=== PATIENT | male | born 1935 | race Caucasian/White ===

== ENCOUNTER → 2017-07-01 11:22 | Outpatient (CLI) | payer MEDICARE, BC, SELFPAY ==
[2017-07-01 14:22] LABS: AST(SGOT) 19 U/L (15-37); Alanine Aminotransfer ALT/SGPT 29 U/L (16-61); Albumin, Serum 4.1 g/dL (3.2-5.0); Alkaline Phosphatase 59 U/L (45-117); Anion Gap 7 (5-15); BUN 20 mg/dL (7-18); Chloride 102 mmol/L (98-107); Cholesterol 152 mg/dL (200); Creatinine, Serum 0.91 mg/dL (0.70-1.30); EST Glomerular Filtration Rate 85 mL/min (>60); Est Glom Filt Rate - Afr Amer 103 mL/min (>60); Globulin 3.1 g/dL (2.2-4.2); Glucose 99 mg/dL (74-106); High Density Lipoprotein 72 mg/dL; Potassium 3.7 mmol/L (3.5-5.1); Protein, Total 7.2 g/dL (6.4-8.2); Sodium Level 139 mmol/L (136-145); Triglycerides 65 mg/dL; Very Low Density Lipoprotein 13 mg/dL (5-40)
== END ==
PROVIDERS: Internal Medicine Cardiovascular Disease; Family Provider Family Medicine; PCP Family Medicine; Visit Provider Family Medicine
DX: E78.5 Hyperlipidemia, unspecified (principal); I10 Essential (primary) hypertension; Z79.899 Other long term (current) drug therapy
CPT/HCPCS: 36415; 80048; 80061; 80076

== ENCOUNTER → 2017-07-10 10:35 | Outpatient (CLI) | payer MEDICARE, BC, SELFPAY ==
--- NOTE | 2017-07-10 10:37 | ECHOD_ITS ---
Reason For Study: VALVE REPLACEMENT-EVAL Procedure This was a 2D Doppler, Color Flow transthoracic echocardiogram. Exam performed in department. Left Ventricle Normal size and thickness. The estimated ejection fraction is 65 %. Stage 1 diastolic dysfunction. No regional wall motion abnormalities noted. Right Ventricle Normal size and thickness. Normal systolic function. Atria The left atrium is mildly enlarged. Normal right atrium. Normal atrial septum. Bubble contrast study negative for right to left interatrial shunt. Mitral Valve The mitral valve is structurally normal. No prolapse or stenosis seen. Trivial mitral valve insufficiency. Tricuspid Valve Normal tricuspid valve. Mild (1+) tricuspid valve insufficiency. Right ventricular systolic pressure estimated to be 29 mmHg. Aortic Valve Trisinus/trileaflet aortic valve. Moderate diffuse aortic valve thickening. Mild focal aortic valve calcification. Moderate restriction of the aortic valve. Mild aortic stenosis. Peak aortic valve gradient 30 mmHg. Mean aortic valve gradient 18 mmHg. Calculated aortic valve area (continuity equation) is 1.3 cm2. Mild (1+) aortic valve insufficiency. Pulmonic Valve Normal pulmonic valve. Great Vessels Normal aortic root. Normal arch. Normal inferior vena cava. Inferior vena cava collapse with sniff. Pericardium/Pleural No pericardial effusion. Medication 22 gauge I.V. with prn adaptor inserted into right arm. Performed a rapid injection of agitated mix of 9 cc saline and 1cc air to assess for atrial septal defect. MMode/2D Measurements & Calculations LVIDd: 4.9 cm IVSd: 1.3 cm LVOT diam: 2.3 cm LVIDs: 3.4 cm LVPWd: 1.0 cm LVOT area: 4.2 cm2 RVDd: 2.9 cm FS: 31.2 % Ao root diam: 3.0 cm LAV(MOD-bp): 74.7 ml EDV(MOD-sp4): 133.2 ml LAV(MOD-bp) Indexed: 37.4 ml/m2 ESV(MOD-sp4): 51.0 ml LAV(MOD-sp2): 75.8 ml EF(MOD-sp4): 61.7 % LAV(MOD-sp4): 66.9 ml SV(MOD-sp4): 82.2 ml LA A4 area: 21.8 cm2 RA A4 area: 20.4 cm2 Time Measurements MV dec time: 0.17 sec Doppler Measurements & Calculations MV E max bakari: 90.9 cm/sec Lat Peak E' Bakari: 9.1 cm/sec Med Peak E' Bakari: 6.3 cm/sec MV A max bakari: 95.7 cm/sec E/E' lat: 10.0 E/E' med: 14.3 MV E/A: 0.95 Ao V2 max: 272.0 cm/sec AI max bakari: 489.7 cm/sec LV V1 max: 84.8 cm/sec Ao max P.6 mmHg AI max P.9 mmHg LV V1 max P.9 mmHg Ao V2 mean: 203.9 cm/sec AI dec slope: 278.7 cm/sec2 LV V1 mean P.6 mmHg Ao mean P.2 mmHg AI P1/2t: 514.7 msec LV V1 mean: 60.0 cm/sec Ao V2 VTI: 69.5 cm LV V1 VTI: 21.6 cm KEATON(I,D): 1.3 cm2 KEATON(V,D): 1.3 cm2 SV(LVOT): 91.1 ml PA V2 max: 102.7 cm/sec TR max bakari: 246.3 cm/sec TR max P.3 mmHg Interpretation Summary The estimated ejection fraction is 65 %. Stage 1 diastolic dysfunction. The left atrium is mildly enlarged. Trivial mitral valve insufficiency. Mild (1+) tricuspid valve insufficiency. Right ventricular systolic pressure estimated to be 29 mmHg. Mild to moderate aortic stenosis. Peak aortic valve gradient 30 mmHg. Mean aortic valve gradient 18 mmHg. Calculated aortic valve area (continuity equation) is 1.3 cm2. Mild (1+) aortic valve insufficiency. Bubble contrast study negative for right to left interatrial shunt. Compared to echo report dated 08/22/2015, LV function has remained the same, but aortic valve area is slightly worse. Ordering Physician: Jose Francisco Patel Referring Physician: PAULA LAZARO Performed By: Joleen Toro RDCS
== END ==
PROVIDERS: Family Provider Family Medicine; PCP Family Medicine; Visit Provider Internal Medicine Cardiovascular Disease
DX: I35.0 Nonrheumatic aortic (valve) stenosis (principal)
CPT/HCPCS: 93306; A4216

== ENCOUNTER → 2017-07-13 18:08 | Outpatient (CLI) | payer MEDICARE, BC, SELFPAY | PROVIDERS: Family Provider Family Medicine; PCP Family Medicine; Visit Provider Family Medicine | DX: R30.0 Dysuria (principal) | CPT/HCPCS: 87086; 87088 ==

== ENCOUNTER → 2017-08-13 14:00 | Outpatient (CLI) | payer MEDICARE, BC, SELFPAY ==
--- NOTE | 2017-08-13 14:00 | DT_ITS ---
This patient was seen during an EMR downtime August 10, 2017 - August 17, 2017. This patient may have a combination of paper and electronic documentation or all paper documentation. All documentation is viewable within the e-chart portion of [facility] for each patient visit.
--- NOTE | 2017-08-22 09:40 | LEAS ---
Arterial Study - Arterial Study Arterial Study: This is an 82-year-old male with a history of hypertension and hyperlipidemia. The patient presents with lower extremity pain and symptoms suggestive of arterial insufficiency. Suspecting the presence of atherosclerotic peripheral arterial occlusive disease, the patient was brought to the noninvasive vascular laboratory at this time for the purpose of bilateral noninvasive lower extremity arterial assessment. Doppler signal assessment was used to evaluate the pulses at ankle level bilaterally. The posterior tibial and dorsalis pedis pulses were biphasic bilaterally. Segmental limb pressures were obtained bilaterally. Ankle pressures, as determined by posterior tibial pulse, could not be determined on either side due to the noncompressibility of the vasculature. The right ankle pressure, as determined by dorsalis pedis pulse, was measured at 211 mmHg. The right digital pressure was measured at 120 mmHg. The left ankle pressure, as determined by dorsalis pedis pulse, was measured at 215 mmHg. The left digital pressure was measured at 68 mmHg. Pulse-volume recordings were obtained at ankle and digital levels bilaterally. Waveform amplitudes appeared to be satisfactory bilaterally. Resting ankle-brachial indices were calculated bilaterally. The resting right ankle-brachial index was calculated to be 1.14. The resting left ankle-brachial index was calculated to be 1.16. Digital-brachial indices were calculated bilaterally. The right digital-brachial index was calculated to be 0.65. The left digital-brachial index was calculated to be 0.37. Impression: Based upon the findings of this resting noninvasive lower extremity arterial study, arterial perfusion appears to be relatively normal to ankle level bilaterally. Biphasic waveforms were noted at ankle level bilaterally. Resting ankle-brachial indices are bilaterally normal. However, there is evidence of arterial calcification, rendering the arterial tree noncompressible based upon posterior tibial pulses. The presence of arterial calcification can artifactually elevate ankle pressures, rendering ankle-brachial indices non-reliable in determining the presence of arterial occlusive disease. Therefore, clinical correlation is advised. The right digital-brachial index is mildly diminished, suggesting mild impairment of arterial flow at digital level on the right. The left digital-brachial index is moderately to severely diminished, suggesting moderate to severe impairment of arterial flow at digital level in the left lower extremity.
--- NOTE | 2017-08-22 09:48 | LEAS_ITS ---
Arterial Study - Arterial Study Arterial Study: This is an 82-year-old male with a history of hypertension and hyperlipidemia. The patient presents with lower extremity pain and symptoms suggestive of arterial insufficiency. Suspecting the presence of atherosclerotic peripheral arterial occlusive disease, the patient was brought to the noninvasive vascular laboratory at this time for the purpose of bilateral noninvasive lower extremity arterial assessment. Doppler signal assessment was used to evaluate the pulses at ankle level bilaterally. The posterior tibial and dorsalis pedis pulses were biphasic bilaterally. Segmental limb pressures were obtained bilaterally. Ankle pressures, as determined by posterior tibial pulse, could not be determined on either side due to the noncompressibility of the vasculature. The right ankle pressure, as determined by dorsalis pedis pulse, was measured at 211 mmHg. The right digital pressure was measured at 120 mmHg. The left ankle pressure, as determined by dorsalis pedis pulse, was measured at 215 mmHg. The left digital pressure was measured at 68 mmHg. Pulse-volume recordings were obtained at ankle and digital levels bilaterally. Waveform amplitudes appeared to be satisfactory bilaterally. Resting ankle-brachial indices were calculated bilaterally. The resting right ankle-brachial index was calculated to be 1.14. The resting left ankle- brachial index was calculated to be 1.16. Digital-brachial indices were calculated bilaterally. The right digital- brachial index was calculated to be 0.65. The left digital-brachial index was calculated to be 0.37. Impression: Based upon the findings of this resting noninvasive lower extremity arterial study, arterial perfusion appears to be relatively normal to ankle level bilaterally. Biphasic waveforms were noted at ankle level bilaterally. Resting ankle-brachial indices are bilaterally normal. However, there is evidence of arterial calcification, rendering the arterial tree noncompressible based upon posterior tibial pulses. The presence of arterial calcification can artifactually elevate ankle pressures, rendering ankle-brachial indices non- reliable in determining the presence of arterial occlusive disease. Therefore, clinical correlation is advised. The right digital-brachial index is mildly diminished, suggesting mild impairment of arterial flow at digital level on the right. The left digital-brachial index is moderately to severely diminished, suggesting moderate to severe impairment of arterial flow at digital level in the left lower extremity.
== END ==
PROVIDERS: Family Provider Family Medicine; PCP Family Medicine; Visit Provider Family Medicine
DX: R09.89 Other specified symptoms and signs involving the circulatory and respiratory systems (principal); M79.606 Pain in leg, unspecified
CPT/HCPCS: 93922

== ENCOUNTER → 2019-01-07 | Outpatient (CLI) | payer MEDICARE, BC, SELFPAY ==
[2018-12-20 14:10] VITALS: BMI 31.0
--- NOTE | 2019-01-07 14:53 | ECHOD_ITS ---
Reason For Study: Aortic Stenosis Procedure This was a 2D Doppler, Color Flow transthoracic echocardiogram. Exam performed in department. Left Ventricle Moderate concentric left ventricular hypertrophy. The estimated ejection fraction is 65 %. Stage 1 diastolic dysfunction. No regional wall motion abnormalities noted. Right Ventricle Normal size and thickness. Normal systolic function. Atria The left atrium is moderately enlarged. Normal right atrium. Normal atrial septum. Mitral Valve The mitral valve is structurally normal. No prolapse or stenosis seen. Tricuspid Valve Normal tricuspid valve. Trivial tricuspid valve insufficiency. Unable to estimate RV systolic pressure due to insufficient tricuspid regurgitant envelope. Aortic Valve Trisinus/trileaflet aortic valve. Moderate diffuse aortic valve thickening. Mild restriction of the aortic valve. Mild to moderate aortic stenosis. Peak aortic valve gradient 33 mmHg. Mean aortic valve gradient 15 mmHg. Calculated aortic valve area (continuity equation) is 1.1 cm2. Trivial aortic valve insufficiency. Pulmonic Valve Normal pulmonic valve. Trivial pulmonic valve insufficiency. Great Vessels Calcified aortic root. Normal arch. Normal inferior vena cava. Inferior vena cava collapse with sniff. Pericardium/Pleural No pericardial effusion. MMode/2D Measurements & Calculations LVIDd: 4.5 cm IVSd: 1.6 cm LVOT diam: 2.2 cm LVIDs: 2.5 cm LVPWd: 1.3 cm LVOT area: 3.7 cm2 FS: 43.2 % Ao root diam: 3.9 cm LAV(MOD-bp): 75.5 ml LA A4 area: 24.0 cm2 LA dimension: 4.3 cm LAV(MOD-bp) Indexed: 36.2 ml/m2 LAV(MOD-sp2): 74.0 ml LAV(MOD-sp4): 75.4 ml RA A4 area: 18.2 cm2 Time Measurements MV dec time: 0.39 sec Doppler Measurements & Calculations MV E max bakari: 57.3 cm/sec Lat Peak E' Bakari: 9.0 cm/sec Med Peak E' Bakari: 4.7 cm/sec MV A max bakari: 91.8 cm/sec E/E' lat: 6.4 E/E' med: 12.2 MV E/A: 0.62 Ao V2 max: 287.9 cm/sec AI max bakari: 463.3 cm/sec LV V1 max: 79.9 cm/sec Ao max P.2 mmHg AI max P.0 mmHg LV V1 max P.6 mmHg Ao V2 mean: 179.6 cm/sec AI dec slope: 209.0 cm/sec2 LV V1 mean P.2 mmHg Ao mean P.4 mmHg AI P1/2t: 649.4 msec LV V1 mean: 50.9 cm/sec Ao V2 VTI: 62.4 cm LV V1 VTI: 18.2 cm KEATON(I,D): 1.1 cm2 KEATON(V,D): 1.0 cm2 SV(LVOT): 67.2 ml PA V2 max: 85.7 cm/sec PI end-d bakari: 170.5 cm/sec Interpretation Summary Moderate concentric left ventricular hypertrophy. The estimated ejection fraction is 65 %. Stage 1 diastolic dysfunction. The left atrium is moderately enlarged. Trivial tricuspid valve insufficiency. Unable to estimate RV systolic pressure due to insufficient tricuspid regurgitant envelope. Mild to moderate aortic stenosis based on KEATON calculated to be 1.1, despite mild gradients. Peak aortic valve gradient 33 mmHg. Mean aortic valve gradient 15 mmHg. Trivial aortic valve insufficiency. Compared to echo report dated 07/10/2017, LV function has remained the same, but KEATON appears to be slightly worse. Ordering Physician: Jose Francisco Patel Referring Physician: Lico Mo Performed By: Naveen Marley RCS
== END | disposition home or self-care (01) ==
LOC: CVS 14:52
PROVIDERS: Family Provider Family Medicine; PCP Family Medicine; Referring Provider Internal Medicine Cardiovascular Disease; Visit Provider Internal Medicine Cardiovascular Disease
DX: I35.0 Nonrheumatic aortic (valve) stenosis (principal); I10 Essential (primary) hypertension; Z95.2 Presence of prosthetic heart valve
CPT/HCPCS: 93306

== ENCOUNTER → 2019-01-14 | Outpatient (CLI) | payer MEDICARE, BC, SELFPAY ==
[2018-12-20 14:10] VITALS: BMI 31.0
[2019-01-14 12:36] LABS: Anion Gap 8 (5-15); BUN 21 mg/dL (7-18); BUN/Creat Ratio 21.7 RATIO (10-20); Calcium,Total 9.1 mg/dL (8.5-10.1); Chloride 104 mmol/L (98-107); Cholesterol 160 mg/dL (200); Creatinine, Serum 0.97 mg/dL (0.70-1.30); EST Glomerular Filtration Rate 79 mL/min (>60); Est Glom Filt Rate - Afr Amer 96 mL/min (>60); Glucose 87 mg/dL (74-106); High Density Lipoprotein 65 mg/dL; PSA,Total - Annual Screen 1.06 ng/mL (0.00-4.00); Potassium 3.8 mmol/L (3.5-5.1); Sodium Level 142 mmol/L (136-145); Triglycerides 93 mg/dL; Very Low Density Lipoprotein 19 mg/dL (5-40)
== END | disposition home or self-care (01) ==
LOC: MTLAB 10:39
PROVIDERS: Family Provider Family Medicine; PCP Family Medicine; Referring Provider Family Medicine; Visit Provider Family Medicine
DX: N40.0 Benign prostatic hyperplasia without lower urinary tract symptoms (principal); I10 Essential (primary) hypertension; Z12.5 Encounter for screening for malignant neoplasm of prostate
CPT/HCPCS: 36415; 80048; 80061; 84153; G0103

== ENCOUNTER → 2019-07-14 | Outpatient (CLI) | payer MEDICARE, BC, SELFPAY ==
[2018-12-20 14:10] VITALS: BMI 31.0
[2019-07-14 15:44] LABS: Anion Gap 6 (5-15); BUN 20 mg/dL (7-18); BUN/Creat Ratio 19.4 RATIO (10-20); Chloride 102 mmol/L (98-107); Creatinine, Serum 1.03 mg/dL (0.70-1.30); EST Glomerular Filtration Rate 73 mL/min (>60); Est Glom Filt Rate - Afr Amer 89 mL/min (>60); Glucose 104 mg/dL (74-106); Potassium 3.7 mmol/L (3.5-5.1); Sodium Level 139 mmol/L (136-145)
== END | disposition home or self-care (01) ==
LOC: MTLAB 14:11
PROVIDERS: PCP Family Medicine; Referring Provider Family Medicine; Visit Provider Family Medicine
DX: I10 Essential (primary) hypertension (principal)
CPT/HCPCS: 36415; 80048

== ENCOUNTER 2020-01-21 10:05 | Observation (INO) | payer MEDICARE, BC, SELFPAY ==
[2019-12-07 13:35] VITALS: BMI 31.9
[2020-01-21] VITALS (9 sets, daily range): BP systolic 159–196; BP diastolic 63–107; PULSE 54–70; RESP 9–18; TEMP 36.2–36.7; O2SAT 93–95; BMI 31.1; BMI 30.5
--- NOTE | 2020-01-21 10:16 | CT_ITS ---
STUDY: CT BRAIN WITHOUT CONTRAST REASON FOR EXAM: Male, 84 years old. Gait imbalance, dizziness since last night, fell 4 days ago hitting right parietal area, right eye hematoma. Hx hypertension, colon cancer. RADIATION DOSAGE (If Supplied By Facility): CTDIvol = ( 44.99 ) mGy, DLP = ( 798.92 ) mGycm TECHNIQUE: Transaxial CT imaging of the brain was performed without administration of intravenous contrast material. Individualized dose optimization techniques were used for this CT. COMPARISON: None. FINDINGS: There is cerebral atrophy with widening of the extra-axial spaces and ventricular dilatation. There are areas of decreased attenuation within the white matter tracts of the supratentorial brain, consistent with microvascular disease changes. There is no intracranial hemorrhage. There are no findings of an acute ischemic infarction. There is a left frontal parietal scalp soft tissue swelling and hematoma. CT/Brain/Head without Contrast IMPRESSION: No intracranial hemorrhage. Left scalp hematoma. Electronically Signed: Lenora Avery MD at 11:06 EST Tel , Service support ,
--- NOTE | 2020-01-21 10:17 | EKG12_ITS ---
Test Reason : Blood Pressure : / mmHG Vent. Rate : 063 BPM Atrial Rate : 063 BPM P-R Int : 206 ms QRS Dur : 102 ms QT Int : 430 ms P-R-T Axes : 043 014 038 degrees QTc Int : 440 ms Normal sinus rhythm Normal ECG Confirmed by TONY VAZQUEZ, PAULA ([id number]), writer editor MAYA NUNO ([id number]) on 01/24/2020 12:49:47 PM Referred By: MIKE Confirmed By:PAULA JIMENEZ MD
--- NOTE | 2020-01-21 10:31 | ED.VIS.GEN ---
History of Present Illness Informant: Patient Onset: Today Narrative: 84-year-old male with past medical history of hypertension, hyperlipidemia, aortic stenosis presents with gait imbalance. He states he got up twice overnight to use the bathroom and felt off balance when he was walking. This has been persistent since he got up this morning. Denies vertigo. Denies vision changes, speech changes, weakness, numbness, or tingling. He does feel nauseous today and was unable to take his home BP meds. Denies chest pain, shortness of breath, cough, vomiting, abdominal pain, back pain, or bladder/bowel symptoms. He otherwise feels in good health. Nuys history of stroke/TIA. He does not take aspirin or blood thinner. He did have a mechanical fall several days ago and hit his head, but denies losing consciousness. He has bruising around the left eye from this fall. <Kelin Copeland - Last Filed: 01/21/20 11:46> <Lico Cuadra - Last Filed: 01/21/20 12:57> Chief Complaint: Dizziness Past Medical History Past Medical History: - - HTN, HLD, aortic stenosis Smoking Status: Former smoker <Kelin Copeland - Last Filed: 01/21/20 11:46> <Lico Cuadra - Last Filed: 01/21/20 12:57> - Allergies and Home Meds Allergies/Adverse Reactions: Allergies No Known Allergies Allergy (Verified 01/21/20 10:05) Review of Systems General: Denies: Chills, Fever, Sweats Eyes: Denies: Visual changes - bilaterally, Diplopia ENT: Denies: Rhinorrhea, Sore throat Cardiovascular: Denies: Chest pain, Palpitations Respiratory: Denies: Dyspnea, Cough, Dyspnea on exertion Gastrointestinal: Denies: Abdominal pain, Nausea, Vomiting, Diarrhea, Melena, Hematochezia Genitourinary: Denies: Dysuria, Hematuria, Frequency Musculoskeletal: Denies: Back pain, Extremity Pain Skin: Denies: Rash, Wounds Neurological: Denies: Headache, Weakness, Parasthesia, Numbness <Kelin Copeland - Last Filed: 01/21/20 11:46> Physical Exam Vital Signs/Narrative: Vital Signs Temp Pulse Resp BP Pulse Ox 01/21/20 10:06 98.0 F 70 18 196/107 H 94 Inital Vital Signs reviewed: Yes General: Well nourished, Well developed, No Acute Distress Head: Normocephalic, Atraumatic Eyes: Perrl, EOMI ENT: Moist mucous membranes, No rhinorrhea Neck: Supple, Nontender Cardiovascular: Regular rate, Regular rhythm, Murmur, - - aortic stenosis Respiratory: No distress, CTA bilaterally, Chest nontender Abdomen: Soft, Nontender, Nondistended, Normal bowel sounds Back: Nontender, Normal Inspection Extremities: Nontender, No edema Skin: Normal color, No rash Neurological: Alert, Oriented x3, Cranial nerves II-XII grossly intact, Normal Strength, Normal Sensation, - - Symmetric smile. No upper or lower extremity drift. Normal duqizl-or-adiy and chso-sl-wvmv. Normal strength and sensation. Positive Romberg.. Negative for: Parasthesia, Weakness Psychological: Normal affect, Normal Mood <Kelin Copeland - Last Filed: 01/21/20 11:46> Vital Signs/Narrative: Vital Signs Temp Pulse Resp BP Pulse Ox 01/21/20 10:06 98.0 F 70 18 196/107 H 94 <Lico Cuadra - Last Filed: 01/21/20 12:57> Diagnostic/Tx/Re-eval Clinical Impression(s) from Imaging Studies Brain CT 01/21/20 10:16 IMPRESSION: No intracranial hemorrhage. Left scalp hematoma. Electronically Signed: Lenora Avery MD at 11:06 EST Tel , Service support , Chest X-Ray 01/21/20 10:50 IMPRESSION: No active pulmonary disease. Electronically Signed: Hollis Crocker MD at 11:12 EST Tel , Service support , Laboratory Data 01/21/20 01/21/20 10:30 10:30 WBC 4.8 RBC 4.39 L Hgb 13.8 Hct 43.2 MCV 98.4 H MCH 31.4 MCHC 31.9 L RDW Std Deviation 45.7 H RDW Coeff of Katlin 12.6 Plt Count 181 MPV 11.0 Immature Gran % (Auto) 0.200 Neut % (Auto) 59.1 Lymph % (Auto) 30.6 [place] % (Auto) 9.3 Eos % (Auto) 0.8 Baso % (Auto) 0.0 Absolute Neuts (auto) 2.9 Absolute Lymphs (auto) 1.48 Nucleated RBC % 0 Sodium 140 Potassium 4.0 Chloride 103 Carbon Dioxide 30.0 Anion Gap 7 BUN 21 H Creatinine 0.84 Estim Creat Clear Calc 67.80 Est GFR (MDRD) Af Amer 112 Est GFR (MDRD) Non-Af 92 BUN/Creatinine Ratio 24.9 H Glucose 99 Calcium 8.7 - Rhythm Strip Rhythm Strip: Sinus Rhythm Rate: 63 - Medical Decision Making Patient presented with gait imbalance that started overnight. He appears well nontoxic. Vital signs show BP of 196/107, otherwise normal. He did not take his home BP meds and is on several different antihypertensives. He was given clonidine and hydralazine. He has a normal neurological exam with the exception of a positive Romberg. NIH is 0. Labs are unremarkable. EKG NSR with no ischemia. CXR negative. CT brain shows no acute hemorrhage or infarction. He was given aspirin 325 mg. Patient is very unsteady with ambulation. He will need admitted for stroke work up. Case discussed with hospitalist and he was agreeable and transferred to the floor in stable condition. Impression 1. Gait instability 2. CVA rule out <Kelin Copeland - Last Filed: 01/21/20 11:46> - Medical Decision Making Patient presents with disequilibrium. He has normal cerebellar function when he lays in bed but when I stand him up he has a positive Romberg and is quite unsteady. Because of this I am worried about posterior stroke. I will admit him for stroke work-up. <Lico Cuadra - Last Filed: 01/21/20 12:57> ED Disposition <Kelin Copeland - Last Filed: 01/21/20 11:46> <Lico Cuadra - Last Filed: 01/21/20 12:57> - Plan for ED Patient: Disposition: Acute Care Hospital [facility] Diagnosis: Gait instability
[2020-01-21] MEDS: cloNIDine HCl 0.1 MG Tablet PO (10:44)
[2020-01-21] MEDS: hydrALAZINE 20 MG/ML Vial 5 MG IV (10:45)
[2020-01-21 10:46] LABS: Absolute Lymphocyte Count 1.48 X10^3/uL (0.83-4.51); Absolute Neutrophil Count 2.9 X10^3/uL (2.0-7.7); Eosinophil# 0.04 X10^3/uL; Eosinophils% 0.8 % (0-5); Hematocrit 43.2 % (40-54); Hemoglobin 13.8 g/dL (13.0-16.5); Lymphocyte # 1.48 X10^3/ul (4.0); Lymphocyte % 30.6 % (19-41); Mean Corp Hgb Conc 31.9 g/dL (32-36); Mean Corpuscular Hgb 31.4 pg (27.0-32.0); Mean Corpuscular Volume 98.4 fL (80-94); Monocyte# 0.45 X10^3/uL; Monocyte% 9.3 % (0-10); NRBC Flagged by Analyzer 0 % (0-5); Neutrophil # 2.85 X10^3/uL (2.7-7.7); Neutrophil % 59.1 % (47-70); Platelet Count 181 K/mm3 (150-450); RBC Distribution Width CV 12.6 % (11.6-14.6); RBC Distribution Width SD 45.7 fl (35.1-43.9); Red Blood Count 4.39 M/mm3 (4.6-6.2); White Blood Count 4.8 K/mm3 (4.4-11.0)
--- NOTE | 2020-01-21 10:50 | RAD_ITS ---
STUDY: X-RAY CHEST REASON FOR EXAM: Male, 84 years old. Dizziness since last night TECHNIQUE: Single AP portable view of the chest. COMPARISON: 09/27/2012. FINDINGS: The lungs are clear and expanded. There is no demonstrated pleural abnormality. Normal size heart. Normal mediastinum and lindsay. Normal visualized pulmonary arteries. There is atherosclerotic calcification of the aortic arch. Normal visualized thoracic spine. Normal visualized ribs, clavicles, and shoulders. There is no demonstrated abnormality of the visualized soft tissue structures of the upper abdomen. RAD/Chest 1 View (Portable) IMPRESSION: No active pulmonary disease. Electronically Signed: Hollis Crocker MD at 11:12 EST Tel , Service support ,
[2020-01-21 11:01] LABS: Anion Gap 7 (5-15); BUN 21 mg/dL (7-18); BUN/Creat Ratio 24.9 RATIO (10-20); Calcium,Total 8.7 mg/dL (8.5-10.1); Chloride 103 mmol/L (98-107); Creatinine, Serum 0.84 mg/dL (0.70-1.30); EST Glomerular Filtration Rate 92 mL/min (>60); Est Glom Filt Rate - Afr Amer 112 mL/min (>60); Glucose 99 mg/dL (74-106); Sodium Level 140 mmol/L (136-145)
[2020-01-21 11:32] LABS: Color, Urine Straw (Yellow); Glucose, Dipstick Normal (Normal); Ketone-Dipstick 5 mg/dl (Negative); Leukocyte Esterase-Dipstick Negative /ul (Negative); Nitrite-Dipstick Negative (Negative); Occult Blood-Urine Negative /ul (Negative); Protein-Dipstick 15 mg/dl (Negative); Urine Bilirubin Dipstick Negative (Negative); Urine Clarity Clear (Clear); Urine Urobilinogen 4 mg/dl (Normal)
[2020-01-21 11:33] LABS: Mucous, Urine 0 SEEN /hpf (<or=2+); Red Blood Cells-Urine 0 SEEN /hpf (0-5); Squamous Epithelial Cells - UA 0 SEEN /hpf (0-5); White Blood Cells 0 SEEN /hpf (0-5)
[2020-01-21 11:48] LABS: Bacteria 1+ /hpf (None Seen)
[2020-01-21] MEDS: Aspirin 325 MG Tablet PO (11:49)
--- NOTE | 2020-01-21 13:51 | HP.PCM_ITS ---
<Trevor Webber - Last Filed: 01/21/20 13:51> Problem List (1) Dizziness Status: Acute (2) Essential hypertension Status: Chronic (3) Non-rheumatic aortic stenosis Status: Chronic (4) Hyperlipidemia Status: Chronic Qualifiers: Hyperlipidemia type: pure hypercholesterolemia Qualified Code(s): E78.00 - Pure hypercholesterolemia, unspecified History of Present Illness Date of Admission: 01/21/20 Chief Complaint: dizzziness The patient is a 84 year old M with past medical history of aortic stenosis, colorectal cancer in remission, hypertension, hyperlipidemia who presented to the emergency room with complaints of dizziness. The patient had a fall on Thursday. On Thursday he was walking up stairs at his home, his legs became weak and he collapsed falling down the stairs striking his head on the left side the frontotemporal area. Since then he has had a headache in the same area. He did not have dizziness until this morning though. Today he woke up at approximately 2 AM and was dizzy when he stood up. He laid back down and went to sleep, woke up at about 830 and had ongoing dizziness prompting him to present to the ER. He denies vision changes, double vision, blurry vision, focal weakness, difficulty swallowing, slurred speech, facial droop. 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 Osteoporosis M81.0 Allergies No Known Allergies Allergy (Verified 01/21/20 10:05) Home Medications: Ambulatory Orders Medication Instructions Recorded Calcium Mag Zinc 1,000 mg PO DAILY 06/26/16 Carvedilol [Coreg] 25 mg PO BID 06/26/16 Cholecalciferol (Vitamin D3) 1,000 unit PO DAILY 06/26/16 [Vitamin D3] Cyanocobalamin (Vitamin B-12) 1,000 mcg PO DAILY 06/26/16 [Vitamin B-12] Dextrin [Fiber] tablet PO DAILY 06/26/16 Guanfacine HCl [Tenex] 2 mg PO DAILY 06/26/16 Multivit-Min/FA/Lycopen/Lutein 1 ea PO DAILY 06/26/16 [Centrum Silver Men Tablet] [place]-3/Dha/Epa/Fish Oil [Fish Oil 1 ea PO DAILY 06/26/16 1,400 mg Softgel] Simvastatin [Zocor] 20 mg PO QHS 06/26/16 Tamsulosin HCl [Flomax] 0.4 mg PO DAILY 06/26/16 traMADol [Ultram (G)] 100 mg PO DAILY 06/26/16 biotin 300 mcg tablet 500 mcg PO QDAY tab 06/22/17 clonidine HCl 0.1 mg tablet 0.1 mg PO TID tab 06/22/17 hydralazine 25 mg tablet 25 mg PO 4X/DAY tab 06/22/17 potassium chloride 10 mEq 10 meq PO QDAY 06/22/17 capsule,extended release terazosin 1 mg capsule 1 mg PO QDAY 06/22/17 sertraline 100 mg tablet 100 mg PO QDAY 10/14/17 pyridoxine (vitamin B6) 100 mg 100 mg PO DAILY 06/04/18 tablet diphenhydramine HCl 25 mg capsule 50 mg PO QHS cap 12/20/18 losartan 50 mg tablet 50 mg PO BID 12/07/19 Furosemide [Lasix] 40 mg PO DAILY 01/21/20 Surgical History: Surgical History (Last Reviewed 12/20/18 @ 14:24 by Jany Petit) History of colectomy Z90.49 History of open reduction and internal fixation (ORIF) procedure Z98.890 left femur Surgical History: total hip arthroplasty, - - Colectomy Psychiatric History: No pertinent psych hx Lives: Spouse/ Significant Other Smoking Status: Former smoker Tobacco Use: Pipe Alcohol: Occasional - Patient drinks at least 2 drinks per day, one with dinner, and one right before going to bed. Drugs: None - *Family History Paternal Family History: Family History (Last Reviewed 12/20/18 @ 14:24 by Jany Petit) Father Cancer History Items: Cancer - Lung cancer Review of Systems Constitutional: Denies: Chills, Fever, Weight Change HEENT: Denies: Head Aches, Sinus Congestion, Sinus Drainage Cardiovascular: Denies: Chest Pain, Palpitations Respiratory: Denies: Cough, Shortness of breath at rest, Sputum production Gastrointestinal: Denies: Abdominal Pain, Nausea, Vomiting Genitourinary: Denies: Dysuria Musculoskeletal: Denies: Joint Pain, Joint Tenderness Skin: Denies: Rash, Wounds Neurological: Reports: Headaches, - - Dizziness. Denies: Blurred vision, Double vision, Slurred speech, Confusion, Focal weakness, Numbness, Tingling Psychiatric: Denies: Anxiety, Depression, Homicidal Ideations, Suicidal Ideations Hematologic/ Lymphatic: Denies: Easy Bruising, Easy Bleeding VTE Information - Inpt Only VTE Present on Admission: No VTE Mechan Device Prophylaxis: None VTE Pharm Prophylaxis ordered?: Yes Patient Problems: Active and Suspected Problems (Last Reviewed 12/20/18 @ 14:24 by Jany Petit) Gait instability (Acute) Dizziness (Acute) - Physical Exam Vitals/I&O's: Vital Signs Temp Pulse Resp BP Pulse Ox 98.0 F 61 18 166/80 H 94 01/21/20 12:38 01/21/20 12:38 01/21/20 12:38 01/21/20 12:38 01/21/20 12:38 Oxygen Delivery Method Room Air Weight: 206 lb 12.8 oz Body Mass Index (BMI) 30.5 General: Alert, Oriented x3, Cooperative HEENT: Atraumatic, PERRLA, EOMI, Normocephalic Neck: Supple, No JVD, Negative Carotid Bruits Lungs: Clear to auscultation, Normal air movement Cardiovascular: Regular rate, No murmurs Abdomen: Bowel Sounds Present, Soft, Non Tender Extremities: No edema, Capillary Refill Less than 3 Seconds Skin: No rashes, No breakdown Musculoskeletal: No Tenderness to Palpation of Joints or Extremities Neurological: Cranial nerves II-XII grossly intact Psych/Mental Status: Normal Affect, Appropriate Laboratory Results 01/21/20 10:30: WBC 4.8, RBC 4.39 L, Hgb 13.8, Hct 43.2, MCV 98.4 H, MCH 31.4, MCHC 31.9 L, RDW Std Deviation 45.7 H, RDW Coeff of [place] 12.6, Plt Count 181, MPV 11.0, Immature Gran % (Auto) 0.200, Neut % (Auto) 59.1, Lymph % (Auto) 30.6, [place] % (Auto) 9.3, Eos % (Auto) 0.8, Baso % (Auto) 0.0, Absolute Neuts (auto) 2.9, Absolute Lymphs (auto) 1.48, Nucleated RBC % 0 01/21/20 10:30: Sodium 140, Potassium 4.0, Chloride 103, Carbon Dioxide 30.0, Anion Gap 7, BUN 21 H, Creatinine 0.84, Estim Creat Clear Calc 67.80, Est GFR (MDRD) Af Amer 112, Est GFR (MDRD) Non-Af 92, BUN/Creatinine Ratio 24.9 H, Glucose 99, Calcium 8.7 01/21/20 11:20: Urine Color Straw, Urine Clarity Clear, Urine pH 7.0, Ur Specific [place] 1.010, Urine Protein 15 H, Urine Glucose (UA) Normal, Urine Ketones 5 H, Urine Occult Blood Negative, Urine Nitrite Negative, Urine Bilirubin Negative, Urine Urobilinogen 4 H, Ur Leukocyte Esterase Negative, Urine RBC 0 SEEN, Urine WBC 0 SEEN, Ur Squamous Epith Cells 0 SEEN, Urine Bacteria 1+, Urine Mucus 0 SEEN Current Medications Aspirin (Aspirin 81 Mg Tab.Chew) 81 mg PO DAILY@0800 [facility] Atorvastatin Calcium (Atorvastatin Calcium 80 Mg Tablet) 80 mg PO QHS [facility] Enoxaparin Sodium (Enoxaparin 40 Mg/0.4 Ml Syringe) 40 mg SC DAILY [facility] Hydralazine HCl (Hydralazine 20 Mg/Ml Vial) 5 mg IV Q30M PRN PRN Reason: to maintain BP goals Labetalol HCl (Labetalol (Prefilled) 20 Mg/4 Ml) 10 - 20 mg IV Q10M PRN PRN PRN Reason: to Maintain BP Goals Sodium Chloride (0.9% Saline Lock 10 Ml Syringe) 10 - 40 ml IV UD PRN PRN Reason: SALINE FLUSH Assessment/Plan All Active Problems (Last Reviewed 12/20/18 @ 14:24 by Jany Petit) Gait instability (Acute) Dizziness (Acute) 1. Dizziness. Started this morning approximately [address] of the brain is negative for acute bleed. Patient has had headache on the left side of his head since he fell down a flight of stairs on Thursday striking his head in the same area of his headache. He does have a left scalp hematoma present on CT of the brain. He may have a postconcussive syndrome. Will obtain MRI of the brain. P T OT eval's. Dizziness was also present on standing so we will check orthostatic and have PT see for vestibular therapy. Will provide meclizine as needed. Continue aspirin statin. Obtain PT OT ST eval's. Also the patient admits to drinking at least twice per day, once before dinner and wants prior to going to bed. This may be involved in him waking up dizziness, particularly if he is drinking more than he is admitting to. 2. Aortic stenosis-last echo 01/2019 with EF 65%, stage I diastolic dysfunction, normal atrial septum. 3. HTN - severely elevated initially in ER however improved at this time. WIll allow permissive htn until MRI done. 4. HLD -statin 5. Colorectal cancer in remission status post colectomy. DVT prophylaxis: Lovenox This patient was seen by Trevor Webber PA-C under the supervision of Doctor Amandeep. <Vince Bernstein - Last Filed: 01/21/20 18:01> History of Present Illness The patient is a 84 year old M [] Past Medical History Medical History: Medical History (Last Reviewed 12/20/18 @ 14:24 by Jany Petit) Essential hypertension (Chronic) I10 Non-rheumatic aortic stenosis (Chronic) I35.0 Hyperlipidemia (Chronic) E78.5 Colon cancer C18.9 Gout M10.9 Lumbar spondylosis with myelopathy M47.16 Osteoporosis M81.0 Allergies No Known Allergies Allergy (Verified 01/21/20 10:05) Surgical History: Surgical History (Last Reviewed 12/20/18 @ 14:24 by Jany Petit) History of colectomy Z90.49 History of open reduction and internal fixation (ORIF) procedure Z98.890 left femur - *Family History Paternal Family History: Family History (Last Reviewed 12/20/18 @ 14:24 by Jany Petit) Father Cancer - Physical Exam Vitals/I&O's: Vital Signs Temp Pulse Resp BP Pulse Ox 98.0 F 61 18 166/80 H 94 01/21/20 12:38 01/21/20 12:38 01/21/20 12:38 01/21/20 12:38 01/21/20 15:15 Oxygen Delivery Method Room Air Weight: 206 lb 12.8 oz Body Mass Index (BMI) 30.5 Laboratory Results 01/21/20 10:30: WBC 4.8, RBC 4.39 L, Hgb 13.8, Hct 43.2, MCV 98.4 H, MCH 31.4, MCHC 31.9 L, RDW Std Deviation 45.7 H, RDW Coeff of [place] 12.6, Plt Count 181, MPV 11.0, Immature Gran % (Auto) 0.200, Neut % (Auto) 59.1, Lymph % (Auto) 30.6, M shae % (Auto) 9.3, Eos % (Auto) 0.8, Baso % (Auto) 0.0, Absolute Neuts (auto) 2.9, Absolute Lymphs (auto) 1.48, Nucleated RBC % 0 01/21/20 10:30: Sodium 140, Potassium 4.0, Chloride 103, Carbon Dioxide 30.0, Anion Gap 7, BUN 21 H, Creatinine 0.84, Estim Creat Clear Calc 67.80, Est GFR (MDRD) Af Amer 112, Est GFR (MDRD) Non-Af 92, BUN/Creatinine Ratio 24.9 H, Glucose 99, Calcium 8.7 01/21/20 11:20: Urine Color Straw, Urine Clarity Clear, Urine pH 7.0, Ur Specific [place] 1.010, Urine Protein 15 H, Urine Glucose (UA) Normal, Urine Ketones 5 H, Urine Occult Blood Negative, Urine Nitrite Negative, Urine Bilirubin Negative, Urine Urobilinogen 4 H, Ur Leukocyte Esterase Negative, Urine RBC 0 SEEN, Urine WBC 0 SEEN, Ur Squamous Epith Cells 0 SEEN, Urine Bacteria 1+, Urine Mucus 0 SEEN Current Medications Aspirin (Aspirin 81 Mg Tab.Chew) 81 mg PO DAILY@0800 [facility] Atorvastatin Calcium (Atorvastatin Calcium 80 Mg Tablet) 80 mg PO QHS [facility] Enoxaparin Sodium (Enoxaparin 40 Mg/0.4 Ml Syringe) 40 mg SC DAILY [facility] Hydralazine HCl (Hydralazine 20 Mg/Ml Vial) 5 mg IV Q30M PRN PRN Reason: to maintain BP goals Labetalol HCl (Labetalol (Prefilled) 20 Mg/4 Ml) 10 - 20 mg IV Q10M PRN PRN PRN Reason: to Maintain BP Goals Meclizine HCl (Meclizine 12.5 Mg Tablet) 12.5 mg PO TID PRN PRN PRN Reason: DIZZINESS Sodium Chloride (0.9% Saline Lock 10 Ml Syringe) 10 - 40 ml IV UD PRN PRN Reason: SALINE FLUSH Addendum: Dr. Bernstein I personally examined the patient and reviewed the chart. I agree with the above. 84-year-old male who fell down the stairs on Thursday secondary to mechanical fall and hit the left side of his head presents to the hospital today because of dizziness that started early this morning. He said he got up and was going to go to the bathroom and fell he could barely walk. He does not have dizziness with point where he cannot walk and this afternoon when he was gotten up by the nurses he was able to walk to the door with minimal difficulty. He denies any weakness, blurry vision, slurred speech, facial droop, or decreased sensation. He says that his legs are weak and they have been weak for several years and his PCP is not sure why. It is likely that he has postconcussive syndrome however given the dizziness and the inability to ambulate, will proceed with a stroke work-up with an MRI and an MRA of his head and neck. We will proceed with aspirin and change his simvastatin to Lipitor. OBSV E&M: 70105 Initial observation care L3
[2020-01-21 22:59] LABS: Probe Check PASS; Specimen Processing Control PASS
[2020-01-21] MEDS: Atorvastatin Calcium 80 MG Tablet PO (23:05)
[2020-01-22] VITALS (13 sets, daily range): BP systolic 130–183; BP diastolic 63–80; PULSE 59–79; RESP 12–17; TEMP 36.4–36.8; O2SAT 93–98; BMI 30.5
[2020-01-22] MEDS: Acetaminophen 325 MG Tablet 650 MG PO (06:14)
[2020-01-22 07:24] LABS: Cholesterol 146 mg/dL (200); High Density Lipoprotein 63 mg/dL; Triglycerides 98 mg/dL; Very Low Density Lipoprotein 20 mg/dL (5-40)
[2020-01-22] MEDS: Enoxaparin 40 MG/0.4 ML Syringe SC (08:18)
[2020-01-22] MEDS: Aspirin 81 MG TAB.CHEW PO (08:18)
[2020-01-22] MEDS: LORazepam 2 MG/ML Syringe 1 MG IV (09:28)
[2020-01-22] MEDS: 0.9% Saline Lock 10 ML Syringe IV ×2 (09:28→12:36)
--- NOTE | 2020-01-22 09:29 | MRI_ITS ---
We are attempting to reach an attending provider to discuss findings. An addendum with communication details will be sent when the communication is complete. STUDY: MRI BRAIN WITHOUT CONTRAST REASON FOR EXAM: Male, 84 years old. DIZZINESS -- increasing dizziness, several falls, last fall 01/17/20,lump left side of head, left black eye TECHNIQUE: Standardized multiplanar fat and water weighted pulse sequences were obtained. COMPARISON: 01/21/2020 FINDINGS: Examination is degraded by motion artifact. There is a small left scalp hematoma. There is a right holohemispheric extra-axial fluid collection measuring up to 6 mm without demonstrated complexity, consistent with hygroma. Finding is stable in comparison with the prior CT performed the day before. There is approximately 6 mm area of hyperintensity involving the inferior right temporal lobe with minimal surrounding FLAIR hyperintensity (sagittal T1 image #3 series 3). There is mild cerebral atrophy with widening of the extra-axial spaces and ventricular dilatation. There are a limited number of small white matter hyperintensities, distributed throughout the deep white matter tracts of the cerebral hemispheres, consistent with mild chronic white matter ischemic changes. Normal bilateral basal ganglia. Normal thalami. Normal flow voids within the major intracranial circulation suggesting patency by spin echo criteria. Normal sella turcica, pituitary gland, infundibular stalk, optic chiasm and hypothalamus. Normal tectal plate and pineal gland. MRI/Brain without Contrast IMPRESSION: Minimal right temporal contusion. Small right subdural hygroma. Electronically Signed: Lenora Avery MD at 11:19 EST Tel , Service support ,
--- NOTE | 2020-01-22 11:44 | DCINST_ITS ---
- Discharge Diagnoses Current Active Problems: Current Active and Chronic Problems (Last Reviewed 12/20/18 @ 14:24 by Jany Petit) Gait instability (Acute) Dizziness (Acute) Essential hypertension (Chronic) Non-rheumatic aortic stenosis (Chronic) Hyperlipidemia (Chronic) You will use the following diet at home:: Cardiac Your food should be the consistency of: Regular Your liquids should be the consistency of: Regular/Thin Discharge Activity: Return to Normal Activity, - - no driving if you are experiencing any dizziness Additional Instructions: Continue daily PRITI hoses while awake. Allergies/Adverse Reactions: Allergies No Known Allergies Allergy (Verified 01/21/20 10:05) Medications to take at Discharge Calcium Mag Zinc 1,000 mg PO DAILY 06/26/16 Carvedilol [Coreg] 25 mg PO BID 06/26/16 Cholecalciferol (Vitamin D3) [Vitamin D3] 1,000 unit PO DAILY 06/26/16 Cyanocobalamin (Vitamin B-12) [Vitamin B-12] 1,000 mcg PO DAILY 06/26/16 Dextrin [Fiber] tablet PO DAILY 06/26/16 Guanfacine HCl [Tenex] 2 mg PO DAILY 06/26/16 Multivit-Min/FA/Lycopen/Lutein [Centrum Silver Men Tablet] 1 ea PO DAILY 06/26/16 [place]-3/Dha/Epa/Fish Oil [Fish Oil 1,400 mg Softgel] 1 ea PO DAILY 06/26/16 Simvastatin [Zocor] 20 mg PO QHS 06/26/16 Tamsulosin HCl [Flomax] 0.4 mg PO DAILY 06/26/16 biotin 300 mcg tablet 500 mcg PO QDAY tab 06/22/17 clonidine HCl 0.1 mg tablet 0.1 mg PO TID tab 06/22/17 hydralazine 25 mg tablet 25 mg PO 4X/DAY tab 06/22/17 potassium chloride 10 mEq capsule,extended release 10 meq PO QDAY 06/22/17 terazosin 1 mg capsule 1 mg PO QDAY 06/22/17 sertraline 100 mg tablet 100 mg PO QDAY 10/14/17 pyridoxine (vitamin B6) 100 mg tablet 100 mg PO DAILY 06/04/18 diphenhydramine HCl 25 mg capsule 50 mg PO QHS cap 12/20/18 losartan 50 mg tablet 50 mg PO BID 12/07/19 Acetaminophen [Tylenol Tablet] 650 mg PO Q6H PRN PRN tab 01/22/20 Furosemide [Lasix] 20 mg PO DAILY #0 01/22/20 Primary Care Physician: Lico Mo MD [Primary Care Provider] - Please follow up with your Primary Care Physician in: 1 week Test Results: Test results from this visit will be discussed in further detail at your follow- up appointment, if applicable. Proposed Discharge Date: 01/22/20
--- NOTE | 2020-01-22 12:26 | PCM.DC.SUM ---
<Trevor Webber - Last Filed: 01/22/20 12:26> Discharge Date and Diagnosis - Problem List Patient Problems: Active and Suspected Problems (Last Reviewed 12/20/18 @ 14:24 by Jany Petit) Gait instability (Acute) Dizziness (Acute) Date of Admission: 01/21/20 Date of Discharge: 01/22/20 - Primary Discharge Diagnosis Acute Problems: Active Problems (Last Reviewed 12/20/18 @ 14:24 by Jany Petit) Orthostatic hypotension 2/2 dehydration and polypharmacy - Secondary Discharge Diagnosis Chronic Problems: Chronic Problems (Last Reviewed 12/20/18 @ 14:24 by Jany Petit) Essential hypertension (Chronic) Non-rheumatic aortic stenosis (Chronic) Hyperlipidemia (Chronic) Hospital Course and Treatment Imaging Results: ADDENDUM by Dr. Lenora Avery MD on 01/22/20 at 1119 MRI/Brain without Contrast IMPRESSION: Minimal right temporal contusion. Small right subdural hygroma. CT/Brain/Head without Contrast IMPRESSION: No intracranial hemorrhage. Left scalp hematoma. RAD/Chest 1 View (Portable) IMPRESSION: No active pulmonary disease. Operations: None Procedures: None Summary of Care Provided: Hospital Course: The patient is a 84 year old M with pmhx as above who presented to the ER with c/o dizziness on standing. The patient was fine when he went to bed. He had a drink prior to bed but states he only drinks 2 drinks per day. He woke up at about 0400 and stood up to go to the bathroom - was dizzy on standing. When he woke up later in the morning he experienced the same and came to the ER. He had a negative CT brain. He did fall down the stairs earlier in the week striking his head. He has had a headache near the headstroke area since. He had a hematoma on imaging. No active bleeding. He was admitted with concern for stroke. He had a negative MRI the following day. He had elevated BUN and orthostatic hypotension. He was given IV fluids and PRITI hoses. His home lasix was decreased. He was taken off of terazosin and ultram. He is on multiple medications that may cause othostatic hypotension. He was discharged home in stable condition. He will need close follow up with his PCP in 1 week. This patient was seen by Trevor Webber PA-C under the supervision of Dr. Bernstein. [] Patient Problems: Active and Suspected Problems (Last Reviewed 12/20/18 @ 14:24 by Jany Petit) Gait instability (Acute) Dizziness (Acute) - Physical Exam Vitals/I&O's: Vital Signs Temp Pulse Resp BP Pulse Ox 97.7 F L 60 17 175/79 H 96 01/22/20 11:50 01/22/20 11:50 01/22/20 11:50 01/22/20 11:50 01/22/20 11:50 Oxygen Delivery Method Room Air Weight: 206 lb 12.8 oz Body Mass Index (BMI) 30.5 Orthostatic Vital Signs Start: 01/22/20 06:19 Freq: q24h Status: Active Protocol: Activity Type Activity Date Activity User E-Sign Co-Sign Detail Recorded Client Recorded Date Recorded By Document 01/22/20 06:19 [facility] [id number] 01/22/20 06:23 EEA 01/22/20 06:19 Orthostatic Vitals Standing -Blood Pressure (90/60-120/80) 153/73 H -Extremity Use Right Arm Sitting -Blood Pressure (90/60-120/80) 182/63 H -Extremity Use Right Arm Lying -Blood Pressure (90/60-120/80) 178/67 H -Extremity Use Right Arm Intake and Output for Last 24 Hours 01/20/20 01/21/20 01/22/20 23:59 23:59 23:59 Intake Total 510 / 510 300 / 300 Output Total 400 / 400 175 / 175 Balance 110 / 110 125 / 125 General: Alert, Oriented x3, Cooperative HEENT: Atraumatic, PERRLA, EOMI, Normocephalic Neck: Supple, No JVD, Negative Carotid Bruits Lungs: Clear to auscultation, Normal air movement Cardiovascular: Regular rate, No murmurs Abdomen: Bowel Sounds Present, Soft, Non Tender Extremities: No edema, Capillary Refill Less than 3 Seconds Skin: No rashes, No breakdown Musculoskeletal: No Tenderness to Palpation of Joints or Extremities Neurological: Cranial nerves II-XII grossly intact Psych/Mental Status: Normal Affect, Appropriate, Alert and oriented to time, place, person, mood and affect Laboratory Results 01/21/20 20:45: COVID-19 ([facility]) Negative 01/22/20 06:00: Triglycerides 98, Cholesterol 146, LDL Cholesterol 63, VLDL Cholesterol 20, HDL Cholesterol 63 Current Medications Acetaminophen (Acetaminophen 325 Mg Tablet) 650 mg PO Q6H PRN PRN PRN Reason: Pain 1-10/Fever >=100.7F Last Admin: 01/22/20 06:14 Dose: 650 mg Documented by: Aspirin (Aspirin 81 Mg Tab.Chew) 81 mg PO DAILY@0800 [facility] Last Admin: 01/22/20 08:18 Dose: 81 mg Documented by: Atorvastatin Calcium (Atorvastatin Calcium 80 Mg Tablet) 80 mg PO QHS [facility] Last Admin: 01/21/20 23:05 Dose: 80 mg Documented by: Carvedilol (Carvedilol 25 Mg Tablet) 25 mg PO BID [facility] Clonidine (Clonidine Hcl 0.1 Mg Tablet) 0.1 mg PO TID [facility] Enoxaparin Sodium (Enoxaparin 40 Mg/0.4 Ml Syringe) 40 mg SC DAILY [facility] Last Admin: 01/22/20 08:18 Dose: 40 mg Documented by: Hydralazine HCl (Hydralazine 20 Mg/Ml Vial) 5 mg IV Q30M PRN PRN Reason: to maintain BP goals Hydralazine HCl (Hydralazine 25 Mg Tablet) 25 mg PO 4X/DAY [facility] Labetalol HCl (Labetalol (Prefilled) 20 Mg/4 Ml) 10 - 20 mg IV Q10M PRN PRN PRN Reason: to Maintain BP Goals Losartan Potassium (Losartan Potassium 100 Mg Tablet) 100 mg PO DAILY [facility] Losartan Potassium (Losartan Potassium 50 Mg Tablet) 50 mg PO QHS [facility] Meclizine HCl (Meclizine 12.5 Mg Tablet) 12.5 mg PO TID PRN PRN PRN Reason: DIZZINESS Sodium Chloride (0.9% Saline Lock 10 Ml Syringe) 10 - 40 ml IV UD PRN PRN Reason: SALINE FLUSH Last Admin: 01/22/20 09:28 Dose: 10 ml Documented by: Discharge Diet: Low fat/ Low Cholesterol, 2000 mg Sodium Diet Discharge Activity: Return to Normal Activity, - - no driving if you are experiencing any dizziness Home Medications: Medications to take at Discharge Calcium Mag Zinc 1,000 mg PO DAILY 06/26/16 Carvedilol [Coreg] 25 mg PO BID 06/26/16 Cholecalciferol (Vitamin D3) [Vitamin D3] 1,000 unit PO DAILY 06/26/16 Cyanocobalamin (Vitamin B-12) [Vitamin B-12] 1,000 mcg PO DAILY 06/26/16 Dextrin [Fiber] tablet PO DAILY 06/26/16 Guanfacine HCl [Tenex] 2 mg PO DAILY 06/26/16 Multivit-Min/FA/Lycopen/Lutein [Centrum Silver Men Tablet] 1 ea PO DAILY 06/26/16 [place]-3/Dha/Epa/Fish Oil [Fish Oil 1,400 mg Softgel] 1 ea PO DAILY 06/26/16 Simvastatin [Zocor] 20 mg PO QHS 06/26/16 Tamsulosin HCl [Flomax] 0.4 mg PO DAILY 06/26/16 biotin 300 mcg tablet 500 mcg PO QDAY tab 06/22/17 clonidine HCl 0.1 mg tablet 0.1 mg PO TID tab 06/22/17 hydralazine 25 mg tablet 25 mg PO 4X/DAY tab 06/22/17 potassium chloride 10 mEq capsule,extended release 10 meq PO QDAY 06/22/17 sertraline 100 mg tablet 100 mg PO QDAY 10/14/17 pyridoxine (vitamin B6) 100 mg tablet 100 mg PO DAILY 06/04/18 diphenhydramine HCl 25 mg capsule 50 mg PO QHS cap 12/20/18 losartan 50 mg tablet 50 mg PO BID 12/07/19 Acetaminophen [Tylenol Tablet] 650 mg PO Q6H PRN PRN tab 01/22/20 Furosemide [Lasix] 20 mg PO DAILY #0 01/22/20 Primary Care Physician: Lico Mo MD [Primary Care Provider] - Please follow up with your Primary Care Physician in: 1 week Disposition: Home Minutes spent on discharge:: 35 Patient Condition:: Stable Medical Necessity - Tobacco Use Smoking Status: Former smoker Tobacco Use: Pipe Meaningful Use Info Meaningful Use Diagnoses (Choose all that apply): None applicable <Vince Bernstein - Last Filed: 01/22/20 15:03> Discharge Date and Diagnosis - Primary Discharge Diagnosis Acute Problems: Active Problems (Last Reviewed 12/20/18 @ 14:24 by Jany Petit) Gait instability (Acute) Dizziness (Acute) - Secondary Discharge Diagnosis Chronic Problems: Chronic Problems (Last Reviewed 12/20/18 @ 14:24 by Jany Petit) Essential hypertension (Chronic) Non-rheumatic aortic stenosis (Chronic) Hyperlipidemia (Chronic) Hospital Course and Treatment Imaging Results: 01/22/20 09:29 Brain without Contrast [MRI] Routine Summary of Care Provided: The patient is a 84 year old M [] - Physical Exam Vitals/I&O's: Vital Signs Temp Pulse Resp BP Pulse Ox 97.7 F L 72 17 154/80 H 96 01/22/20 11:50 01/22/20 14:27 01/22/20 11:50 01/22/20 14:27 01/22/20 11:50 Oxygen Delivery Method Room Air Weight: 206 lb 12.8 oz Body Mass Index (BMI) 30.5 Orthostatic Vital Signs Start: 01/22/20 06:19 Freq: q24h Status: Active Protocol: Activity Type Activity Date Activity User E-Sign Co-Sign Detail Recorded Client Recorded Date Recorded By Document 01/22/20 14:27 [facility] [place] [id number] 01/22/20 14:32 [facility] [place] 01/22/20 14:27 Orthostatic Vitals Standing -Blood Pressure (90/60-120/80) 130/72 H -Extremity Use Right Arm -Pulse Rate (60-100) 79 Sitting -Blood Pressure (90/60-120/80) 151/63 H -Extremity Use Right Arm -Pulse Rate (60-100) 77 Lying -Blood Pressure (90/60-120/80) 154/80 H -Extremity Use Right Arm -Pulse Rate (60-100) 72 Intake and Output for Last 24 Hours 01/20/20 01/21/20 01/22/20 23:59 23:59 23:59 Intake Total 510 / 510 300 / 300 Output Total 400 / 400 175 / 175 Balance 110 / 110 125 / 125 Laboratory Results 01/21/20 20:45: COVID-19 ([facility]) Negative 01/22/20 06:00: Triglycerides 98, Cholesterol 146, LDL Cholesterol 63, VLDL Cholesterol 20, HDL Cholesterol 63 Current Medications Acetaminophen (Acetaminophen 325 Mg Tablet) 650 mg PO Q6H PRN PRN PRN Reason: Pain 1-10/Fever >=100.7F Last Admin: 01/22/20 06:14 Dose: 650 mg Documented by: Aspirin (Aspirin 81 Mg Tab.Chew) 81 mg PO DAILY@0800 [facility] Last Admin: 01/22/20 08:18 Dose: 81 mg Documented by: Atorvastatin Calcium (Atorvastatin Calcium 80 Mg Tablet) 80 mg PO QHS [facility] Last Admin: 01/21/20 23:05 Dose: 80 mg Documented by: Carvedilol (Carvedilol 25 Mg Tablet) 25 mg PO BID [facility] Last Admin: 01/22/20 12:28 Dose: 25 mg Documented by: Clonidine (Clonidine Hcl 0.1 Mg Tablet) 0.1 mg PO TID [facility] Last Admin: 01/22/20 12:28 Dose: 0.1 mg Documented by: Enoxaparin Sodium (Enoxaparin 40 Mg/0.4 Ml Syringe) 40 mg SC DAILY [facility] Last Admin: 01/22/20 08:18 Dose: 40 mg Documented by: Hydralazine HCl (Hydralazine 20 Mg/Ml Vial) 5 mg IV Q30M PRN PRN Reason: to maintain BP goals Hydralazine HCl (Hydralazine 25 Mg Tablet) 25 mg PO 4X/DAY [facility] Last Admin: 01/22/20 12:28 Dose: 25 mg Documented by: Labetalol HCl (Labetalol (Prefilled) 20 Mg/4 Ml) 10 - 20 mg IV Q10M PRN PRN PRN Reason: to Maintain BP Goals Losartan Potassium (Losartan Potassium 100 Mg Tablet) 100 mg PO DAILY [facility] Last Admin: 01/22/20 12:28 Dose: 100 mg Documented by: Losartan Potassium (Losartan Potassium 50 Mg Tablet) 50 mg PO QHS [facility] Meclizine HCl (Meclizine 12.5 Mg Tablet) 12.5 mg PO TID PRN PRN PRN Reason: DIZZINESS Sodium Chloride (0.9% Saline Lock 10 Ml Syringe) 10 - 40 ml IV UD PRN PRN Reason: SALINE FLUSH Last Admin: 01/22/20 12:36 Dose: 10 ml Documented by: Addendum: Dr. Bernstein I personally examined the patient and reviewed the chart. I agree with the above. 84-year-old male who fell down the stairs on Thursday secondary to mechanical fall and hit the left side of his head presents to the hospital today because of dizziness that started early this morning. He said he got up and was going to go to the bathroom and fell he could barely walk. He does not have dizziness with point where he cannot walk and this afternoon when he was gotten up by the nurses he was able to walk to the door with minimal difficulty. He denies any weakness, blurry vision, slurred speech, facial droop, or decreased sensation. He says that his legs are weak and they have been weak for several years and his PCP is not sure why. It is likely that he has postconcussive syndrome however given the dizziness and the inability to ambulate, will proceed with a stroke work-up with an MRI and an MRA of his head and neck. We will proceed with aspirin and change his simvastatin to Lipitor. 01/22/2020: Doing much better today, his dizziness is minimal. He had his MRIs today which were unremarkable for stroke. Will give him some fluid and adjust his blood pressure medications, his Lasix will be cut in half and we will discontinue his Terazosin. I discussed with him that if he gets up and is dizzy he needs to hold onto the chair or the walker for a few seconds to wait for his dizziness to subside before he starts ambulating otherwise he is going to risk having a fall. I do believe that this is likely a postconcussive syndrome and he does need to follow-up with his PCP for further evaluation as an outpatient. Hopefully as his concussion improves his dizziness will resolve. I discussed with him the plan for discharge today and he expressed understanding of the risk benefits of going home and wants to go home. OBSV E&M: 11306 Observation care discharge
[2020-01-22] MEDS: hydrALAZINE 25 MG Tablet PO (12:28)
[2020-01-22] MEDS: cloNIDine HCl 0.1 MG Tablet PO (12:28)
[2020-01-22] MEDS: Losartan Potassium 100 MG Tablet PO (12:28)
[2020-01-22] MEDS: Carvedilol 25 MG Tablet PO (12:28)
== END 2020-01-22 11:44 | disposition home or self-care (01) ==
LOC: ED 11:47 → PCU 12:05
PROVIDERS: Hospitalist; Admitting Provider Family Medicine; Emergency Provider Physician Assistant; PCP Family Medicine; Visit Provider Family Medicine
DX: I95.1 Orthostatic hypotension (principal); E86.0 Dehydration; I10 Essential (primary) hypertension; E78.5 Hyperlipidemia, unspecified; Z79.899 Other long term (current) drug therapy; Z86.73 Personal history of transient ischemic attack (TIA), and cerebral infarction without residual deficits; M81.0 Age-related osteoporosis without current pathological fracture; Z85.038 Personal history of other malignant neoplasm of large intestine; M47.16 Other spondylosis with myelopathy, lumbar region; Z87.891 Personal history of nicotine dependence; Z90.49 Acquired absence of other specified parts of digestive tract; S00.03XA Contusion of scalp, initial encounter; W10.9XXA Fall (on) (from) unspecified stairs and steps, initial encounter; Y93.9 Activity, unspecified; Y92.9 Unspecified place or not applicable; Y99.9 Unspecified external cause status
CPT/HCPCS: 36415; 70450; 70551; 71045; 80048; 80061; 81001; 85025; 87635; 92610; 93005; 96361; 96372; 96374; 96375; 97110; 97116; 97162; 97166; 97530; 99218; 99285; J7040; A4216; G0378; U0002

== ENCOUNTER → 2020-05-04 13:47 | Outpatient (CLI) | payer MEDICARE, BC, SELFPAY ==
[2020-04-20 14:03] VITALS: BMI 32.4
--- NOTE | 2020-05-04 13:50 | ECHOCS_ITS ---
Reason For Study: Murmur Procedure This was a 2D Doppler, Color Flow transthoracic echocardiogram. The study was technically difficult. Contrast injection was performed. Exam performed in department. Left Ventricle Normal LV size. Mild concentric left ventricular hypertrophy. Left ventricular systolic function is normal. The estimated ejection fraction is 65 %. Diastolic function is indeterminate. No regional wall motion abnormalities noted. Right Ventricle Normal RV size. Normal systolic function. Atria The left atrium is mildly enlarged. Normal right atrium. No doppler evidence for ASD. Mitral Valve There is no mitral annular calcification. Normal mitral valve. Trivial mitral valve insufficiency. Tricuspid Valve Normal tricuspid valve. Trivial tricuspid valve insufficiency. Unable to estimate RV systolic pressure/pulmonary artery pressure due to technically difficult study. Aortic Valve Trisinus/trileaflet aortic valve. Moderate diffuse aortic valve thickening. Moderate diffuse aortic valve calcification. Moderate aortic stenosis. Trivial aortic valve insufficiency. Pulmonic Valve The pulmonic valve is not well visualized. Trivial pulmonic valve insufficiency. Great Vessels Mildly dilated aortic root. Pericardium/Pleural No pericardial effusion. Medication Diluted definity 4ml given slow IV push to enhance endocardial definition. MMode/2D Measurements & Calculations LVIDd: 5.2 cm IVSd: 1.3 cm LVOT diam: 2.0 cm LVIDs: 2.7 cm LVPWd: 1.3 cm RVDd: 3.7 cm FS: 49.1 % LVOT area: 3.2 cm2 Ao root diam: 4.0 cm LAV(MOD-bp): 62.6 ml LA A4 area: 19.5 cm2 LAV(MOD-bp) Indexed: 29.8 ml/m2 LAV(MOD-sp2): 75.4 ml LAV(MOD-sp4): 49.6 ml LA dimension(2D): 5.3 cm RA A4 area: 17.3 cm2 Time Measurements MV dec time: 0.21 sec Doppler Measurements & Calculations MV E max bakari: 61.4 cm/sec Lat Peak E' Bakari: 7.7 cm/sec Med Peak E' Bakari: 4.5 cm/sec MV A max bakari: 95.4 cm/sec E/E' lat: 7.9 E/E' med: 13.6 MV E/A: 0.64 Ao V2 max: 294.2 cm/sec LV V1 max: 103.4 cm/sec SV(LVOT): 71.6 ml Ao max P.6 mmHg LV V1 max P.3 mmHg Ao V2 mean: 209.3 cm/sec LV V1 mean P.3 mmHg Ao mean P.2 mmHg LV V1 mean: 72.6 cm/sec Ao V2 VTI: 61.0 cm LV V1 VTI: 22.4 cm KEATON(I,D): 1.2 cm2 KEATON(V,D): 1.1 cm2 PA V2 max: 104.8 cm/sec Interpretation Summary The study was technically difficult. Contrast injection was performed. Left ventricular systolic function is normal. The estimated ejection fraction is 65 %. Mild concentric left ventricular hypertrophy. The left atrium is mildly enlarged. Trivial mitral valve insufficiency. Trivial tricuspid valve insufficiency. Moderate aortic stenosis. Trivial aortic valve insufficiency. Trivial pulmonic valve insufficiency. Mildly dilated aortic root. Unable to estimate RV systolic pressure/pulmonary artery pressure due to technically difficult study. Diastolic function is indeterminate. Ordering Physician: Lico Emerson Referring Physician: Lico Mo Performed By: Deisy Osorio, RACHAEL, RVT
== END ==
PROVIDERS: PCP Family Medicine; Referring Provider Internal Medicine Cardiovascular Disease; Visit Provider Internal Medicine Cardiovascular Disease
DX: R01.1 Cardiac murmur, unspecified (principal)
CPT/HCPCS: 93306; Q9957; A4216; C8929

== ENCOUNTER → 2020-05-30 15:59 | Outpatient (CLI) | payer MEDICARE, BC, SELFPAY ==
[2020-04-20 14:03] VITALS: BMI 32.4
[2020-05-30 18:24] LABS: Anion Gap 6 (5-15); BUN 27 mg/dL (7-18); BUN/Creat Ratio 28.9 RATIO (10-20); Calcium,Total 8.8 mg/dL (8.5-10.1); Chloride 103 mmol/L (98-107); Cholesterol 161 mg/dL (200); Creatinine, Serum 0.93 mg/dL (0.70-1.30); EST Glomerular Filtration Rate 82 mL/min (>60); Est Glom Filt Rate - Afr Amer 99 mL/min (>60); Glucose 79 mg/dL (74-106); High Density Lipoprotein 63 mg/dL; Potassium 3.8 mmol/L (3.5-5.1); Sodium Level 140 mmol/L (136-145); Triglycerides 178 mg/dL; Very Low Density Lipoprotein 36 mg/dL (5-40)
== END ==
PROVIDERS: PCP Family Medicine; Referring Provider Family Medicine; Visit Provider Family Medicine
DX: I10 Essential (primary) hypertension (principal)
CPT/HCPCS: 36415; 80048; 80061

== ENCOUNTER → 2020-12-07 14:13 | Outpatient (CLI) | payer MEDICARE, BC, SELFPAY ==
[2020-12-07 18:22] LABS: Anion Gap 9 (5-15); BUN 23 mg/dL (7-18); BUN/Creat Ratio 22.5 RATIO (10-20); Calcium,Total 9.3 mg/dL (8.5-10.1); Chloride 102 mmol/L (98-107); Creatinine, Serum 1.02 mg/dL (0.70-1.30); EST Glomerular Filtration Rate 74 mL/min (>60); Est Glom Filt Rate - Afr Amer 90 mL/min (>60); Glucose 100 mg/dL (74-106); Potassium 3.7 mmol/L (3.5-5.1); Sodium Level 141 mmol/L (136-145)
== END ==
PROVIDERS: PCP Family Medicine; Referring Provider Family Medicine; Visit Provider Family Medicine
DX: I10 Essential (primary) hypertension (principal)
CPT/HCPCS: 36415; 80048

== ENCOUNTER → 2021-11-22 | Outpatient (CLI) | payer MEDICARE, SELFPAY ==
--- NOTE | 2021-11-22 12:41 | ECHOD_ITS ---
Reason For Study: Procedure This was a 2D Doppler, Color Flow transthoracic echocardiogram. The study was technically difficult. Exam performed in department. Left Ventricle Normal LV size. Left ventricular systolic function is normal. The estimated ejection fraction is 65 %. No evidence for diastolic dysfunction. No regional wall motion abnormalities noted. Right Ventricle Normal RV size. Normal systolic function. Atria Normal left atrium. Normal right atrium. No doppler evidence for ASD. Mitral Valve There is no mitral annular calcification. Normal mitral valve. Trivial mitral valve insufficiency. Tricuspid Valve Normal tricuspid valve. Trivial tricuspid valve insufficiency. Unable to estimate RV systolic pressure/pulmonary artery pressure due to technically difficult study. Aortic Valve Based upon the 2D echocardiographic images obtained the aortic valve leaflets are not well visualized, however, there does appear to be diffuse thickening, calcification, and partial restriction. Moderate aortic stenosis. Trivial aortic valve insufficiency. Pulmonic Valve The pulmonic valve is not well visualized. Trivial pulmonic valve insufficiency. Great Vessels Normal sized aortic root. Calcified aortic root. Pericardium/Pleural No pericardial effusion. MMode/2D Measurements & Calculations LVIDd: 5.1 cm IVSd: 1.2 cm LVOT diam: 2.3 cm LVIDs: 2.9 cm LVPWd: 1.1 cm LVOT area: 4.0 cm2 RVDd: 4.0 cm FS: 43.4 % Ao root diam: 3.6 cm LAV(MOD-bp): 65.7 ml LA A4 area: 23.8 cm2 LA dimension: 4.5 cm LAV(MOD-bp) Indexed: 31.2 ml/m2 LAV(MOD-sp2): 57.3 ml LAV(MOD-sp4): 72.0 ml RA A4 area: 22.1 cm2 Time Measurements MV dec time: 0.27 sec Doppler Measurements & Calculations MV E max bakari: 55.6 cm/sec Lat Peak E' Bakari: 8.2 cm/sec Med Peak E' Bakari: 5.7 cm/sec MV A max bakari: 82.6 cm/sec E/E' lat: 6.8 E/E' med: 9.7 MV E/A: 0.67 MV V2 max: 94.4 cm/sec MV P1/2t max bakari: 69.9 cm/sec Ao V2 max: 304.4 cm/sec MV max P.6 mmHg MV P1/2t: 89.6 msec Ao max P.1 mmHg MV V2 mean: 56.0 cm/sec MV dec slope: 228.5 cm/sec2 Ao V2 mean: 204.6 cm/sec MV mean P.4 mmHg Ao mean P.6 mmHg MV V2 VTI: 22.0 cm MVA(P1/2t): 2.5 cm2 Ao V2 VTI: 66.8 cm MVA(VTI): 3.7 cm2 KEATON(I,D): 1.2 cm2 KEATON(V,D): 1.1 cm2 LV V1 max: 86.0 cm/sec SV(LVOT): 82.3 ml PA V2 max: 108.6 cm/sec LV V1 max P.0 mmHg LV V1 mean P.3 mmHg LV V1 mean: 51.7 cm/sec LV V1 VTI: 20.6 cm ECHO/Echo Complete Interpretation Summary The study was technically difficult. Left ventricular systolic function is normal. The estimated ejection fraction is 65 %. Trivial mitral valve insufficiency. Trivial tricuspid valve insufficiency. Moderate aortic stenosis. Trivial aortic valve insufficiency. Trivial pulmonic valve insufficiency. Calcified aortic root. Unable to estimate RV systolic pressure/pulmonary artery pressure due to techni micheal difficult study. No evidence for diastolic dysfunction. Ordering Physician: Charley Pérez Referring Physician: Lico Mo Performed By: Naveen Marley RCS
== END | disposition home or self-care (01) ==
PROVIDERS: PCP Family Medicine; Referring Provider Nurse Practitioner Gerontology; Visit Provider Nurse Practitioner Gerontology
DX: I35.0 Nonrheumatic aortic (valve) stenosis (principal)
CPT/HCPCS: 93306

== ENCOUNTER → 2021-12-20 | Outpatient (CLI) | payer MEDICARE, SELFPAY ==
[2021-12-20 13:24] LABS: Anion Gap 7 (5-15); BUN 27 mg/dL (7-18); BUN/Creat Ratio 27.5 RATIO (10-20); Calcium,Total 8.9 mg/dL (8.5-10.1); Chloride 105 mmol/L (98-107); Cholesterol 132 mg/dL (200); Creatinine, Serum 0.98 mg/dL (0.70-1.30); EST Glomerular Filtration Rate 77 mL/min (>60); Est Glom Filt Rate - Afr Amer 93 mL/min (>60); Glucose 95 mg/dL (74-106); High Density Lipoprotein 63 mg/dL; Potassium 4.4 mmol/L (3.5-5.1); Sodium Level 140 mmol/L (136-145); Triglycerides 82 mg/dL; Very Low Density Lipoprotein 16 mg/dL (5-40)
== END | disposition home or self-care (01) ==
LOC: MFPLAB 10:42
PROVIDERS: PCP Family Medicine; Referring Provider Family Medicine; Visit Provider Family Medicine
DX: I10 Essential (primary) hypertension (principal)
CPT/HCPCS: 36415; 80048; 80061

== ENCOUNTER 2022-05-10 09:59 | Inpatient (IN) | payer MEDICARE, SELFPAY ==
[2022-05-10] VITALS (12 sets, daily range): BP systolic 138–175; BP diastolic 56–94; PULSE 40–61; RESP 15–22; TEMP 36.2–36.9; O2SAT 87–97; BMI 35.4; BMI 33.5
--- NOTE | 2022-05-10 10:18 | RAD_ITS ---
STUDY: X-RAY CHEST REASON FOR EXAM: Male, 87 years old. sob TECHNIQUE: Single AP portable view of the chest. COMPARISON: January 20, 2023 FINDINGS: There are interstitial fibrotic changes of the lungs. No visualized focal consolidation. There is no demonstrated pleural abnormality. Normal size heart. Normal mediastinum and lindsay. Normal visualized pulmonary arteries. There is atherosclerotic calcification of the aortic arch with tortuosity. There are diffuse degenerative changes of the visualized thoracic spine. Normal visualized ribs, clavicles, and shoulders. There is no demonstrated abnormality of the visualized soft tissue structures of the upper abdomen. RAD/Chest 1 View (Portable) IMPRESSION: Degenerative changes, as described above. No demonstrated acute cardiopulmonary process. Electronically Signed: Stevie Saucedo MD at 10:52 EST ,
--- NOTE | 2022-05-10 10:19 | EKG12_ITS ---
Test Reason : SOB Blood Pressure : / mmHG Vent. Rate : 058 BPM Atrial Rate : 058 BPM P-R Int : 212 ms QRS Dur : 092 ms QT Int : 452 ms P-R-T Axes : 057 018 036 degrees QTc Int : 443 ms Sinus bradycardia with 1st degree A-V block with occasional Premature ventricular complexes Otherwise normal ECG Confirmed by TONY VAZQUEZ, PAULA ([id number]), supervising editor news reel MAYA NUNO [id number]) on 05/12/2022 2:07:36 PM Referred By: ADRIANNE Confirmed By:PAULA JIMENEZ MD
--- NOTE | 2022-05-10 10:19 | ED.VIS.DYS ---
HPI History of Present Illness Chief Complaint: Shortness of Breath Informant: patient and family Onset/Context/Timing Onset: Days (3 to 4 days) Context: gradual Timing: Waxes and wanes Current Severity: Mild Maximum Severity: Moderate Narrative Narrative: Patient presents via EMS secondary to shortness of breath. He states he had shortness of breath over the past 3 to 4 days, worse overnight and this morning. He has not had significant chest pain. He states he has a chronic cough that is unchanged from baseline. No fever or chills. EMS documented O2 sat of 88% on room air. The time of my exam he is 95% on 2 L nasal cannula and states he feels improved. He does have a history of heart murmur but denies history of congestive heart failure, COPD, chronic bronchitis. He does not wear home oxygen. [facility] Medical History Colon cancer Essential hypertension Gout Heart murmur Lumbar spondylosis with myelopathy Non-rheumatic aortic stenosis Osteoporosis Pure hypercholesterolemia Home Medications carvedilol 25 mg tablet 25 mg PO BID Blood pressure 06/26/16 [History Last Taken 05/10/22] guanfacine 2 mg tablet 2 mg PO DAILY Blood pressure 06/26/16 [History Last Taken 05/10/22] qvqccfwc-noe-hprsd acid 300 mcg-lycopene 600 mcg-lutein 300 mcg tablet 1 ea PO DAILY Supplement 06/26/16 [History Last Taken 05/09/22] simvastatin 20 mg tablet 20 mg PO QHS Cholesterol 06/26/16 [History Last Taken 05/09/22] tamsulosin 0.4 mg capsule 0.4 mg PO DAILY Prostate 06/26/16 [History Last Taken 05/09/22] clonidine HCl 0.1 mg tablet 0.1 mg PO TID Blood pressure 06/22/17 [History Last Taken 05/10/22] hydralazine 25 mg tablet 25 mg PO 4X/DAY Blood pressure 06/22/17 [History Last Taken 05/10/22] potassium chloride 10 mEq capsule,extended release 10 meq PO QDAY Potassium supplement 06/22/17 [History Last Taken 05/09/22] sertraline 100 mg tablet (Zoloft) 100 mg PO QDAY Anxiety 10/14/17 [History Last Taken 05/09/22] acetaminophen 325 mg tablet 650 mg PO Q6H PRN PRN Pain 1-10/Fever >=100.7F 01/22/20 [Rx Last Taken 05/09/22] furosemide 40 mg tablet 40 mg PO DAILY Blood pressure 04/20/20 [History Last Taken 05/09/22] omega 2-ixk-uxk-fish oil 900 mg-1,400 mg capsule,delayed release 1 cap PO DAILY Supplement 04/20/20 [History Last Taken 05/09/22] losartan 50 mg tablet 50 mg PO .COMPLEX Blood pressure 10/18/20 [History Last Taken 05/10/22] diphenhydramine HCl 25 mg capsule 25 mg PO QHS Sleep aide 11/06/21 [History Last Taken 05/09/22] Allergy/AdvReac Type Severity Reaction Status Date / Time No Known Allergies Allergy Verified 11/06/21 13:49 Family History Father , Age 49 Cancer liver Surgical History History of colectomy History of open reduction and internal fixation (ORIF) procedure Social History Smoking Status: Former smoker how long ago did patient quit smoking: Quit smoking a pipe 21 years ago alcohol intake: current alcohol intake frequency: 0-2 drinks per day substance use type: does not use caffeine: Yes Type: coffee Number of servings: 2 ROS ROS ED Constitutional Constitutional ED: Denies chills or fever(s) Eyes Eyes: Denies change in vision or discharge from eye(s) ENT ENT ED: Denies discharge from eye(s), rhinorrhea or sore throat Cardiovascular Cardiovascular: Denies chest pain or palpitations Respiratory/Chest Respiratory/Chest: Reports cough and dyspnea Gastrointestinal Gastrointestinal: Denies abdominal pain, diarrhea, nausea or vomiting Genitourinary Genitourinary ED: Denies difficulty urinating or dysuria Musculoskeletal Musculoskeletal: Denies back pain or extremity pain Integumentary Denies Abrasions or rash Neurologic Neurologic: Denies headache(s) or weakness Psychiatric Psychiatric: Denies anxiety or depression Allergic/Immunologic Allergic/Immunologic ED: Denies lip swelling or urticaria EXAM Physical Exam Const Vital Signs: 05/10/22 10:07 05/10/22 10:18 05/10/22 10:33 Temperature 97.2 F L Temperature Source Oral Pulse Rate 61 Respiratory Rate 22 H Respiratory Effort Short of Breath Blood Pressure 156/94 H Blood Pressure Mean 114 Pulse Ox 95 93 Oxygen Delivery Method Nasal Cannula Room Air Oxygen Flow Rate (L/min) 2 05/10/22 10:51 05/10/22 10:53 Temperature Temperature Source Pulse Rate Respiratory Rate Respiratory Effort Blood Pressure Blood Pressure Mean Pulse Ox 88 94 Oxygen Delivery Method Room Air Nasal Cannula Oxygen Flow Rate (L/min) 2 Positive well nourished and well developed General Appearance ED: well developed HEENT Reports normocephalic and head/scalp atraumatic Eyes PERRL and EOMs intact bilaterally Neck supple Chest Wall inspection of chest normal and palpation of chest normal Resp Resp Narrative: Mild tachypnea. Decreased air movement at the bases with mild crackles. Cardio regular rhythm Rate: bradycardia GI normal to inspection, nondistended, normoactive bowel sounds Palpation: soft Extremity Extremity Narrative: 1+ bilateral lower extremity edema, symmetric. Neuro oriented x3 and no sensory deficits noted Sensorium / Orientation: alert Motor Exam: strength 5/5 throughout Psych mental status grossly normal Skin no rashes or lesions noted MDM MDM MDM Narrative Medical decision making narrative: Patient placed on school bus monitor to evaluate for arrhythmia. EKG obtained to evaluate for arrhythmia, ischemia. Portable chest x-ray to evaluate for cardiac silhouette, fluid overload, acute lung pathology. Lab work obtained to evaluate for leukocytosis and anemia along with electrolyte derangement. Troponin obtained to evaluate for cardiac ischemia. BNP obtained to evaluate for congestive heart failure. D-dimer obtained to evaluate for possible blood clot. History & Record Review Discussion w/independent historian: EMS personnel, Patient and Other (Daughter at bedside) Additional record(s) reviewed:: Prior outpatient record, Prior labs and Other (Cardiology notes and prior testing) Lab Data Attestation: I reviewed the patient's lab results. Labs: Laboratory Results - last 24 hr 05/10/22 05/10/22 05/10/22 10:17 10:17 10:17 WBC 5.4 RBC 4.14 L Hgb 12.9 L Hct 41.2 MCV 99.5 H MCH 31.2 MCHC 31.3 L RDW Std Deviation 49.0 H RDW Coeff of [place] 13.2 Plt Count 143 L MPV 11.1 Immature Gran % (Auto) 0.400 Neut % (Auto) 67.7 Lymph % (Auto) 21.4 [place] % (Auto) 9.6 Eos % (Auto) 0.7 Baso % (Auto) 0.2 Absolute Neuts (auto) 3.7 Absolute Lymphs (auto) 1.16 Nucleated RBC % 0 D-Dimer Quant (PE/DVT) 0.53 H* Sodium 141 Potassium 3.9 Chloride 102 Carbon Dioxide 33.0 H Anion Gap 6 BUN 24 H Creatinine 0.87 Estim Creat Clear Calc 60.06 Est GFR (MDRD) Af Amer 108 Est GFR (MDRD) Non-Af 89 BUN/Creatinine Ratio 27.7 H Glucose 111 H Calcium 8.9 Troponin I High Sens 16 B-Natriuretic Peptide 05/10/22 10:17 WBC RBC Hgb Hct MCV MCH MCHC RDW Std Deviation RDW Coeff of [place] Plt Count MPV Immature Gran % (Auto) Neut % (Auto) Lymph % (Auto) [place] % (Auto) Eos % (Auto) Baso % (Auto) Absolute Neuts (auto) Absolute Lymphs (auto) Nucleated RBC % D-Dimer Quant (PE/DVT) Sodium Potassium Chloride Carbon Dioxide Anion Gap BUN Creatinine Estim Creat Clear Calc Est GFR (MDRD) Af Amer Est GFR (MDRD) Non-Af BUN/Creatinine Ratio Glucose Calcium Troponin I High Sens B-Natriuretic Peptide 264.6 H Radiography Chest X-Ray - ED: 1 View, Read by ED Physician and Chronic Changes Diagnostic Testing: Clinical Impression(s) from Imaging Studies Chest X-Ray 05/10/22 10:18 IMPRESSION: Degenerative changes, as described above. No demonstrated acute cardiopulmonary process. Electronically Signed: Stevie Saucedo MD at 10:52 EST Reading Location ID and State: [facility] / [place] , Service support , EKG Initial EKG: Attestation: I personally reviewed and interpreted this EKG as follows: Interpretation: Sinus Bradycardia (Sinus bradycardia at 58 bpm with first-degree AV block. Occasional PVCs. No acute ischemia.) Differential Diagnosis Chest pain/SOB: pulmonary embolism Reason(s) PE less likely: Positive for D-Dimer negative and not tachycardic, ACS ACS: Positive for no evidence of ACS based on cardiac biomarkers, pneumothorax Reason(s) pneumothorax less likely: Positive for bilateral breath sounds and PHARMACY STUDENT withhout PTX, pneumonia Reason(s) pneumonia less likely: Positive for no infiltrate on CXR, no elevation in WBC count, no noted fever and symptoms not consistent with acute infection and CHF Management Discussion w/another healthcare provider: Hospitalist and Hotel Maintenance Technician (Dr. Emerson, cardiology) Additional Tests and Interventions Diagnositc testing considered but not performed: CTA of the chest considered, however not obtained due to D-dimer being normal when age-adjusted. Treatment and Re-Evaluation :: EKG reveals no acute ischemia. Portable chest x-ray per my interpretation reveals chronic changes with no obvious infiltrate. Radiology interpretation is reviewed. CBC reveals normal white count. Hemoglobin is slightly low at 12.9. Chemistry studies reveal normal renal function. Troponin is normal at 16. D-dimer is 0.53, normal when age-adjusted. BNP is 264. I do not have any prior values to compare to. I spoke to Dr. Emerson, on-call for cardiology. We reviewed his echocardiogram from November 2021. At that time he had moderate aortic stenosis with an EF of 65%. We will treat the patient with IV diuretics as patient has been hypoxic to 88% on room air both with EMS and here in the emergency room. Troponins will be cycled. I will speak with hospitalist regarding admission. Discharge Plan Triage Chief Complaint: Shortness of Breath ED Provider: Aylin Masters Dx/Rx/DC Orders Clinical Impression: Dyspnea, History of aortic stenosis, Hypoxia Prescriptions: No Action hydralazine 25 mg tablet 25 mg PO 4X/DAY potassium chloride 10 mEq capsule, extended release 10 meq PO QDAY sertraline [Zoloft] 100 mg tablet 100 mg PO QDAY diphenhydramine HCl 25 mg capsule 25 mg PO QHS losartan 50 mg tablet 50 mg PO .COMPLEX Rx Instructions: 50 mg PO 1 tabs in the am and 1.5 tab in the pm furosemide 40 mg tablet 40 mg PO DAILY carvedilol 25 MG tablet 25 mg PO BID tamsulosin 0.4 MG capsule 0.4 mg PO DAILY simvastatin 20 MG tablet 20 mg PO QHS guanfacine 2 MG tablet 2 mg PO DAILY fmvvqgue-cmj-JG-lycopen-lutein 1 EACH tablet 1 ea PO DAILY clonidine HCl 0.1 mg tablet 0.1 mg PO TID omega 3-yov-ahp-fish oil 900-1,400 mg capsule,delayed release(DR/EC) 1 cap PO DAILY acetaminophen 325 MG tablet 650 mg PO Q6H PRN PRN (Reason: Pain 1-10/Fever >=100.7F) 0RF Primary Care Provider: Lico Mo Referrals: Lico Mo MD [Primary Care Provider] - Disposition Disposition: Acute Care Hospital [facility]
[2022-05-10 10:33] LABS: Absolute Lymphocyte Count 1.16 X10^3/uL (0.83-4.51); Absolute Neutrophil Count 3.7 X10^3/uL (2.0-7.7); Basophil# 0.01 X10^3/uL; Basophil% 0.2 % (0-1); Eosinophil# 0.04 X10^3/uL; Eosinophils% 0.7 % (0-5); Hematocrit 41.2 % (40-54); Hemoglobin 12.9 g/dL (13.0-16.5); Lymphocyte # 1.16 X10^3/ul (0.83-4.51); Lymphocyte % 21.4 % (19-41); Mean Corp Hgb Conc 31.3 g/dL (32-36); Mean Corpuscular Hgb 31.2 pg (27.0-32.0); Mean Corpuscular Volume 99.5 fL (80-94); Mean Platelet Vol. 11.1 fl (6.2-12.0); Monocyte# 0.52 X10^3/uL; Monocyte% 9.6 % (0-10); NRBC Flagged by Analyzer 0 % (0-5); Neutrophil # 3.68 X10^3/uL (2.7-7.7); Neutrophil % 67.7 % (47-70); Platelet Count 143 K/mm3 (150-450); RBC Distribution Width CV 13.2 % (11.6-14.6); Red Blood Count 4.14 M/mm3 (4.6-6.2); White Blood Count 5.4 K/mm3 (4.4-11.0)
[2022-05-10 10:51] LABS: BNP,B-Type NATRIURETIC PEPTIDE 264.6 pg/mL (0-100)
[2022-05-10 10:53] LABS: Anion Gap 6 (5-15); BUN 24 mg/dL (7-18); BUN/Creat Ratio 27.7 RATIO (10-20); Calcium,Total 8.9 mg/dL (8.5-10.1); Chloride 102 mmol/L (98-107); Creatinine, Serum 0.87 mg/dL (0.70-1.30); D-Dimer Quantitative (DVT/PE) 0.53 FEU/ug/m (0.27-0.49); EST Glomerular Filtration Rate 89 mL/min (>60); Est Glom Filt Rate - Afr Amer 108 mL/min (>60); Estimated Creatinine Clearance 60.06 ml/min; Glucose 111 mg/dL (74-106); Potassium 3.9 mmol/L (3.5-5.1); Sodium Level 141 mmol/L (136-145); Troponin-I HS 16 pg/mL (3.0-78.0)
[2022-05-10] MEDS: Furosemide 40 MG/4 ML Vial IV (11:18)
--- NOTE | 2022-05-10 12:36 | ECHOD_ITS ---
Version 2 Reason For Study: CHF Procedure This was a 2D Doppler, Color Flow transthoracic echocardiogram. Technically difficult study. Patient scanned in semi sitting position due to breathing. Exam performed portable in patient room. Left Ventricle Normal LV size. Mild concentric left ventricular hypertrophy. Left ventricular systolic function is normal. Stage 1 diastolic dysfunction. No regional wall motion abnormalities noted. Right Ventricle Normal RV size. Normal systolic function. Atria Normal left atrium. Normal right atrium. Tricuspid Valve Normal tricuspid valve. Aortic Valve Trisinus/trileaflet aortic valve. Moderate focal aortic valve calcification. Peak aortic valve gradient 27 mmHg. Mean aortic valve gradient 13 mmHg. Mild aortic stenosis. Pulmonic Valve The pulmonic valve is not well visualized. Great Vessels Normal aortic root. The pulmonary artery is normal size. Normal inferior vena cava. Pericardium/Pleural No pericardial effusion. MMode/2D Measurements & Calculations LVIDd: 5.2 cm IVSd: 1.4 cm LVOT diam: 2.1 cm LVIDs: 4.2 cm LVPWd: 1.2 cm LVOT area: 3.3 cm2 FS: 19.0 % LA dimension(2D): 5.1 cm Time Measurements MV dec time: 0.34 sec Doppler Measurements & Calculations MV E max bakari: 48.0 cm/sec Lat Peak E' Bakari: 9.5 cm/sec Med Peak E' Bakari: 5.3 cm/sec MV A max bakari: 56.0 cm/sec E/E' lat: 5.0 E/E' med: 9.1 MV E/A: 0.86 MV V2 max: 56.0 cm/sec MV dec slope: 139.9 cm/sec2 Ao V2 max: 257.0 cm/sec MV max P.3 mmHg Ao max P.2 mmHg MV V2 mean: 39.0 cm/sec Ao V2 mean: 160.4 cm/sec MV mean P.64 mmHg Ao mean P.0 mmHg MV V2 VTI: 15.6 cm Ao V2 VTI: 57.4 cm MVA(VTI): 3.1 cm2 AV (velocity ratio): 0.25 KEATON(I,D): 0.83 cm2 KEATON(V,D): 0.84 cm2 LV V1 max: 65.6 cm/sec SV(LVOT): 47.5 ml PA V2 max: 94.3 cm/sec LV V1 max P.7 mmHg PA V2 mean: 65.1 cm/sec LV V1 mean P.95 mmHg LV V1 mean: 46.1 cm/sec LV V1 VTI: 14.4 cm ECHO/Echo Complete Interpretation Summary Normal LV size. Mild concentric left ventricular hypertrophy. Left ventricular systolic function is normal. Stage 1 diastolic dysfunction. Moderate focal aortic valve calcification. Mean aortic valve gradient 13 mmHg. Mild aortic stenosis... Essentially unchanged from prior. Compared to previous study, the left ventricular systolic function is the same. . Ordering Physician: Misbah Mesa Referring Physician: Lico Mo Performed By: Gilda Blackman RCS
[2022-05-10] MEDS: Furosemide 20 MG/2 ML VIAL IV ×2 (13:37→21:43)
[2022-05-10] MEDS: 0.9% Saline Lock 10 ML Syringe IV ×2 (13:37→21:44)
[2022-05-10] MEDS: cloNIDine HCl 0.1 MG Tablet PO ×2 (13:37→21:43)
[2022-05-10] MEDS: Sertraline 100 MG Tablet PO (13:37)
[2022-05-10] MEDS: Potassium Chloride Oral Tablet 20 MEQ PO (16:11)
[2022-05-10] MEDS: Tamsulosin HCl 0.4 MG Capsule PO (16:11)
--- NOTE | 2022-05-10 17:50 | PCM.HP.STD ---
HPI - General General Date of Admission: 05/10/22 Date of Service: 05/10/22 Chief Complaint: Shortness of breath HPI Narrative LETY MARTINEZ, is a 87 M who presents to the emergency room at [facility] with a chief complaint of shortness of breath. Patient states that he has been short of breath for the past few days, he felt that he would get over it patient follows with Dr. Emerson in the office, his last echocardiogram was last fall which showed a normal EF. He has a history of underlying moderate aortic valve stenosis, hyperlipidemia, and hypertension. EMS documented an O2 sat of 88% on room air, at the time he was evaluated in the emergency room, he is on 2 L via nasal cannula and is at a pulse ox of 95%. Patient does not wear home O2. Work-up in the emergency room included a chest x-ray which showed no demonstrated acute cardiopulmonary process, CBC showed a normal white blood cell count, hemoglobin was 12.9, beta natruretic peptide was 264, and D-dimer was slightly elevated at 0.53. Patient will be admitted to PCU for acute diastolic congestive heart failure with acute hypoxia, IV Lasix will be administered, pulse ox will be monitored. Patient will have a repeat echocardiogram performed on 05/12/2022. [facility] Medical History Colon cancer Essential hypertension Gout Heart murmur Lumbar spondylosis with myelopathy Non-rheumatic aortic stenosis Osteoporosis Pure hypercholesterolemia Home Medications carvedilol 25 mg tablet 25 mg PO BID Blood pressure 06/26/16 [History Last Taken 05/10/22] guanfacine 2 mg tablet 2 mg PO DAILY Blood pressure 06/26/16 [History Last Taken 05/10/22] thsqtert-tbt-qpkrp acid 300 mcg-lycopene 600 mcg-lutein 300 mcg tablet 1 ea PO DAILY Supplement 06/26/16 [History Last Taken 05/09/22] simvastatin 20 mg tablet 20 mg PO QHS Cholesterol 06/26/16 [History Last Taken 05/09/22] tamsulosin 0.4 mg capsule 0.4 mg PO DAILY Prostate 06/26/16 [History Last Taken 05/09/22] clonidine HCl 0.1 mg tablet 0.1 mg PO TID Blood pressure 06/22/17 [History Last Taken 05/10/22] hydralazine 25 mg tablet 25 mg PO 4X/DAY Blood pressure 06/22/17 [History Last Taken 05/10/22] potassium chloride 10 mEq capsule,extended release 10 meq PO QDAY Potassium supplement 06/22/17 [History Last Taken 05/09/22] sertraline 100 mg tablet (Zoloft) 100 mg PO QDAY Anxiety 10/14/17 [History Last Taken 05/09/22] acetaminophen 325 mg tablet 650 mg PO Q6H PRN PRN Pain 1-10/Fever >=100.7F 01/22/20 [Rx Last Taken 05/09/22] furosemide 40 mg tablet 40 mg PO DAILY Blood pressure 04/20/20 [History Last Taken 05/09/22] omega 9-xnd-byw-fish oil 900 mg-1,400 mg capsule,delayed release 1 cap PO DAILY Supplement 04/20/20 [History Last Taken 05/09/22] losartan 50 mg tablet 50 mg PO .COMPLEX Blood pressure 10/18/20 [History Last Taken 05/10/22] diphenhydramine HCl 25 mg capsule 25 mg PO QHS Sleep aide 11/06/21 [History Last Taken 05/09/22] Allergy/AdvReac Type Severity Reaction Status Date / Time No Known Allergies Allergy Verified 11/06/21 13:49 Family History Father , Age 49 Cancer liver Surgical History History of colectomy History of open reduction and internal fixation (ORIF) procedure Social History Smoking Status: Former smoker how long ago did patient quit smoking: Quit smoking a pipe 21 years ago alcohol intake: current alcohol intake frequency: 0-2 drinks per day substance use type: does not use caffeine: Yes Type: coffee Number of servings: 2 ROS Constitutional Constitutional: Denies anorexia, change in weight, chills, fatigue, fever(s), malaise, night sweats or weakness Eyes Eyes: Denies blurry vision, change in vision, discharge from eye(s) or eye pain Cardiovascular Cardiovascular: Denies chest pain, claudication, edema or palpitations Respiratory/Chest Respiratory/Chest: Reports dyspnea, shortness of breath at rest and shortness of breath with exertion; Denies cough, hemoptysis or productive cough Gastrointestinal Gastrointestinal: Denies abdominal pain, constipation, diarrhea, hematemesis, hematochezia, melena, nausea or vomiting Genitourinary Genitourinary: Denies difficulty urinating, dysuria, hematuria, urinary frequency, urinary hesitancy, urinary incontinence or urinary urgency Musculoskeletal Musculoskeletal: Denies back pain, joint pain, joint stiffness, joint swelling, myalgias or neck pain Neurologic Neurologic: Denies abnormal gait, abnormal speech, confusion, dizziness, focal weakness, headache(s), loss of vision, numbness, other visual disturbances, paresthesias, syncope or tingling Psychiatric Psychiatric: Denies anxiety, cognitive impairment, depression, irritability, mood swings or suicidal ideation Endocrine Endocrinology: Denies change in body appearance, cold intolerance, excessive sweating, heat intolerance, polydipsia or polyuria Hematologic/Lymphatic Hematologic/Lymphatic: Denies none, anemia, easy bleeding, easy bruising or lymphadenopathy Allergic/Immunologic Allergic/Immunologic: Denies rhinitis, urticaria, eczemia or asthma Vital Signs Vital Signs Vital Signs: 05/10/22 10:07 05/10/22 10:18 05/10/22 10:33 Temperature 97.2 F L Temperature Source Oral Pulse Rate 61 Respiratory Rate 22 H Respiratory Effort Short of Breath Respiratory Depth Respiratory Pattern Blood Pressure 156/94 H Blood Pressure Mean 114 Blood Pressure Source Blood Pressure Position Blood Pressure Location Pulse Ox 95 93 Oxygen Delivery Method Nasal Cannula Room Air Oxygen Flow Rate (L/min) 2 05/10/22 10:51 05/10/22 10:53 05/10/22 11:45 Temperature 97.2 F L Temperature Source Temporal Pulse Rate 59 L Respiratory Rate 18 Respiratory Effort Respiratory Depth Respiratory Pattern Blood Pressure 175/80 H Blood Pressure Mean 111 Blood Pressure Source Blood Pressure Position Blood Pressure Location Pulse Ox 88 94 95 Oxygen Delivery Method Room Air Nasal Cannula Nasal Cannula Oxygen Flow Rate (L/min) 2 2 05/10/22 12:05 05/10/22 13:09 05/10/22 13:12 Temperature Temperature Source Pulse Rate 57 L Respiratory Rate 15 Respiratory Effort Normal Non-Labored Respiratory Depth Normal Respiratory Pattern Normal Blood Pressure Blood Pressure Mean Blood Pressure Source Blood Pressure Position Blood Pressure Location Pulse Ox 87 Oxygen Delivery Method Nasal Cannula Room Air Oxygen Flow Rate (L/min) 2 05/10/22 13:12 05/10/22 13:07 05/10/22 13:37 Temperature 98.1 F Temperature Source Oral Pulse Rate 58 L 58 L Respiratory Rate 18 Respiratory Effort Respiratory Depth Respiratory Pattern Blood Pressure 156/84 H Blood Pressure Mean 108 Blood Pressure Source Monitor Blood Pressure Position Semi-Fowlers Blood Pressure Location Right Arm Pulse Ox 96 97 Oxygen Delivery Method Nasal Cannula Nasal Cannula Oxygen Flow Rate (L/min) 2 2 05/10/22 15:56 05/10/22 15:41 Temperature 98.1 F Temperature Source Oral Pulse Rate 54 L 40 L Respiratory Rate 18 Respiratory Effort Respiratory Depth Respiratory Pattern Blood Pressure 138/71 H Blood Pressure Mean 93 Blood Pressure Source Monitor Blood Pressure Position Semi-Fowlers Blood Pressure Location Right Arm Pulse Ox 95 Oxygen Delivery Method Nasal Cannula Oxygen Flow Rate (L/min) 2 Weight Weight: 102.965 kg Body Mass Index (BMI) 33.5 Physical Exam Const alert, oriented x3, no apparent distress and average body habitus General Appearance: cooperative, well kempt and well developed Orientation / Consciousness: awake, oriented to person, oriented to place and oriented to time HEENT normocephalic and moist oral mucous membranes Eyes PERRL, EOMs intact bilaterally and conjunctivae normal Neck supple, no JVD, thyroid normal and no carotid bruits General: trachea midline Resp normal respiratory effort, no retractions, no use of accessory muscles and clear to auscultation bilaterally Auscultation: Negative for rales, rhonchi or wheezes Cardio regular rate, regular rhythm, S1 normal heart sound, S2 normal heart sound, no rub and no gallops Cardio Narrative: 2/6 systolic murmur was noted at the apex and left sternal border GI normal to inspection, nondistended, normoactive bowel sounds, soft to palpation, non-tender and non-distended Extremity normal to inspection Skin no rashes or lesions noted General Skin Exam: no breakdown Neuro oriented x3, CN's II-XII intact bilaterally, moves all extremities, no focal motor deficits and no sensory deficits noted Sensorium / Orientation: awake, alert, oriented to person, oriented to place and oriented to time Speech: speech normal Psych affect normal Results Lab / Micro Data Result Diagrams: 05/10/22 10:17 05/10/22 10:17 Labs: Laboratory Results - last 24 hr 05/10/22 10:17: WBC 5.4, RBC 4.14 L, Hgb 12.9 L, Hct 41.2, MCV 99.5 H, MCH 31.2, MCHC 31.3 L, RDW Std Deviation 49.0 H, RDW Coeff of [place] 13.2, Plt Count 143 L, MPV 11.1, Immature Gran % (Auto) 0.400, Neut % (Auto) 67.7, Lymph % (Auto) 21.4, [place] % (Auto) 9.6, Eos % (Auto) 0.7, Baso % (Auto) 0.2, Absolute Neuts (auto) 3.7, Absolute Lymphs (auto) 1.16, Nucleated RBC % 0 05/10/22 10:17: D-Dimer Quant (PE/DVT) 0.53 H* 05/10/22 10:17: Sodium 141, Potassium 3.9, Chloride 102, Carbon Dioxide 33.0 H, Anion Gap 6, BUN 24 H, Creatinine 0.87, Estim Creat Clear Calc 60.06, Est GFR (MDRD) Af Amer 108, Est GFR (MDRD) Non-Af 89, BUN/Creatinine Ratio 27.7 H, Glucose 111 H, Calcium 8.9, Troponin I High Sens 16 05/10/22 10:17: B-Natriuretic Peptide 264.6 H Radiology Impression Chest X-Ray 05/10/22 10:18 IMPRESSION: Degenerative changes, as described above. No demonstrated acute cardiopulmonary process. Electronically Signed: Stevie Saucedo MD at 10:52 EST Reading Location ID and State: [facility] / [place] , Service support , Assessment & Plan Assessment/Plan (1) Essential hypertension: PLAN: Plan 1. Acute diastolic congestive heart failure-patient will be admitted to PCU, IV Lasix will be administered, labs will be monitored, patient will have an echocardiogram performed on 05/12/2022 #2 acute hypoxia secondary to #1-pulse ox will be monitored #3 essential hypertension-patient will remain on his present medications, patient is on peculiar doses of losartan and he is also on clonidine in addition to Tenex, for now I will continue this medication regimen and make any adjustments tomorrow #4 hyperlipidemia-patient will remain on his current medication #5 aortic valvular disease-not severe by last echocardiogram, echocardiogram will be repeated on 05/12/2022 Total clinical time spent by myself addressing the patient's medical issues, reviewing all of the data, and collaborating with patient's care team: 75-minutes Charges/Coding Visit Charges Inpatient E&M: 90533 Init Hosp L3
[2022-05-10] MEDS: Atorvastatin Calcium 10 MG Tablet PO (21:43)
[2022-05-10] MEDS: DiphenhydrAMINE 25 MG Capsule PO (21:43)
[2022-05-10] MEDS: Carvedilol 25 MG Tablet PO (21:43)
[2022-05-10] MEDS: Heparin Injection (Vial) 5,000 UNIT/ML VIAL 5000 UNIT SC (21:44)
[2022-05-10] MEDS: Losartan Potassium 50 MG Tablet 75 MG PO (21:44)
[2022-05-11 03:30] VITALS: BP 129/61; PULSE 60; RESP 18; TEMP 36.9; O2SAT 93
[2022-05-11 05:39] VITALS: BP 160/73; PULSE 70
[2022-05-11] MEDS: cloNIDine HCl 0.1 MG Tablet PO ×3 (05:40→22:08)
[2022-05-11] MEDS: 0.9% Saline Lock 10 ML Syringe IV ×3 (05:40→22:12)
[2022-05-11] MEDS: Furosemide 20 MG/2 ML VIAL IV ×3 (05:41→22:08)
[2022-05-11 05:52] VITALS: BMI 32.0
[2022-05-11 07:20] LABS: Anion Gap 4 (5-15); BUN 25 mg/dL (7-18); Calcium,Total 9.1 mg/dL (8.5-10.1); Chloride 99 mmol/L (98-107); Creatinine, Serum 0.89 mg/dL (0.70-1.30); EST Glomerular Filtration Rate 86 mL/min (>60); Est Glom Filt Rate - Afr Amer 104 mL/min (>60); Estimated Creatinine Clearance 60.68 ml/min; Glucose 107 mg/dL (74-106); Potassium 3.6 mmol/L (3.5-5.1); Sodium Level 140 mmol/L (136-145)
[2022-05-11 08:42] VITALS: O2SAT 95
[2022-05-11 08:45] VITALS: BP 162/89; PULSE 65; RESP 18; TEMP 36.6; O2SAT 95
[2022-05-11] MEDS: Carvedilol 25 MG Tablet PO ×2 (08:53→22:08)
[2022-05-11] MEDS: Heparin Injection (Vial) 5,000 UNIT/ML VIAL 5000 UNIT SC ×2 (08:53→22:08)
[2022-05-11] MEDS: Losartan Potassium 50 MG Tablet PO (08:53)
[2022-05-11] MEDS: Sertraline 100 MG Tablet PO (08:53)
[2022-05-11] MEDS: Potassium Chloride Oral Tablet 20 MEQ PO ×2 (08:53→16:31)
[2022-05-11 15:51] VITALS: BP 136/67; PULSE 58; RESP 18; TEMP 36.6; O2SAT 92
[2022-05-11] MEDS: GUANFACINE HCL 2 MG TABLET PO (16:31)
[2022-05-11] MEDS: Tamsulosin HCl 0.4 MG Capsule PO (16:32)
--- NOTE | 2022-05-11 17:16 | PN.HOSP_ITS ---
Reason for Visit Reason for Visit: Diagnoses Essential (primary) hypertension (05/10/22) Subjective Subjective Patient was seen and examined today, he does not appear short of breath, he is currently requiring 2 L of oxygen via nasal cannula. Patient an echocardiogram today which showed a normal ejection fraction with moderate aortic stenosis. Objective Data Objective Data Vital Signs: Vital Signs Temp Pulse Resp BP Pulse Ox O2 Del Method O2 Flow Rate 97.9 F 58 L 18 136/67 H 92 Nasal Cannula 2 05/11/22 15:51 05/11/22 15:51 05/11/22 15:51 05/11/22 15:51 05/11/22 15:51 05/11/22 15:51 05/11/22 15:51 Oxygen Flow Rate (L/min) 2 Oxygen Delivery Method Nasal Cannula Weight: 98.4 kg Body Mass Index (BMI) 32.0 Intake & Output: Intake and Output for Last 24 Hours 05/09/22 05/10/22 05/11/22 23:59 23:59 23:59 Intake Total 540 / 540 420 / 420 Output Total 2550 / 2550 1800 / 1800 Balance -2009 / -2010 -1380 / -1380 Lab / Micro Data Result Diagrams: 05/10/22 10:17 05/11/22 06:17 Labs: Laboratory Results - last 24 hr 05/11/22 06:17: Sodium 140, Potassium 3.6, Chloride 99, Carbon Dioxide 37.0 H, Anion Gap 4 L, BUN 25 H, Creatinine 0.89, Estim Creat Clear Calc 60.68, Est GFR (MDRD) Af Amer 104, Est GFR (MDRD) Non-Af 86, BUN/Creatinine Ratio 28.0 H, Glucose 107 H, Calcium 9.1 Physical Exam Narrative alert, oriented x3, no apparent distress and average body habitus General Appearance: cooperative, well kempt and well developed Orientation / Consciousness: awake, oriented to person, oriented to place and oriented to time HEENT normocephalic and moist oral mucous membranes Eyes PERRL, EOMs intact bilaterally and conjunctivae normal Neck supple, no JVD, thyroid normal and no carotid bruits General: trachea midline Resp normal respiratory effort, no retractions, no use of accessory muscles and clear to auscultation bilaterally Auscultation: Negative for rales, rhonchi or wheezes Cardio regular rate, regular rhythm, S1 normal heart sound, S2 normal heart sound, no rub and no gallops Cardio Narrative: 2/6 systolic murmur was noted at the apex and left sternal border GI normal to inspection, nondistended, normoactive bowel sounds, soft to palpation, non-tender and non-distended Extremity normal to inspection Skin no rashes or lesions noted General Skin Exam: no breakdown Neuro oriented x3, CN's II-XII intact bilaterally, moves all extremities, no focal motor deficits and no sensory deficits noted Sensorium / Orientation: awake, alert, oriented to person, oriented to place and oriented to time Speech: speech normal Psych affect normal Assessment & Plan Assessment/Plan (1) Essential hypertension: PLAN: Plan 1. Acute diastolic congestive heart failure-continue IV Lasix, monitor electrolytes #2 acute hypoxia secondary to #1-pulse ox will be monitored #3 essential hypertension-patient will remain on his present medications, patient is on peculiar doses of losartan and he is also on clonidine in addition to Tenex, for now I will continue this medication regimen #4 hyperlipidemia-patient will remain on his current medication #5 Moderate aortic valvular disease (stenosis)-complicates care, medical course, recovery, and prognosis Total clinical time spent by myself addressing the patient's medical issues, reviewing all of the data, and collaborating with patient's care team: 35- minutes Charges/Coding Visit Charges Inpatient E&M: 72937 Subs Hosp L2
[2022-05-11 22:03] VITALS: BP 147/84; PULSE 65; RESP 18; TEMP 36.6; O2SAT 94
[2022-05-11] MEDS: Losartan Potassium 50 MG Tablet 75 MG PO (22:07)
[2022-05-11] MEDS: Atorvastatin Calcium 10 MG Tablet PO (22:07)
[2022-05-11] MEDS: DiphenhydrAMINE 25 MG Capsule PO (22:08)
[2022-05-12] VITALS (9 sets, daily range): BP systolic 105–154; BP diastolic 57–73; PULSE 56–68; RESP 16–18; TEMP 36.5–37.2; O2SAT 88–97; BMI 31.8
[2022-05-12] MEDS: Furosemide 20 MG/2 ML VIAL IV (06:03)
[2022-05-12] MEDS: cloNIDine HCl 0.1 MG Tablet PO ×2 (06:03→22:18)
[2022-05-12] MEDS: 0.9% Saline Lock 10 ML Syringe IV ×3 (06:03→22:26)
[2022-05-12 06:49] LABS: Anion Gap 8 (5-15); BUN 27 mg/dL (7-18); BUN/Creat Ratio 31.4 RATIO (10-20); Calcium,Total 9.4 mg/dL (8.5-10.1); Chloride 99 mmol/L (98-107); Creatinine, Serum 0.86 mg/dL (0.70-1.30); EST Glomerular Filtration Rate 90 mL/min (>60); Est Glom Filt Rate - Afr Amer 109 mL/min (>60); Glucose 105 mg/dL (74-106); Potassium 3.5 mmol/L (3.5-5.1); Sodium Level 144 mmol/L (136-145)
[2022-05-12] MEDS: GUANFACINE HCL 2 MG TABLET PO (09:42)
[2022-05-12] MEDS: Losartan Potassium 50 MG Tablet PO (09:42)
[2022-05-12] MEDS: Carvedilol 25 MG Tablet PO ×2 (09:42→22:18)
[2022-05-12] MEDS: Heparin Injection (Vial) 5,000 UNIT/ML VIAL 5000 UNIT SC ×2 (09:42→22:19)
[2022-05-12] MEDS: Sertraline 100 MG Tablet PO (09:42)
[2022-05-12] MEDS: Potassium Chloride Oral Tablet 20 MEQ PO ×2 (09:42→17:20)
--- NOTE | 2022-05-12 10:27 | PCM.PN.HOSP ---
Reason for Visit Reason for Visit: Diagnoses Essential (primary) hypertension (05/10/22) Subjective Subjective Patient is an 87-year-old gentleman admitted with progressive shortness of breath and assessment of acute congestive heart failure made admitted to a monitored bed where patient is currently being managed Objective Data Objective Data Vital Signs: Vital Signs Temp Pulse Resp BP Pulse Ox O2 Del Method O2 Flow Rate 97.9 F 65 16 129/57 H 95 Nasal Cannula 2 05/12/22 09:40 05/12/22 09:40 05/12/22 09:40 05/12/22 09:40 05/12/22 09:40 05/12/22 09:40 05/12/22 09:40 Oxygen Flow Rate (L/min) 2 Oxygen Delivery Method Nasal Cannula Weight: 97.7 kg Body Mass Index (BMI) 31.8 Intake & Output: Intake and Output for Last 24 Hours 05/10/22 05/11/22 05/12/22 23:59 23:59 23:59 Intake Total 540 / 540 960 / 960 240 / 240 Output Total 2550 / 2550 2950 / 2950 400 / 400 Balance -2009 / -2009 -1989 / -1989 - / -160 Lab / Micro Data Result Diagrams: 05/10/22 10:17 05/12/22 04:42 Labs: Laboratory Results - last 24 hr 05/12/22 04:42: Sodium 144, Potassium 3.5, Chloride 99, Carbon Dioxide 37.0 H, Anion Gap 8, BUN 27 H, Creatinine 0.86, Estim Creat Clear Calc 62.80, Est GFR (MDRD) Af Amer 109, Est GFR (MDRD) Non-Af 90, BUN/Creatinine Ratio 31.4 H, Glucose 105, Calcium 9.4 Physical Exam Narrative GENERAL: cooperative remains dyspneic at rest HEENT: Atraumatic; normocephalic EYES; Anicteric, Normal Conjunctiva NECK; supple, normal thyroid, RESPIRATORY: Diminished to auscultation CARDIOVASCULAR: Regular S1 S2, GI: soft, normoactive bowel sounds, : No Renal angle tenderness; EXTREMITIES: No edema, no clubbing, MUSCULOSKELETAL: no muscle wasting NEURO: Awake; no lateralizing signs. SKIN: No Rash PSYCH; Flat affect Assessment & Plan Assessment/Plan (1) Essential hypertension: PLAN: Plan Patient is an 87-year-old gentleman admitted with progressive shortness of breath and assessment of acute congestive heart failure made admitted to a monitored bed where patient is currently being managed 1. Acute on chronic congestive heart failure with preserved ejection fraction ? Echo obtained on 11/22/2021 demonstrated EF of 65%. Admitted to a monitored bed where patient has been managed with strict input and output, daily weight, fluid restriction as well as IV furosemide 2. Acute hypoxia ? Secondary to #1 patient on supplemental oxygen titrated to keep oxygen sat greater than 90 3. Essential hypertension ? Patient blood pressure stable 4. Valvular heart disease ? Patient has known moderate aortic stenosis with an area site of 1.2 cm? 5. Dyslipidemia ? Patient is on statin therapy simvastatin at home switch to atorvastatin in the hospital 6. BPH ? Patient is on tamsulosin did continue 7. Depression ? Patient is on sertraline 100 mg daily continue 8. Class I obesity with BMI of 31.8 ? Weight loss advised 9. DVT prophylaxis ? On heparin SC every 12 Time spent in the patient's overall evaluation,decision-making process, review of diagnostic data, adjustment of management, discussion with other providers, nursing nursing and ancillary staff involved in patient's care documentation, 36 Minutes Charges/Coding Visit Charges Inpatient E&M: 45120 Subs Hosp L2
[2022-05-12] MEDS: Furosemide 20 MG/2 ML VIAL 40 MG IV ×2 (11:53→22:19)
--- NOTE | 2022-05-12 12:05 | CASEMGMT ---
RN CM Face to Face with patient for initial transition planning/care coordination assessment. RN CM introduced self and role at [facility]. Patient lying in bed, alert and oriented, daughter at bedside. Patient willing to participate in assessment and is able to answer all questions appropriately. Care providers, pharmacy, and demographics verified. Patient wishes to discharge home, will monitor progress with therapy for possible HHC vs outpatient therapy. Patient states he has no further needs or concerns at this time. CM to follow for discharge planning needs that may arise. PCP: Chely Specialists: Ki private duty aide [facility]erred [facility]acy: [facility] Insurance: [employer] Prescription Benefit: yes Living Will/HPOA: yes, daughter Kacey Heredia LNOK: daughters, Living Arrangements: Patient lives with that is disabled in a 2 story home with bed and bath on first floor. 2 steps and railing to enter the home. Patient states he is independent at home. Transportation: self, daughters DME/HHC: Patient has shower chair, raised toilet, cane, walker, grab bars at home. Patient has been to TCU in the past. Patient has had [facility] HHC in the past. Will monitor progress with therapy. Will monitor patient for home oxygen and prefers [employer]. Disposition Plan: Patient to discharge home with family support and follow-up plans in place. Will monitor for HHC vs outpatient therapy. Kate WEINER, RN, CM
[2022-05-12] MEDS: Tamsulosin HCl 0.4 MG Capsule PO (17:20)
[2022-05-12] MEDS: DiphenhydrAMINE 25 MG Capsule PO (22:18)
[2022-05-12] MEDS: Losartan Potassium 50 MG Tablet 75 MG PO (22:18)
[2022-05-12] MEDS: Atorvastatin Calcium 10 MG Tablet PO (22:20)
[2022-05-13] VITALS (7 sets, daily range): BP systolic 106–153; BP diastolic 54–92; PULSE 55–73; RESP 18; TEMP 36.7–36.9; O2SAT 86–94; BMI 31.2
[2022-05-13] MEDS: Furosemide 20 MG/2 ML VIAL 40 MG IV (05:52)
[2022-05-13] MEDS: 0.9% Saline Lock 10 ML Syringe IV (05:53)
[2022-05-13] MEDS: cloNIDine HCl 0.1 MG Tablet PO (05:53)
[2022-05-13 06:22] LABS: Absolute Lymphocyte Count 1.43 X10^3/uL (0.83-4.51); Absolute Neutrophil Count 3.7 X10^3/uL (2.0-7.7); Basophil# 0.01 X10^3/uL; Basophil% 0.2 % (0-1); Eosinophil# 0.03 X10^3/uL; Eosinophils% 0.5 % (0-5); Hematocrit 46.6 % (40-54); Hemoglobin 14.2 g/dL (13.0-16.5); Lymphocyte # 1.43 X10^3/ul (0.83-4.51); Lymphocyte % 23.8 % (19-41); Mean Corp Hgb Conc 30.5 g/dL (32-36); Mean Corpuscular Hgb 31.1 pg (27.0-32.0); Mean Platelet Vol. 11.5 fl (6.2-12.0); Monocyte# 0.81 X10^3/uL; Monocyte% 13.5 % (0-10); NRBC Flagged by Analyzer 0 % (0-5); Neutrophil % 61.7 % (47-70); Platelet Count 152 K/mm3 (150-450); Red Blood Count 4.57 M/mm3 (4.6-6.2)
[2022-05-13 07:02] LABS: Anion Gap 8 (5-15); BUN 30 mg/dL (7-18); BUN/Creat Ratio 35.3 RATIO (10-20); Calcium,Total 9.4 mg/dL (8.5-10.1); Chloride 98 mmol/L (98-107); Creatinine, Serum 0.85 mg/dL (0.70-1.30); EST Glomerular Filtration Rate 91 mL/min (>60); Est Glom Filt Rate - Afr Amer 110 mL/min (>60); Estimated Creatinine Clearance 63.54 ml/min; Glucose 105 mg/dL (74-106); Magnesium 2.5 mg/dL (1.6-2.6); Potassium 3.6 mmol/L (3.5-5.1); Sodium Level 143 mmol/L (136-145)
--- NOTE | 2022-05-13 09:51 | PN.HOSP_ITS ---
Reason for Visit Reason for Visit: Diagnoses Essential (primary) hypertension (05/10/22) Subjective Subjective Chest pain had apparently complained of foot pain the day prior which has since resolved. Objective Data Objective Data Vital Signs: Vital Signs Temp Pulse Resp BP Pulse Ox O2 Del Method O2 Flow Rate 98.1 F 55 L 18 153/92 H 92 Nasal Cannula 2 05/13/22 05:50 05/13/22 05:50 05/13/22 05:50 05/13/22 05:50 05/13/22 08:08 05/13/22 08:08 05/13/22 08:08 Oxygen Flow Rate (L/min) 2 Oxygen Delivery Method Nasal Cannula Weight: 96.1 kg Body Mass Index (BMI) 31.2 Intake & Output: Intake and Output for Last 24 Hours 05/11/22 05/12/22 05/13/22 23:59 23:59 23:59 Intake Total 960 / 960 1080 / 1080 240 / 240 Output Total 2950 / 2950 1700 / 1900 750 / 750 Balance -1989 / -1990 -620 / -820 -510 / -510 Lab / Micro Data Result Diagrams: 05/13/22 05:27 05/13/22 05:27 Labs: Laboratory Results - last 24 hr 05/13/22 05:27: WBC 6.0, RBC 4.57 L, Hgb 14.2, Hct 46.6, MCV 102.0 H, MCH 31.1, MCHC 30.5 L, RDW Std Deviation 49.0 H, RDW Coeff of [place] 13.0, Plt Count 152, MPV 11.5, Immature Gran % (Auto) 0.300, Neut % (Auto) 61.7, Lymph % (Auto) 23.8, [place] % (Auto) 13.5 H, Eos % (Auto) 0.5, Baso % (Auto) 0.2, Absolute Neuts (auto) 3.7, Absolute Lymphs (auto) 1.43, Nucleated RBC % 0 05/13/22 05:27: Sodium 143, Potassium 3.6, Chloride 98, Carbon Dioxide 37.0 H, Anion Gap 8, BUN 30 H, Creatinine 0.85, Estim Creat Clear Calc 63.54, Est GFR (MDRD) Af Amer 110, Est GFR (MDRD) Non-Af 91, BUN/Creatinine Ratio 35.3 H, Glucose 105, Calcium 9.4, Magnesium 2.5 Radiography Diagnostic Testing: Radiology Impression Echocardiogram 05/10/22 12:36 Interpretation Summary Normal LV size. Mild concentric left ventricular hypertrophy. Left ventricular systolic function is normal. Stage 1 diastolic dysfunction. Moderate focal aortic valve calcification. Mean aortic valve gradient 13 mmHg. Mild aortic stenosis... Essentially unchanged from prior. Compared to previous study, the left ventricular systolic function is the same.. Ordering Physician: Misbah Mesa Referring Physician: Lico Mo Performed By: Gilda Blackman RCS Physical Exam Narrative GENERAL: cooperative HEENT: Atraumatic; normocephalic EYES; Anicteric, Normal Conjunctiva NECK; supple, normal thyroid, RESPIRATORY: Diminished to auscultation CARDIOVASCULAR: Regular S1 S2, GI: soft, normoactive bowel sounds, : No Renal angle tenderness; EXTREMITIES: No edema, no clubbing, MUSCULOSKELETAL: no muscle wasting NEURO: Awake; no lateralizing signs. SKIN: No Rash PSYCH; Flat affect Assessment & Plan Assessment/Plan (1) Essential hypertension: PLAN: Plan Patient is an 87-year-old gentleman admitted with progressive shortness of breath and assessment of acute congestive heart failure made admitted to a monitored bed where patient is currently being managed 1. Acute on chronic congestive heart failure with preserved ejection fraction ? Echo obtained on 11/22/2021 demonstrated EF of 65%. Admitted to a monitored bed where patient has been managed with strict input and output, daily weight, fluid restriction as well as IV furosemide ? 05/13/2022 patient seen continues to improve clinically he will be assessed for possible discharge 2. Acute hypoxia ? Secondary to #1 patient on supplemental oxygen titrated to keep oxygen sat greater than 90 3. Essential hypertension ? Patient blood pressure stable 4. Valvular heart disease ? Patient has known moderate aortic stenosis with an area site of 1.2 cm? 5. Dyslipidemia ? Patient is on statin therapy simvastatin at home switch to atorvastatin in the hospital 6. BPH ? Patient is on tamsulosin did continue 7. Depression ? Patient is on sertraline 100 mg daily continue 8. Class I obesity with BMI of 31.8 ? Weight loss advised 9. DVT prophylaxis ? On heparin SC every 12 Time spent in the patient's overall evaluation,decision-making process, review of diagnostic data, adjustment of management, discussion with other providers, nursing nursing and ancillary staff involved in patient's care documentation, 36 Minutes Charges/Coding Visit Charges Inpatient E&M: 59692 Subs Hosp L2
--- NOTE | 2022-05-13 09:59 | PCM.DC.SUM ---
Providers Date of Admission: 05/10/22 Date of Discharge: 05/13/22 Primary Care Physician: Dr. Lico Mo MD Reason For Visit: CHF Diagnosis Discharge Diagnosis (1) Essential hypertension: Status: Chronic Code(s): I10 - Essential (primary) hypertension Plan Patient is an 87-year-old gentleman admitted with progressive shortness of breath and assessment of acute congestive heart failure made admitted to a monitored bed where patient is currently being managed 1. Acute on chronic congestive heart failure with preserved ejection fraction ? Echo obtained on 11/22/2021 demonstrated EF of 65%. Admitted to a monitored bed where patient has been managed with strict input and output, daily weight, fluid restriction as well as IV furosemide ? 05/13/2022 patient seen continues to improve clinically he will be assessed for possible discharge 2. Acute hypoxia ? Secondary to #1 patient on supplemental oxygen titrated to keep oxygen sat greater than 90 3. Essential hypertension ? Patient blood pressure stable 4. Valvular heart disease ? Patient has known moderate aortic stenosis with an area site of 1.2 cm? 5. Dyslipidemia ? Patient is on statin therapy simvastatin at home switch to atorvastatin in the hospital 6. BPH ? Patient is on tamsulosin did continue 7. Depression ? Patient is on sertraline 100 mg daily continue 8. Class I obesity with BMI of 31.8 ? Weight loss advised 9. DVT prophylaxis ? On heparin SC every 12 Time spent in the patient's overall evaluation,decision-making process, review of diagnostic data, adjustment of management, discussion with other providers, nursing nursing and ancillary staff involved in patient's care documentation, 36 Minutes Medications at Discharge Home Medications carvedilol 25 mg tablet 25 mg PO BID Blood pressure 06/26/16 guanfacine 2 mg tablet 2 mg PO DAILY Blood pressure 06/26/16 tnqbymlq-qzx-pvrug acid 300 mcg-lycopene 600 mcg-lutein 300 mcg tablet 1 ea PO DAILY Supplement 06/26/16 simvastatin 20 mg tablet 20 mg PO QHS Cholesterol 06/26/16 tamsulosin 0.4 mg capsule 0.4 mg PO DAILY Prostate 06/26/16 clonidine HCl 0.1 mg tablet 0.1 mg PO TID Blood pressure 06/22/17 hydralazine 25 mg tablet 25 mg PO 4X/DAY Blood pressure 06/22/17 sertraline 100 mg tablet (Zoloft) 100 mg PO QDAY Anxiety 10/14/17 acetaminophen 325 mg tablet 650 mg PO Q6H PRN PRN Pain 1-10/Fever >=100.7F 01/22/20 omega 8-hqc-jsh-fish oil 900 mg-1,400 mg capsule,delayed release 1 cap PO DAILY Supplement 04/20/20 losartan 50 mg tablet 50 mg PO .COMPLEX Blood pressure 10/18/20 diphenhydramine HCl 25 mg capsule 25 mg PO QHS Sleep aide 11/06/21 furosemide 40 mg tablet 40 mg PO BIDCM Blood pressure #120 tabs 05/13/22 potassium chloride 10 mEq capsule,extended release 20 meq PO 2XD Potassium supplement #60 caps 05/13/22 Hospital Course Summary of Care Provided Minutes Spent on Discharge: 36 Physical Exam Narrative GENERAL: cooperative HEENT: Atraumatic; normocephalic EYES; Anicteric, Normal Conjunctiva NECK; supple, normal thyroid, RESPIRATORY: Diminished to auscultation CARDIOVASCULAR: Regular S1 S2, GI: soft, normoactive bowel sounds, : No Renal angle tenderness; EXTREMITIES: No edema, no clubbing, MUSCULOSKELETAL: no muscle wasting NEURO: Awake; no lateralizing signs. SKIN: No Rash PSYCH; Flat affect Weight / BMI Weight Weight: 96.1 kg Body Mass Index (BMI) 31.2 ABG / Lab / Microbiology Data Result Diagrams: 05/13/22 05:27 05/13/22 05:27 Laboratory: Laboratory Results - last 24 hr 05/13/22 05:27: WBC 6.0, RBC 4.57 L, Hgb 14.2, Hct 46.6, MCV 102.0 H, MCH 31.1, MCHC 30.5 L, RDW Std Deviation 49.0 H, RDW Coeff of [place] 13.0, Plt Count 152, MPV 11.5, Immature Gran % (Auto) 0.300, Neut % (Auto) 61.7, Lymph % (Auto) 23.8, [place] % (Auto) 13.5 H, Eos % (Auto) 0.5, Baso % (Auto) 0.2, Absolute Neuts (auto) 3.7, Absolute Lymphs (auto) 1.43, Nucleated RBC % 0 05/13/22 05:27: Sodium 143, Potassium 3.6, Chloride 98, Carbon Dioxide 37.0 H, Anion Gap 8, BUN 30 H, Creatinine 0.85, Estim Creat Clear Calc 63.54, Est GFR (MDRD) Af Amer 110, Est GFR (MDRD) Non-Af 91, BUN/Creatinine Ratio 35.3 H, Glucose 105, Calcium 9.4, Magnesium 2.5 Radiography Diagnostic Testing: Radiology Impression Echocardiogram 05/10/22 12:36 Interpretation Summary Normal LV size. Mild concentric left ventricular hypertrophy. Left ventricular systolic function is normal. Stage 1 diastolic dysfunction. Moderate focal aortic valve calcification. Mean aortic valve gradient 13 mmHg. Mild aortic stenosis... Essentially unchanged from prior. Compared to previous study, the left ventricular systolic function is the same.. Ordering Physician: Misbah Mesa Referring Physician: Lico Mo Performed By: Gilda Blackman RCS D/C Instructions Discharge Diet: 8 Cup Fluid Restriction and 2000 mg Sodium Diet Discharge Activity: Return to Normal Activity Call your doctor if you observe: Fever of 101 or Higher, Shortness of breath, Fainting spells and Chest pain Meaningful Use Info Meaningful Use Diagnoses (Choose all that apply): CHF CHF TELLY/ARB ordered at discharge?: Yes Documented LVEF (%): 55 Discharge Plan Admission Admit Date/Time: 05/10/22 12:06 Attending Provider: Henry Squires Primary Care Provider: Lico Mo Consulting Providers: Mibsah Mesa Discharge Orders/Prescriptions Prescriptions: Continued hydralazine 25 mg tablet 25 mg PO 4X/DAY sertraline [Zoloft] 100 mg tablet 100 mg PO QDAY diphenhydramine HCl 25 mg capsule 25 mg PO QHS losartan 50 mg tablet 50 mg PO .COMPLEX Rx Instructions: 50 mg PO 1 tabs in the am and 1.5 tab in the pm carvedilol 25 MG tablet 25 mg PO BID tamsulosin 0.4 MG capsule 0.4 mg PO DAILY simvastatin 20 MG tablet 20 mg PO QHS guanfacine 2 MG tablet 2 mg PO DAILY ttgvruyg-cyd-HR-lycopen-lutein 1 EACH tablet 1 ea PO DAILY clonidine HCl 0.1 mg tablet 0.1 mg PO TID omega 4-zml-rlq-fish oil 900-1,400 mg capsule,delayed release(DR/EC) 1 cap PO DAILY acetaminophen 325 MG tablet 650 mg PO Q6H PRN PRN (Reason: Pain 1-10/Fever >=100.7F) 0RF Changed furosemide 40 mg tablet 40 mg PO BIDCM Qty: 120 0RF potassium chloride 10 mEq capsule, extended release 20 meq PO 2XD Qty: 60 0RF Referrals / Follow Up: Lico Mo MD [Primary Care Provider] - Within 2 Weeks Disposition Disposition (needs filled in before D/C Order can be placed): Home, Self Care Charges/Coding Visit Charges Inpatient E&M: 09130 Disch Hosp >30min
[2022-05-13] MEDS: GUANFACINE HCL 2 MG TABLET PO (10:03)
[2022-05-13] MEDS: Heparin Injection (Vial) 5,000 UNIT/ML VIAL 5000 UNIT SC (10:03)
[2022-05-13] MEDS: Sertraline 100 MG Tablet PO (10:03)
[2022-05-13] MEDS: Potassium Chloride Oral Tablet 20 MEQ PO (10:03)
[2022-05-13] MEDS: Carvedilol 25 MG Tablet PO (10:03)
--- NOTE | 2022-05-13 10:40 | PHA.DC.MR ---
Pharmacy Service has performed discharge medication reconciliation for this patient. The patient's discharge medication list was reviewed for discrepancies and discrepancies were resolved. Home Medications carvedilol 25 mg tablet 25 mg PO BID Blood pressure 06/26/16 guanfacine 2 mg tablet 2 mg PO DAILY Blood pressure 06/26/16 vhwhvffv-hxc-bazvv acid 300 mcg-lycopene 600 mcg-lutein 300 mcg tablet 1 ea PO DAILY Supplement 06/26/16 simvastatin 20 mg tablet 20 mg PO QHS Cholesterol 06/26/16 tamsulosin 0.4 mg capsule 0.4 mg PO DAILY Prostate 06/26/16 clonidine HCl 0.1 mg tablet 0.1 mg PO TID Blood pressure 06/22/17 hydralazine 25 mg tablet 25 mg PO 4X/DAY Blood pressure 06/22/17 sertraline 100 mg tablet (Zoloft) 100 mg PO QDAY Anxiety 10/14/17 acetaminophen 325 mg tablet 650 mg PO Q6H PRN PRN Pain 1-10/Fever >=100.7F 01/22/20 omega 1-fyk-onj-fish oil 900 mg-1,400 mg capsule,delayed release 1 cap PO DAILY Supplement 04/20/20 losartan 50 mg tablet 50 mg PO .COMPLEX Blood pressure 10/18/20 diphenhydramine HCl 25 mg capsule 25 mg PO QHS Sleep aide 11/06/21 furosemide 40 mg tablet 40 mg PO BIDCM Blood pressure #120 tabs 05/13/22 potassium chloride 10 mEq capsule,extended release 20 meq PO 2XD Potassium supplement #60 caps 05/13/22
--- NOTE | 2022-05-13 11:39 | CASEMGMT ---
SIOMARA GRACIA in to discuss discharge planning with patient as patient has order for discharge today. Patient qualifies for home oxygen. Patient prefers [facility] for home oxygen. Script received and referral sent to [facility] via [facility]. Patient is also interested in HHC. A list of HHC providers including quality and resource use data and consistent with the patient?s preferred geographical region, medical needs, and insurance network were provided from the [employer] Guide. [facility] Referral sent to [facility] and they are able to accept the patient with planned start of care for . SIOMARA GRACIA updated patient, patient had no further questions or concerns at this time.
== END 2022-05-13 12:27 | disposition home health service (06) | DRG 291 ==
LOC: ED 11:22 → PCU 11:47
PROVIDERS: Admitting Provider Internal Medicine; Emergency Provider Emergency Medicine; PCP Family Medicine; Visit Provider Internal Medicine
DX: I11.0 Hypertensive heart disease with heart failure (principal); I50.33 Acute on chronic diastolic (congestive) heart failure; E66.9 Obesity, unspecified; E78.00 Pure hypercholesterolemia, unspecified; I35.0 Nonrheumatic aortic (valve) stenosis; R09.02 Hypoxemia; N40.0 Benign prostatic hyperplasia without lower urinary tract symptoms; F32.A Depression, unspecified; Z68.31 Body mass index [BMI] 31.0-31.9, adult; Z79.899 Other long term (current) drug therapy; Z87.891 Personal history of nicotine dependence
CPT/HCPCS: 36415; 71045; 80048; 83735; 83880; 84484; 85025; 85379; 93005; 93306; 97110; 97162; 97165; 97530; 97535; 97802; 99252; 99285; A4216; G0463; J1940

== ENCOUNTER → 2022-06-02 | Outpatient (CLI) | payer MEDICARE, SELFPAY ==
[2022-06-02 13:50] LABS: Absolute Lymphocyte Count 1.44 X10^3/uL (0.83-4.51); Absolute Neutrophil Count 3.9 X10^3/uL (2.0-7.7); Basophil# 0.01 X10^3/uL; Basophil% 0.2 % (0-1); Eosinophil# 0.03 X10^3/uL; Eosinophils% 0.5 % (0-5); Hematocrit 42.8 % (40-54); Hemoglobin 13.4 g/dL (13.0-16.5); Lymphocyte # 1.44 X10^3/ul (0.83-4.51); Lymphocyte % 24.1 % (19-41); Mean Corp Hgb Conc 31.3 g/dL (32-36); Mean Corpuscular Hgb 30.9 pg (27.0-32.0); Mean Corpuscular Volume 98.8 fL (80-94); Mean Platelet Vol. 12.2 fl (6.2-12.0); Monocyte# 0.54 X10^3/uL; NRBC Flagged by Analyzer 0 % (0-5); Neutrophil # 3.94 X10^3/uL (2.7-7.7); Neutrophil % 65.9 % (47-70); Platelet Count 184 K/mm3 (150-450); RBC Distribution Width CV 13.2 % (11.6-14.6); RBC Distribution Width SD 47.9 fl (35.1-43.9); Red Blood Count 4.33 M/mm3 (4.6-6.2)
[2022-06-02 14:03] LABS: ALB/GLOB Ratio 0.9 RATIO (0.9-2.4); AST(SGOT) 17 U/L (15-37); Alanine Aminotransfer ALT/SGPT 25 U/L (16-61); Albumin, Serum 3.6 g/dL (3.2-5.0); Alkaline Phosphatase 83 U/L (45-117); Anion Gap 6 (5-15); BUN 28 mg/dL (7-18); BUN/Creat Ratio 28.7 RATIO (10-20); Chloride 104 mmol/L (98-107); Creatinine, Serum 0.98 mg/dL (0.70-1.30); EST Glomerular Filtration Rate 78 mL/min (>60); Est Glom Filt Rate - Afr Amer 94 mL/min (>60); Globulin 3.8 g/dL (2.2-4.2); Glucose 94 mg/dL (74-106); Potassium 4.1 mmol/L (3.5-5.1); Protein, Total 7.4 g/dL (6.4-8.2); Sodium Level 141 mmol/L (136-145)
[2022-06-02 14:13] LABS: Hemoglobin A1c 5.6 % (3.8-5.6)
== END | disposition home or self-care (01) ==
LOC: LABSPEC 13:10
PROVIDERS: PCP Family Medicine; Referring Provider Nurse Practitioner Family; Visit Provider Nurse Practitioner Family
DX: I10 Essential (primary) hypertension (principal); R63.1 Polydipsia
CPT/HCPCS: 80053; 83036; 85025

== ENCOUNTER → 2022-06-26 | Outpatient (CLI) | payer MEDICARE, SELFPAY ==
--- NOTE | 2022-06-26 10:41 | RAD_ITS ---
INDICATION: Shortness of breath EXAMINATION/TECHNIQUE: X-RAY - XR Chest 2 Views COMPARISON: May 10, 2022 FINDINGS: LINES/DEVICES: None. LUNGS: There are bibasilar streaky opacities. MEDIASTINUM AND CARDIOVASCULAR STRUCTURES: Cardiac silhouette not enlarged. Central airways and mediastinal contour are unremarkable. BONES AND SOFT TISSUES: Unremarkable. RAD/Chest PA and Lateral IMPRESSION: Minimal bibasilar atelectasis and/or scarring. Electronically Signed: Dary Bennett MD at 14:48 EDT ,
[2022-06-26 12:17] LABS: Absolute Lymphocyte Count 1.33 X10^3/uL (0.83-4.51); Absolute Neutrophil Count 4.2 X10^3/uL (2.0-7.7); Eosinophil# 0.02 X10^3/uL; Eosinophils% 0.3 % (0-5); Hematocrit 43.1 % (40-54); Hemoglobin 13.2 g/dL (13.0-16.5); Lymphocyte # 1.33 X10^3/ul (0.83-4.51); Lymphocyte % 21.7 % (19-41); Mean Corp Hgb Conc 30.6 g/dL (32-36); Mean Corpuscular Hgb 30.7 pg (27.0-32.0); Mean Corpuscular Volume 100.2 fL (80-94); Monocyte# 0.58 X10^3/uL; Monocyte% 9.4 % (0-10); NRBC Flagged by Analyzer 0 % (0-5); Neutrophil # 4.17 X10^3/uL (2.7-7.7); Neutrophil % 67.9 % (47-70); Platelet Count 189 K/mm3 (150-450); RBC Distribution Width CV 13.9 % (11.6-14.6); RBC Distribution Width SD 50.8 fl (35.1-43.9); White Blood Count 6.1 K/mm3 (4.4-11.0)
[2022-06-26 12:46] LABS: BNP,B-Type NATRIURETIC PEPTIDE 268.9 pg/mL (0-100)
[2022-06-26 12:47] LABS: AST(SGOT) 18 U/L (15-37); Alanine Aminotransfer ALT/SGPT 28 U/L (16-61); Albumin, Serum 3.5 g/dL (3.2-5.0); Alkaline Phosphatase 112 U/L (45-117); Anion Gap 4 (5-15); BUN 37 mg/dL (7-18); Calcium,Total 9.8 mg/dL (8.5-10.1); Chloride 100 mmol/L (98-107); Creatinine, Serum 1.54 mg/dL (0.70-1.30); EST Glomerular Filtration Rate 46 mL/min (>60); Est Glom Filt Rate - Afr Amer 56 mL/min (>60); Globulin 3.6 g/dL (2.2-4.2); Glucose 115 mg/dL (74-106); Potassium 3.7 mmol/L (3.5-5.1); Protein, Total 7.1 g/dL (6.4-8.2); Sodium Level 140 mmol/L (136-145)
== END | disposition home or self-care (01) ==
LOC: MTLAB 10:39
PROVIDERS: PCP Family Medicine; Referring Provider Family Medicine; Visit Provider Family Medicine
DX: R06.02 Shortness of breath (principal)
CPT/HCPCS: 36415; 71046; 80053; 83880; 85025

== ENCOUNTER 2022-08-02 15:25 | Inpatient (IN) | payer MEDICARE, SELFPAY ==
[2022-08-02] VITALS (10 sets, daily range): BP systolic 107–121; BP diastolic 63–92; PULSE 64–86; RESP 14–20; TEMP 36.4–36.6; O2SAT 93–98; BMI 33.5; BMI 31.6
--- NOTE | 2022-08-02 15:39 | ED.VIS.DYS ---
HPI History of Present Illness Chief Complaint: Shortness of Breath Informant: patient Onset/Context/Timing Onset: Weeks Context: gradual Timing: Intermittent Quality: Positive for Dyspnea on exertion Worsened by: Exertion Relieved by: Oxygen Associated Symptoms Negative for cough, rhinorrhea, ear pain, fever, sore throat, chills or sweats Chest Pain: Positive for None Narrative Narrative: Patient presents with shortness of breath that has been getting progressively worse over the past few weeks. Patient admitted to the hospital recently for this. Patient states he felt better when he was discharged. Patient states his breathing is gradually getting worse since he was discharged. Patient states his breathing is worse with exertion. Patient states it is better with oxygen. Patient denies any cough. Patient denies any sore throat. Patient denies any fevers or chills. Patient denies any chest pain. PE Risk Factors: Positive for Cancer; Negative for Prior DVT or PE, Recent immobilization, Recent surgery or Recent travel [facility] Medical History Colon cancer Essential hypertension Gout Heart murmur Lumbar spondylosis with myelopathy Non-rheumatic aortic stenosis Osteoporosis Pure hypercholesterolemia Home Medications carvedilol 25 mg tablet 25 mg PO BID Blood pressure 06/26/16 [History Last Taken 05/10/22] guanfacine 2 mg tablet 2 mg PO DAILY Blood pressure 06/26/16 [History Last Taken 05/10/22] exeoydfj-qrl-qgldp acid 300 mcg-lycopene 600 mcg-lutein 300 mcg tablet 1 ea PO DAILY Supplement 06/26/16 [History Last Taken 05/09/22] simvastatin 20 mg tablet 20 mg PO QHS Cholesterol 06/26/16 [History Last Taken 05/09/22] tamsulosin 0.4 mg capsule 0.4 mg PO DAILY Prostate 06/26/16 [History Last Taken 05/09/22] clonidine HCl 0.1 mg tablet 0.1 mg PO TID Blood pressure 06/22/17 [History Last Taken 05/10/22] hydralazine 25 mg tablet 25 mg PO 4X/DAY Blood pressure 06/22/17 [History Last Taken 05/10/22] sertraline 100 mg tablet (Zoloft) 100 mg PO QDAY Anxiety 10/14/17 [History Last Taken 05/09/22] acetaminophen 325 mg tablet 650 mg PO Q6H PRN PRN Pain 1-10/Fever >=100.7F 01/22/20 [Rx Last Taken 05/09/22] omega 6-qgh-mgy-fish oil 900 mg-1,400 mg capsule,delayed release 1 cap PO DAILY Supplement 04/20/20 [History Last Taken 05/09/22] diphenhydramine HCl 25 mg capsule 25 mg PO QHS Sleep aide 11/06/21 [History Last Taken 05/09/22] furosemide 40 mg tablet 40 mg PO BIDCM Blood pressure #120 tabs 05/13/22 [Rx Last Taken Unknown] potassium chloride 10 mEq capsule,extended release 20 meq PO 2XD Potassium supplement #60 caps 05/13/22 [Rx Last Taken Unknown] losartan 50 mg tablet 50 mg PO DAILY Blood pressure 05/15/22 [History Last Taken Unknown] Allergy/AdvReac Type Severity Reaction Status Date / Time No Known Allergies Allergy Verified 08/02/22 15:26 Family History Father , Age 49 Cancer liver Surgical History History of colectomy History of open reduction and internal fixation (ORIF) procedure Social History Smoking Status: Former smoker how long ago did patient quit smoking: Quit smoking a pipe 21 years ago alcohol intake: current alcohol intake frequency: 0-2 drinks per day substance use type: does not use caffeine: Yes Type: coffee Number of servings: 2 ROS ROS ED Constitutional Constitutional ED: Denies chills or fever(s) Eyes Eyes: Denies blurry vision or change in vision ENT ENT ED: Denies rhinorrhea or sore throat Cardiovascular Cardiovascular: Denies chest pain or palpitations Respiratory/Chest Respiratory/Chest: Reports dyspnea; Denies cough Gastrointestinal Gastrointestinal: Denies nausea or vomiting Genitourinary Genitourinary ED: Denies dysuria or hematuria Musculoskeletal Musculoskeletal: Denies back pain or neck pain Integumentary Denies abscess or rash Neurologic Neurologic: Denies headache(s) or weakness Allergic/Immunologic Allergic/Immunologic ED: Denies mouth swelling or urticaria EXAM Physical Exam Const Vital Signs: 08/02/22 15:27 08/02/22 15:57 08/02/22 16:12 Temperature 97.6 F L Temperature Source Temporal Pulse Rate 64 68 Respiratory Rate 18 Blood Pressure 114/92 H 116/63 Blood Pressure Mean 99 Pulse Ox 98 Oxygen Delivery Method Nasal Cannula Non-Rebreather @ 15L/min Oxygen Flow Rate (L/min) 4 08/02/22 16:26 08/02/22 17:00 08/02/22 18:00 Temperature Temperature Source Pulse Rate 70 77 76 Respiratory Rate 14 16 16 Blood Pressure 121/76 H 107/75 118/79 Blood Pressure Mean 91 85 92 Pulse Ox 96 98 97 Oxygen Delivery Method Nasal Cannula Nasal Cannula Nasal Cannula Oxygen Flow Rate (L/min) 2 2 2 Positive well nourished, well developed and obese General Appearance ED: well developed and NAD Nutritional Appearance: obese HEENT normocephalic and atraumatic Eyes PERRL and EOMs intact bilaterally Neck supple and no JVD Chest Wall palpation of chest normal Resp normal respiratory effort Effort and Inspection: Negative for respiratory distress Auscultation: rales bilateral base and diminished lung sounds Cardio regular rate Rhythm: abnormal rhythm irregularly irregular GI normal to inspection, nondistended, normoactive bowel sounds, soft to palpation, non-tender and non-distended Extremity normal to inspection Extremity Narrative: There is mild edema and tenderness over the medial aspect of the right great toe along the nail margin. There is some serous drainage from the nail margin. There is no bony crepitance or step-off noted. General Extremety ED: Yes edema; Negative for tenderness General Extremity: edema bilateral lower extremity Details: moderate Neuro oriented x3, CN's II-XII intact bilaterally and no sensory deficits noted Sensorium / Orientation: awake and alert Motor Exam: strength 5/5 throughout Psych mental status grossly normal MDM MDM MDM Narrative Medical decision making narrative: Differential diagnosis includes congestive heart failure, pneumonia, pneumothorax, pulmonary embolism, cardiac dysrhythmia, cardiac ischemia, and pleural effusion. EKG will be obtained to assess for cardiac dysrhythmia and cardiac ischemia. Chest x-ray will be obtained to assess for congestive heart failure and pneumonia. CBC will be obtained to assess for leukocytosis and anemia. Basic metabolic profile will be obtained to assess for electrolyte abnormality and renal function. BNP will be obtained to assess for congestive heart failure. D-dimer will be obtained to assess for pulmonary embolism. High-sensitivity troponin will be obtained to assess for cardiac ischemia. Lab Data Attestation: I reviewed the patient's lab results. Lab results narrative: CBC was reviewed and showed a mild anemia with a hemoglobin of 11.3 and hematocrit 37.8. PT with INR and PTT were reviewed and were essentially within normal limits. D-dimer was reviewed and was 0.66 which is normal for his age. Basic metabolic profile was reviewed. BUN was elevated at 74 and creatinine was elevated at 1.89. High-sensitivity troponin was reviewed and was normal at 9. BNP was reviewed and was elevated at 382.3. This was increased from previous result. Magnesium was reviewed and was mildly elevated at 2.9. Labs: Laboratory Results - last 24 hr 08/02/22 08/02/22 08/02/22 16:00 16:00 16:00 WBC 4.6 RBC 3.69 L Hgb 11.3 L Hct 37.8 L MCV 102.4 H MCH 30.6 MCHC 29.9 L RDW Std Deviation 53.1 H RDW Coeff of [place] 14.1 Plt Count 154 MPV 11.7 Immature Gran % (Auto) 0.400 Neut % (Auto) 64.7 Lymph % (Auto) 21.6 [place] % (Auto) 12.5 H Eos % (Auto) 0.6 Baso % (Auto) 0.2 Absolute Neuts (auto) 3.0 Absolute Lymphs (auto) 1.00 Nucleated RBC % 0 PT 14.7 INR 1.1 APTT 33.6 D-Dimer Quant (PE/DVT) 0.66 H* Sodium 140 Potassium 4.9 Chloride 98 Carbon Dioxide 36.0 H Anion Gap 6 BUN 74 H Creatinine 1.89 H Estim Creat Clear Calc 28.58 Est GFR (MDRD) Af Amer 44 L Est GFR (MDRD) Non-Af 36 L BUN/Creatinine Ratio 39.2 H Glucose 101 Calcium 9.0 Magnesium 2.9 H Troponin I High Sens 9 B-Natriuretic Peptide 08/02/22 16:00 WBC RBC Hgb Hct MCV MCH MCHC RDW Std Deviation RDW Coeff of [place] Plt Count MPV Immature Gran % (Auto) Neut % (Auto) Lymph % (Auto) [place] % (Auto) Eos % (Auto) Baso % (Auto) Absolute Neuts (auto) Absolute Lymphs (auto) Nucleated RBC % PT INR APTT D-Dimer Quant (PE/DVT) Sodium Potassium Chloride Carbon Dioxide Anion Gap BUN Creatinine Estim Creat Clear Calc Est GFR (MDRD) Af Amer Est GFR (MDRD) Non-Af BUN/Creatinine Ratio Glucose Calcium Magnesium Troponin I High Sens B-Natriuretic Peptide 382.3 H Radiography Chest X-Ray - ED: 1 View, Read by ED Physician, Read by Radiologist and No Acute Disease Diagnostic Testing: Clinical Impression(s) from Imaging Studies Chest X-Ray 08/02/22 16:00 IMPRESSION: No radiographic evidence of acute cardiopulmonary disease. Electronically Signed: Lico Izaguirre MD at 16:45 EDT , Portable 1 view chest x-ray was obtained. On my independent interpretation, lung driscoll show bibasilar atelectasis. There is questionable fluid in the minor fissure. There is normal cardiac silhouette. Bony thorax is normal. There is no acute process noted. Radiologist also interpreted the x-ray and agrees. EKG Initial EKG: Attestation: I personally reviewed and interpreted this EKG as follows: Interpretation: Atrial Fibrillation (66) and Non-Specific ST Changes Comments: EKG was obtained. On my independent interpretation, it shows atrial fibrillation with a rate of 66. QRS interval was normal at 88 ms. QTc interval was normal at 463 ms. [place] was normal at 58. There are nonspecific ST-T wave changes. Prior EKG tracings: available for review Prior: Changed (Compared to EKG dated 05/10/2022, the atrial fibrillation is new) Treatment and Re-Evaluation :: Patient was given aspirin, Lasix, and nitroglycerin ointment. Patient feels better on reevaluation. Clinically, the patient has some evidence of congestive heart failure. Because of this, I recommended admission to the hospital. Patient seems to be more concerned about his left great toe. This appears to be a paronychia. Patient was given a dose of Keflex for this. Case was discussed with the hospitalist. She will admit the patient to her service. Patient understood and was agreeable with the plan. All questions were answered. Discharge Plan Triage Chief Complaint: Shortness of Breath ED Provider: Evert Ramos Dx/Rx/DC Orders Clinical Impression: Congestive heart failure, Atrial fibrillation, new onset, Paronychia of great toe of left foot Prescriptions: No Action hydralazine 25 mg tablet 25 mg PO 4X/DAY sertraline [Zoloft] 100 mg tablet 100 mg PO QDAY diphenhydramine HCl 25 mg capsule 25 mg PO QHS carvedilol 25 MG tablet 25 mg PO BID tamsulosin 0.4 MG capsule 0.4 mg PO DAILY simvastatin 20 MG tablet 20 mg PO QHS guanfacine 2 MG tablet 2 mg PO DAILY yftfscgr-mod-TX-lycopen-lutein 1 EACH tablet 1 ea PO DAILY clonidine HCl 0.1 mg tablet 0.1 mg PO TID Hold Instructions: Hypotension omega 1-sxz-cjv-fish oil 900-1,400 mg capsule,delayed release(DR/EC) 1 cap PO DAILY acetaminophen 325 MG tablet 650 mg PO Q6H PRN PRN (Reason: Pain 1-10/Fever >=100.7F) 0RF furosemide 40 mg tablet 40 mg PO BIDCM Qty: 120 0RF potassium chloride 10 mEq capsule, extended release 20 meq PO 2XD Qty: 60 0RF losartan 50 mg tablet 50 mg PO DAILY Primary Care Provider: Lico Mo Referrals: Re Concepcion DO [Med Staff - Fire Equipment Repairer Inspector] - Disposition Disposition: Acute Care Hospital [facility]
--- NOTE | 2022-08-02 16:00 | RAD_ITS ---
INDICATION: Chest pain EXAMINATION/TECHNIQUE: X-RAY - XR Chest 1 View COMPARISON: 09/27/2012, 06/26/2022 FINDINGS: LUNGS: Left more than right lung base scarring redemonstrated. No consolidation, edema or effusion. No pneumothorax. MEDIASTINUM AND CARDIOVASCULAR STRUCTURES: Cardiac silhouette not enlarged. Central airways and mediastinal contour are unremarkable. RAD/Chest 1 View (Portable) IMPRESSION: No radiographic evidence of acute cardiopulmonary disease. Electronically Signed: Lico Izaguirre MD at 16:45 EDT ,
[2022-08-02 16:08] LABS: Basophil# 0.01 X10^3/uL; Basophil% 0.2 % (0-1); Eosinophil# 0.03 X10^3/uL; Eosinophils% 0.6 % (0-5); Hematocrit 37.8 % (40-54); Hemoglobin 11.3 g/dL (13.0-16.5); Lymphocyte % 21.6 % (19-41); Mean Corp Hgb Conc 29.9 g/dL (32-36); Mean Corpuscular Hgb 30.6 pg (27.0-32.0); Mean Corpuscular Volume 102.4 fL (80-94); Mean Platelet Vol. 11.7 fl (6.2-12.0); Monocyte# 0.58 X10^3/uL; Monocyte% 12.5 % (0-10); NRBC Flagged by Analyzer 0 % (0-5); Neutrophil % 64.7 % (47-70); Platelet Count 154 K/mm3 (150-450); RBC Distribution Width CV 14.1 % (11.6-14.6); RBC Distribution Width SD 53.1 fl (35.1-43.9); Red Blood Count 3.69 M/mm3 (4.6-6.2); White Blood Count 4.6 K/mm3 (4.4-11.0)
[2022-08-02] MEDS: Nitroglycerin Oint 1 INCH PACKET TRANSDERM. (16:12)
[2022-08-02] MEDS: Furosemide 40 MG/4 ML Vial IV ×2 (16:12→21:58)
[2022-08-02] MEDS: Aspirin 81 MG TAB.CHEW 324 MG PO (16:13)
[2022-08-02 16:22] LABS: International Normalized Ratio 1.1; Prothrombin Time (Protime)PT. 14.7 SECONDS (11.7-14.9)
[2022-08-02 16:23] LABS: Partial Thromboplast Time 33.6 Seconds (24.1-36.2)
[2022-08-02 16:42] LABS: Anion Gap 6 (5-15); BUN 74 mg/dL (7-18); BUN/Creat Ratio 39.2 RATIO (10-20); Chloride 98 mmol/L (98-107); Creatinine, Serum 1.89 mg/dL (0.70-1.30); EST Glomerular Filtration Rate 36 mL/min (>60); Est Glom Filt Rate - Afr Amer 44 mL/min (>60); Estimated Creatinine Clearance 28.58 ml/min; Glucose 101 mg/dL (74-106); Magnesium 2.9 mg/dL (1.6-2.6); Potassium 4.9 mmol/L (3.5-5.1); Sodium Level 140 mmol/L (136-145); Troponin-I HS (w/2H Reflex) 9 pg/mL (3.0-78.0)
[2022-08-02 17:05] LABS: D-Dimer Quantitative (DVT/PE) 0.66 FEU/ug/m (0.27-0.49)
[2022-08-02 17:53] LABS: BNP,B-Type NATRIURETIC PEPTIDE 382.3 pg/mL (0-100)
[2022-08-02 18:03] LABS: Reflex Troponin-HS? (from REC) Y
[2022-08-02] MEDS: Cephalexin 500 MG Capsule PO (18:29)
--- NOTE | 2022-08-02 18:43 | PCM.HP.STD ---
HPI - General General Date of Admission: 08/02/22 Date of Service: 08/02/22 Chief Complaint: Shortness of breath, swelling HPI Narrative LETY MARTINEZ, is a 87 M who presented to the emergency department at [facility] on 08/02/2022 with worsening shortness of breath. Patient was hospitalized in early May for similar symptoms and was discharged and felt like he was better. He was discharged on oxygen as needed but was wearing it fairly continuously. He states that over the last several days he has had worsening swelling and more shortness of breath. He denies any fever or chills. He does state that his breathing is worse with exertion. He is also complaining that his legs are weaker than typical and that he is having trouble getting around at home. His is debilitated and needs somewhat with her 29/09. He was able to get somebody with her for this evening. He has had no fever or chills and denies any chest pain. Vital signs on presentation showed a temperature of 97.6, heart rate 64, blood pressure 114/92, respiratory to 18 and oxygen saturations are 96% on 2 L nasal cannula. CBC shows a mild new microcytic anemia but was otherwise unremarkable. Coags were unremarkable. D-dimer when corrected for age was normal. Chemistry panel showed normal electrolytes with an elevated serum bicarb at 36. BUN and serum creatinine were markedly elevated at 74 and 1.89 respectively. His troponin was normal being measured twice at 9 and repeat was 10. BNP was markedly elevated at 382.3 which is the highest he has had since he had any admissions here. Chest x-ray was overall unimpressive. EKG shows new atrial fibrillation that is rate controlled with normal intervals and no ST-T wave changes concerning for acute ischemia. Clinical exam he looks volume overloaded with swelling. ER report he had crackles on arrival which have improved with diuresis. He will be admitted to the telemetry floor for ongoing care for heart failure. [facility] Medical History Colon cancer Essential hypertension Gout Heart murmur Lumbar spondylosis with myelopathy Non-rheumatic aortic stenosis Osteoporosis Pure hypercholesterolemia Home Medications carvedilol 25 mg tablet 25 mg PO BID Blood pressure 06/26/16 [History Last Taken 05/10/22] guanfacine 2 mg tablet 2 mg PO DAILY Blood pressure 06/26/16 [History Last Taken 05/10/22] eopcujts-pqe-czmzs acid 300 mcg-lycopene 600 mcg-lutein 300 mcg tablet 1 ea PO DAILY Supplement 06/26/16 [History Last Taken 05/09/22] simvastatin 20 mg tablet 20 mg PO QHS Cholesterol 06/26/16 [History Last Taken 05/09/22] tamsulosin 0.4 mg capsule 0.4 mg PO DAILY Prostate 06/26/16 [History Last Taken 05/09/22] clonidine HCl 0.1 mg tablet 0.1 mg PO TID Blood pressure 06/22/17 [History Last Taken 05/10/22] hydralazine 25 mg tablet 25 mg PO 4X/DAY Blood pressure 06/22/17 [History Last Taken 05/10/22] sertraline 100 mg tablet (Zoloft) 100 mg PO QDAY Anxiety 10/14/17 [History Last Taken 05/09/22] acetaminophen 325 mg tablet 650 mg PO Q6H PRN PRN Pain 1-10/Fever >=100.7F 01/22/20 [Rx Last Taken 05/09/22] omega 1-pnt-fuj-fish oil 900 mg-1,400 mg capsule,delayed release 1 cap PO DAILY Supplement 04/20/20 [History Last Taken 05/09/22] diphenhydramine HCl 25 mg capsule 25 mg PO QHS Sleep aide 11/06/21 [History Last Taken 05/09/22] furosemide 40 mg tablet 40 mg PO BIDCM Blood pressure #120 tabs 05/13/22 [Rx Last Taken Unknown] potassium chloride 10 mEq capsule,extended release 20 meq PO 2XD Potassium supplement #60 caps 05/13/22 [Rx Last Taken Unknown] Allergy/AdvReac Type Severity Reaction Status Date / Time No Known Allergies Allergy Verified 08/02/22 15:26 Family History Father , Age 49 Cancer liver Surgical History History of colectomy History of open reduction and internal fixation (ORIF) procedure Social History Smoking Status: Former smoker how long ago did patient quit smoking: Quit smoking a pipe 21 years ago alcohol intake: current alcohol intake frequency: 0-2 drinks per day substance use type: does not use caffeine: Yes Type: coffee Number of servings: 2 ROS Constitutional Constitutional: Reports weakness; Denies anorexia, change in weight, chills, fatigue, fever(s), malaise, night sweats or other Eyes Eyes: Denies blurry vision, change in eye color, change in vision, discharge from eye(s), double vision, erythema, eye pain, loss of vision or other ENT HEENT: Reports abnormal hearing and hearing loss; Denies dysphagia, ear pain, epistaxis, headache(s), nasal congestion, nasal discharge, post nasal drip, sinus pressure, sore throat or other Cardiovascular Cardiovascular: Reports dyspnea on exertion and edema; Denies chest pain, claudication, lightheadedness, orthopnea, palpitations, paroxysmal nocturnal dyspnea, rapid heart rate, syncope or other Respiratory/Chest Respiratory/Chest: Reports dyspnea, shortness of breath at rest and shortness of breath with exertion; Denies cough, excessive phlegm production, hemoptysis, productive cough, wheezing or other Gastrointestinal Gastrointestinal: Denies abdominal pain, coffee ground emesis, constipation, diarrhea, dyspepsia, hematemesis, hematochezia, loose stools, melena, nausea, vomiting or other Genitourinary Genitourinary: Denies burning urination, difficulty urinating, dysuria, hematuria, nocturia, urinary frequency, urinary hesitancy, urinary incontinence, urinary urgency or other Musculoskeletal Musculoskeletal: Reports back pain, joint pain and joint stiffness; Denies arthralgias, joint swelling, myalgias, neck pain or other Neurologic Neurologic: Reports abnormal gait; Denies abnormal speech, confusion, disequilibrium, dizziness, focal weakness, headache(s), numbness, paresthesias, seizure-like activity, seizures, syncope, tingling, tremor(s) or other Psychiatric Psychiatric: Denies anxiety, depression, homicidal ideation, suicidal ideation or other Endocrine Endocrinology: Denies change in body appearance, cold intolerance, excessive sweating, heat intolerance, polydipsia, polyuria or other Hematologic/Lymphatic Hematologic/Lymphatic: Denies anemia, easy bleeding, easy bruising, lymphadenopathy or other Allergic/Immunologic Allergic/Immunologic: Denies rhinitis, hives, eczemia, asthma or other Vital Signs Vital Signs Vital Signs: 08/02/22 15:27 08/02/22 15:57 08/02/22 16:12 Temperature 97.6 F L Temperature Source Temporal Pulse Rate 64 68 Respiratory Rate 18 Blood Pressure 114/92 H 116/63 Blood Pressure Mean 99 Pulse Ox 98 Oxygen Delivery Method Nasal Cannula Non-Rebreather @ 15L/min Oxygen Flow Rate (L/min) 4 08/02/22 16:26 08/02/22 17:00 08/02/22 18:00 Temperature Temperature Source Pulse Rate 70 77 76 Respiratory Rate 14 16 16 Blood Pressure 121/76 H 107/75 118/79 Blood Pressure Mean 91 85 92 Pulse Ox 96 98 97 Oxygen Delivery Method Nasal Cannula Nasal Cannula Nasal Cannula Oxygen Flow Rate (L/min) 2 2 2 Weight Weight: 102.9 kg Body Mass Index (BMI) 33.5 Physical Exam Const alert, oriented x3, no apparent distress and well nourished Constitutional Narrative: Elderly white male, sitting up in bed, appears comfortable, nontoxic, nursing at bedside General Appearance: cooperative HEENT normocephalic and head/scalp atraumatic Eyes PERRL, EOMs intact bilaterally and conjunctivae normal Eyes Narrative: No scleral icterus Neck no lymphadenopathy, supple and no carotid bruits Neck Narrative: JVD, trachea midline, no thyroid enlargement Resp normal respiratory effort, no retractions, no use of accessory muscles and clear to auscultation bilaterally Resp Narrative: Clear at this time however crackles were ordered previously by ER physician Auscultation: Negative for rales, rhonchi or wheezes Cardio regular rate, S1 normal heart sound, S2 normal heart sound, no murmurs, no rub, no gallops and no clicks Cardio Narrative: Irregularly irregular rhythm GI normal to inspection, nondistended, normoactive bowel sounds, soft to palpation and non-tender Extremity Extremity Narrative: 2+ bilateral lower extremity pitting edema Skin Skin Narrative: Scattered abrasion ends in very stages of healing, scattered ecchymosis in various stages of healing on his back and right buttock Neuro oriented x3, CN's II-XII intact bilaterally, moves all extremities and no focal motor deficits Neuro Narrative: Significant generalized weakness noted but no focal deficits-proximal greater than distal Sensorium / Orientation: awake, alert, oriented to person, oriented to place and oriented to time Speech: speech normal Psych affect normal Psych Narrative: Very pleasant, appropriately interactive Results Lab / Micro Data Result Diagrams: 08/02/22 16:00 08/02/22 16:00 Labs: Laboratory Results - last 24 hr 08/02/22 16:00: WBC 4.6, RBC 3.69 L, Hgb 11.3 L, Hct 37.8 L, MCV 102.4 H, MCH 30.6, MCHC 29.9 L, RDW Std Deviation 53.1 H, RDW Coeff of [place]lin 14.1, Plt Count 154, MPV 11.7, Immature Gran % (Auto) 0.400, Neut % (Auto) 64.7, Lymph % (Auto) 21.6, [place] % (Auto) 12.5 H, Eos % (Auto) 0.6, Baso % (Auto) 0.2, Absolute Neuts (auto) 3.0, Absolute Lymphs (auto) 1.00, Nucleated RBC % 0 08/02/22 16:00: PT 14.7, INR 1.1, APTT 33.6, D-Dimer Quant (PE/DVT) 0.66 H* 08/02/22 16:00: Sodium 140, Potassium 4.9, Chloride 98, Carbon Dioxide 36.0 H, Anion Gap 6, BUN 74 H, Creatinine 1.89 H, Estim Creat Clear Calc 28.58, Est GFR (MDRD) Af Amer 44 L, Est GFR (MDRD) Non-Af 36 L, BUN/Creatinine Ratio 39.2 H, Glucose 101, Calcium 9.0, Magnesium 2.9 H, Troponin I High Sens 9 08/02/22 16:00: B-Natriuretic Peptide 382.3 H Radiology Impression Chest X-Ray 08/02/22 16:00 IMPRESSION: No radiographic evidence of acute cardiopulmonary disease. Electronically Signed: Lico Izaguirre MD at 16:45 EDT , Assessment & Plan Assessment/Plan (1) Acute on chronic diastolic heart failure: (2) Atrial fibrillation, new onset: (3) Paronychia of great toe of left foot: (4) Wound of foot: (5) LUCIEN (acute kidney injury): (6) History of aortic stenosis: (7) Macrocytic anemia: (8) Gait instability: (9) Debility: PLAN: Plan Acute on chronic diastolic heart failure -BNP elevated -Patient is currently on oxygen and stated he was discharged home with oxygen 2 L as needed from his last hospitalization but he has been wearing it [id number] -Monitor needs and wean if able -Clinically appears volume overloaded -Chest x-ray with no significant abnormality -Strict I's and O's -Daily weights -IV Lasix -Start Jardiance 10 mg daily -Check TSH -No reason to repeat echo as patient just had one done on 05/10/2022 at which time he had a normal EF, stage I diastolic dysfunction and mild aortic valve stenosis which was stable compared to previous as well as mild concentric LVH -Cardiac diet with 1500 cc fluid restriction and low-sodium New onset A-fib -Patient is currently rate controlled -With age and elevated creatinine we will start Eliquis 2.5 mg daily -Continue home Coreg and monitor on telemetry -May have precipitated his current decompensated diastolic heart failure with loss of atrial kick -Check TSH Left foot wounds/paronychia -Consult podiatry per patient request -Wound care to evaluate Macrocytic anemia -Mild but new -Check B12 and folate LUCIEN -Hold ARB -Diuresis as a suspect he may be off the Starling curve -Repeat a.m. serum creatinine -If still present tomorrow will need further work-up and Wilhelm placement -Baseline serum creatinine looks to be between 0.8 and 1.1 but has been elevated recently at 1.45 on 06/26/2022 Generalized weakness/debility -PT/OT consultation -Patient may need placement at discharge and this was discussed on admission -Social work and case management consultation to facilitate discharge Hypertension/hyperlipidemia -continue carvedilol 25 mg p.o. twice daily -Continue clonidine -Continue hydralazine -Continue guanfacine -Hold losartan -Continue simvastatin History of aortic stenosis -This has been mild and stable on his last imaging Urinary retention -Continue Flomax History of gout -Patient is not on any current chronic therapy -We will monitor with diuresis History of lumbar spondylosis with myelopathy -May be contributing to his weakness -PT/OT History of colon cancer -No current issue Obesity -BMI 33.5 -Recommend weight loss -Complicates treatment, prognosis, outcomes DVT prophylaxis -Patient is on Eliquis 2.5 mg p.o. twice daily CODE STATUS Full code Charges/Coding Visit Charges Inpatient E&M: 15127 Init Hosp L3
[2022-08-02 18:51] LABS: Troponin-I HS 10 pg/mL (3.0-78.0)
[2022-08-02] MEDS: 0.9% Saline Lock 10 ML Syringe IV (21:58)
[2022-08-02] MEDS: hydrALAZINE 25 MG Tablet PO (21:58)
[2022-08-02] MEDS: Carvedilol 25 MG Tablet PO (21:58)
[2022-08-02] MEDS: APIXABAN 2.5 MG TABLET (WCH) PO (21:58)
[2022-08-02] MEDS: Atorvastatin Calcium 10 MG Tablet PO (21:58)
[2022-08-02] MEDS: MELATONIN 3 MG TABLET PO (22:06)
[2022-08-02 23:21] LABS: Troponin-I HS 9 pg/mL (3.0-78.0)
[2022-08-03] MEDS: Acetaminophen 325 MG Tablet 650 MG PO (02:07)
[2022-08-03 03:35] VITALS: BMI 31.6
[2022-08-03 04:00] VITALS: BP 88/72; PULSE 72; RESP 18; TEMP 36.9; O2SAT 97
[2022-08-03 05:31] LABS: Absolute Lymphocyte Count 0.95 X10^3/uL (0.83-4.51); Eosinophil# 0.03 X10^3/uL; Eosinophils% 0.7 % (0-5); Hematocrit 34.9 % (40-54); Hemoglobin 10.8 g/dL (13.0-16.5); Lymphocyte # 0.95 X10^3/ul (0.83-4.51); Lymphocyte % 21.2 % (19-41); Mean Corp Hgb Conc 30.9 g/dL (32-36); Mean Corpuscular Hgb 31.5 pg (27.0-32.0); Mean Corpuscular Volume 101.7 fL (80-94); Mean Platelet Vol. 11.2 fl (6.2-12.0); Monocyte# 0.54 X10^3/uL; Monocyte% 12.1 % (0-10); NRBC Flagged by Analyzer 0 % (0-5); Neutrophil # 2.95 X10^3/uL (2.7-7.7); Neutrophil % 65.8 % (47-70); Platelet Count 149 K/mm3 (150-450); RBC Distribution Width CV 14.1 % (11.6-14.6); RBC Distribution Width SD 52.7 fl (35.1-43.9); Red Blood Count 3.43 M/mm3 (4.6-6.2); White Blood Count 4.5 K/mm3 (4.4-11.0)
[2022-08-03 05:52] VITALS: BP 94/62; PULSE 69; RESP 18; TEMP 36.6; O2SAT 95
[2022-08-03 05:58] LABS: ALB/GLOB Ratio 0.9 RATIO (0.9-2.4); AST(SGOT) 19 U/L (15-37); Alanine Aminotransfer ALT/SGPT 23 U/L (16-61); Albumin, Serum 2.9 g/dL (3.2-5.0); Alkaline Phosphatase 103 U/L (45-117); Anion Gap 7 (5-15); BUN 65 mg/dL (7-18); BUN/Creat Ratio 36.5 RATIO (10-20); Calcium,Total 8.3 mg/dL (8.5-10.1); Chloride 101 mmol/L (98-107); Creatinine, Serum 1.78 mg/dL (0.70-1.30); EST Glomerular Filtration Rate 39 mL/min (>60); Est Glom Filt Rate - Afr Amer 47 mL/min (>60); Estimated Creatinine Clearance 31.33 ml/min; Globulin 3.2 g/dL (2.2-4.2); Glucose 100 mg/dL (74-106); Magnesium 2.3 mg/dL (1.6-2.6); Phosphorus 5.4 mg/dL (2.5-4.9); Protein, Total 6.1 g/dL (6.4-8.2); Sodium Level 144 mmol/L (136-145); Thyroid Stim Hormone (TSH) 2.12 uIU/mL (0.358-3.74)
[2022-08-03] MEDS: oxyCODONE 5 MG Tablet 2.5 MG PO (07:04)
[2022-08-03 08:00] VITALS: BP 99/66; PULSE 77; RESP 16; TEMP 36.6; O2SAT 98
[2022-08-03] MEDS: APIXABAN 2.5 MG TABLET (WCH) PO ×2 (09:16→21:49)
[2022-08-03] MEDS: Sertraline 100 MG Tablet PO (09:16)
[2022-08-03] MEDS: Gabapentin 100 MG Capsule PO ×3 (09:16→16:14)
[2022-08-03] MEDS: Tamsulosin HCl 0.4 MG Capsule PO (09:17)
[2022-08-03] MEDS: Multivitamins,Ther W-Minerals Tablet 1 TABLET PO (09:17)
[2022-08-03] MEDS: Empagliflozin 10 MG Tablet PO (09:17)
[2022-08-03] MEDS: Carvedilol 25 MG Tablet PO (10:06)
--- NOTE | 2022-08-03 14:03 | PN.HOSP_ITS ---
Reason for Visit Reason for Visit: Shortness of breath/swelling Subjective Subjective Patient does state he is feeling a little bit better today. Complains of some mild lightheadedness. Is up to a chair and eating breakfast, watching television. No other issues at this time. States he slept well last night. Objective Data Objective Data Vital Signs: Vital Signs Temp Pulse Resp BP Pulse Ox O2 Del Method O2 Flow Rate 98 F 77 16 99/66 98 Nasal Cannula 2.5 08/03/22 08:00 08/03/22 08:00 08/03/22 08:00 08/03/22 08:00 08/03/22 08:00 08/03/22 09:08 08/03/22 09:17 Oxygen Flow Rate (L/min) 2.5 Oxygen Delivery Method Nasal Cannula Weight: 99.8 kg Body Mass Index (BMI) 31.6 Intake & Output: Intake and Output for Last 24 Hours 08/01/22 08/02/22 08/03/22 23:59 23:59 23:59 Intake Total 240 / 240 790 / 790 Output Total 800 / 800 700 / 700 Balance -560 / -560 90 / 90 Lab / Micro Data Result Diagrams: 08/03/22 05:03 08/03/22 05:03 Labs: Laboratory Results - last 24 hr 08/02/22 16:00: WBC 4.6, RBC 3.69 L, Hgb 11.3 L, Hct 37.8 L, MCV 102.4 H, MCH 30.6, MCHC 29.9 L, RDW Std Deviation 53.1 H, RDW Coeff of Katlin 14.1, Plt Count 154, MPV 11.7, Immature Gran % (Auto) 0.400, Neut % (Auto) 64.7, Lymph % (Auto) 21.6, [place] % (Auto) 12.5 H, Eos % (Auto) 0.6, Baso % (Auto) 0.2, Absolute Neuts (auto) 3.0, Absolute Lymphs (auto) 1.00, Nucleated RBC % 0 08/02/22 16:00: PT 14.7, INR 1.1, APTT 33.6, D-Dimer Quant (PE/DVT) 0.66 H* 08/02/22 16:00: Sodium 140, Potassium 4.9, Chloride 98, Carbon Dioxide 36.0 H, Anion Gap 6, BUN 74 H, Creatinine 1.89 H, Estim Creat Clear Calc 28.58, Est GFR (MDRD) Af Amer 44 L, Est GFR (MDRD) Non-Af 36 L, BUN/Creatinine Ratio 39.2 H, Glucose 101, Calcium 9.0, Magnesium 2.9 H, Troponin I High Sens 9 08/02/22 16:00: B-Natriuretic Peptide 382.3 H 08/02/22 18:15: Troponin I High Sens 10 08/02/22 18:15: Folate 15.50 08/02/22 22:41: Troponin I High Sens 9 08/03/22 05:03: WBC 4.5, RBC 3.43 L, Hgb 10.8 L, Hct 34.9 L, MCV 101.7 H, MCH 31.5, MCHC 30.9 L, RDW Std Deviation 52.7 H, RDW Coeff of [place]lin 14.1, Plt Count 149 L, MPV 11.2, Immature Gran % (Auto) 0.200, Neut % (Auto) 65.8, Lymph % (Auto) 21.2, [place] % (Auto) 12.1 H, Eos % (Auto) 0.7, Baso % (Auto) 0.0, Absolute Neuts (auto) 3.0, Absolute Lymphs (auto) 0.95, Nucleated RBC % 0 08/03/22 05:03: Sodium 144, Potassium 4.0, Chloride 101, Carbon Dioxide 36.0 H, Anion Gap 7, BUN 65 H, Creatinine 1.78 H, Estim Creat Clear Calc 31.33, Est GFR (MDRD) Af Amer 47 L, Est GFR (MDRD) Non-Af 39 L, BUN/Creatinine Ratio 36.5 H, Glucose 100, Calcium 8.3 L, Phosphorus 5.4 H, Magnesium 2.3, Total Bilirubin 0.70, AST 19, ALT 23, Alkaline Phosphatase 103, Total Protein 6.1 L, Albumin 2.9 L, Globulin 3.2, Albumin/Globulin Ratio 0.9, TSH 2.12 Micro: Microbiology 08/02/22 18:27 Nasal Secretion SARS-CoV-2 Antigen (Rapid) - Final Radiography Diagnostic Testing: Radiology Impression Chest X-Ray 08/02/22 16:00 IMPRESSION: No radiographic evidence of acute cardiopulmonary disease. Electronically Signed: Lico Izaguirre MD at 16:45 EDT , Physical Exam Const alert, oriented x3, no apparent distress and well nourished Constitutional Narrative: Elderly white male, sitting up in chair at the bedside, has just finished breakfast, appears comfortable, nontoxic, watching television General Appearance: cooperative HEENT normocephalic, head/scalp atraumatic and moist oral mucous membranes HEENT Narrative: Dentition is poor, Mallampati is 3, no thrush Resp normal respiratory effort, no retractions, no use of accessory muscles and clear to auscultation bilaterally Auscultation: Negative for rales, rhonchi or wheezes Cardio regular rate, S1 normal heart sound, S2 normal heart sound, no murmurs, no rub, no gallops and no clicks Cardio Narrative: Irregularly irregular rhythm GI normal to inspection, nondistended, normoactive bowel sounds, soft to palpation and non-tender Extremity Extremity Narrative: 2+ bilateral lower extremity pitting edema, no cyanosis or clubbing Skin Skin Narrative: Several small wounds on the tip of his left distal toe that appear to be very superficial small ulcerations and paronychia noted with no significant signs of inflammation or infection at this time Neuro oriented x3, moves all extremities and no focal motor deficits Neuro Narrative: Significant generalized weakness noted but no focal deficits-proximal greater than distal Sensorium / Orientation: awake, alert, oriented to person, oriented to place and oriented to time Speech: speech normal Psych affect normal Psych Narrative: Very pleasant, appropriately interactive Assessment & Plan Assessment/Plan (1) Acute on chronic diastolic heart failure: (2) Atrial fibrillation, new onset: (3) Paronychia of great toe of left foot: (4) Wound of foot: (5) LUCIEN (acute kidney injury): (6) History of aortic stenosis: (7) Macrocytic anemia: (8) Gait instability: (9) Debility: PLAN: Plan Acute on chronic diastolic heart failure -BNP elevated -Patient is currently on oxygen and stated he was discharged home with oxygen 2 L as needed from his last hospitalization but he has been wearing it [id number] -Monitor needs and wean if able -Clinically appears volume overloaded -Chest x-ray with no significant abnormality -Strict I's and O's -Daily weights -Continue IV Lasix -Continue Jardiance 10 mg daily -TSH was 2.12 -No reason to repeat echo as patient just had one done on 05/10/2022 at which time he had a normal EF, stage I diastolic dysfunction and mild aortic valve stenosis which was stable compared to previous as well as mild concentric LVH -Cardiac diet with 1500 cc fluid restriction and low-sodium New onset A-fib -Patient is currently rate controlled -With age and elevated creatinine we will start Eliquis 2.5 mg daily -Hold blood pressure medication including Coreg as blood pressures are somewhat soft -May have precipitated his current decompensated diastolic heart failure with loss of atrial kick -TSH within normal limits Left foot wounds/paronychia -We will have patient follow-up with podiatry after discharge -Wound care to evaluate Macrocytic anemia -Mild but new -Folate normal/B12 is pending -Hemoglobin has dropped when he was here in June- hemoglobin is 13.2--> on adm ission 11.3--> 10.8 today -Check iron studies/reticulocyte count/ferritin level/Hemoccult stool -Continue Eliquis for now however if any of the above studies are suggestive of iron deficiency or Hemoccult is positive we will discontinue and hold for now LUCIEN -Hold ARB -Diuresis as a suspect he may be off the Starling curve -Serum creatinine is improved with Lasix given yesterday -Baseline serum creatinine looks to be between 0.8 and 1.1 but has been elevated recently at 1.45 on 06/26/2022 Generalized weakness/debility -PT/OT following and currently recommending skilled facility at discharge -Patient may need placement at discharge and this was discussed on admission -Social work and case management consultation to facilitate discharge Hypertension/hyperlipidemia -Hold carvedilol 25 mg p.o. twice daily -Hold hydralazine -Hold losartan -Continue simvastatin History of aortic stenosis -This has been mild and stable on his last imaging Urinary retention -Continue Flomax History of gout -Patient is not on any current chronic therapy -We will monitor with diuresis History of lumbar spondylosis with myelopathy -May be contributing to his weakness -PT/OT following and currently remembering skilled facility at discharge History of colon cancer -No current issue Obesity -BMI 33.5 -Recommend weight loss -Complicates treatment, prognosis, outcomes DVT prophylaxis -Patient is on Eliquis 2.5 mg p.o. twice daily -If need to stop because of anemia will order SCDs CODE STATUS Full code Charges/Coding Visit Charges Inpatient E&M: 09027 Subs Hosp L2
[2022-08-03 14:26] LABS: Platelet Count 147 K/mm3 (150-450); RET-HE 33.4 pg (30-35); Reticulocyte Count 1.47 % (0.5-1.5)
[2022-08-03 14:39] LABS: Ferritin 134 ng/mL (26-388); Iron 43 ug/dL (65-175); Iron Binding Capacity,Total 258 ug/dL (250-450); PERCENT IRON SATURATION 16.7 % (15.0-55.0)
[2022-08-03 15:22] VITALS: BP 93/57; PULSE 67; RESP 18; TEMP 36.4; O2SAT 97
[2022-08-03] MEDS: Furosemide 40 MG/4 ML Vial IV ×2 (16:10→21:48)
[2022-08-03 21:22] VITALS: BP 120/72; PULSE 72; RESP 20; TEMP 36.6; O2SAT 95
[2022-08-03] MEDS: Atorvastatin Calcium 10 MG Tablet PO (21:49)
[2022-08-03] MEDS: MELATONIN 3 MG TABLET PO (22:18)
[2022-08-04 02:20] VITALS: BP 112/68; PULSE 84; RESP 18; TEMP 36.7; O2SAT 93
[2022-08-04 04:36] VITALS: BMI 31.3
[2022-08-04 05:16] LABS: Absolute Lymphocyte Count 1.15 X10^3/uL (0.83-4.51); Absolute Neutrophil Count 4.1 X10^3/uL (2.0-7.7); Basophil# 0.01 X10^3/uL; Basophil% 0.2 % (0-1); Eosinophil# 0.05 X10^3/uL; Eosinophils% 0.8 % (0-5); Hematocrit 36.5 % (40-54); Hemoglobin 10.9 g/dL (13.0-16.5); Lymphocyte # 1.15 X10^3/ul (0.83-4.51); Mean Corp Hgb Conc 29.9 g/dL (32-36); Mean Corpuscular Hgb 30.9 pg (27.0-32.0); Mean Corpuscular Volume 103.4 fL (80-94); Mean Platelet Vol. 11.9 fl (6.2-12.0); Monocyte# 0.72 X10^3/uL; Monocyte% 11.9 % (0-10); NRBC Flagged by Analyzer 0 % (0-5); Neutrophil # 4.08 X10^3/uL (2.7-7.7); Neutrophil % 67.6 % (47-70); Platelet Count 193 K/mm3 (150-450); RBC Distribution Width CV 14.2 % (11.6-14.6); RBC Distribution Width SD 53.9 fl (35.1-43.9); Red Blood Count 3.53 M/mm3 (4.6-6.2)
[2022-08-04 05:34] LABS: Anion Gap 6 (5-15); BUN 65 mg/dL (7-18); BUN/Creat Ratio 42.8 RATIO (10-20); Calcium,Total 8.7 mg/dL (8.5-10.1); Chloride 99 mmol/L (98-107); Creatinine, Serum 1.52 mg/dL (0.70-1.30); EST Glomerular Filtration Rate 47 mL/min (>60); Est Glom Filt Rate - Afr Amer 56 mL/min (>60); Estimated Creatinine Clearance 36.69 ml/min; Glucose 121 mg/dL (74-106); Sodium Level 143 mmol/L (136-145)
[2022-08-04 08:20] VITALS: O2SAT 90
[2022-08-04 09:09] VITALS: BP 114/75; PULSE 82; RESP 20; TEMP 36.6; O2SAT 93; O2SAT 95; O2SAT 97
[2022-08-04] MEDS: Furosemide 40 MG/4 ML Vial IV ×2 (09:18→17:48)
[2022-08-04] MEDS: APIXABAN 2.5 MG TABLET (WCH) PO ×2 (09:18→23:10)
[2022-08-04] MEDS: Multivitamins,Ther W-Minerals Tablet 1 TABLET PO (09:18)
[2022-08-04] MEDS: Empagliflozin 10 MG Tablet PO (09:18)
[2022-08-04] MEDS: Tamsulosin HCl 0.4 MG Capsule PO (09:18)
[2022-08-04] MEDS: Sertraline 100 MG Tablet PO (09:18)
[2022-08-04] MEDS: Acetaminophen 325 MG Tablet 650 MG PO (09:21)
[2022-08-04] MEDS: Gabapentin 100 MG Capsule PO ×3 (09:21→17:48)
--- NOTE | 2022-08-04 09:54 | PN.HOSP_ITS ---
Reason for Visit Reason for Visit: Shortness of breath/swelling Subjective Subjective Patient states he slept well overnight. Is feeling better today. Heart rates remain controlled. Is negative a little over 1 L and weight is trending down. His weight at his last discharge was 96.1 kg and he is currently 99.1 kg. Physical therapy is recommending placement at discharge. I discussed this briefly with the patient this morning and he felt that he would need to go home but after further discussion he understands that it may not be safe for him to go home and help take care of his and other arrangements may need to be made for his safety. We will continue to monitor with therapy services and discuss further with case management/social work tomorrow. Objective Data Objective Data Vital Signs: Vital Signs Temp Pulse Resp BP Pulse Ox O2 Del Method O2 Flow Rate 97.9 F 82 20 H 114/75 93 Nasal Cannula 2 08/04/22 09:09 08/04/22 09:09 08/04/22 09:09 08/04/22 09:09 08/04/22 09:09 08/04/22 09:09 08/04/22 09:09 Oxygen Flow Rate (L/min) 2 Oxygen Delivery Method Nasal Cannula Weight: 99.1 kg Body Mass Index (BMI) 31.3 Intake & Output: Intake and Output for Last 24 Hours 08/02/22 08/03/22 08/04/22 23:59 23:59 23:59 Intake Total 240 / 240 1210 / 1590 580 / 580 Output Total 800 / 800 1100 / 1700 1200 / 1200 Balance -560 / -560 110 / -110 -620 / -620 Lab / Micro Data Result Diagrams: 08/04/22 05:09 08/04/22 05:09 Labs: Laboratory Results - last 24 hr 08/03/22 05:03: Retic Count 1.47, Immature Retic Fraction 8.30, Retic Hgb Equivalent 33.4 08/03/22 05:03: Iron 43 L, TIBC 258, Iron Saturation 16.7, Ferritin 134 08/04/22 05:09: WBC 6.0, RBC 3.53 L, Hgb 10.9 L, Hct 36.5 L, MCV 103.4 H, MCH 30.9, MCHC 29.9 L, RDW Std Deviation 53.9 H, RDW Coeff of Katlin 14.2, Plt Count 193, MPV 11.9, Immature Gran % (Auto) 0.500, Neut % (Auto) 67.6, Lymph % (Auto) 19.0, [place] % (Auto) 11.9 H, Eos % (Auto) 0.8, Baso % (Auto) 0.2, Absolute Neuts (auto) 4.1, Absolute Lymphs (auto) 1.15, Nucleated RBC % 0 08/04/22 05:09: Sodium 143, Potassium 5.0, Chloride 99, Carbon Dioxide 38.0 H, Anion Gap 6, BUN 65 H, Creatinine 1.52 H, Estim Creat Clear Calc 36.69, Est GFR (MDRD) Af Amer 56 L, Est GFR (MDRD) Non-Af 47 L, BUN/Creatinine Ratio 42.8 H, Glucose 121 H, Calcium 8.7 Micro: Microbiology 08/02/22 18:27 Nasal Secretion SARS-CoV-2 Antigen (Rapid) - Final Physical Exam Const alert, oriented x3, no apparent distress and well nourished Constitutional Narrative: Elderly white male, getting up to the edge of the bed with plans to transition to the chair, nursing staff development coordinator at bedside helping,appears comfortable, nontoxic, is struggling to perform bed mobility independently General Appearance: cooperative HEENT normocephalic, head/scalp atraumatic and moist oral mucous membranes HEENT Narrative: Dentition is poor, Mallampati is 3, no thrush Resp normal respiratory effort, no retractions, no use of accessory muscles and clear to auscultation bilaterally Resp Narrative: Diffusely diminished but clear Auscultation: Negative for rales, rhonchi or wheezes Cardio regular rate, S1 normal heart sound, S2 normal heart sound, no murmurs, no rub, no gallops and no clicks Cardio Narrative: Irregularly irregular rhythm GI normal to inspection, nondistended, normoactive bowel sounds, soft to palpation and non-tender Extremity Extremity Narrative: 1+ bilateral lower extremity pitting edema, no cyanosis or clubbing, Geoff bandages in place Neuro oriented x3, moves all extremities and no focal motor deficits Neuro Narrative: Significant generalized weakness noted but no focal deficits-proximal greater t bowling distal Sensorium / Orientation: awake, alert, oriented to person, oriented to place and oriented to time Speech: speech normal Psych affect normal Psych Narrative: Very pleasant, appropriately interactive, did not seem frustrated with need for placement Assessment & Plan Assessment/Plan (1) Acute on chronic diastolic heart failure: (2) Atrial fibrillation, new onset: (3) Paronychia of great toe of left foot: (4) Wound of foot: (5) LUCIEN (acute kidney injury): (6) History of aortic stenosis: (7) Macrocytic anemia: (8) Gait instability: (9) Debility: PLAN: Plan Acute on chronic diastolic heart failure -BNP elevated -Patient is currently on oxygen and stated he was discharged home with oxygen 2 L as needed from his last hospitalization but he has been wearing it [id number] -Monitor needs and wean if able -Clinically appears volume overloaded -Down over a liter for his hospital stay and weight is down to 99.1 kg--> at his last discharge he was 96.1 kg(05/13/2022) -Chest x-ray with no significant abnormality -Strict I's and O's -Daily weights -Continue IV Lasix -Continue Jardiance 10 mg daily -TSH was 2.12 -No reason to repeat echo as patient just had one done on 05/10/2022 at which time he had a normal EF, stage I diastolic dysfunction and mild aortic valve stenosis which was stable compared to previous as well as mild concentric LVH -Cardiac diet with 1500 cc fluid restriction and low-sodium New onset A-fib -Remains rate controlled without any medication currently rate controlled -Continue Eliquis 2.5 mg daily -Hold blood pressure medication including Coreg as blood pressures -Blood pressure is trending up now that we have held his medications and he is getting back on the Starling curve -I do anticipate that I will be able to restart his Coreg however will likely be a much lower dose -May have precipitated his current decompensated diastolic heart failure with loss of atrial kick -TSH within normal limits Left foot wounds/paronychia -We will have patient follow-up with podiatry after discharge -Wound care to evaluate Macrocytic anemia -Mild but new -Folate normal/B12 remains pending -Hemoglobin has dropped when he was here in June- hemoglobin is 13.2--> on admission 11.3--> 10.8 -->10.9 -Iron studies are unremarkable for iron deficiency -Given this finding and stabilized hemoglobin will discontinue Hemoccult LUCIEN -Hold ARB -Diuresis as a suspect he may be off the Starling curve -Serum creatinine continues to improve with diuresis -Repeat BMP in a.m. -Baseline serum creatinine looks to be between 0.8 and 1.1 but has been elevated recently at 1.45 on 06/26/2022 Generalized weakness/debility -PT/OT following and currently recommending skilled facility at discharge -Discussed with patient and he is initially reluctant however seems to be more amenable at the end of our conversation -Will discuss further with case management/social work tomorrow as he will need pre-CERT Hypertension/hyperlipidemia -Hold carvedilol 25 mg p.o. twice daily -Hold hydralazine -Hold losartan -We will need to continue monitoring his blood pressure and restart what we can accordingly if does not trend up we may need to check another echocardiogram -Continue simvastatin History of aortic stenosis -This has been mild and stable on his last imaging Urinary retention -Continue Flomax History of gout -Patient is not on any current chronic therapy -We will monitor with diuresis History of lumbar spondylosis with myelopathy -May be contributing to his weakness -PT/OT following and currently remembering skilled facility at discharge History of colon cancer -No current issue Obesity -BMI 33.5 -Recommend weight loss -Complicates treatment, prognosis, outcomes DVT prophylaxis -Patient is on Eliquis 2.5 mg p.o. twice daily -If need to stop because of anemia will order SCDs CODE STATUS Full code Charges/Coding Visit Charges Inpatient E&M: 55967 Subs Hosp L2
[2022-08-04 15:08] VITALS: BP 106/62; PULSE 72; RESP 16; TEMP 37; O2SAT 94
[2022-08-04 17:47] VITALS: BP 114/67; PULSE 85; RESP 16; TEMP 36.9; O2SAT 94
[2022-08-04] MEDS: Atorvastatin Calcium 10 MG Tablet PO (23:11)
[2022-08-04 23:20] VITALS: BP 140/82; PULSE 85; RESP 16; TEMP 36.4; O2SAT 94
[2022-08-04] MEDS: MELATONIN 3 MG TABLET PO (23:26)
[2022-08-05] VITALS (14 sets, daily range): BP systolic 103–132; BP diastolic 56–68; PULSE 71–106; RESP 15–30; TEMP 36.4–37.1; O2SAT 81–96; BMI 31.1
[2022-08-05] MEDS: Acetaminophen 325 MG Tablet 650 MG PO (03:41)
[2022-08-05] MEDS: Albuterol 2.5 MG/3 ML VIAL.NEB. INHALATION (04:22)
[2022-08-05 04:49] LABS: Absolute Neutrophil Count 4.7 X10^3/uL (2.0-7.7); Basophil# 0.01 X10^3/uL; Basophil% 0.1 % (0-1); Eosinophil# 0.03 X10^3/uL; Eosinophils% 0.4 % (0-5); Hematocrit 39.8 % (40-54); Hemoglobin 11.5 g/dL (13.0-16.5); Lymphocyte % 18.4 % (19-41); Mean Corp Hgb Conc 28.9 g/dL (32-36); Mean Corpuscular Hgb 30.5 pg (27.0-32.0); Mean Corpuscular Volume 105.6 fL (80-94); Mean Platelet Vol. 11.6 fl (6.2-12.0); Monocyte# 0.92 X10^3/uL; NRBC Flagged by Analyzer 0 % (0-5); Neutrophil # 4.74 X10^3/uL (2.7-7.7); Neutrophil % 67.4 % (47-70); Platelet Count 160 K/mm3 (150-450); RBC Distribution Width CV 14.4 % (11.6-14.6); RBC Distribution Width SD 56.2 fl (35.1-43.9); Red Blood Count 3.77 M/mm3 (4.6-6.2); White Blood Count 7.1 K/mm3 (4.4-11.0)
[2022-08-05 05:38] LABS: Anion Gap 5 (5-15); BUN 54 mg/dL (7-18); BUN/Creat Ratio 40.9 RATIO (10-20); Calcium,Total 8.9 mg/dL (8.5-10.1); Chloride 100 mmol/L (98-107); Creatinine, Serum 1.32 mg/dL (0.70-1.30); EST Glomerular Filtration Rate 55 mL/min (>60); Est Glom Filt Rate - Afr Amer 66 mL/min (>60); Estimated Creatinine Clearance 42.25 ml/min; Glucose 137 mg/dL (74-106); Magnesium 2.5 mg/dL (1.6-2.6); Potassium 3.7 mmol/L (3.5-5.1); Sodium Level 145 mmol/L (136-145)
[2022-08-05] MEDS: Gabapentin 100 MG Capsule PO ×2 (07:39→13:17)
[2022-08-05] MEDS: APIXABAN 2.5 MG TABLET (WCH) PO ×2 (07:40→21:06)
[2022-08-05] MEDS: Multivitamins,Ther W-Minerals Tablet 1 TABLET PO (07:40)
[2022-08-05] MEDS: Sertraline 100 MG Tablet PO (07:40)
[2022-08-05] MEDS: Furosemide 40 MG/4 ML Vial IV ×2 (07:41→16:57)
[2022-08-05] MEDS: Empagliflozin 10 MG Tablet PO (07:41)
[2022-08-05] MEDS: Tamsulosin HCl 0.4 MG Capsule PO (07:41)
[2022-08-05 09:01] LABS: Vitamin B12 366 pg/mL (211-911)
[2022-08-05] MEDS: 0.9% Saline Lock 10 ML Syringe IV (09:17)
[2022-08-05] MEDS: AcetaZOLAMIDE 500 MG/10 ML Vial IV (09:17)
--- NOTE | 2022-08-05 09:46 | CASEMGMT ---
Discharge Planning SNF list created and given to SW. Shannan Amador
--- NOTE | 2022-08-05 10:35 | CASEMGMT ---
SIOMARA GRACIA Face to Face with patient for initial transition planning/care coordination assessment. RN CM introduced self and role at [facility]. Patient lying in bed, alert and oriented. Patient willing to participate in assessment and is able to answer all questions appropriately. Care providers, pharmacy, and demographics verified. Patient wishes to discharge home but is willing to go to SNF. A list of SNF providers including quality and resource use data and consistent with the patient?s preferred geographical region, medical needs, and insurance network were provided from the [employer] Guide. Patient states he would prefer TCU at discharge and agreeable to have referral sent. Patient states he has no further needs or concerns at this time. RN CM updated SW regarding TCU request. CM to follow for discharge planning needs that may arise. PCP: Chely Specialists: Brenna reverberatory skimmer Preferred Pharmacy: [facility] Insurance: [employer] [facility] Prescription Benefit: yes Living Will/HPOA: yes, states his is POA but she in incapacitated, SW notified. LNOK: , daughter Living Arrangements: Patient lives with in a 2 story home with bed and bath on first floor. Patient states he was independent at home. Transportation: self, daughter DME/HHC: Patient has shower chair, raised toilet, walker, grab bars, pulse ox, and home oxygen from [employer] at 2 lpm with portability. Patient states his has HHC. Patient has never been to SNF. Disposition Plan: TBD, anticipate SNF at discharge. SW notified. Kate WEINER, RN, CM
--- NOTE | 2022-08-05 10:45 | CASEMGMT ---
Per RN CM patient is interested in going to [facility] TCU. SW made a referral to TCU. Cara PAGAN
[2022-08-05 11:32] LABS: Allen Test Positive; Base Excess 20 mmol/L (-2 to +2); Bicarbonate 46.3 mmol/L (22-26); Blood Gas Specimen Type ART; O2 Delivery Device Cannula; PO2 49 mmHG (75-100); SITE L Radial; SO2 78 % (95-99); Total Carbon Dioxide 49 mmol/L; pCO2 86.9 mmHg (35-45); pH 7.33 (7.35-7.45)
[2022-08-05 13:42] LABS: Allen Test Positive; Base Excess 18 mmol/L (-2 to +2); Bicarbonate 43.1 mmol/L (22-26); Blood Gas Specimen Type ART; FI02 30; O2 Delivery Device BiPAP; PEEP 10; PO2 70 mmHG (75-100); RR 10; SITE R Radial; SO2 92 % (95-99); Total Carbon Dioxide 45 mmol/L; Vt 450; pCO2 77.2 mmHg (35-45); pH 7.36 (7.35-7.45)
--- NOTE | 2022-08-05 15:09 | PN.HOSP_ITS ---
Reason for Visit Reason for Visit: Swelling/shortness of breath Subjective Subjective Patient sleepy this morning. Did not sleep well last night. More somnolent so we did obtain an ABG and he was found to be more hypercapnic with a pH of 7.33. Placed on BiPAP. I suspect patient probably needs BiPAP at night and with sleep at baseline however has never had a polysomnography. We will continue BiPAP at this time till he is more awake with follow-up ABG to follow Objective Data Objective Data Vital Signs: Vital Signs Temp Pulse Resp BP Pulse Ox O2 Del Method O2 Flow Rate 97.5 F L 78 15 132/68 H 94 Bi-pap 30 08/05/22 12:00 08/05/22 13:45 08/05/22 13:45 08/05/22 12:00 08/05/22 13:45 08/05/22 14:00 08/05/22 12:00 FiO2 30 08/05/22 14:00 Oxygen Flow Rate (L/min) 30 Oxygen Delivery Method Bi-pap Weight: 98.6 kg Body Mass Index (BMI) 31.1 Intake & Output: Intake and Output for Last 24 Hours 08/03/22 08/04/22 08/05/22 23:59 23:59 23:59 Intake Total 1210 / 1590 1440 / 1440 100 / 100 Output Total 1100 / 1700 2600 / 2600 2200 / 2200 Balance 110 / -110 -1160 / -1160 -2100 / -2100 Lab / Micro Data Result Diagrams: 08/05/22 04:05 08/05/22 04:05 Labs: Laboratory Results - last 24 hr 08/02/22 22:41: Vitamin B12 366 08/05/22 04:05: WBC 7.1, RBC 3.77 L, Hgb 11.5 L, Hct 39.8 L, MCV 105.6 H, MCH 30.5, MCHC 28.9 L, RDW Std Deviation 56.2 H, RDW Coeff of [place] 14.4, Plt Count 160, MPV 11.6, Immature Gran % (Auto) 0.700, Neut % (Auto) 67.4, Lymph % (Auto) 18.4 L, [place] % (Auto) 13.0 H, Eos % (Auto) 0.4, Baso % (Auto) 0.1, Absolute Neuts (auto) 4.7, Absolute Lymphs (auto) 1.30, Nucleated RBC % 0 08/05/22 04:05: Sodium 145, Potassium 3.7, Chloride 100, Carbon Dioxide 40.0 H, Anion Gap 5, BUN 54 H, Creatinine 1.32 H, Estim Creat Clear Calc 42.25, Est GFR (MDRD) Af Amer 66, Est GFR (MDRD) Non-Af 55 L, BUN/Creatinine Ratio 40.9 H, Glucose 137 H, Calcium 8.9, Magnesium 2.5 Micro: Microbiology 08/02/22 18:27 Nasal Secretion SARS-CoV-2 Antigen (Rapid) - Final ABG Data ABG results: ABG 08/05/22 08/05/22 11:27 13:38 Specimen Type ART ART Sample Site L Radial R Radial pH 7.33 L 7.36 Bicarbonate Actual 46.3 H 43.1 H Total CO2 49 45 Base Excess 20 H 18 H O2 Saturation 78 L 92 L O2 % 30 ABG pCO2 86.9 H* 77.2 H* ABG pO2 49 L 70 L Heraclio Test Positive Positive Respiration Rate 10 O2 Delivery Device Cannula BiPAP Liter Flow 4.0 Tidal Volume 450 POC PEEP 10 Crit Call To/Read Back Yes Yes Blood Gas Notified Whom JAKE JOSEPH Physical Exam Const alert, no apparent distress and well nourished Constitutional Narrative: Elderly white male, lying in bed sleepy this morning, nursing at bedside, awak ens and interacts briefly but drifts back to sleep. General Appearance: cooperative HEENT normocephalic, head/scalp atraumatic and moist oral mucous membranes HEENT Narrative: Mallampati 3, dentition is poor, no thrush Eyes PERRL, EOMs intact bilaterally and conjunctivae normal Eyes Narrative: No scleral icterus Neck no lymphadenopathy, supple, no JVD and no carotid bruits Neck Narrative: trachea midline, no thyroid enlargement Resp normal respiratory effort, no retractions, no use of accessory muscles and clear to auscultation bilaterally Resp Narrative: Diffusely diminished but clear Auscultation: Negative for rales, rhonchi or wheezes Cardio regular rate, S1 normal heart sound, S2 normal heart sound, no murmurs, no rub, no gallops and no clicks Cardio Narrative: Irregularly irregular rhythm GI normal to inspection, nondistended, normoactive bowel sounds, soft to palpation and non-tender Extremity Extremity Narrative: Trace to 1+ bilateral lower extremity pitting edema, no cyanosis or clubbing, Geoff bandages in place Skin Skin Narrative: Several small wounds on the tip of his left distal toe that appear to be very superficial small ulcerations and paronychia noted with no significant signs of inflammation or infection at this time Neuro oriented x3, CN's II-XII intact bilaterally, moves all extremities and no focal motor deficits Neuro Narrative: Significant generalized weakness noted but no focal deficits-proximal greater than distal, right upper extremity weaker than left due to chronic shoulder issues Sensorium / Orientation: awake, alert, oriented to person, oriented to place and oriented to time Speech: speech normal Psych Psych Narrative: Sleepy today and respect asleep easily Assessment & Plan Assessment/Plan (1) Acute on chronic diastolic heart failure: (2) Atrial fibrillation, new onset: (3) Paronychia of great toe of left foot: (4) Wound of foot: (5) LUCIEN (acute kidney injury): (6) History of aortic stenosis: (7) Macrocytic anemia: (8) Gait instability: (9) Debility: (10) Acute on chronic respiratory failure with hypercapnia: PLAN: Plan Acute on chronic hypercapnic respiratory failure -Based on ABG and pH I suspect this is chronic hypercapnia. -Patient also does have a chronically elevated serum bicarb at baseline -Start BiPAP -Repeat ABG in an hour to reassess response -Patient should have probably sonography as an outpatient but may qualify for trilogy at discharge based on ABG -Would reassess with an acute component is resolved -Discontinue oxycodone -We will check ammonia level to see if this influences hypersomnia as well -Consult pulmonary medicine--> Dr. Nazario notified via text Acute on chronic diastolic heart failure -BNP elevated on admission -Patient on 2 L chronically -Had been on 2 L here but oxygen was added overnight -Clinically appears volume overloaded -Patient negative now over 3 L and weight is down to 98.6 kg -Previous weight on discharge in May was 96.1 kg -Chest x-ray with no significant abnormality on admission we will repeat with increased oxygen demand -Strict I's and O's -Daily weights -Continue IV Lasix -We will give 1 dose of Diamox today as serum bicarb is trending up as overall he needs continued diuresis -Baseline serum bicarb appears to be between 35 and 37 -Continue Jardiance 10 mg daily -TSH was 2.12 -No reason to repeat echo as patient just had one done on 05/10/2022 at which time he had a normal EF, stage I diastolic dysfunction and mild aortic valve stenosis which was stable compared to previous as well as mild concentric LVH--> also had one in April which was stable as compared to the previous -Cardiac diet with 1500 cc fluid restriction and low-sodium New onset A-fib -Remains rate controlled without any medication currently rate controlled -Continue Eliquis 2.5 mg daily -Hold blood pressure medication including Coreg as blood pressures -Blood pressure is trending up now that we have held his medications and he is getting back on the Starling curve -May be able to reinitiate Coreg at a lower dose tomorrow -May have precipitated his current decompensated diastolic heart failure with loss of atrial kick -TSH within normal limits Left foot wounds/paronychia -We will have patient follow-up with podiatry after discharge -Wound care to evaluate Macrocytic anemia -Mild but new -Folate normal/B12 within normal limits at 366 -Hemoglobin has dropped when he was here in June- hemoglobin is 13.2--> on admission 11.3--> 10.8 -->10.9 -Iron studies are unremarkable for iron deficiency -Given this finding and stabilized hemoglobin will discontinue Hemoccult LUCIEN likely secondary to cardiorenal syndrome -Hold ARB -Serum creatinine continues to improve with diuresis verifying that he is off of the Starling curve in that this is the reason for his renal issues -Repeat BMP in a.m. -Baseline serum creatinine looks to be between 0.8 and 1.1 but has been elevated recently at 1.45 on 06/26/2022 Generalized weakness/debility -PT/OT following and currently recommending skilled facility at discharge -Discussed with patient and he is initially reluctant however seems to be more amenable at the end of our conversation -Will discuss further with case management/social work tomorrow as he will need pre-CERT Hypertension/hyperlipidemia -Hold carvedilol 25 mg p.o. twice daily--> may be able to restart a lower dose tomorrow -Hold hydralazine -Hold losartan -We will need to continue monitoring his blood pressure and restart what we can accordingly if does not trend up we may need to check another echocardiogram -Continue simvastatin History of aortic stenosis -This has been mild and stable on his last imaging via echocardiogram Urinary retention -Continue Flomax History of gout -Patient is not on any current chronic therapy -We will monitor with diuresis History of lumbar spondylosis with myelopathy -May be contributing to his weakness -PT/OT following and currently remembering skilled facility at discharge History of colon cancer -No current issue Obesity -BMI 33.5 -Recommend weight loss -Complicates treatment, prognosis, outcomes DVT prophylaxis -Patient is on Eliquis 2.5 mg p.o. twice daily -If need to stop because of anemia will order SCDs CODE STATUS Full code Disposition: -Once medically optimized patient will need skilled facility at baseline. A referral has been made to the TCU. Patient does have a Medicare advantage plan and will need pre-CERT prior to discharge Charges/Coding Visit Charges Inpatient E&M: 05641 Subs Hosp L3
--- NOTE | 2022-08-05 15:45 | RAD_ITS ---
STUDY: X-RAY CHEST REASON FOR EXAM: Male, 87 years old. Shortness of breath. TECHNIQUE: Single AP portable view of the chest. COMPARISON: August 02, 2022. FINDINGS: Lung are hypoexpanded. There is linear atelectasis versus scarring at both lung bases. This is mildly more prominent no new mass or infiltrate.. There is no demonstrated pleural abnormality. Normal size heart. Normal mediastinum and lindsay. Normal visualized pulmonary arteries. There is atherosclerotic calcification of the aortic arch with tortuosity. No osseous changes. There is no demonstrated abnormality of the visualized soft tissue structures of the upper abdomen. RAD/Chest 1 View (Portable) IMPRESSION: Worsening bibasilar atelectasis. Electronically Signed: Mina Gray DO at 16:54 EDT ,
[2022-08-05] MEDS: Atorvastatin Calcium 10 MG Tablet PO (21:05)
[2022-08-06] MEDS: Acetaminophen 325 MG Tablet 650 MG PO (00:52)
[2022-08-06 04:19] VITALS: BP 111/64; PULSE 94; RESP 18; TEMP 36.4; O2SAT 94
[2022-08-06 05:45] VITALS: BMI 30.5
[2022-08-06 05:46] LABS: Absolute Lymphocyte Count 1.16 X10^3/uL (0.83-4.51); Absolute Neutrophil Count 3.6 X10^3/uL (2.0-7.7); Basophil# 0.01 X10^3/uL; Basophil% 0.2 % (0-1); Eosinophil# 0.03 X10^3/uL; Eosinophils% 0.5 % (0-5); Hematocrit 38.8 % (40-54); Hemoglobin 11.2 g/dL (13.0-16.5); Lymphocyte # 1.16 X10^3/ul (0.83-4.51); Lymphocyte % 20.8 % (19-41); Mean Corp Hgb Conc 28.9 g/dL (32-36); Mean Corpuscular Hgb 30.7 pg (27.0-32.0); Mean Corpuscular Volume 106.3 fL (80-94); Mean Platelet Vol. 11.5 fl (6.2-12.0); Monocyte# 0.77 X10^3/uL; Monocyte% 13.8 % (0-10); NRBC Flagged by Analyzer 0 % (0-5); Neutrophil # 3.57 X10^3/uL (2.7-7.7); Neutrophil % 64.2 % (47-70); Platelet Count 155 K/mm3 (150-450); RBC Distribution Width CV 14.2 % (11.6-14.6); RBC Distribution Width SD 55.7 fl (35.1-43.9); Red Blood Count 3.65 M/mm3 (4.6-6.2); White Blood Count 5.6 K/mm3 (4.4-11.0)
[2022-08-06 06:35] LABS: Anion Gap 5 (5-15); BUN 42 mg/dL (7-18); BUN/Creat Ratio 36.8 RATIO (10-20); Calcium,Total 8.9 mg/dL (8.5-10.1); Chloride 101 mmol/L (98-107); Creatinine, Serum 1.14 mg/dL (0.70-1.30); EST Glomerular Filtration Rate 65 mL/min (>60); Est Glom Filt Rate - Afr Amer 79 mL/min (>60); Estimated Creatinine Clearance 48.92 ml/min; Glucose 96 mg/dL (74-106); Potassium 3.2 mmol/L (3.5-5.1); Sodium Level 146 mmol/L (136-145)
--- NOTE | 2022-08-06 07:33 | EX.PCM.CONCC ---
Assessment & Plan Assessment/Plan (1) Acute on chronic respiratory failure with hypercapnia: PLAN: Plan RECOMMENDATIONS: 1. Continue to wean supplemental oxygen as tolerated to maintain saturations at or above 90%. 2. Continue gentle diuresis as tolerated by hemodynamics and renal function. 3. Depending on bicarbonate level, the patient may require acetazolamide. 4. Encourage BiPAP therapy with naps and nightly. 5. Outpatient pulmonary follow-up so that baseline PFTs and PSG can be completed. IMPRESSIONS: 1. Acute on chronic respiratory failure with hypercapnia Recent ABG demonstrated evidence of chronic CO2 retention. It is unknown as to whether the patient has underlying chronic lung disease. He does have a prior tobacco use history but has been abstinent for the last 16 years. The patient's bicarbonate has risen slightly over his hospitalization which may have impacted his CO2 as a compensatory mechanism. In addition, the patient was also receiving opiate pain medications, which may have impaired his respiratory drive. I agree with holding sedating medications. I would recommend that the patient have follow-up in the pulmonary medicine clinic after discharge so that baseline PFTs and a sleep study can be completed. In the interim, it is reasonable to continue attempts at diuresis as tolerated by hemodynamics and renal function. Depending on his bicarbonate level, the patient may need intermittent dosing of acetazolamide. Wean supplemental oxygen to maintain saturations at or above 90%. 2. Acute on chronic heart failure with preserved ejection fraction Management per hospitalist with gentle diuresis as tolerated by hemodynamics and renal function. 3. New onset atrial fibrillation/anemia/generalized weakness/aortic stenosis/obesity Complicates care, management, recovery and prognosis. Continue home medications as indicated. This note was generated with [employer] software. It may contain incorrect words, spelling, and punctuation that were not noted in checking the note before signing. HPI Consult Data Date of Consult: 08/07/22 HPI Narrative Reason for Consultation: Hypercapnia HPI Narrative: The patient is an 87-year-old male, with a history as outlined below, who presented initially to the emergency department on August 02 with progressive shortness of breath. The patient had just been admitted to the hospital in early May under similar circumstances. The patient was medically managed for acute on chronic heart failure with preserved ejection fraction. The patient was also noted to have moderate aortic stenosis. The patient does report a prior pipe smoking history, having quit completely 16 years ago. He has never seen a permastone applicator or completed PFTs. He does report that he has access to supplemental oxygen at home which he utilizes periodically at 2 L/min. He has never completed a sleep study work-up. On presentation to the emergency department, the patient was noted to be afebrile and was maintaining appropriate oxygen saturations on 4 L/min via nasal cannula. Initial laboratory evaluation revealed no evidence of a leukocytosis. Chemistry profile was notable for a bicarbonate of 36 and creatinine of 1.89. Chest x-ray demonstrated no acute cardiopulmonary process. Surface echocardiogram from May 2022 demonstrated stage I diastolic dysfunction. The patient was subsequently admitted to the hospital. His medical management has included diuresis. The patient also developed new onset atrial fibrillation, which has been medically managed with Coreg. Yesterday, the patient was noted to be more lethargic. Therefore an arterial blood gas was obtained, which demonstrated CO2 retention. He was subsequently placed on BiPAP with improvement in his acid-base status. This morning, the patient is alert and oriented. He denies any resting shortness of breath. The patient remains on scheduled diuretics. [facility] Medical History Colon cancer Essential hypertension Gout Heart murmur Lumbar spondylosis with myelopathy Non-rheumatic aortic stenosis Osteoporosis Pure hypercholesterolemia Home Medications carvedilol 25 mg tablet 25 mg PO BID Blood pressure 06/26/16 [History Last Taken 05/10/22] guanfacine 2 mg tablet 2 mg PO DAILY Blood pressure 06/26/16 [History Last Taken 05/10/22] hnmetaom-vbo-upfzo acid 300 mcg-lycopene 600 mcg-lutein 300 mcg tablet 1 ea PO DAILY Supplement 06/26/16 [History Last Taken 05/09/22] simvastatin 20 mg tablet 20 mg PO QHS Cholesterol 06/26/16 [History Last Taken 05/09/22] tamsulosin 0.4 mg capsule 0.4 mg PO DAILY Prostate 06/26/16 [History Last Taken 05/09/22] hydralazine 25 mg tablet 25 mg PO 4X/DAY Blood pressure 06/22/17 [History Last Taken 05/10/22] sertraline 100 mg tablet (Zoloft) 100 mg PO QDAY Anxiety 10/14/17 [History Last Taken 05/09/22] acetaminophen 325 mg tablet 650 mg PO Q6H PRN PRN Pain 1-10/Fever >=100.7F 01/22/20 [Rx Last Taken 05/09/22] omega 8-fww-roo-fish oil 900 mg-1,400 mg capsule,delayed release 1 cap PO DAILY Supplement 04/20/20 [History Last Taken 05/09/22] diphenhydramine HCl 25 mg capsule 25 mg PO QHS Sleep aide 11/06/21 [History Last Taken 05/09/22] furosemide 40 mg tablet 40 mg PO BIDCM Blood pressure #120 tabs 05/13/22 [Rx Last Taken Unknown] potassium chloride 10 mEq capsule,extended release 10 meq PO DAILY Check with primary doctor 08/02/22 [History Last Taken Unknown] Allergy/AdvReac Type Severity Reaction Status Date / Time No Known Allergies Allergy Verified 08/02/22 15:26 Family History Father , Age 49 Cancer liver Surgical History History of colectomy History of open reduction and internal fixation (ORIF) procedure Social History Smoking Status: Former smoker how long ago did patient quit smoking: Quit smoking a pipe 21 years ago alcohol intake: current alcohol intake frequency: 0-2 drinks per day substance use type: does not use caffeine: Yes Type: coffee Number of servings: 2 ROS ROS Narrative 10 systems were reviewed with pertinent positives as noted in the HPI above. Physical Exam Const alert and no apparent distress General Appearance: cooperative HEENT normocephalic, head/scalp atraumatic and moist oral mucous membranes Eyes PERRL, EOMs intact bilaterally and conjunctivae normal Neck supple General: trachea midline Chest inspection of chest normal Resp Auscultation: diminished lung sounds; Negative for rales, rhonchi or wheezes Cardio S1 normal heart sound and S2 normal heart sound Rhythm: abnormal rhythm Heart Sounds: murmur GI normal to inspection, nondistended, normoactive bowel sounds Extremity Extremity Narrative: Trace lower extremity edema General Extremity: Negative for clubbing Skin no rashes or lesions noted Neuro CN's II-XII intact bilaterally, moves all extremities and no focal motor deficits Psych cooperative and affect normal Lab / Micro Data Result Diagrams: 08/06/22 04:51 08/06/22 04:51 Labs: Laboratory Results - last 24 hr 08/02/22 22:41: Vitamin B12 366 08/05/22 15:40: Ammonia 22.0 08/06/22 04:51: WBC 5.6, RBC 3.65 L, Hgb 11.2 L, Hct 38.8 L, MCV 106.3 H, MCH 30.7, MCHC 28.9 L, RDW Std Deviation 55.7 H, RDW Coeff of [place] 14.2, Plt Count 155, MPV 11.5, Immature Gran % (Auto) 0.500, Neut % (Auto) 64.2, Lymph % (Auto) 20.8, [place] % (Auto) 13.8 H, Eos % (Auto) 0.5, Baso % (Auto) 0.2, Absolute Neuts (auto) 3.6, Absolute Lymphs (auto) 1.16, Nucleated RBC % 0 08/06/22 04:51: Sodium 146 H, Potassium 3.2 L, Chloride 101, Carbon Dioxide 40.0 H, Anion Gap 5, BUN 42 H, Creatinine 1.14, Estim Creat Clear Calc 48.92, Est GFR (MDRD) Af Amer 79, Est GFR (MDRD) Non-Af 65, BUN/Creatinine Ratio 36.8 H, Glucose 96, Calcium 8.9 ABG Data ABG results: ABG 08/05/22 08/05/22 11:27 13:38 Specimen Type ART ART Sample Site L Radial R Radial pH 7.33 L 7.36 Bicarbonate Actual 46.3 H 43.1 H Total CO2 49 45 Base Excess 20 H 18 H O2 Saturation 78 L 92 L O2 % 30 ABG pCO2 86.9 H* 77.2 H* ABG pO2 49 L 70 L Heraclio Test Positive Positive Respiration Rate 10 O2 Delivery Device Cannula BiPAP Liter Flow 4.0 Tidal Volume 450 POC PEEP 10 Crit Call To/Read Back Yes Yes Blood Gas Notified Whom JAKE JOSEPH Radiology Impression Chest X-Ray 08/05/22 15:45 IMPRESSION: Worsening bibasilar atelectasis. Electronically Signed: Mina Gray DO at 16:54 EDT , Charges/Coding Visit Charges Inpatient E&M: 62978 Init Hosp L3
--- NOTE | 2022-08-06 07:55 | PCM.PN.HOSP ---
Reason for Visit Reason for Visit: Diagnoses Nutritional anemia, unspecified (08/02/22) Unspecified atrial fibrillation (08/02/22) Acute on chronic diastolic (congestive) heart failure (08/02/22) Acute and chronic respiratory failure with hypercapnia (08/02/22) Cellulitis of left toe (08/02/22) Acute kidney failure, unspecified (08/02/22) Unsteadiness on feet (08/02/22) Other malaise (08/02/22) Unspecified open wound, unspecified foot, initial encounter (08/02/22) Personal history of other diseases of the circulatory system (08/02/22) Subjective Subjective Follow-up for acute on chronic hypercapnic respiratory failure due to CHF exacerbation Objective Data Objective Data Vital Signs: Vital Signs Temp Pulse Resp BP Pulse Ox O2 Del Method O2 Flow Rate 97.5 F L 94 18 111/64 94 Nasal Cannula 4 08/06/22 04:19 08/06/22 04:19 08/06/22 04:19 08/06/22 04:19 08/06/22 04:19 08/06/22 04:22 08/06/22 04:22 FiO2 30 08/05/22 23:01 Oxygen Flow Rate (L/min) 4 Oxygen Delivery Method Nasal Cannula Weight: 212 lb 15.465 oz Body Mass Index (BMI) 30.5 Intake & Output: Intake and Output for Last 24 Hours 08/04/22 08/05/22 08/06/22 23:59 23:59 23:59 Intake Total 1440 / 1440 100 / 220 150 / 150 Output Total 2600 / 2600 2900 / 3350 1050 / 1050 Balance -1160 / -1160 -2800 / -3130 -900 / -900 Lab / Micro Data Result Diagrams: 08/06/22 04:51 08/06/22 04:51 Labs: Laboratory Results - last 24 hr 08/02/22 22:41: Vitamin B12 366 08/05/22 15:40: Ammonia 22.0 08/06/22 04:51: WBC 5.6, RBC 3.65 L, Hgb 11.2 L, Hct 38.8 L, MCV 106.3 H, MCH 30.7, MCHC 28.9 L, RDW Std Deviation 55.7 H, RDW Coeff of [place] 14.2, Plt Count 155, MPV 11.5, Immature Gran % (Auto) 0.500, Neut % (Auto) 64.2, Lymph % (Auto) 20.8, [place] % (Auto) 13.8 H, Eos % (Auto) 0.5, Baso % (Auto) 0.2, Absolute Neuts (auto) 3.6, Absolute Lymphs (auto) 1.16, Nucleated RBC % 0 08/06/22 04:51: Sodium 146 H, Potassium 3.2 L, Chloride 101, Carbon Dioxide 40.0 H, Anion Gap 5, BUN 42 H, Creatinine 1.14, Estim Creat Clear Calc 48.92, Est GFR (MDRD) Af Amer 79, Est GFR (MDRD) Non-Af 65, BUN/Creatinine Ratio 36.8 H, Glucose 96, Calcium 8.9 Micro: Microbiology 08/02/22 18:27 Nasal Secretion SARS-CoV-2 Antigen (Rapid) - Final ABG Data ABG results: ABG 08/05/22 08/05/22 11:27 13:38 Specimen Type ART ART Sample Site L Radial R Radial pH 7.33 L 7.36 Bicarbonate Actual 46.3 H 43.1 H Total CO2 49 45 Base Excess 20 H 18 H O2 Saturation 78 L 92 L O2 % 30 ABG pCO2 86.9 H* 77.2 H* ABG pO2 49 L 70 L Heraclio Test Positive Positive Respiration Rate 10 O2 Delivery Device Cannula BiPAP Liter Flow 4.0 Tidal Volume 450 POC PEEP 10 Crit Call To/Read Back Yes Yes Blood Gas Notified Whom KATI Radiography Diagnostic Testing: Radiology Impression Chest X-Ray 08/05/22 15:45 IMPRESSION: Worsening bibasilar atelectasis. Electronically Signed: Mina rGay DO at 16:54 EDT Reading Location ID and State: [address] [place] [address] Tel [phone], Service support , Physical Exam Narrative Physical exam General: Alert, Oriented x3, Cooperative, obesity grade 1 BMI 30.6 kg/m? HEENT: Atraumatic, PERRLA, EOMI, Normocephalic Oral: No Gingival or Mucosal Lesions/ Ulcerations Neck: Supple, No JVD, Negative Carotid Bruits Lungs: Air entry diminished in bilateral lung bases. No crepitation/rhonchi Cardiovascular: Regular rate, Regular Rhythm, Normal S1, Normal S2, No murmurs Abdomen: Bowel Sounds Present, Soft, Non Tender, Non-Distended : No renal angle tenderness. No suprapubic tenderness. Extremities: Bilateral leg edema pitting, Capillary Refill Less than 3 Seconds Skin:Several superficial dry, skin deep ulcers the tip of his left distal toe and paronychia with no significant signs of inflammation or infection at this time Musculoskeletal: No Tenderness to Palpation of Joints or Extremities Neurological: Cranial nerves II-XII grossly intact, DTR 2+/4 and Symmetrical, Neuro grossly intact Psych/Mental Status: Flat affect. Assessment & Plan Assessment/Plan (1) Acute on chronic diastolic heart failure: (2) Atrial fibrillation, new onset: (3) Paronychia of great toe of left foot: (4) Wound of foot: (5) LUCIEN (acute kidney injury): (6) History of aortic stenosis: (7) Macrocytic anemia: (8) Gait instability: (9) Debility: (10) Acute on chronic respiratory failure with hypercapnia: PLAN: Plan 1. Acute on chronic hypercapnic respiratory failure: Patient admitted in PCU. ABG was done and the patient has chronic CO2 retention therefore acute on chronic hypercapnic respiratory failure. [employer] Representative [employer] consulted. Acetazolamide depending upon bicarbonate level. BiPAP during naps and night. It is unclear whether patient has chronic lung disease. Hold sedating medications. -Discontinue oxycodone 2. Acute on chronic diastolic heart failure: Clinically patient looks fluid overloaded and BNP elevated. Chest x-ray did not show significant abnormality on admission. Heart failure core measures including intake and output, fluid restriction less than 1500 mL, daily weight monitoring, kidney and electrolytes monitoring. On IV diuretic. Continue Jardiance. -Last echo May 10, 2022 reported normal EF, stage I diastolic dysfunction and mild aortic valve stenosis which was stable compared to previous as well as mild concentric LVH. New onset A-fib -Remains rate controlled without any medication currently rate controlled-TSH was 2.12 -Continue Eliquis 2.5 mg daily Low-dose metoprolol started. Left foot wounds/paronychia: Superficial dry ulcer. - follow-up with podiatry after discharge -Wound care to evaluate Macrocytic anemia -Mild but new -Folate normal/B12 within normal limits at 366 -Hemoglobin has dropped when he was here in June- hemoglobin is 13.2--> on admission 11.3--> 10.8 -->10.9 -Iron studies are unremarkable for iron deficiency -Given this finding and stabilized hemoglobin will discontinue Hemoccult LUCIEN likely secondary to cardiorenal syndrome -Hold ARB -Serum creatinine continues to improve with diuresis verifying that he is off of the Starling curve in that this is the reason for his renal issues -Repeat BMP in a.m. -Baseline serum creatinine looks to be between 0.8 and 1.1 but has been elevated recently at 1.45 on 06/26/2022 Generalized weakness/debility -PT/OT following and currently recommending skilled facility at discharge -Discussed with patient and he is initially reluctant however seems to be more amenable at the end of our conversation -Will discuss further with case management/social work tomorrow as he will need pre-CERT Hypertension/hyperlipidemia: Initially carvedilol was held and then resumed at lower dose 12.5 twice daily: -Hold hydralazine -Hold losartan -Continue simvastatin History of aortic stenosis -This has been mild and stable on his last imaging via echocardiogram Urinary retention -Continue Flomax History of gout -Patient is not on any current chronic therapy -We will monitor with diuresis History of lumbar spondylosis with myelopathy -May be contributing to his weakness -PT/OT following and currently remembering skilled facility at discharge History of colon cancer -No current issue Obesity -BMI 33.5 -Recommend weight loss -Complicates treatment, prognosis, outcomes DVT prophylaxis -Patient is on Eliquis 2.5 mg p.o. twice daily -If need to stop because of anemia will order SCDs CODE STATUS Full code Disposition possibility Charges/Coding Visit Charges Inpatient E&M: 22668 Subs Hosp L2
[2022-08-06] MEDS: Multivitamins,Ther W-Minerals Tablet 1 TABLET PO (08:28)
[2022-08-06] MEDS: APIXABAN 2.5 MG TABLET (WCH) PO ×2 (08:28→20:30)
[2022-08-06] MEDS: Empagliflozin 10 MG Tablet PO (08:29)
[2022-08-06] MEDS: Sertraline 100 MG Tablet PO (08:29)
[2022-08-06] MEDS: Tamsulosin HCl 0.4 MG Capsule PO (08:29)
[2022-08-06] MEDS: Furosemide 40 MG/4 ML Vial IV ×2 (08:29→16:26)
[2022-08-06 08:30] VITALS: BP 117/68; PULSE 88; RESP 18; TEMP 36.7; O2SAT 96
[2022-08-06] MEDS: 0.9% Saline Lock 10 ML Syringe IV ×2 (08:32→16:26)
[2022-08-06] MEDS: Gabapentin 100 MG Capsule PO ×3 (08:32→16:26)
[2022-08-06 11:28] VITALS: O2SAT 96
--- NOTE | 2022-08-06 11:40 | CASEMGMT ---
Per RN CM patient's has cognitive issues and patient has to take care of her. Patient's Healthcare Power of Old Testament Professor (HCPOA) on file lists patient's as his HCPOA. SW spoke with patient and he would like to re-do the document. SW assisted patient in completing a new HCPOA. Copies were made and given to patient along with original. SW also placed a copy in patient's chart. SW also let patient know that [facility] can accept patient when he is ready. Plan: d/c to [facility] when medically ready and pending pre-cert. Cara Craven [employer] LATASHA
[2022-08-06 15:00] VITALS: BP 113/70; PULSE 106; RESP 16; TEMP 36.6; O2SAT 98
[2022-08-06 15:15] VITALS: O2SAT 95
[2022-08-06] MEDS: busPIRone 5 MG Tablet PO ×2 (16:26→20:30)
[2022-08-06 20:30] VITALS: BP 134/77; PULSE 98; RESP 18; TEMP 36.6; O2SAT 98
[2022-08-06] MEDS: Atorvastatin Calcium 10 MG Tablet PO (20:30)
[2022-08-07] VITALS (7 sets, daily range): BP systolic 118–134; BP diastolic 73–85; PULSE 79–98; RESP 16–18; TEMP 36.4–36.7; O2SAT 93–99; BMI 29.7
[2022-08-07] MEDS: Empagliflozin 10 MG Tablet PO (08:46)
[2022-08-07] MEDS: Multivitamins,Ther W-Minerals Tablet 1 TABLET PO (08:47)
[2022-08-07] MEDS: Sertraline 100 MG Tablet PO (08:47)
[2022-08-07] MEDS: APIXABAN 2.5 MG TABLET (WCH) PO ×2 (08:47→20:52)
[2022-08-07] MEDS: Tamsulosin HCl 0.4 MG Capsule PO (08:47)
[2022-08-07] MEDS: busPIRone 5 MG Tablet PO ×2 (08:47→20:53)
[2022-08-07] MEDS: Senna/Docusate Sodium 1 Tablet 2 TABLET PO (08:54)
[2022-08-07] MEDS: Gabapentin 100 MG Capsule PO ×3 (08:54→17:27)
[2022-08-07] MEDS: Acetaminophen 325 MG Tablet 650 MG PO ×2 (08:54→20:55)
[2022-08-07] MEDS: 0.9% Saline Lock 10 ML Syringe IV (08:55)
[2022-08-07] MEDS: Furosemide 40 MG/4 ML Vial IV (08:55)
--- NOTE | 2022-08-07 09:23 | PN.HOSP_ITS ---
Reason for Visit Reason for Visit: Diagnoses Nutritional anemia, unspecified (08/02/22) Unspecified atrial fibrillation (08/02/22) Acute on chronic diastolic (congestive) heart failure (08/02/22) Acute and chronic respiratory failure with hypercapnia (08/02/22) Cellulitis of left toe (08/02/22) Acute kidney failure, unspecified (08/02/22) Unsteadiness on feet (08/02/22) Other malaise (08/02/22) Unspecified open wound, unspecified foot, initial encounter (08/02/22) Personal history of other diseases of the circulatory system (08/02/22) Subjective Subjective Follow-up for acute on chronic hypercapnic respiratory failure, heart failure exacerbation. Objective Data Objective Data Vital Signs: Vital Signs Temp Pulse Resp BP Pulse Ox O2 Del Method O2 Flow Rate 97.7 F L 79 18 134/85 H 96 Nasal Cannula 2 08/07/22 08:45 08/07/22 08:45 08/07/22 08:45 08/07/22 08:45 08/07/22 08:45 08/07/22 08:45 08/07/22 08:45 FiO2 30 08/05/22 23:01 Oxygen Flow Rate (L/min) 2 Oxygen Delivery Method Nasal Cannula Weight: 207 lb 7.28 oz Body Mass Index (BMI) 29.7 Intake & Output: Intake and Output for Last 24 Hours 08/05/22 08/06/22 08/07/22 23:59 23:59 23:59 Intake Total 100 / 220 150 / 150 150 / 150 Output Total 2900 / 3350 3850 / 3850 400 / 400 Balance -2800 / -3130 -3700 / -3700 -250 / -250 Lab / Micro Data Result Diagrams: 08/06/22 04:51 08/06/22 04:51 Micro: Microbiology 08/02/22 18:27 Nasal Secretion SARS-CoV-2 Antigen (Rapid) - Final Physical Exam Narrative Patient was able to keep BiPAP for some time last night. Feels claustrophobic. No chest pain or shortness of breath. Physical exam General: Alert, Oriented x3, Cooperative, obesity grade 1 BMI 30.6 kg/m? HEENT: Atraumatic, PERRLA, EOMI, Normocephalic Oral: No Gingival or Mucosal Lesions/ Ulcerations Neck: Supple, No JVD, Negative Carotid Bruits Lungs: Air entry diminished in bilateral lung bases. No crepitation/rhonchi Cardiovascular: Regular rate, Regular Rhythm, Normal S1, Normal S2, No murmurs Abdomen: Bowel Sounds Present, Soft, Non Tender, Non-Distended : No renal angle tenderness. No suprapubic tenderness. Extremities: Bilateral leg edema pitting 2+, Capillary Refill Less than 3 Seconds Skin:Several superficial dry, skin deep ulcers the tip of his left distal toe and paronychia with no significant signs of inflammation or infection at this time Musculoskeletal: No Tenderness to Palpation of Joints or Extremities Neurological: Cranial nerves II-XII grossly intact, DTR 2+/4 and Symmetrical, Neuro grossly intact Psych/Mental Status: Flat affect. Assessment & Plan Assessment/Plan (1) Acute on chronic respiratory failure with hypercapnia: (2) Gait instability: (3) History of aortic stenosis: (4) Atrial fibrillation, new onset: (5) Paronychia of great toe of left foot: (6) Acute on chronic diastolic heart failure: (7) Wound of foot: (8) LUCIEN (acute kidney injury): (9) Macrocytic anemia: (10) Debility: PLAN: Plan 1. Acute on chronic hypercapnic respiratory failure: Patient admitted in PCU. ABG was done and the patient has chronic CO2 retention therefore acute on chronic hypercapnic respiratory failure. Cutting And Splicing Supervisor consulted. Acetazolamide depending upon bicarbonate level. BiPAP during naps and night. It is unclear whether patient has chronic lung disease. Hold sedating medications. -Discontinue oxycodone 08/07: Continue BiPAP. Outpatient PFT and sleep study. 2. Acute on chronic diastolic heart failure: Clinically patient looks fluid overloaded and BNP elevated. Chest x-ray did not show significant abnormality on admission. Heart failure core measures including intake and output, fluid restriction less than 1500 mL, daily weight monitoring, kidney and electrolytes monitoring. On IV diuretic. Continue Jardiance. -Last echo May 10, 2022 reported normal EF, stage I diastolic dysfunction and mild aortic valve stenosis which was stable compared to previous as well as mild concentric LVH. 08/07: Bicarb 40. Monitor BMP. IV diuretic changed to oral Lasix. Low-dose spironolactone from tomorrow AM. Discontinue potassium supplement. New onset A-fib -Remains rate controlled without any medication currently rate controlled-TSH was 2.12 -Continue Eliquis 2.5 mg daily Left foot wounds/paronychia: Superficial dry ulcer. - follow-up with podiatry after discharge -Wound care to evaluate Macrocytic anemia -Mild but new -Folate normal/B12 within normal limits at 366 -Hemoglobin has dropped when he was here in June- hemoglobin is 13.2--> on admission 11.3--> 10.8 -->10.9 -Iron studies are unremarkable for iron deficiency -Given this finding and stabilized hemoglobin will discontinue Hemoccult LUCIEN likely secondary to cardiorenal syndrome -Hold ARB -Serum creatinine continues to improve with diuresis verifying that he is off of the Starling curve in that this is the reason for his renal issues -Repeat BMP in a.m. -Baseline serum creatinine looks to be between 0.8 and 1.1 but has been elevated recently at 1.45 on 06/26/2022 Generalized weakness/debility -PT/OT following and currently recommending skilled facility at discharge -Discussed with patient and he is initially reluctant however seems to be more amenable at the end of our conversation -Will discuss further with case management/social work tomorrow as he will need pre-CERT Hypertension/hyperlipidemia: Initially carvedilol was held and then resumed at lower dose 12.5 twice daily: -Hold hydralazine -Hold losartan -On atorvastatin increased to 20 mg daily History of aortic stenosis -This has been mild and stable on his last imaging via echocardiogram Urinary retention -Continue Flomax History of gout -Patient is not on any current chronic therapy -We will monitor with diuresis History of lumbar spondylosis with myelopathy -May be contributing to his weakness -PT/OT following and currently remembering skilled facility at discharge History of colon cancer -No current issue Obesity -BMI 33.5 -Recommend weight loss -Complicates treatment, prognosis, outcomes DVT prophylaxis -Patient is on Eliquis 2.5 mg p.o. twice daily -If need to stop because of anemia will order SCDs CODE STATUS Full code Disposition possibility SNF pre-CERT pending. Charges/Coding Visit Charges Inpatient E&M: 73169 Subs Hosp L2
--- NOTE | 2022-08-07 10:13 | TREXTCAR_ITS ---
Diet Diet Order/Speech Therapy: 08/02/22 19:25 Diet: Cardiac - Heart Healthy Food consistency:: Regular Liquid Consistency:: Regular/Thin Dietary Modifications:: Sodium Restricted Is pt able to select menu?: No Fluid restriction:: 1500 mL Wound(s) L big toe: Wound Type: ingrown BLE: Wound Type: Abrasion rt quintanilla: Wound Type: Abrasion Problem/Diagnosis (1) Acute on chronic respiratory failure with hypercapnia: Status: Chronic Code(s): J96.22 - Acute and chronic respiratory failure with hypercapnia (2) Gait instability: Status: Acute Code(s): R26.81 - Unsteadiness on feet (3) History of aortic stenosis: Status: Acute Code(s): Z86.79 - Personal history of other diseases of the circulatory system (4) Atrial fibrillation, new onset: Status: Acute Code(s): I48.91 - Unspecified atrial fibrillation (5) Paronychia of great toe of left foot: Status: Acute Code(s): L03.032 - Cellulitis of left toe (6) Acute on chronic diastolic heart failure: Status: Chronic Code(s): I50.33 - Acute on chronic diastolic (congestive) heart failure (7) Wound of foot: Status: Acute Code(s): S91.309A - Unspecified open wound, unspecified foot, initial encounter (8) LUCIEN (acute kidney injury): Status: Acute Code(s): N17.9 - Acute kidney failure, unspecified (9) Macrocytic anemia: Status: Acute Code(s): D53.9 - Nutritional anemia, unspecified (10) Debility: Status: Acute Code(s): R53.81 - Other malaise Plan 1. Acute on chronic hypercapnic respiratory failure: Patient admitted in PCU. ABG was done and the patient has chronic CO2 retention therefore acute on chronic hypercapnic respiratory failure. [employer] consulted. Acetazolamide depending upon bicarbonate level. BiPAP during naps and night. It is unclear whether patient has chronic lung disease. Hold sedating medications. -Discontinue oxycodone 2. Acute on chronic diastolic heart failure: Clinically patient looks fluid overloaded and BNP elevated. Chest x-ray did not show significant abnormality on admission. Heart failure core measures including intake and output, fluid restriction less than 1500 mL, daily weight monitoring, kidney and electrolytes monitoring. On IV diuretic. Continue Jardiance. -Last echo May 10, 2022 reported normal EF, stage I diastolic dysfunction and mild aortic valve stenosis which was stable compared to previous as well as mild concentric LVH. New onset A-fib -Remains rate controlled without any medication currently rate controlled-TSH was 2.12 -Continue Eliquis 2.5 mg daily Low-dose metoprolol started. Left foot wounds/paronychia: Superficial dry ulcer. - follow-up with podiatry after discharge -Wound care to evaluate Macrocytic anemia -Mild but new -Folate normal/B12 within normal limits at 366 -Hemoglobin has dropped when he was here in June- hemoglobin is 13.2--> on admission 11.3--> 10.8 -->10.9 -Iron studies are unremarkable for iron deficiency -Given this finding and stabilized hemoglobin will discontinue Hemoccult LUCIEN likely secondary to cardiorenal syndrome -Hold ARB -Serum creatinine continues to improve with diuresis verifying that he is off of the Starling curve in that this is the reason for his renal issues -Repeat BMP in a.m. -Baseline serum creatinine looks to be between 0.8 and 1.1 but has been elevated recently at 1.45 on 06/26/2022 Generalized weakness/debility -PT/OT following and currently recommending skilled facility at discharge -Discussed with patient and he is initially reluctant however seems to be more amenable at the end of our conversation -Will discuss further with case management/social work tomorrow as he will need pre-CERT Hypertension/hyperlipidemia: Initially carvedilol was held and then resumed at lower dose 12.5 twice daily: -Hold hydralazine -Hold losartan -Continue simvastatin History of aortic stenosis -This has been mild and stable on his last imaging via echocardiogram Urinary retention -Continue Flomax History of gout -Patient is not on any current chronic therapy -We will monitor with diuresis History of lumbar spondylosis with myelopathy -May be contributing to his weakness -PT/OT following and currently remembering skilled facility at discharge History of colon cancer -No current issue Obesity -BMI 33.5 -Recommend weight loss -Complicates treatment, prognosis, outcomes DVT prophylaxis -Patient is on Eliquis 2.5 mg p.o. twice daily -If need to stop because of anemia will order SCDs CODE STATUS Full code Disposition possibility Allergies/Procedures Done in Hospital Allergies No Known Allergies Allergy (Verified 08/02/22 15:26) Dietary and Speech Recommendations Dietitian Recommendations/Changes: Continue Cardiac/ Sodium restricted diet w/ fluid restriction as ordered Available if changes in pt nutritional status and/or desire for diet education Discharge Plan Admission Admit Date/Time: 08/02/22 18:33 Attending Provider: Raj Caban Primary Care Provider: Lico [employer] Providers: Feliz Mancuso ; Kp Nazario ; Sunil Lomas ; Domo Mclaughlin ; Soheila Larsen NP ; Anni Barber Discharge Orders/Prescriptions Prescriptions: No Action hydralazine 25 mg tablet 25 mg PO 4X/DAY sertraline [Zoloft] 100 mg tablet 100 mg PO QDAY diphenhydramine HCl 25 mg capsule 25 mg PO QHS carvedilol 25 MG tablet 25 mg PO BID tamsulosin 0.4 MG capsule 0.4 mg PO DAILY simvastatin 20 MG tablet 20 mg PO QHS guanfacine 2 MG tablet 2 mg PO DAILY lpciuteu-uno-SP-lycopen-lutein 1 EACH tablet 1 ea PO DAILY omega 8-qor-mcr-fish oil 900-1,400 mg capsule,delayed release(DR/EC) 1 cap PO DAILY acetaminophen 325 MG tablet 650 mg PO Q6H PRN PRN (Reason: Pain 1-10/Fever >=100.7F) 0RF furosemide 40 mg tablet 40 mg PO BIDCM Qty: 120 0RF potassium chloride 10 mEq capsule, extended release 10 meq PO DAILY Referrals / Follow Up: Re Concepcion DO [Med Staff - Harvest Contractor] - Lico Mo MD [Primary Care Provider] -
--- NOTE | 2022-08-07 10:24 | PN.CC_ITS ---
Assessment & Plan Assessment/Plan (1) Acute on chronic respiratory failure with hypercapnia: PLAN: Plan RECOMMENDATIONS: 1. Continue to wean supplemental oxygen as tolerated to maintain saturations at or above 90%. 2. Continue gentle diuresis as tolerated by hemodynamics and renal function. 3. Depending on bicarbonate level, the patient may require acetazolamide. 4. Encourage BiPAP therapy with naps and nightly. 5. Outpatient pulmonary follow-up so that baseline PFTs and PSG can be completed. 6. We will sign off. Please call with any additional questions. IMPRESSIONS: 1. Acute on chronic respiratory failure with hypercapnia Recent ABG demonstrated evidence of chronic CO2 retention. It is unknown as to whether the patient has underlying chronic lung disease. He does have a prior tobacco use history but has been abstinent for the last 16 years. The patient's bicarbonate has risen slightly over his hospitalization which may have impacted his CO2 as a compensatory mechanism. In addition, the patient was also receiving opiate pain medications, which may have impaired his respiratory drive. I agree with holding sedating medications. I would recommend that the patient have follow-up in the pulmonary medicine clinic after discharge so that baseline PFTs and a sleep study can be completed. In the interim, it is reasonable to continue attempts at diuresis as tolerated by hemodynamics and renal function. Depending on his bicarbonate level, the patient may need intermittent dosing of acetazolamide. Wean supplemental oxygen to maintain saturations at or above 90%. 2. Acute on chronic heart failure with preserved ejection fraction Management per hospitalist with gentle diuresis as tolerated by hemodynamics and renal function. 3. New onset atrial fibrillation/anemia/generalized weakness/aortic stenosis/obesity Complicates care, management, recovery and prognosis. Continue home medications as indicated. This note was generated with [employer] dictation software. It may contain incorrect words, spelling, and punctuation that were not noted in checking the note before signing. Subjective Subjective The patient was seen and examined at the bedside this morning. Events from the last 24 hours have been reviewed. The patient is currently afebrile, hemodynamically stable and maintaining appropriate oxygen saturations on 2 L/min via nasal cannula. The patient is currently documented to be overall net -8.3 L for the hospitalization. Objective Data Objective Data The patient's most recent lab work, culture data and imaging studies have all been personally reviewed. Vital Signs: Vital Signs Temp Pulse Resp BP Pulse Ox O2 Del Method O2 Flow Rate 97.7 F L 79 18 134/85 H 96 Nasal Cannula 2 08/07/22 08:45 08/07/22 08:45 08/07/22 08:45 08/07/22 08:45 08/07/22 08:45 08/07/22 08:45 08/07/22 08:45 FiO2 30 08/05/22 23:01 Oxygen Flow Rate (L/min) 2 Oxygen Delivery Method Nasal Cannula Weight: 207 lb 7.28 oz Body Mass Index (BMI) 29.7 Intake & Output: Intake and Output for Last 24 Hours 08/05/22 08/06/22 08/07/22 23:59 23:59 23:59 Intake Total 100 / 220 150 / 150 150 / 150 Output Total 2900 / 3350 3850 / 3850 400 / 400 Balance -2800 / -3130 -3700 / -3700 -250 / -250 Lab / Micro Data Attestation: I reviewed the patient's lab results. Result Diagrams: 08/08/22 04:35 08/08/22 04:35 Micro: Microbiology 08/02/22 18:27 Nasal Secretion SARS-CoV-2 Antigen (Rapid) - Final Physical Exam Const alert and no apparent distress Constitutional Narrative: Sitting in bedside recliner. General Appearance: cooperative HEENT normocephalic, head/scalp atraumatic and moist oral mucous membranes Eyes PERRL, EOMs intact bilaterally and conjunctivae normal Neck supple General: trachea midline Chest inspection of chest normal Resp Auscultation: diminished lung sounds; Negative for rales, rhonchi or wheezes Cardio S1 normal heart sound and S2 normal heart sound Rhythm: abnormal rhythm Heart Sounds: murmur GI normal to inspection, nondistended, normoactive bowel sounds Extremity Extremity Narrative: Trace lower extremity edema General Extremity: Negative for clubbing Skin no rashes or lesions noted Neuro CN's II-XII intact bilaterally, moves all extremities and no focal motor deficits Psych cooperative and affect normal Charges/Coding Visit Charges Inpatient E&M: 05613 Subs Hosp L2
[2022-08-07] MEDS: Potassium Chloride Oral Tablet 20 MEQ 40 MEQ PO ×2 (10:55→13:04)
[2022-08-07] MEDS: Furosemide 40 MG Tablet PO (17:25)
[2022-08-07] MEDS: Atorvastatin Calcium 10 MG Tablet 20 MG PO (20:52)
[2022-08-07] MEDS: MELATONIN 3 MG TABLET PO (20:55)
[2022-08-08 03:00] VITALS: BP 128/80; PULSE 97; RESP 17; TEMP 36.4; O2SAT 94
[2022-08-08 05:25] LABS: Absolute Lymphocyte Count 1.38 X10^3/uL (0.83-4.51); Absolute Neutrophil Count 2.7 X10^3/uL (2.0-7.7); Eosinophil# 0.06 X10^3/uL; Eosinophils% 1.3 % (0-5); Hematocrit 40.3 % (40-54); Hemoglobin 11.9 g/dL (13.0-16.5); Lymphocyte # 1.38 X10^3/ul (0.83-4.51); Lymphocyte % 29.2 % (19-41); Mean Corp Hgb Conc 29.5 g/dL (32-36); Mean Corpuscular Hgb 30.4 pg (27.0-32.0); Mean Corpuscular Volume 103.1 fL (80-94); Mean Platelet Vol. 11.1 fl (6.2-12.0); Monocyte# 0.59 X10^3/uL; Monocyte% 12.5 % (0-10); NRBC Flagged by Analyzer 0 % (0-5); Neutrophil # 2.69 X10^3/uL (2.7-7.7); Neutrophil % 56.8 % (47-70); Platelet Count 164 K/mm3 (150-450); RBC Distribution Width CV 13.6 % (11.6-14.6); RBC Distribution Width SD 52.2 fl (35.1-43.9); Red Blood Count 3.91 M/mm3 (4.6-6.2); White Blood Count 4.7 K/mm3 (4.4-11.0)
[2022-08-08 05:58] LABS: Anion Gap 5 (5-15); BUN 38 mg/dL (7-18); BUN/Creat Ratio 37.6 RATIO (10-20); Calcium,Total 9.4 mg/dL (8.5-10.1); Chloride 99 mmol/L (98-107); Cholesterol 114 mg/dL (200); Creatinine, Serum 1.01 mg/dL (0.70-1.30); EST Glomerular Filtration Rate 75 mL/min (>60); Est Glom Filt Rate - Afr Amer 90 mL/min (>60); Estimated Creatinine Clearance 55.21 ml/min; Glucose 100 mg/dL (74-106); High Density Lipoprotein 54 mg/dL; Magnesium 2.3 mg/dL (1.6-2.6); Sodium Level 142 mmol/L (136-145); Triglycerides 94 mg/dL; Very Low Density Lipoprotein 19 mg/dL (5-40)
[2022-08-08 06:00] VITALS: BMI 30.3
[2022-08-08 07:22] VITALS: O2SAT 96
--- NOTE | 2022-08-08 07:38 | NURSING ---
Pt retaining >600ml of urine, this Rn was given order to straight cath, pt tolerated straight cath. Pt is on flomax
[2022-08-08 08:48] VITALS: BP 129/81; PULSE 84; RESP 16; TEMP 36.6; O2SAT 97
--- NOTE | 2022-08-08 09:02 | NURSING ---
Geoff wrap to RLE removed per patient's request.
[2022-08-08] MEDS: Multivitamins,Ther W-Minerals Tablet 1 TABLET PO (09:08)
[2022-08-08] MEDS: Spironolactone 25 MG Tablet 12.5 MG PO (09:08)
[2022-08-08] MEDS: Gabapentin 100 MG Capsule PO ×3 (09:08→17:01)
[2022-08-08] MEDS: APIXABAN 2.5 MG TABLET (WCH) PO (09:09)
[2022-08-08] MEDS: Tamsulosin HCl 0.4 MG Capsule PO (09:09)
[2022-08-08] MEDS: busPIRone 5 MG Tablet PO (09:09)
[2022-08-08] MEDS: Empagliflozin 10 MG Tablet PO (09:09)
[2022-08-08] MEDS: Furosemide 40 MG Tablet PO ×2 (09:10→17:03)
[2022-08-08] MEDS: Sertraline 100 MG Tablet PO (09:10)
[2022-08-08] MEDS: Polyethylene Glycol 3350 17 GM PACKET PO (10:53)
[2022-08-08] MEDS: Senna/Docusate Sodium 1 Tablet 2 TABLET PO (10:53)
--- NOTE | 2022-08-08 14:43 | PCM.TXEXTCAR ---
Diet Diet Order/Speech Therapy: 08/02/22 19:25 Diet: Cardiac - Heart Healthy Food consistency:: Regular Liquid Consistency:: Regular/Thin Dietary Modifications:: Sodium Restricted Is pt able to select menu?: No Fluid restriction:: 1500 mL Routine Orders/Code Status Routine Lab Work: CBC and BMP Code Status: Full Code Wound(s) L big toe: Wound Type: ingrown BLE: Wound Type: Abrasion rt [place]an[place]: Wound Type: Abrasion Therapies Physical Therapy: Eval and Treat Occupational Therapy: Eval and Treat Problem/Diagnosis (1) Acute on chronic respiratory failure with hypercapnia: Status: Chronic Code(s): J96.22 - Acute and chronic respiratory failure with hypercapnia Allergies/Procedures Done in Hospital Allergies No Known Allergies Allergy (Verified 08/02/22 15:26) Procedures: None Type of Care/Length of Stay Estimated LOS: Convalescent Care Less Than 30 days Type of Care Needed: Skilled Rehab Potential: Good Prognosis: Good Additional Orders/Day of Discharge Day of Discharge: 08/08/22 Dietary and Speech Recommendations Dietitian Recommendations/Changes: Continue Cardiac/ Sodium restricted diet w/ fluid restriction as ordered Available if changes in pt nutritional status and/or desire for diet education Discharge Plan Admission Admit Date/Time: 08/02/22 18:33 Attending Provider: Vince Bernstein Primary Care Provider: Lico [employer] Providers: Feliz Mancuso ; Kp Nazario ; Sunil Lomas ; Domo Mclaughlin ; Soheila Larsen NP ; Anni Barber ; Raj Caban Instructions Additional Instructions / Restrictions: Hold spironolactone if serum potassium more than 5.0. Hold carvedilol if heart less than 60 or systolic blood pressure less than 110 mmHg. Hold Lasix if SBP less than 100 mmHg. Discharge Orders/Prescriptions Prescriptions: New sennosides-docusate sodium [Stool Softener-Stimulant Laxat] 8.6-50 mg Tablet 2 tab PO BID PRN PRN (Reason: Constipation) Qty: 0 0RF gabapentin 100 mg Capsule 100 mg PO TIDCM Qty: 0 0RF apixaban 5 mg Tablet 2.5 mg PO BID 30 Days Qty: 60 2RF Jardiance 10 mg Tablet 10 mg PO DAILY Qty: 0 0RF spironolactone 25 mg tablet 12.5 mg PO DAILY Qty: 30 2RF polyethylene glycol 3350 [Miralax] 17 gram powder in packet 17 g PO DAILY Qty: 1 0RF Continued sertraline [Zoloft] 100 mg tablet 100 mg PO QDAY carvedilol 25 MG tablet 25 mg PO BID tamsulosin 0.4 MG capsule 0.4 mg PO DAILY simvastatin 20 MG tablet 20 mg PO QHS guanfacine 2 MG tablet 2 mg PO DAILY vuhgmurx-vwg-MF-lycopen-lutein 1 EACH tablet 1 ea PO DAILY omega 3-kmi-exs-fish oil 900-1,400 mg capsule,delayed release(DR/EC) 1 cap PO DAILY acetaminophen 325 MG tablet 650 mg PO Q6H PRN PRN (Reason: Pain 1-10/Fever >=100.7F) 0RF furosemide 40 mg tablet 40 mg PO BIDCM Qty: 120 0RF Changed diphenhydramine HCl 25 mg capsule 25 mg PO QHS PRN (Reason: INSOMNIA) 30 Days Qty: 0 0RF Discontinued hydralazine 25 mg tablet 25 mg PO 4X/DAY potassium chloride 10 mEq capsule, extended release 10 meq PO DAILY Referrals / Follow Up: Re Concepcion DO [Med Staff - Glassware Defect Repairer] - Lico Mo MD [Primary Care Provider] - Disposition Disposition (needs filled in before D/C Order can be placed): [facility]
--- NOTE | 2022-08-08 14:47 | PCM.DC.SUM ---
Providers Date of Admission: 08/02/22 Primary Care Physician: Dr. Lico Mo MD Consultations 08/05/22 15:14 Consult: Sausage Maker / Pulmonary Medicine Routine Consulting Provider: Pulmonary Medicine donte [place] Reason for Consult: HYPERCAPNIA EMERGENT Consult: No MD Notified: Yes Date Notified: 08/05/22 Time Notified: 15:14 Method of Notification: Text Reason For Visit: ACUTE ON CHRONIC DIASTOLIC HEART FAILURE Diagnosis Discharge Diagnosis (1) Acute on chronic respiratory failure with hypercapnia: Status: Chronic Code(s): J96.22 - Acute and chronic respiratory failure with hypercapnia Medications at Discharge Home Medications carvedilol 25 mg tablet 25 mg PO BID Blood pressure 06/26/16 guanfacine 2 mg tablet 2 mg PO DAILY Blood pressure 06/26/16 afawjjkb-yag-jovtj acid 300 mcg-lycopene 600 mcg-lutein 300 mcg tablet 1 ea PO DAILY Supplement 06/26/16 simvastatin 20 mg tablet 20 mg PO QHS Cholesterol 06/26/16 tamsulosin 0.4 mg capsule 0.4 mg PO DAILY Prostate 06/26/16 sertraline 100 mg tablet (Zoloft) 100 mg PO QDAY Anxiety 10/14/17 acetaminophen 325 mg tablet 650 mg PO Q6H PRN PRN Pain 1-10/Fever >=100.7F 01/22/20 omega 9-dpg-eeq-fish oil 900 mg-1,400 mg capsule,delayed release 1 cap PO DAILY Supplement 04/20/20 furosemide 40 mg tablet 40 mg PO BIDCM Blood pressure #120 tabs 05/13/22 apixaban 5 mg tablet 2.5 mg PO BID 30 days #60 tabs 08/07/22 diphenhydramine HCl 25 mg capsule 25 mg PO QHS PRN INSOMNIA 30 days #0 caps 08/07/22 empagliflozin 10 mg tablet (Jardiance) 10 mg PO DAILY #0 tabs 08/07/22 gabapentin 100 mg capsule 100 mg PO TIDCM #0 caps 08/07/22 sennosides 8.6 mg-docusate sodium 50 mg tablet (Stool Softener-Stimulant Laxative) 2 tab PO BID PRN PRN Constipation #0 tabs 08/07/22 spironolactone 25 mg tablet 12.5 mg PO DAILY #30 tabs 08/07/22 polyethylene glycol 3350 17 gram oral powder packet (Miralax) 17 g PO DAILY #1 ea 08/08/22 Hospital Course Operations None Procedures None Summary of Care Provided Minutes Spent on Discharge: 38 Hospital Course: Per HPI: LETY MARTINEZ, is a 87 M who presented to the emergency department at [facility] on 08/02/2022 with worsening shortness of breath.? Patient was hospitalized in early May for similar symptoms and was discharged and felt like he was better.? He was discharged on oxygen as needed but was wearing it fairly continuously.? He states that over the last several days he has had worsening swelling and more shortness of breath.? He denies any fever or chills.? He does state that his breathing is worse with exertion.? He is also complaining that his legs are weaker than typical and that he is having trouble getting around at home.? His is debilitated and needs somewhat with her 29/09.? He was able to get somebody with her for this evening.? He has had no fever or chills and denies any chest pain. Vital signs on presentation showed a temperature of 97.6, heart rate 64, blood pressure 114/92, respiratory to 18 and oxygen saturations are 96% on 2 L nasal cannula.? CBC shows a mild new microcytic anemia but was otherwise unremarkable.? Coags were unremarkable.? D-dimer when corrected for age was normal.? Chemistry panel showed normal electrolytes with an elevated serum bicarb at 36.? BUN and serum creatinine were markedly elevated at 74 and 1.89 respectively.? His troponin was normal being measured twice at 9 and repeat was 10.? BNP was markedly elevated at 382.3 which is the highest he has had since he had any admissions here.? Chest x-ray was overall unimpressive.? EKG shows new atrial fibrillation that is rate controlled with normal intervals and no ST-T wave changes concerning for acute ischemia. Clinical exam he looks volume overloaded with swelling.? ER report he had crackles on arriv Hospital Course: 1.? Acute on chronic hypercapnic respiratory failure: Patient admitted in PCU.? ABG was done and the patient has chronic CO2 retention therefore acute on chronic hypercapnic respiratory failure.? Sausage Maker consulted.? Acetazolamide depending upon bicarbonate level.? BiPAP during naps and night.? It is unclear whether patient has chronic lung disease.? Hold sedating medications. -Discontinue oxycodone 08/07: Continue BiPAP.? Outpatient PFT and sleep study. 2.? Acute on chronic diastolic heart failure: Clinically patient looks fluid overloaded and BNP elevated.? Chest x-ray did not show significant abnormality on admission.? Heart failure core measures including intake and output, fluid restriction less than 1500 mL, daily weight monitoring, kidney and electrolytes monitoring.? On IV diuretic.? Continue Jardiance. -Last echo May 10, 2022 reported normal EF, stage I diastolic dysfunction and mild aortic valve stenosis which was stable compared to previous as well as mild concentric LVH. 08/07: Bicarb 40.? Monitor BMP.? IV diuretic changed to oral Lasix.? Low-dose spironolactone from tomorrow AM.? Discontinue potassium supplement. 08/08: Blood pressure is controlled with the Aldactone electrolytes are stable do recommend outpatient monitoring while at SNF 3. New onset A-fib -Remains rate controlled without any medication currently rate controlled-TSH was 2.12 -Continue Eliquis 2.5 mg daily 08/08: Continue with Coreg at 25 mg p.o. twice daily 4. Left foot wounds/paronychia: Superficial dry ulcer. - follow-up with podiatry after discharge -Wound care to evaluate 5. Macrocytic anemia -Mild but new -Folate normal/B12 within normal limits at 366 -Hemoglobin has dropped when he was here in June- hemoglobin is 13.2--> on admission 11.3--> 10.8 -->10.9 -Iron studies are unremarkable for iron deficiency -Given this finding and stabilized hemoglobin will discontinue Hemoccult 6. LUCIEN likely secondary to cardiorenal syndrome -Hold ARB -Serum creatinine continues to improve with diuresis verifying that he is off of the Starling curve in that this is the reason for his renal issues -Repeat BMP in a.m. -Baseline serum creatinine looks to be between 0.8 and 1.1 but has been elevated recently at 1.45 on 06/26/2022 08/08/2022: Renal function is back to baseline 7. Generalized weakness/debility -PT/OT following and currently recommending skilled facility at discharge -Discussed with patient and he is initially reluctant however seems to be more amenable at the end of our conversation -Will discuss further with case management/social work tomorrow as he will need pre-CERT 8. Hypertension/hyperlipidemia: Initially carvedilol was held and then resumed at lower dose 12.5 twice daily, will transition back to his full dose on discharge: ?Hydralazine and losartan are discontinued we will continue with Aldactone and Lasix -On atorvastatin increased to 20 mg daily 9. History of aortic stenosis -This has been mild and stable on his last imaging via echocardiogram 10. Urinary retention/constipation -Continue Flomax ? Part of his retention could be his constipation we will also place him on MiraLAX daily 11. History of gout -Patient is not on any current chronic therapy -We will monitor with diuresis 12. History of lumbar spondylosis with myelopathy -May be contributing to his weakness -PT/OT following and currently remembering skilled facility at discharge 13. History of colon cancer -No current issue 14. Obesity -BMI 33.5 -Recommend weight loss -Complicates treatment, prognosis, outcomes Physical Exam Narrative General: Alert, Oriented x3, Cooperative, No apparent distress HEENT: Atraumatic, PERRLA, EOMI, Normocephalic Oral: Moist Mucosa Neck: Supple, No JVD Lungs: Diminished, Normal air movement, No rhonchi, No wheeze, No rales Cardiovascular: Regular rate, Regular Rhythm, Normal S1, Normal S2, No murmurs Abdomen: Soft, Non Tender, Non-Distended, No Hepato-splenomegaly Extremities: Edema, Capillary Refill Less than 3 Seconds Skin: Skin ulcers on his left toe, no signs of infection Musculoskeletal: No Tenderness to Palpation of Joints or Extremities Neurological: Motor Exam 5/5 strength throughout, Sensory exam intact to light touch and pain Psych/Mental Status: Normal Affect, Appropriate Weight / BMI Weight Weight: 211 lb 10.3 oz Body Mass Index (BMI) 30.3 ABG / Lab / Microbiology Data Result Diagrams: 08/08/22 04:35 08/08/22 04:35 Laboratory: Laboratory Results - last 24 hr 08/08/22 04:35: WBC 4.7, RBC 3.91 L, Hgb 11.9 L, Hct 40.3, MCV 103.1 H, MCH 30.4, MCHC 29.5 L, RDW Std Deviation 52.2 H, RDW Coeff of [place] 13.6, Plt Count 164, MPV 11.1, Immature Gran % (Auto) 0.200, Neut % (Auto) 56.8, Lymph % (Auto) 29.2, [place] % (Auto) 12.5 H, Eos % (Auto) 1.3, Baso % (Auto) 0.0, Absolute Neuts (auto) 2.7, Absolute Lymphs (auto) 1.38, Nucleated RBC % 0 08/08/22 04:35: Sodium 142, Potassium 4.0, Chloride 99, Carbon Dioxide 38.0 H, Anion Gap 5, BUN 38 H, Creatinine 1.01, Estim Creat Clear Calc 55.21, Est GFR (MDRD) Af Amer 90, Est GFR (MDRD) Non-Af 75, BUN/Creatinine Ratio 37.6 H, Glucose 100, Calcium 9.4, Magnesium 2.3, Triglycerides 94, Cholesterol 114, LDL Cholesterol 41, VLDL Cholesterol 19, HDL Cholesterol 54 Microbiology: Microbiology 08/02/22 18:27 Nasal Secretion SARS-CoV-2 Antigen (Rapid) - Final Meaningful Use Info Meaningful Use Diagnoses (Choose all that apply): None applicable Discharge Plan Admission Admit Date/Time: 08/02/22 18:33 Attending Provider: Vince Bernstein Primary Care Provider: Lico Mo Consulting Providers: Feliz Mancuso ; Kp Nazario ; Sunil Lomas ; Domo Mclaughlin ; Soheila Larsen NP ; Anni Barber ; Raj Caban Instructions Additional Instructions / Restrictions: Hold spironolactone if serum potassium more than 5.0. Hold carvedilol if heart less than 60 or systolic blood pressure less than 110 mmHg. Hold Lasix if SBP less than 100 mmHg. Discharge Orders/Prescriptions Prescriptions: New sennosides-docusate sodium [Stool Softener-Stimulant Laxat] 8.6-50 mg Tablet 2 tab PO BID PRN PRN (Reason: Constipation) Qty: 0 0RF gabapentin 100 mg Capsule 100 mg PO TIDCM Qty: 0 0RF apixaban 5 mg Tablet 2.5 mg PO BID 30 Days Qty: 60 2RF Jardiance 10 mg Tablet 10 mg PO DAILY Qty: 0 0RF spironolactone 25 mg tablet 12.5 mg PO DAILY Qty: 30 2RF polyethylene glycol 3350 [Miralax] 17 gram powder in packet 17 g PO DAILY Qty: 1 0RF Continued sertraline [Zoloft] 100 mg tablet 100 mg PO QDAY carvedilol 25 MG tablet 25 mg PO BID tamsulosin 0.4 MG capsule 0.4 mg PO DAILY simvastatin 20 MG tablet 20 mg PO QHS guanfacine 2 MG tablet 2 mg PO DAILY zzsrsgja-erd-ZX-lycopen-lutein 1 EACH tablet 1 ea PO DAILY omega 0-tfp-cqu-fish oil 900-1,400 mg capsule,delayed release(DR/EC) 1 cap PO DAILY acetaminophen 325 MG tablet 650 mg PO Q6H PRN PRN (Reason: Pain 1-10/Fever >=100.7F) 0RF furosemide 40 mg tablet 40 mg PO BIDCM Qty: 120 0RF Changed diphenhydramine HCl 25 mg capsule 25 mg PO QHS PRN (Reason: INSOMNIA) 30 Days Qty: 0 0RF Discontinued hydralazine 25 mg tablet 25 mg PO 4X/DAY potassium chloride 10 mEq capsule, extended release 10 meq PO DAILY Referrals / Follow Up: Re Concepcion DO [Med Staff - Medicare Sales Representative] - Lico Mo MD [Primary Care Provider] - Disposition Disposition (needs filled in before D/C Order can be placed): [facility] Facility Charges/Coding Visit Charges Inpatient E&M: 46863 Disch Hosp >30min
--- NOTE | 2022-08-08 15:04 | CASEMGMT ---
Patient was approved to go to [facility]. SW notified physician and RN. Plan: d/c to [facility] under skilled level of care. Cara PAGAN
--- NOTE | 2022-08-08 15:28 | PHA.DC.MR ---
Pharmacy Service has performed discharge medication reconciliation for this patient upon transfer to [facility]. Home Medications carvedilol 25 mg tablet 25 mg PO BID Blood pressure 06/26/16 guanfacine 2 mg tablet 2 mg PO DAILY Blood pressure 06/26/16 dhglivod-sti-sihrp acid 300 mcg-lycopene 600 mcg-lutein 300 mcg tablet 1 ea PO DAILY Supplement 06/26/16 simvastatin 20 mg tablet 20 mg PO QHS Cholesterol 06/26/16 tamsulosin 0.4 mg capsule 0.4 mg PO DAILY Prostate 06/26/16 sertraline 100 mg tablet (Zoloft) 100 mg PO QDAY Anxiety 10/14/17 acetaminophen 325 mg tablet 650 mg PO Q6H PRN PRN Pain 1-10/Fever >=100.7F 01/22/20 omega 5-qyv-ymw-fish oil 900 mg-1,400 mg capsule,delayed release 1 cap PO DAILY Supplement 04/20/20 furosemide 40 mg tablet 40 mg PO BIDCM Blood pressure #120 tabs 05/13/22 apixaban 5 mg tablet 2.5 mg PO BID 30 days #60 tabs 08/07/22 diphenhydramine HCl 25 mg capsule 25 mg PO QHS PRN INSOMNIA 30 days #0 caps 08/07/22 empagliflozin 10 mg tablet (Jardiance) 10 mg PO DAILY #0 tabs 08/07/22 gabapentin 100 mg capsule 100 mg PO TIDCM #0 caps 08/07/22 sennosides 8.6 mg-docusate sodium 50 mg tablet (Stool Softener-Stimulant Laxative) 2 tab PO BID PRN PRN Constipation #0 tabs 08/07/22 spironolactone 25 mg tablet 12.5 mg PO DAILY #30 tabs 08/07/22 polyethylene glycol 3350 17 gram oral powder packet (Miralax) 17 g PO DAILY #1 ea 08/08/22 The patient's discharge medication list was reviewed for discrepancies and discrepancies were resolved.
[2022-08-08 15:33] VITALS: BP 149/84; PULSE 78; RESP 16; TEMP 36.6; O2SAT 99
--- NOTE | 2022-08-08 15:53 | CASEMGMT ---
SW spoke with patient and let him know he will be going to TCU today. Patient would like SW to call his daughters and let them know. REGGIE called patient's daughter Kacey and left her a voice mail. REGGIE called patient's other daughter Disha and let her know. Plan: d/c to [facility] under skilled level of care. Cara PAGAN
== END 2022-08-08 19:16 | DRG 291 ==
LOC: ED 18:39 → PCU 18:53
PROVIDERS: Internal Medicine; Admitting Provider Internal Medicine; Emergency Provider Emergency Medicine; PCP Family Medicine; Visit Provider Family Medicine
DX: I13.0 Hypertensive heart and chronic kidney disease with heart failure and stage 1 through stage 4 chronic kidney disease, or unspecified chronic kidney disease (principal); I50.33 Acute on chronic diastolic (congestive) heart failure; J96.22 Acute and chronic respiratory failure with hypercapnia; N17.9 Acute kidney failure, unspecified; M47.16 Other spondylosis with myelopathy, lumbar region; L97.521 Non-pressure chronic ulcer of other part of left foot limited to breakdown of skin; I48.91 Unspecified atrial fibrillation; D50.9 Iron deficiency anemia, unspecified; E78.00 Pure hypercholesterolemia, unspecified; I35.0 Nonrheumatic aortic (valve) stenosis; N18.9 Chronic kidney disease, unspecified; R33.9 Retention of urine, unspecified; L03.032 Cellulitis of left toe; E66.9 Obesity, unspecified; Z68.33 Body mass index [BMI] 33.0-33.9, adult; Z20.822 Contact with and (suspected) exposure to COVID-19; Z79.01 Long term (current) use of anticoagulants; Z79.84 Long term (current) use of oral hypoglycemic drugs; Z87.891 Personal history of nicotine dependence
CPT/HCPCS: 36415; 36600; 71045; 80048; 80053; 80061; 82140; 82607; 82728; 82746; 82803; 83540; 83550; 83735; 83880; 84100; 84443; 84484; 85025; 85045; 85379; 85610; 85730; 87811; 93005; 94002; 94640; 94668; 94762; 97110; 97116; 97162; 97166; 97530; 97535; 99252; 99285; A4216; G0463; J1940

== ENCOUNTER 2022-08-08 19:05 | Inpatient (IN) | payer MEDICARE, SELFPAY ==
[2022-08-08 19:28] VITALS: BP 137/77; PULSE 93; RESP 18; TEMP 37.7; O2SAT 92; BMI 29.7
--- NOTE | 2022-08-08 20:08 | HP.PCM_ITS ---
HPI - General General Date of Admission: 08/08/22 Date of Service: 08/08/22 Chief Complaint: Here for rehabilitation. HPI Narrative 08/02/2022 LETY MARTINEZ, is a 87 Male who presents to [facility] Emergency Department with shortness of breath. 08/02/2022 EKG showed atrial fibrillation. Progressive shortness of breath worse over several weeks. Recent hospital admission for shortness of breath, worse with exertion. Improves with oxygen. Hemoglobin 11.3, D-dimer okay. BUN 74, Creatinine 1.89, Troponin 9, BNP 382.3. Lasix, Aspirin, Nitroglycerin ointment given for congestive heart failure. Keflex given for cellulitis left great toe. 08/02/2022 Admit to Hospital. Strict I's + O's, Daily weights, Lasix IV, Jardiance 10mg for acute diastolic congestive heart failure. Eliquis 2.5mg twice daily for new onset atrial fibrillation. Consult Podiatry left great toe paronychia. PT/OT for debility. Little better, mild lightheadedness. Hemoglobin dropping, check iron, check stool guaiac, consider stopping Eliquis. Hold Losartan for acute kidney injury, improved. PT/OT for debility. 08/04/2022 Feeling better, negative 1 liter, dry weight 96.1KG. Hold Coreg, Hydralazine, Losartan for hypotension. 08/05/2022 BiPAP for somnolence, pH 7.33. Needs sleep study. Hemoglobin stable at 10.9. 08/06/2022 BiPAP for naps, sleep. PTOT for SNF. 08/07/2022 Continue BiPAP, outpatient PFT, sleep study. IV Lasix to PO Lasix, low dose Aldactone, stop potassium fro acute diastolic congestive heart failure. Eliquis 2.5mg twice daily for atrial fibrillation. Consider acetazolamide for elevated bicarb. 08/08/2022 Admit to TCU with debility, here for rehabilitation, strengthening, prior to discharge home with . [facility] Medical History Colon cancer Essential hypertension Gout Heart murmur Lumbar spondylosis with myelopathy Non-rheumatic aortic stenosis Osteoporosis Pure hypercholesterolemia Home Medications carvedilol 25 mg tablet 25 mg PO BID Blood pressure 06/26/16 [History Last Taken 05/10/22] guanfacine 2 mg tablet 2 mg PO DAILY Blood pressure 06/26/16 [History Last Taken 05/10/22] mhdunmef-cfj-hiamy acid 300 mcg-lycopene 600 mcg-lutein 300 mcg tablet 1 ea PO DAILY Supplement 06/26/16 [History Last Taken 05/09/22] simvastatin 20 mg tablet 20 mg PO QHS Cholesterol 06/26/16 [History Last Taken 05/09/22] tamsulosin 0.4 mg capsule 0.4 mg PO DAILY Prostate 06/26/16 [History Last Taken 05/09/22] sertraline 100 mg tablet (Zoloft) 100 mg PO QDAY Anxiety 10/14/17 [History Last Taken 05/09/22] acetaminophen 325 mg tablet 650 mg PO Q6H PRN PRN Pain 1-10/Fever >=100.7F 01/22/20 [Rx Last Taken 05/09/22] omega 7-cql-vyn-fish oil 900 mg-1,400 mg capsule,delayed release 1 cap PO DAILY Supplement 04/20/20 [History Last Taken 05/09/22] furosemide 40 mg tablet 40 mg PO BIDCM Blood pressure #120 tabs 05/13/22 [Rx Last Taken Unknown] diphenhydramine HCl 25 mg capsule 25 mg PO QHS PRN INSOMNIA 30 days #0 caps 08/07/22 [Rx Last Taken 05/09/22] sennosides 8.6 mg-docusate sodium 50 mg tablet (Stool Softener-Stimulant Laxative) 2 tab PO BID PRN PRN Constipation #0 tabs 08/07/22 [Rx Last Taken Unknown] apixaban 5 mg tablet 2.5 mg PO BID blood thinner 08/08/22 [History Last Taken Unknown] empagliflozin 10 mg tablet (Jardiance) 10 mg PO DAILY diabetes 08/08/22 [History Last Taken Unknown] gabapentin 100 mg capsule 100 mg PO TIDCM nerve pain 08/08/22 [History Last Taken Unknown] polyethylene glycol 3350 17 gram oral powder packet (Miralax) 17 g PO DAILY constipation 08/08/22 [History Last Taken Unknown] spironolactone 25 mg tablet 12.5 mg PO DAILY water pill 08/08/22 [History Last Taken Unknown] Allergy/AdvReac Type Severity Reaction Status Date / Time No Known Allergies Allergy Verified 08/02/22 15:26 Family History Father , Age 49 Cancer liver Surgical History History of colectomy History of open reduction and internal fixation (ORIF) procedure Social History (Updated 08/08/22 @ 20:[address] Efren Antony MD) household members: spouse and other details: Primary caregiver for with moderate Alzheimer Disease. Smoking Status: Former smoker how long ago did patient quit smoking: Quit smoking a pipe 21 years ago alcohol intake: current alcohol intake frequency: 0-2 drinks per day substance use type: does not use caffeine: Yes Type: coffee Number of servings: 2 ROS Constitutional Constitutional: Denies chills, fever(s) or weight gain ENT HEENT: Denies headache(s), nasal congestion or nasal discharge Cardiovascular Cardiovascular: Denies chest pain or palpitations Respiratory/Chest Respiratory/Chest: Denies cough, excessive phlegm production or shortness of breath with exertion Gastrointestinal Gastrointestinal: Denies abdominal pain, nausea or vomiting Genitourinary Genitourinary: Denies dysuria Musculoskeletal Musculoskeletal: Denies joint pain or joint swelling Integumentary Integumentary: Denies rash or wounds Neurologic Neurologic: Denies focal weakness, numbness or tingling Psychiatric Psychiatric: Denies anxiety, auditory hallucinations, depression, homicidal ideation or suicidal ideation Physical Exam Const alert General Appearance: cooperative HEENT normocephalic Eyes PERRL and EOMs intact bilaterally Neck supple, no JVD and no carotid bruits Resp normal respiratory effort, normal air movement and clear to auscultation bilaterally Cardio regular rate and regular rhythm GI normal to inspection, nondistended, normoactive bowel sounds, non-tender and non-distended Extremity normal capillary refill General Extremity: Negative for edema Skin no rashes or lesions noted General Skin Exam: no breakdown Psych affect normal Appearance: appropriate Assessment & Plan Assessment/Plan (1) Debility: (2) Acute on chronic respiratory failure with hypercapnia: (3) LUCIEN (acute kidney injury): (4) Acute on chronic diastolic heart failure: (5) Atrial fibrillation, new onset: (6) Hypertension: (7) Hyperlipidemia: (8) BPH (benign prostatic hyperplasia): (9) Gout: (10) Depression: (11) Hypokalemia: PLAN: Plan 87 year old male with below past medical history hospitalized for acute on chronic diastolic congestive heart failure secondary to new onset atrial fibrillation, complicated by acute kidney injury, acute respiratory failure with hypercapnia, hypotension, anemia, admitted to TCU with debility, here for rehabilitation, strengthening, prior to discharge home with . * Debility - PT/OT. * Dysphagia - ST. * Pain - Tylenol 1000mg q6h prn pain (1-10). * Bowel - Miralax 17gm daily, senna/colace 2 tablets bid prn. * Adult immunization - Administer pneumonia vaccine, covid19 vaccine, flu vaccine as appropriate. * DVT prophylaxis - on Eliquis. * Atrial fibrillation - Coreg 25mg bid, Eliquis 2.5mg bid. * Hyperlipidemia - Atorvastatin 10mg qhs. * Acute on chronic diastolic congestive heart failure - Coreg 25mg bid, Furosemide 40mg bidlx, Jardiance 10mg daily, Aldactone 12.5mg daily. Target weight 96.1KG. * Neuropathic pain - Gabapentin 100mg tidcm. * Nutrition - MVI 1 tablet daily. * Depression - Sertraline 100mg daily, stable chronic nurse technician use, GDR not recommended. * BPH - Tamsulosin 0.4mg daily. * Fever 99.1 - order CXR.
--- NOTE | 2022-08-08 20:50 | RAD_ITS ---
STUDY: X-RAY CHEST REASON FOR EXAM: Male, 87 years old. Temperature TECHNIQUE: PA and lateral COMPARISON: 2022 FINDINGS: There is mild atelectasis or infiltrate in the right lower lobe and to a lesser extent the left base.. There is no demonstrated pleural abnormality. Normal size heart. Normal mediastinum and lindsay. Normal visualized pulmonary arteries. Normal visualized aortic arch and descending thoracic aorta. Dorsal spine demonstrates scoliosis and degenerative change. Normal visualized ribs, clavicles, and shoulders. There is no demonstrated abnormality of the visualized soft tissue structures of the upper abdomen There is improved aeration of both lung bases since previous study. RAD/Chest PA and Lateral IMPRESSION: Persistent mild bibasilar atelectasis or infiltrates with improved aeration since previous study. No new infiltrate or other significant abnormality. Electronically Signed: Jamie Atkins MD at 21:41 EDT ,
[2022-08-08 22:00] VITALS: PULSE 93; RESP 20; O2SAT 92
[2022-08-08] MEDS: Atorvastatin Calcium 10 MG Tablet PO (22:42)
[2022-08-09] MEDS: Polyethylene Glycol 3350 17 GM PACKET PO (05:56)
[2022-08-09] MEDS: Spironolactone 25 MG Tablet 12.5 MG PO (05:56)
[2022-08-09] MEDS: Carvedilol 25 MG Tablet PO ×2 (05:57→17:07)
[2022-08-09] MEDS: Sertraline 100 MG Tablet PO (05:57)
[2022-08-09] MEDS: Empagliflozin 10 MG Tablet PO (05:58)
[2022-08-09] MEDS: APIXABAN 2.5 MG TABLET (WCH) PO ×2 (05:58→17:07)
[2022-08-09] MEDS: Furosemide 40 MG Tablet PO ×2 (05:58→14:05)
--- NOTE | 2022-08-09 06:05 | NURSING ---
Patient stating he is unable to urinate, very painful. Attempted to get bladder scan, but unable to due to pain when pressing in area of bladder. Was able to get a reading of >175. Straight catheterization done to try to alleviate pain and pressure. 400mL of clear, vielka urine drained. Will continue to monitor.
[2022-08-09] MEDS: Gabapentin 100 MG Capsule PO (08:26)
[2022-08-09] MEDS: Multivitamins,Ther W-Minerals Tablet 1 TABLET PO (08:26)
[2022-08-09 08:55] LABS: Absolute Lymphocyte Count 0.98 X10^3/uL (0.83-4.51); Absolute Neutrophil Count 5.3 X10^3/uL (2.0-7.7); Basophil# 0.01 X10^3/uL; Basophil% 0.1 % (0-1); Eosinophil# 0.04 X10^3/uL; Eosinophils% 0.6 % (0-5); Hematocrit 40.6 % (40-54); Hemoglobin 12.4 g/dL (13.0-16.5); Lymphocyte # 0.98 X10^3/ul (0.83-4.51); Lymphocyte % 13.8 % (19-41); Mean Corp Hgb Conc 30.5 g/dL (32-36); Mean Corpuscular Hgb 30.7 pg (27.0-32.0); Mean Corpuscular Volume 100.5 fL (80-94); Mean Platelet Vol. 10.7 fl (6.2-12.0); Monocyte# 0.73 X10^3/uL; Monocyte% 10.3 % (0-10); NRBC Flagged by Analyzer 0 % (0-5); Neutrophil # 5.29 X10^3/uL (2.7-7.7); Neutrophil % 74.5 % (47-70); Platelet Count 181 K/mm3 (150-450); RBC Distribution Width CV 13.6 % (11.6-14.6); RBC Distribution Width SD 50.6 fl (35.1-43.9); Red Blood Count 4.04 M/mm3 (4.6-6.2); White Blood Count 7.1 K/mm3 (4.4-11.0)
[2022-08-09 09:15] LABS: Anion Gap 4 (5-15); BUN 33 mg/dL (7-18); BUN/Creat Ratio 36.7 RATIO (10-20); Chloride 98 mmol/L (98-107); EST Glomerular Filtration Rate 85 mL/min (>60); Est Glom Filt Rate - Afr Amer 103 mL/min (>60); Estimated Creatinine Clearance 61.96 ml/min; Glucose 124 mg/dL (74-106); Potassium 4.4 mmol/L (3.5-5.1); Sodium Level 139 mmol/L (136-145)
[2022-08-09] MEDS: Tuberculin,Purif.prot.deriv. 50 TU/ML Vial 0.1 ML ID (10:51)
[2022-08-09 16:00] VITALS: BP 129/69; PULSE 77; RESP 18; TEMP 36.4
[2022-08-09] MEDS: Tamsulosin HCl 0.4 MG Capsule PO (17:07)
[2022-08-09 17:17] LABS: Mucous, Urine 0 SEEN /hpf (<or=2+); Squamous Epithelial Cells - UA 0 SEEN /hpf (0-5)
[2022-08-09 17:22] LABS: Color, Urine Red (Yellow); Glucose, Dipstick 250 mg/dl (Normal); Ketone-Dipstick Negative (Negative); Leukocyte Esterase-Dipstick 500 /ul (Negative); Nitrite-Dipstick Negative (Negative); Occult Blood-Urine 250 /ul (Negative); Protein-Dipstick 100 mg/dl (Negative); Urine Bilirubin Dipstick Negative (Negative); Urine Clarity Cloudy (Clear); Urine Urobilinogen 1 mg/dl (Normal)
[2022-08-09 17:41] LABS: Bacteria 1+ /hpf (None Seen); Red Blood Cells-Urine > 100 SEEN /hpf (0-5); White Blood Cells 10-25 SEEN /hpf (0-5)
--- NOTE | 2022-08-09 18:03 | NURSING ---
UA and culture sent d/t incontinence, strong odorous urine and hematuria. new order for cipro d/t UA results.
[2022-08-09] MEDS: Ciprofloxacin 250 MG Tablet PO (18:48)
[2022-08-09 19:51] VITALS: PULSE 95; RESP 18; O2SAT 95
[2022-08-09] MEDS: Acetaminophen 500 MG Tablet 1000 MG PO (20:03)
[2022-08-09] MEDS: Atorvastatin Calcium 10 MG Tablet PO (20:05)
[2022-08-09] MEDS: Nystatin Powder 15gm Bottle 1 APPLIC TOPICAL (20:13)
--- NOTE | 2022-08-10 03:35 | NURSING ---
Incontinent large bowel movement and bladder, max assist x2 with t&r and bed mobility, incontinence care provided. No adverse effects observed related to oral ATB for UTI, no rash, no GI distress. Hematuria continues, small amount observed in depend with urine incontinence. bladder scan result 148cc. Repositioned for comfort. fluid restriction maintained per order. O2 @2L via NC. Resps even and unlabored. No distress observed or reported. Patient forgetful, pleasant. A&Ox2 person/place. Denies requests. Call light in reach.
[2022-08-10 04:55] VITALS: BP 120/69; PULSE 90; RESP 18
[2022-08-10] MEDS: Acetaminophen 500 MG Tablet 1000 MG PO ×2 (04:58→18:23)
[2022-08-10] MEDS: Ciprofloxacin 250 MG Tablet PO ×2 (04:59→18:23)
[2022-08-10] MEDS: Nystatin Powder 15gm Bottle 1 APPLIC TOPICAL ×2 (04:59→20:00)
[2022-08-10] MEDS: Furosemide 40 MG Tablet PO ×2 (05:00→14:01)
[2022-08-10] MEDS: Sertraline 100 MG Tablet PO (05:00)
[2022-08-10] MEDS: APIXABAN 2.5 MG TABLET (WCH) PO ×2 (05:00→18:24)
[2022-08-10 06:43] LABS: Bedside Glucose 122 mg/dL (74-106)
[2022-08-10 07:26] VITALS: O2SAT 95
[2022-08-10] MEDS: Empagliflozin 10 MG Tablet PO (09:28)
[2022-08-10] MEDS: Spironolactone 25 MG Tablet 12.5 MG PO (09:29)
[2022-08-10] MEDS: Carvedilol 25 MG Tablet PO ×2 (09:29→18:24)
[2022-08-10] MEDS: Multivitamins,Ther W-Minerals Tablet 1 TABLET PO (09:29)
[2022-08-10] MEDS: Menthol/Lanolin/Calamine/Znox 113 GM Tube 1 APPLIC TOPICAL ×2 (14:01→20:00)
[2022-08-10 16:00] VITALS: BP 120/72; PULSE 69; RESP 14; TEMP 36.4; O2SAT 95
[2022-08-10] MEDS: Tamsulosin HCl 0.4 MG Capsule PO (18:24)
[2022-08-10] MEDS: Atorvastatin Calcium 10 MG Tablet PO (20:00)
[2022-08-10] MEDS: Doxepin Hcl 25 MG Capsule PO (20:00)
[2022-08-11 06:05] VITALS: BP 114/62; PULSE 86
[2022-08-11] MEDS: Nystatin Powder 15gm Bottle 1 APPLIC TOPICAL ×2 (06:08→21:42)
[2022-08-11] MEDS: Sertraline 100 MG Tablet PO (06:08)
[2022-08-11] MEDS: APIXABAN 2.5 MG TABLET (WCH) PO ×2 (06:08→17:14)
[2022-08-11] MEDS: Ciprofloxacin 250 MG Tablet PO ×2 (06:08→17:14)
[2022-08-11] MEDS: Furosemide 40 MG Tablet PO ×2 (06:09→14:13)
[2022-08-11 06:49] LABS: Bedside Glucose 105 mg/dL (74-106)
[2022-08-11 07:39] VITALS: O2SAT 96
[2022-08-11 08:25] VITALS: BP 102/65; PULSE 76; O2SAT 96
[2022-08-11] MEDS: Empagliflozin 10 MG Tablet PO (08:29)
[2022-08-11] MEDS: Multivitamins,Ther W-Minerals Tablet 1 TABLET PO (08:29)
[2022-08-11] MEDS: Spironolactone 25 MG Tablet 12.5 MG PO (08:30)
[2022-08-11] MEDS: Menthol/Lanolin/Calamine/Znox 113 GM Tube 1 APPLIC TOPICAL ×2 (08:31→21:42)
[2022-08-11 09:09] VITALS: PULSE 73; O2SAT 96
--- NOTE | 2022-08-11 10:03 | PHA.CONS_ITS ---
TCU RX Drug Regimen Review Subjective: TCU Admission. 87 YOM presented to the ER with shortness of breath. Hospitalized for acute on chronic diastolic congestive heart failure secondary to new onset atrial fibrillation, complicated by acute kidney injury, acute respiratory failure with hypercapnia, hypotension, anemia. Admitted to TCU with debility for strengthening and rehabilitation. Objective: Allergies No Known Allergies Allergy (Verified 08/02/22 15:26) Current Medications Generic Name Dose Route Start Last Admin Trade Name Freq PRN Reason Stop Dose Admin Acetaminophen 1,000 mg 08/11/22 14:00 Acetaminophen 500 Mg Tablet PO Q8 MARY Apixaban 2.5 mg 08/09/22 06:00 08/11/22 06:08 Apixaban 2.5 Mg Tablet ([facility]) PO 2.5 mg BID MARY Administration Atorvastatin Calcium 10 mg 08/08/22 22:00 08/10/22 20:00 Atorvastatin Calcium 10 Mg Tablet PO 10 mg QHS MARY Administration Calamine/Phenol 1 applic 08/10/22 10:00 08/11/22 08:31 Menthol/Lanolin/Calamine/Znox 113 Gm Tube TOPICAL 1 applic BID@1000,2200 [facility] Administration Protocol Carvedilol 25 mg 08/09/22 17:30 08/11/22 08:28 Carvedilol 25 Mg Tablet PO Not Given 0730,1730 [facility] Ciprofloxacin HCl 250 mg 08/09/22 18:00 08/11/22 06:08 Ciprofloxacin 250 Mg Tablet PO 08/16/22 18:01 250 mg BID MARY Administration Doxepin HCl 25 mg 08/09/22 14:56 08/10/22 20:00 Doxepin Hcl 25 Mg Capsule PO 25 mg QHS PRN Administration SLEEP Empagliflozin 10 mg 08/10/22 08:00 08/11/22 08:29 Empagliflozin 10 Mg Tablet PO 10 mg DAILY@0800 MARY Administration Furosemide 40 mg 08/09/22 06:00 08/11/22 06:09 Furosemide 40 Mg Tablet PO 40 mg BIDLX MARY Administration Multivitamins/Minerals 1 tablet 08/09/22 08:00 08/11/22 08:29 Multivitamins,Ther W-Minerals Tablet PO 1 tablet DAILYCM MARY Administration Nystatin 1 applic 08/09/22 22:00 08/11/22 06:08 Nystatin Powder 15gm Bottle TOPICAL 1 applic 0600,2200 [facility] Administration Protocol Oxycodone HCl 2.5 mg 08/11/22 07:54 Oxycodone 5 Mg Tablet PO Q4H PRN PRN Pain Score 6-10 Polyethylene Glycol 17 gm 08/09/22 06:00 08/11/22 06:09 Polyethylene Glycol 3350 17 Gm Packet PO Not Given DAILY MARY Senna/Docusate Sodium 2 tablet 08/08/22 19:27 Senna/Docusate Sodium 1 Tablet PO BID PRN PRN Constipation Sertraline HCl 100 mg 08/09/22 06:00 08/11/22 06:08 Sertraline 100 Mg Tablet PO 100 mg DAILY MARY Administration Spironolactone 12.5 mg 08/10/22 08:00 08/11/22 08:30 Spironolactone 25 Mg Tablet PO 12.5 mg DAILY@0800 [facility] Administration Tamsulosin HCl 0.4 mg 08/09/22 17:30 08/10/22 18:24 Tamsulosin Hcl 0.4 Mg Capsule PO 0.4 mg DAILY@1730 [facility] Administration Tramadol HCl 50 mg 08/11/22 07:54 Tramadol 50 Mg Tablet PO Q6H PRN PRN Pain Score 1-5 Tuberculin PPD 0.1 ml 08/16/22 10:00 Tuberculin,Purif.Prot.Deriv. 50 Tu/Ml Vial ID 08/16/22 10:01 X1 ONE Problem List (Last Reviewed 08/08/22 @ 20:[address] Efren Antony MD) Hypokalemia (Acute) Depression (Acute) Gout (Acute) BPH (benign prostatic hyperplasia) (Acute) Hyperlipidemia (Acute) Hypertension (Chronic) Debility (Acute) Acute on chronic respiratory failure with hypercapnia (Chronic) LUCIEN (acute kidney injury) (Acute) Acute on chronic diastolic heart failure (Chronic) Atrial fibrillation, new onset (Acute) Vital Signs Temp Pulse Resp BP Pulse Ox O2 Del Method O2 Flow Rate 97.6 F L 73 14 102/65 96 Nasal Cannula 2 08/10/22 16:00 08/11/22 09:09 08/10/22 16:00 08/11/22 08:25 08/11/22 09:09 08/11/22 09:09 08/11/22 09:09 Oxygen Flow Rate (L/min) 2 Oxygen Delivery Method Nasal Cannula Weight: 94.302 kg Body Mass Index (BMI) 29.7 Sodium 139 mmol/L (136-145) 08/09/22 08:13 Potassium 4.4 mmol/L (3.5-5.1) 08/09/22 08:13 Chloride 98 mmol/L (98-107) 08/09/22 08:13 Carbon Dioxide 37.0 mmol/L (21.0-32.0) H 08/09/22 08:13 Anion Gap 4 (5-15) L 08/09/22 08:13 BUN 33 mg/dL (7-18) H 08/09/22 08:13 Creatinine 0.90 mg/dL (0.70-1.30) 08/09/22 08:13 Est GFR (MDRD) Af Amer 103 mL/min (>60) 08/09/22 08:13 Est GFR (MDRD) Non-Af 85 mL/min (>60) 08/09/22 08:13 BUN/Creatinine Ratio 36.7 RATIO (10-20) H 08/09/22 08:13 Glucose 124 mg/dL (74-106) H 08/09/22 08:13 Assessment/Plan: 1. Pain: acetaminophen 1000mg PO Q8, tramadol 50mg PO Q6H PRN pain 1-5 and oxycodone 2.5mg PO Q4H PRN pain 6-10. Resident has not used any PRN doses. Please continue to monitor for increased pain and PRN usage. 2. Bowel: Miralax 17gm PO daily and senna/docusate 2T PO BID PRN constipation. Per nursing note on 08/10, resident had a bowel movement. Please consider changing Miralax to PRN constipation instead of scheduled as resident has refused 2/3 doses. Thanks. No PRN doses given. Please continue to monitor for PRN usage and constipation.. 3. Atrial fibrillation/CHF: carvedilol 25mg PO BID, apixaban 2.5mg PO BID, furosemide 40mg PO BIDLX, empagliflozin 10mg PO daily, spironolactone 12.5mg PO daily. Please consider increasing the dose of apixaban from 2.5mg to 5mg. Resident only meets 1/3 criteria (age >80) for decreased dose as his SCr is <1.5mg/dL and weight is >60kg. Thanks. Please continue to monitor BP (102/65), HR (last 73), hemoglobin (last 12.4g/dL), S/S of bleeding, renal function, potassium (last 4.4mmol/L) and hemoglobin A1c (last 5.6% 06/02/22). 4. UTI: ciprofloxacin 250mg PO BID thru 08/16/22. Urine culture growing E. coli which is sensitive to ciprofloxacin. Urine culture is also growing a preliminary GPC possible enterococcus sp. Please continue to monitor cultures as ciprofloxacin will not cover enterococcus. Will likely need amoxicillin for enterococcus coverage but it will also cover the pansensitive E coli as well. Please continue to monitor urine culture, renal function (BEERs medication), diarrhea and joint pain (tendonitis/tendon rupture are black box warning). 5. Hyperlipidemia: atorvastatin 10mg PO QHS. Please continue to monitor lipid panel (last 08/08/22), LFTs (last 08/03/22) and muscle pain. 6. BPH: tamsulosin 0.4mg PO daily. Please continue to monitor BP and for urinary flow. 7. Nutrition: multivitamin with minerals 1T PO daily. Please continue to monitor. Assessment/Plan for indications treated with psychotropic medications: 1. Depression: sertraline 100mg PO daily. Please see physician note regarding GDR. Please continue to monitor for suicidal ideation (black box warning), falls/fractures (BEERs medication) and sodium (last 139mmol/L). 2. Sleep: doxepin 25mg PO QHS PRN sleep. Resident just started medication, GDR not appropriate. Please continue to monitor for insomnia, excessive drowsiness, suicidal ideation (black box warning), dementia/delirium (BEERs medication), anticholinergic side effects (BEERs medication), BP (BEERs criteria for ortho static hypotension), falls/fractures (BEERs medication), and sodium. Resident also has BPH, per the BEERs criteria, doxepin should be avoided in men with BPH as it can further decrease urinary flow and cause urinary retention. Please consider melatonin for another agent for sleep. Thanks. 3. Neuropathic pain: gabapentin 100mg PO TIDCM. GDR not appropriate as this medication is being used for neuropathic pain. Please continue to monitor for S/S of pain, renal function (BEERs medication, dose appropriate for current CrCl of 61 ml/min) and falls/fractures (BEERs medication). Medical chart and medication regimen reviewed. The following medication irregularities or issues were identified: *1. Miralax 17gm PO daily. No documented bowel movements (but nursing had a ref usal reason as diarrhea for Miralax). Please consider changing Miralax to PRN constipation instead of scheduled as resident has refused 2/3 doses. Thanks. *2. Apixaban 2.5mg PO BID. Please consider increasing the dose of apixaban from 2.5mg to 5mg. Resident only meets 1/3 criteria (age >80) for decreased dose as his SCr is <1.5mg/dL and weight is >60kg. Thanks. *3. Ciprofloxacin 250mg PO BID thru 08/16/22. Urine culture growing E. coli which is sensitive to ciprofloxacin. Urine culture is also growing a preliminary GPC possible enterococcus sp. Please continue to monitor cultures as ciprofloxacin will not cover enterococcus. Will likely need amoxicillin for enterococcus coverage but it will also cover the pansensitive E coli as well. *4. Doxepin 25mg PO QHS PRN sleep. Resident also has BPH, per the BEERs criteria, doxepin should be avoided in men with BPH as it can further decrease urinary flow and cause urinary retention. Please consider melatonin for another agent for sleep. Thanks. Date of Note:: 08/11/22
[2022-08-11] MEDS: oxyCODONE 5 MG Tablet 2.5 MG PO (12:36)
[2022-08-11] MEDS: Acetaminophen 500 MG Tablet 1000 MG PO ×2 (12:36→21:42)
[2022-08-11 13:54] VITALS: BP 118/65; PULSE 78; RESP 16; TEMP 36.4; O2SAT 92
--- NOTE | 2022-08-11 16:58 | CASEMGMT ---
Social Work Met with patient to complete initial assessment. Introduced self and role. Verified contacts. Discussed code status and MOLST form. Pt initially replied to the wishes for code status at the middle one. SW educated to all options in detail. Pt wishes to be DNR-CCA, WITH intubation. Nursing notified. MOLST placed in Dr folder. Educated to [facility] insurance with NRD 08/12 and continued stay is not guaranteed. Pt's goal is to return home at [facility] with . Pt is primary caregiver to . While pt is admitted, has hired caregivers to assist. SW to continue to follow for DC planning. Grazyna Torres, RELIEF SALESPERSON DEFENSE TRAVEL ADMINISTRATOR
[2022-08-11 17:11] VITALS: BP 126/86; PULSE 89
[2022-08-11] MEDS: Tamsulosin HCl 0.4 MG Capsule PO (17:14)
[2022-08-11] MEDS: Carvedilol 25 MG Tablet PO (17:14)
--- NOTE | 2022-08-11 18:48 | NURSING ---
Dr. Antony updated on Pharmacology Consultation report/recommendations. New ordered entered by Dr. Antony.
[2022-08-11] MEDS: Atorvastatin Calcium 10 MG Tablet PO (21:42)
[2022-08-12] MEDS: Furosemide 40 MG Tablet PO ×2 (05:56→13:47)
[2022-08-12] MEDS: Sertraline 100 MG Tablet PO (05:56)
[2022-08-12] MEDS: Nystatin Powder 15gm Bottle 1 APPLIC TOPICAL ×2 (05:57→22:24)
[2022-08-12] MEDS: APIXABAN 5 MG TABLET PO ×2 (05:57→17:08)
[2022-08-12] MEDS: Ciprofloxacin 250 MG Tablet PO (05:57)
[2022-08-12 05:58] VITALS: BP 138/80; PULSE 60
[2022-08-12 06:00] VITALS: BMI 29.0
[2022-08-12] MEDS: Acetaminophen 500 MG Tablet 1000 MG PO ×3 (06:00→21:53)
[2022-08-12 06:39] LABS: Bedside Glucose 103 mg/dL (74-106)
[2022-08-12] MEDS: Multivitamins,Ther W-Minerals Tablet 1 TABLET PO (07:46)
[2022-08-12] MEDS: Spironolactone 25 MG Tablet 12.5 MG PO (07:46)
[2022-08-12] MEDS: Carvedilol 25 MG Tablet PO ×2 (07:46→17:06)
[2022-08-12] MEDS: Empagliflozin 10 MG Tablet PO (07:46)
[2022-08-12] MEDS: AMOXICILLIN 500 MG CAPSULE PO ×3 (09:13→21:53)
[2022-08-12] MEDS: Menthol/Lanolin/Calamine/Znox 113 GM Tube 1 APPLIC TOPICAL ×2 (09:14→22:24)
--- NOTE | 2022-08-12 13:01 | NURSING ---
Discussed with patient regarding code status. Patient confirms he would like to be a DNR-CCA. Order changed.
[2022-08-12] MEDS: oxyCODONE 5 MG Tablet 2.5 MG PO (13:51)
[2022-08-12 15:39] VITALS: BP 121/67; PULSE 67; RESP 16; TEMP 36.9; O2SAT 94
[2022-08-12] MEDS: Tamsulosin HCl 0.4 MG Capsule PO (17:06)
[2022-08-12] MEDS: Atorvastatin Calcium 10 MG Tablet PO (21:53)
[2022-08-12] MEDS: Doxepin Hcl 25 MG Capsule PO (21:55)
[2022-08-13] MEDS: Furosemide 40 MG Tablet PO ×2 (05:43→13:26)
[2022-08-13] MEDS: AMOXICILLIN 500 MG CAPSULE PO ×3 (05:43→22:21)
[2022-08-13] MEDS: APIXABAN 5 MG TABLET PO ×2 (05:43→17:07)
[2022-08-13] MEDS: Sertraline 100 MG Tablet PO (05:43)
[2022-08-13] MEDS: Acetaminophen 500 MG Tablet 1000 MG PO ×3 (05:46→22:47)
[2022-08-13] MEDS: Nystatin Powder 15gm Bottle 1 APPLIC TOPICAL ×2 (05:48→22:23)
[2022-08-13 06:39] LABS: Bedside Glucose 124 mg/dL (74-106)
[2022-08-13] MEDS: Carvedilol 25 MG Tablet PO ×2 (08:07→17:06)
[2022-08-13] MEDS: Spironolactone 25 MG Tablet 12.5 MG PO (08:07)
[2022-08-13] MEDS: Multivitamins,Ther W-Minerals Tablet 1 TABLET PO (08:08)
[2022-08-13] MEDS: Empagliflozin 10 MG Tablet PO (08:08)
[2022-08-13] MEDS: oxyCODONE 5 MG Tablet 2.5 MG PO ×2 (08:20→22:21)
[2022-08-13] MEDS: Menthol/Lanolin/Calamine/Znox 113 GM Tube 1 APPLIC TOPICAL ×2 (09:11→22:23)
[2022-08-13 10:00] VITALS: PULSE 86; RESP 16; O2SAT 96
--- NOTE | 2022-08-13 13:53 | CASEMGMT ---
Social Work IDT met with patient, dtr and SOPHIA then other dtr via conference call for care plan meeting. Discussed patient's progress in PT/OT/SN. Educated to [facility] insurance with NRD 08/20, with [facility] 08/23. Broached topic that pt may not return to PLOF at home. Inquired if caregiver currently caring for pt's can continue assisting and care for pt. Family states they do not have the funds to sustain that nor can the two dtrs continue staying overnight. Dtrs are wanting to pursue [facility] LTP for , and would like pt to transfer as well. SW offered to assist with Medicaid process. Both are agreeable. Educated to referral to [facility] for assistance, as well as referral to [facility]. Family very appreciative. Secure email sent to [facility]. Referral sent to [facility] via [employer]. SW to continue to follow. Grazyna Torres, COSMETOLOGY TEACHER PRINT SHOP ASSISTANT
[2022-08-13 16:00] VITALS: BP 119/66; PULSE 63; RESP 18; TEMP 36.3; O2SAT 99
--- NOTE | 2022-08-13 16:12 | CHAPLAIN ---
Type of Pastoral Visit _x__ Initial Visit ___ Follow-up Visit ___ On-call Visit ___ General Patient Visit ___ Spiritual Assessment ___ Family Conference ___ Bereavement ___ Rapid Response ___ Code Blue ___ Other (describe below) Pastoral Care Referral From _x__ Patient ___ Family ___ Nurse ___ Physician ___ [place] ___ Senior Sharepoint Architect ___ Other (describe below) Sacrament/Intervention _x__ Active listening ___ Anointing ___ Catholic ___ Bereavement ___ Communion _x__ Marie exploration ___ _x__ Life review _x__ Prayer ___ Reconciliation ___ Sacrament of Sick _x__ Supportive presence ___ Wedding ___ Other (describe below) Pastoral Comments patient is welcoming of spiritual care and acknowledges concerns about his future and more importantly about his wifes care with dementia; pt and are facing major change with a move; pt states that prayer is main source of comfort and hope for future; pt has family to assist as well; talked about his concerns and attitude about them; pt states that attitude will be very important; pt talks about his druze and current lack of pastoral care; future visits will be desireable
--- NOTE | 2022-08-13 16:50 | NURSING ---
Gerentological Physiotherapist Note; activity Asset: Liz Ortiz is independent in his choice of daily activities. His family and friends call him Bill. He prefers to stay in his room at this time. He watches tv, uses his smartphone to talk and text family. He will work on word puzzles and rest when not in therapy. Staff will continue to offer group and out of room activities and respect his right to say No
[2022-08-13] MEDS: Tamsulosin HCl 0.4 MG Capsule PO (17:07)
[2022-08-13] MEDS: Atorvastatin Calcium 10 MG Tablet PO (22:21)
[2022-08-13] MEDS: Doxepin Hcl 25 MG Capsule PO (22:48)
[2022-08-14] MEDS: AMOXICILLIN 500 MG CAPSULE PO ×3 (05:28→22:48)
[2022-08-14] MEDS: Acetaminophen 500 MG Tablet 1000 MG PO ×3 (05:28→22:52)
[2022-08-14] MEDS: Furosemide 40 MG Tablet PO ×2 (05:29→13:29)
[2022-08-14] MEDS: Sertraline 100 MG Tablet PO (05:29)
[2022-08-14] MEDS: APIXABAN 5 MG TABLET PO ×2 (05:29→16:52)
[2022-08-14] MEDS: Nystatin Powder 15gm Bottle 1 APPLIC TOPICAL ×2 (05:31→22:53)
[2022-08-14 06:22] VITALS: O2SAT 96
[2022-08-14 06:49] LABS: Bedside Glucose 109 mg/dL (74-106)
[2022-08-14] MEDS: Spironolactone 25 MG Tablet 12.5 MG PO (08:38)
[2022-08-14] MEDS: Empagliflozin 10 MG Tablet PO (08:39)
[2022-08-14] MEDS: Multivitamins,Ther W-Minerals Tablet 1 TABLET PO (08:39)
[2022-08-14] MEDS: Carvedilol 25 MG Tablet PO ×2 (08:39→16:52)
[2022-08-14] MEDS: Phenazopyridine 95 MG Tablet 190 MG PO ×3 (10:01→22:49)
[2022-08-14] MEDS: Menthol/Lanolin/Calamine/Znox 113 GM Tube 1 APPLIC TOPICAL ×2 (10:03→22:53)
--- NOTE | 2022-08-14 12:37 | MDS.RN ---
MDS pain interview for kel 08/15/22 completedl
[2022-08-14 14:42] VITALS: BP 101/63; PULSE 74; RESP 14; TEMP 36.4; O2SAT 95
[2022-08-14 16:49] VITALS: BP 111/73; PULSE 72
[2022-08-14] MEDS: Tamsulosin HCl 0.4 MG Capsule PO (16:52)
[2022-08-14 18:28] LABS: Bacteria 0 SEEN /hpf (None Seen); Mucous, Urine 0 SEEN /hpf (<or=2+); Red Blood Cells-Urine 0 SEEN /hpf (0-5); Squamous Epithelial Cells - UA 0 SEEN /hpf (0-5)
[2022-08-14 18:37] LABS: Color, Urine Yellow (Yellow); Glucose, Dipstick 250 mg/dl (Normal); Ketone-Dipstick Negative (Negative); Leukocyte Esterase-Dipstick 100 /ul (Negative); Nitrite-Dipstick Negative (Negative); Occult Blood-Urine 10 /ul (Negative); Protein-Dipstick 15 mg/dl (Negative); Urine Bilirubin Dipstick Negative (Negative); Urine Clarity Clear (Clear); Urine Urobilinogen 8 mg/dl (Normal)
[2022-08-14 18:51] LABS: White Blood Cells 0-5 SEEN /hpf (0-5)
[2022-08-14] MEDS: Atorvastatin Calcium 10 MG Tablet PO (22:49)
[2022-08-14] MEDS: traMADol 50 MG Tablet PO (22:52)
[2022-08-14 23:00] VITALS: PULSE 84; RESP 17
[2022-08-15] MEDS: APIXABAN 5 MG TABLET PO ×2 (05:39→18:39)
[2022-08-15] MEDS: Phenazopyridine 95 MG Tablet 190 MG PO ×3 (05:39→22:40)
[2022-08-15] MEDS: AMOXICILLIN 500 MG CAPSULE PO ×3 (05:39→22:39)
[2022-08-15 05:40] VITALS: BP 116/69; PULSE 81
[2022-08-15] MEDS: Sertraline 100 MG Tablet PO (05:40)
[2022-08-15] MEDS: Furosemide 40 MG Tablet PO ×2 (05:40→14:35)
[2022-08-15] MEDS: Acetaminophen 500 MG Tablet 1000 MG PO ×3 (05:44→22:45)
[2022-08-15] MEDS: Nystatin Powder 15gm Bottle 1 APPLIC TOPICAL ×2 (05:45→22:41)
[2022-08-15 06:49] LABS: Bedside Glucose 95 mg/dL (74-106)
[2022-08-15 07:30] VITALS: O2SAT 95
[2022-08-15] MEDS: Spironolactone 25 MG Tablet 12.5 MG PO (11:55)
[2022-08-15] MEDS: Multivitamins,Ther W-Minerals Tablet 1 TABLET PO (11:55)
[2022-08-15] MEDS: Empagliflozin 10 MG Tablet PO (11:55)
[2022-08-15] MEDS: Carvedilol 25 MG Tablet PO ×2 (11:56→18:39)
[2022-08-15] MEDS: Menthol/Lanolin/Calamine/Znox 113 GM Tube 1 APPLIC TOPICAL ×2 (11:56→22:42)
--- NOTE | 2022-08-15 13:12 | CASEMGMT ---
Social Work BIMS (01/21) and PHQ-9 (02/02) completed for MDS assessment. SW explored positive responses. Pt explains his is in poor health and in the process of moving to a LTC facility. Pt expresses his guilt not being able to be there for her d/t his own health issues. With that, he is feeling down, and not having interest in doing things. Pt reports trouble sleeping as well. SW provided supportive listening and empathized with pt's feelings. SW offered interventions such a counseling and medication adjustment. Pt stated when increased current medication, he began having visual hallucinations, but is agreeable to another medication to help with mood and sleep. SW offered ongoing supportive visits and to collaborate with . Pt appreciative. SW left written communication for Dr. REGGIE provided written communication to ST as cognition had not been addressed yet. KENNA HunterW
[2022-08-15] MEDS: proMETHazine 25 MG Tablet PO ×2 (15:19→23:29)
--- NOTE | 2022-08-15 15:35 | NURSING ---
pt reported emesis to trash can this afternoon with nausea. po phenergan ordered and pt to have abd xray per new orders from dr. hudson
[2022-08-15 15:50] VITALS: BMI 28.6
[2022-08-15 16:00] VITALS: BP 95/66; PULSE 82; RESP 16; TEMP 36.3; O2SAT 95
--- NOTE | 2022-08-15 16:00 | RAD_ITS ---
STUDY: X-RAY - ABDOMEN/PELVIS REASON FOR EXAM: Male, 87 years old. Nausea/vomiting. TECHNIQUE: Single AP view of the abdomen / pelvis. COMPARISON: None. FINDINGS: Normal visualized lung bases. There is an unremarkable bowel gas pattern. The visualized liver, spleen and kidneys are grossly normal in size and morphology. Normal soft tissue structures. Mild levoscoliosis of the lumbar spine with degenerative disc disease. RAD/Abdomen Single View IMPRESSION: No bowel obstruction. Electronically Signed: Angel Munguia MD at 19:11 EDT ,
[2022-08-15 16:22] VITALS: O2SAT 96
[2022-08-15] MEDS: Tamsulosin HCl 0.4 MG Capsule PO (18:39)
[2022-08-15] MEDS: Atorvastatin Calcium 10 MG Tablet PO (22:39)
[2022-08-15] MEDS: Mirtazapine 15 MG Tablet 7.5 MG PO (22:40)
[2022-08-16 06:00] VITALS: BMI 28.8
[2022-08-16] MEDS: APIXABAN 5 MG TABLET PO ×2 (06:20→17:41)
[2022-08-16] MEDS: proMETHazine 25 MG Tablet PO (06:20)
[2022-08-16] MEDS: Furosemide 40 MG Tablet PO ×2 (06:20→14:41)
[2022-08-16] MEDS: Sertraline 100 MG Tablet PO (06:20)
[2022-08-16] MEDS: Acetaminophen 500 MG Tablet 1000 MG PO ×3 (06:20→20:50)
[2022-08-16] MEDS: AMOXICILLIN 500 MG CAPSULE PO (06:20)
[2022-08-16 06:23] VITALS: BP 125/72; PULSE 75
[2022-08-16 06:39] LABS: Bedside Glucose 108 mg/dL (74-106)
[2022-08-16 06:58] LABS: Absolute Lymphocyte Count 1.89 X10^3/uL (0.83-4.51); Absolute Neutrophil Count 2.9 X10^3/uL (2.0-7.7); Basophil# 0.01 X10^3/uL; Basophil% 0.2 % (0-1); Eosinophil# 0.08 X10^3/uL; Eosinophils% 1.4 % (0-5); Hematocrit 40.3 % (40-54); Hemoglobin 12.1 g/dL (13.0-16.5); Lymphocyte # 1.89 X10^3/ul (0.83-4.51); Lymphocyte % 34.2 % (19-41); Mean Corpuscular Hgb 30.1 pg (27.0-32.0); Mean Corpuscular Volume 100.2 fL (80-94); Mean Platelet Vol. 10.1 fl (6.2-12.0); Monocyte# 0.58 X10^3/uL; Monocyte% 10.5 % (0-10); NRBC Flagged by Analyzer 0 % (0-5); Neutrophil # 2.94 X10^3/uL (2.7-7.7); Neutrophil % 53.2 % (47-70); Platelet Count 200 K/mm3 (150-450); RBC Distribution Width CV 13.5 % (11.6-14.6); RBC Distribution Width SD 50.4 fl (35.1-43.9); Red Blood Count 4.02 M/mm3 (4.6-6.2); White Blood Count 5.5 K/mm3 (4.4-11.0)
[2022-08-16 07:24] LABS: Anion Gap 5 (5-15); BUN 30 mg/dL (7-18); BUN/Creat Ratio 30.6 RATIO (10-20); Calcium,Total 8.8 mg/dL (8.5-10.1); Chloride 105 mmol/L (98-107); Creatinine, Serum 0.98 mg/dL (0.70-1.30); EST Glomerular Filtration Rate 77 mL/min (>60); Est Glom Filt Rate - Afr Amer 94 mL/min (>60); Glucose 103 mg/dL (74-106); Potassium 3.5 mmol/L (3.5-5.1); Sodium Level 144 mmol/L (136-145)
[2022-08-16] MEDS: Spironolactone 25 MG Tablet 12.5 MG PO (08:24)
[2022-08-16] MEDS: Multivitamins,Ther W-Minerals Tablet 1 TABLET PO (08:24)
[2022-08-16] MEDS: Empagliflozin 10 MG Tablet PO (08:24)
[2022-08-16] MEDS: Carvedilol 25 MG Tablet PO ×2 (08:24→17:41)
[2022-08-16] MEDS: Nystatin Powder 15gm Bottle 1 APPLIC TOPICAL ×2 (08:25→20:54)
[2022-08-16 08:28] VITALS: BP 126/64; PULSE 73
[2022-08-16 13:10] VITALS: BP 116/65; PULSE 71; RESP 18; TEMP 36.3; O2SAT 94
[2022-08-16 13:30] VITALS: O2SAT 97
[2022-08-16] MEDS: Tuberculin,Purif.prot.deriv. 50 TU/ML Vial 0.1 ML ID (14:46)
[2022-08-16] MEDS: Menthol/Lanolin/Calamine/Znox 113 GM Tube 1 APPLIC TOPICAL ×2 (14:47→20:54)
[2022-08-16] MEDS: Tamsulosin HCl 0.4 MG Capsule PO (17:41)
[2022-08-16] MEDS: Mirtazapine 15 MG Tablet 7.5 MG PO (20:46)
[2022-08-16] MEDS: Atorvastatin Calcium 10 MG Tablet PO (20:48)
[2022-08-16] MEDS: traMADol 50 MG Tablet PO (23:15)
[2022-08-17] MEDS: oxyCODONE 5 MG Tablet 2.5 MG PO (01:07)
[2022-08-17 06:00] VITALS: BMI 28.8
[2022-08-17] MEDS: Sertraline 100 MG Tablet PO (06:19)
[2022-08-17] MEDS: Acetaminophen 500 MG Tablet 1000 MG PO ×3 (06:19→21:53)
[2022-08-17] MEDS: Furosemide 40 MG Tablet PO ×2 (06:19→13:06)
[2022-08-17] MEDS: APIXABAN 5 MG TABLET PO ×2 (06:19→16:36)
[2022-08-17] MEDS: Nystatin Powder 15gm Bottle 1 APPLIC TOPICAL ×2 (06:22→22:03)
[2022-08-17 06:42] LABS: Bedside Glucose 102 mg/dL (74-106)
[2022-08-17 07:17] VITALS: O2SAT 90
[2022-08-17] MEDS: Multivitamins,Ther W-Minerals Tablet 1 TABLET PO (08:36)
[2022-08-17] MEDS: Empagliflozin 10 MG Tablet PO (08:37)
[2022-08-17] MEDS: Carvedilol 25 MG Tablet PO (08:37)
[2022-08-17] MEDS: Spironolactone 25 MG Tablet 12.5 MG PO (08:37)
[2022-08-17 13:05] VITALS: BP 112/66; PULSE 70
[2022-08-17] MEDS: Menthol/Lanolin/Calamine/Znox 113 GM Tube 1 APPLIC TOPICAL ×2 (13:07→22:01)
[2022-08-17 14:20] VITALS: BP 107/63; PULSE 65; RESP 16; TEMP 36.4; O2SAT 95
[2022-08-17] MEDS: Tamsulosin HCl 0.4 MG Capsule PO (16:36)
[2022-08-17 21:00] VITALS: PULSE 56; RESP 18; O2SAT 93
[2022-08-17] MEDS: Atorvastatin Calcium 10 MG Tablet PO (21:53)
[2022-08-17] MEDS: Mirtazapine 15 MG Tablet 7.5 MG PO (21:53)
[2022-08-17] MEDS: traMADol 50 MG Tablet PO (21:54)
[2022-08-18 07:37] VITALS: BP 142/77; PULSE 74
[2022-08-18] MEDS: Furosemide 40 MG Tablet PO (07:41)
[2022-08-18] MEDS: Nystatin Powder 15gm Bottle 1 APPLIC TOPICAL ×2 (07:41→22:16)
[2022-08-18] MEDS: APIXABAN 5 MG TABLET PO ×2 (07:41→17:13)
[2022-08-18] MEDS: Sertraline 100 MG Tablet PO (07:41)
[2022-08-18] MEDS: Carvedilol 25 MG Tablet PO ×2 (07:41→17:13)
[2022-08-18] MEDS: Empagliflozin 10 MG Tablet PO (07:42)
[2022-08-18] MEDS: Multivitamins,Ther W-Minerals Tablet 1 TABLET PO (07:42)
[2022-08-18] MEDS: Spironolactone 25 MG Tablet 12.5 MG PO (07:42)
[2022-08-18] MEDS: Menthol/Lanolin/Calamine/Znox 113 GM Tube 1 APPLIC TOPICAL ×2 (07:43→22:16)
[2022-08-18] MEDS: Acetaminophen 500 MG Tablet 1000 MG PO ×2 (07:45→22:08)
[2022-08-18 09:05] VITALS: PULSE 87; O2SAT 94
[2022-08-18 09:07] VITALS: O2SAT 93
--- NOTE | 2022-08-18 13:14 | MDS.RN ---
Information for the mds was obtained from review of the clinical record, interview of resident, staff, and direct observation of resident's care.
[2022-08-18 14:26] VITALS: BP 96/60; PULSE 73; RESP 16; TEMP 36.8; O2SAT 90
[2022-08-18 16:07] VITALS: BMI 28.9
[2022-08-18 17:10] VITALS: BP 122/75; PULSE 73
[2022-08-18] MEDS: Tamsulosin HCl 0.4 MG Capsule PO (17:13)
[2022-08-18] MEDS: traMADol 50 MG Tablet PO (22:07)
[2022-08-18] MEDS: Atorvastatin Calcium 10 MG Tablet PO (22:08)
[2022-08-18] MEDS: Mirtazapine 15 MG Tablet 7.5 MG PO (22:09)
--- NOTE | 2022-08-19 00:53 | NURSING ---
Pt requesting a sleeping pill. Remeron given w/ hs meds. No PRN medications ordered for sleep. Reports he has difficulty sleeping at hs at home and has taken an OTC sleep aid from [employer]. SpO2 87-90% on room air. O2 applied at 2 lpm via nc. SpO2 rebounded to 93% within minutes. Will continue to monitor.
[2022-08-19 06:00] VITALS: BMI 28.5
[2022-08-19] MEDS: APIXABAN 5 MG TABLET PO ×2 (06:58→17:28)
[2022-08-19] MEDS: Furosemide 40 MG Tablet PO ×2 (06:58→13:16)
[2022-08-19] MEDS: Acetaminophen 500 MG Tablet 1000 MG PO ×3 (06:58→22:08)
[2022-08-19] MEDS: Sertraline 100 MG Tablet PO (06:58)
[2022-08-19] MEDS: Nystatin Powder 15gm Bottle 1 APPLIC TOPICAL ×2 (07:00→22:11)
[2022-08-19] MEDS: Empagliflozin 10 MG Tablet PO (08:08)
[2022-08-19] MEDS: Menthol/Lanolin/Calamine/Znox 113 GM Tube 1 APPLIC TOPICAL ×2 (08:08→22:13)
[2022-08-19] MEDS: Multivitamins,Ther W-Minerals Tablet 1 TABLET PO (08:08)
[2022-08-19] MEDS: Spironolactone 25 MG Tablet 12.5 MG PO (08:08)
[2022-08-19] MEDS: Carvedilol 25 MG Tablet PO ×2 (08:08→17:28)
--- NOTE | 2022-08-19 09:04 | CASEMGMT ---
Addendum entered by Grazyna Torres 08/19/22 11:17: Received return call from dtr. SW answered questions and provided [facility] phone number to contact. Dtr agreeable pt cannot return home and appreciative of [facility] referral. Dtr stated pt's is going to PCP visit today to have referral made to [facility] as well. Dtr appreciative of assistance. [facility] accepted pt. SW to continue to follow. Addendum entered by Grazyna Torres 08/19/22 10:24: [facility] has left two messages with the dtr and have not received return call. SW left voicemail with dtr as well. Addendum entered by Grazyna Torres 08/19/22 09:31: SW sent secure email to follow up on [facility] referral. Will await outcome Original Note: Social Work In preparation for insurance update tomorrow, referral placed to [facility] via [employer]. SW to await outcome and then update family. KENNA HunterW
[2022-08-19 14:48] VITALS: BP 103/59; PULSE 72; RESP 16; TEMP 36.2; O2SAT 91
[2022-08-19] MEDS: Tamsulosin HCl 0.4 MG Capsule PO (17:28)
[2022-08-19] MEDS: traMADol 50 MG Tablet PO (22:08)
[2022-08-19] MEDS: MELATONIN 10 MG TABLET PO (22:08)
[2022-08-19] MEDS: Mirtazapine 15 MG Tablet 7.5 MG PO (22:09)
[2022-08-19] MEDS: Atorvastatin Calcium 10 MG Tablet PO (22:09)
--- NOTE | 2022-08-19 22:20 | NURSING ---
Pt reports seeing his flexible shaft winder in [place] the day before he was admitted to [facility]. Had toenail care completed at that time. Podiatry consult can be canceled. Will report to oncoming nurse.
[2022-08-20 06:00] VITALS: BMI 28.5
--- NOTE | 2022-08-20 07:53 | NURSING ---
Art Gallery Director consult cancelled d/t pt seen adjuster piano action before admission.
[2022-08-20] MEDS: Acetaminophen 500 MG Tablet 1000 MG PO ×3 (07:55→20:27)
[2022-08-20] MEDS: Sertraline 100 MG Tablet PO (07:56)
[2022-08-20] MEDS: Furosemide 40 MG Tablet PO ×2 (07:56→14:25)
[2022-08-20] MEDS: APIXABAN 5 MG TABLET PO ×2 (07:57→17:39)
[2022-08-20] MEDS: Spironolactone 25 MG Tablet 12.5 MG PO (07:57)
[2022-08-20] MEDS: Empagliflozin 10 MG Tablet PO (07:58)
[2022-08-20] MEDS: Multivitamins,Ther W-Minerals Tablet 1 TABLET PO (07:58)
[2022-08-20] MEDS: Menthol/Lanolin/Calamine/Znox 113 GM Tube 1 APPLIC TOPICAL ×2 (08:00→20:34)
[2022-08-20] MEDS: Nystatin Powder 15gm Bottle 1 APPLIC TOPICAL ×2 (08:00→20:29)
[2022-08-20 08:09] VITALS: BP 100/67; PULSE 74
--- NOTE | 2022-08-20 08:48 | NURSING ---
Offered pnuemovax and pt is agreeable to vaccine. SIOMARA Callahan, updated.
[2022-08-20 12:44] VITALS: PULSE 56; O2SAT 97
[2022-08-20] MEDS: Ammonium Lactate 225 gm Bottle 1 APPLIC TOPICAL ×2 (14:25→20:29)
[2022-08-20 14:29] VITALS: BP 106/54; PULSE 70; RESP 16; TEMP 36.3; O2SAT 92
[2022-08-20 14:38] VITALS: BP 114/70; PULSE 65
--- NOTE | 2022-08-20 16:13 | CASEMGMT ---
Social Work Insurance issued LCD 08/22, DC 08/23. REGGIE spoke with pt to update and inquire about DC plans. SW educated to LOC pt needs - CGA 24/7 care with high fall risk. SW showed him the difference between mod I, SBA and CGA, for pt understanding. Pt expressed understanding and stated he will have caregivers 24/7 that assists with and can care for him, including at night. Pt states he uses the bathroom about twice at night and walks to the bathroom. SW educated to having the caregiver CGA during the nights, and if pt and caregiver agree after about a week, pt no longer needs the caregiver, he can terminate them. Pt agreed. Pt stated that if he is not successful at home, he will [facility]. SW acknowledged insight and the goal is DC home is successful. SW offered skilled HHC and DME. Pt denied DME needs, but requesting [facility], whom he used prior. Pt stated he would contact his dtrs to notify of DC, but SW can contact as well. SW phoned referral to [facility] PT/OT/SN/REGGIE. SW phoned dtr, Disha, about DC plans and above information. Dtr agreeable to plan and appreciative. Plan: DC home 08/23 with and 24/7 care, [facility] PT/OT/SN/KENNA RichW
[2022-08-20] MEDS: Carvedilol 25 MG Tablet PO (17:39)
[2022-08-20] MEDS: Tamsulosin HCl 0.4 MG Capsule PO (17:39)
[2022-08-20 17:41] VITALS: BP 118/72; PULSE 71
[2022-08-20] MEDS: Atorvastatin Calcium 10 MG Tablet PO (20:26)
[2022-08-20] MEDS: Mirtazapine 15 MG Tablet 7.5 MG PO (20:27)
--- NOTE | 2022-08-20 20:54 | DS.PCM_ITS ---
Providers Date of Admission: 08/08/22 Primary Care Physician: Dr. Lico Mo MD Reason For Visit: CHF Diagnosis Discharge Diagnosis (1) Debility: Status: Acute Code(s): R53.81 - Other malaise (2) Acute on chronic respiratory failure with hypercapnia: Status: Resolved Code(s): J96.22 - Acute and chronic respiratory failure with hypercapnia (3) LUCIEN (acute kidney injury): Status: Acute Code(s): N17.9 - Acute kidney failure, unspecified (4) Acute on chronic diastolic heart failure: Status: Chronic Code(s): I50.33 - Acute on chronic diastolic (congestive) heart failure (5) Atrial fibrillation, new onset: Status: Acute Code(s): I48.91 - Unspecified atrial fibrillation (6) Hypertension: Status: Chronic Code(s): I10 - Essential (primary) hypertension (7) Hyperlipidemia: Status: Acute Code(s): E78.5 - Hyperlipidemia, unspecified (8) BPH (benign prostatic hyperplasia): Status: Acute Code(s): N40.0 - Benign prostatic hyperplasia without lower urinary tract symptoms (9) Gout: Status: Acute Code(s): M10.9 - Gout, unspecified (10) Depression: Status: Acute Code(s): F32.A - Depression, unspecified (11) Hypokalemia: Status: Acute Code(s): E87.6 - Hypokalemia Plan 87 year old male with below past medical history hospitalized for acute on chronic diastolic congestive heart failure secondary to new onset atrial fibrillation, complicated by acute kidney injury, acute respiratory failure with hypercapnia, hypotension, anemia, admitted to TCU with debility, here for rehab ilitation, strengthening, prior to discharge home with . * Debility - PT/OT. * Dysphagia - ST. * Pain - Tylenol 1000mg q6h prn pain (1-10). * Bowel - Miralax 17gm daily, senna/colace 2 tablets bid prn. * Adult immunization - Administer pneumonia vaccine, covid19 vaccine, flu vaccine as appropriate. * DVT prophylaxis - on Eliquis. * Atrial fibrillation - Coreg 25mg bid, Eliquis 2.5mg bid. * Hyperlipidemia - Atorvastatin 10mg qhs. * Acute on chronic diastolic congestive heart failure - Coreg 25mg bid, Furosemide 40mg bidlx, Jardiance 10mg daily, Aldactone 12.5mg daily. Target weight 96.1KG. * Neuropathic pain - Gabapentin 100mg tidcm. * Nutrition - MVI 1 tablet daily. * Depression - Sertraline 100mg daily, stable chronic termite helper use, GDR not recommended. * BPH - Tamsulosin 0.4mg daily. * Fever 99.1 - order CXR. Medications at Discharge Home Medications carvedilol 25 mg tablet 25 mg PO BID Blood pressure 06/26/16 guanfacine 2 mg tablet 2 mg PO DAILY Blood pressure 06/26/16 mbcerumk-tko-pivoq acid 300 mcg-lycopene 600 mcg-lutein 300 mcg tablet 1 ea PO DAILY Supplement 06/26/16 simvastatin 20 mg tablet 20 mg PO QHS Cholesterol 06/26/16 tamsulosin 0.4 mg capsule 0.4 mg PO DAILY Prostate 06/26/16 sertraline 100 mg tablet (Zoloft) 100 mg PO QDAY Anxiety 10/14/17 omega 8-ckm-mxk-fish oil 900 mg-1,400 mg capsule,delayed release 1 cap PO DAILY Supplement 04/20/20 furosemide 40 mg tablet 40 mg PO BIDCM Blood pressure #120 tabs 05/13/22 acetaminophen 500 mg tablet 1,000 mg PO Q8 #0 tabs 08/20/22 apixaban 5 mg tablet (Eliquis) 5 mg PO BID 30 days #60 tabs 08/20/22 empagliflozin 10 mg tablet (Jardiance) 10 mg PO DAILY@0800 30 days #30 tabs 08/20/22 mirtazapine 15 mg tablet 7.5 mg PO QHS 30 days #15 tabs 08/20/22 spironolactone 25 mg tablet 12.5 mg PO DAILY@0800 30 days #15 tabs 08/20/22 Hospital Course Operations None Procedures None Summary of Care Provided Minutes Spent on Discharge: 35 Hospital Course: 87 year old male with below past medical history hospitalized for acute on chronic diastolic congestive heart failure secondary to new onset atrial fibrillation, complicated by acute kidney injury, acute respiratory failure with hypercapnia, hypotension, anemia, admitted to TCU with debility, here for rehabilitation, strengthening, prior to discharge home with . Discharge home with 08/23/2022 and 29/09 care, [facility] PT/OT/SN/SW. Physical Exam Const alert General Appearance: cooperative HEENT normocephalic Eyes PERRL and EOMs intact bilaterally Neck supple, no JVD and no carotid bruits Resp normal respiratory effort, normal air movement and clear to auscultation bilaterally Cardio regular rate and regular rhythm GI normal to inspection, nondistended, normoactive bowel sounds, non-tender and non-distended Extremity normal capillary refill General Extremity: Negative for edema Skin no rashes or lesions noted General Skin Exam: no breakdown Psych affect normal Appearance: appropriate Weight / BMI Weight Weight: 90.31 kg Body Mass Index (BMI) 28.5 ABG / Lab / Microbiology Data Result Diagrams: 08/16/22 06:51 08/16/22 06:51 Microbiology: Microbiology 08/14/22 13:15 Urine, Clean Catch Urine Culture - Final Culture exhibits no growth. 08/13/22 09:13 Nasal Secretion SARS-CoV-2 Antigen (Rapid) - Final 08/09/22 14:50 Urine, Catheterized Urine Culture - Final Escherichia coli Enterococcus faecalis 08/10/22 04:55 Nasal Secretion SARS-CoV-2 Antigen (Rapid) - Final D/C Instructions Discharge Diet: No restrictions Discharge Activity: Return to Normal Activity, May Shower and Use Walker Weight Bearing Status: Weight bearing as tolerated Call your doctor if you observe: Fever of 101 or Higher, Inability to urinate, Inability to have a bowel movement, Shortness of breath, Dizziness, Fainting spells, Swelling in the ankles, Chest pain and Uncontrolled pain Additional Instructions: Discharge home with 08/23/2022 and 29/09 [facility] PT/OT/SN/SW. Meaningful Use Info Meaningful Use Diagnoses (Choose all that apply): None applicable Discharge Plan Admission Admit Date/Time: 08/08/22 19:05 Primary Reason for Your Visit: Debility. Attending Provider: Efren Antony Chi Primary Care Provider: Lico Mo Instructions Additional Instructions / Restrictions: Discharge home with 08/23/2022 and 29/09 [facility] PT/OT/SN/SW. Discharge Orders/Prescriptions Prescriptions: New acetaminophen 500 mg Tablet 1,000 mg PO Q8 Qty: 0 0RF spironolactone 25 mg Tablet 12.5 mg PO DAILY@0800 30 Days Qty: 15 0RF mirtazapine 15 mg Tablet 7.5 mg PO QHS 30 Days Qty: 15 0RF Eliquis 5 mg Tablet 5 mg PO BID 30 Days Qty: 60 0RF Jardiance 10 mg Tablet 10 mg PO DAILY@0800 30 Days Qty: 30 0RF Continued sertraline [Zoloft] 100 mg tablet 100 mg PO QDAY carvedilol 25 MG tablet 25 mg PO BID tamsulosin 0.4 MG capsule 0.4 mg PO DAILY simvastatin 20 MG tablet 20 mg PO QHS guanfacine 2 MG tablet 2 mg PO DAILY ctmxasrk-wfv-BW-lycopen-lutein 1 EACH tablet 1 ea PO DAILY omega 5-rnb-xfm-fish oil 900-1,400 mg capsule,delayed release(DR/EC) 1 cap PO DAILY furosemide 40 mg tablet 40 mg PO BIDCM Qty: 120 0RF Discontinued acetaminophen 325 MG tablet 650 mg PO Q6H PRN PRN (Reason: Pain 1-10/Fever >=100.7F) 0RF sennosides-docusate sodium [Stool Softener-Stimulant Laxat] 8.6-50 mg Tablet 2 tab PO BID PRN PRN (Reason: Constipation) Qty: 0 0RF diphenhydramine HCl 25 mg capsule 25 mg PO QHS PRN (Reason: INSOMNIA) 30 Days Qty: 0 0RF polyethylene glycol 3350 [Miralax] 17 gram powder in packet 17 g PO DAILY spironolactone 25 mg tablet 12.5 mg PO DAILY gabapentin 100 mg capsule 100 mg PO TIDCM apixaban 5 mg tablet 2.5 mg PO BID Jardiance 10 mg tablet 10 mg PO DAILY Referrals / Follow Up: Efren Antony Chi, MD [Med Staff - Active Staff] - 08/25/22 2:20 pm (please bring photo ID, insurance card & current medications) Disposition Disposition (needs filled in before D/C Order can be placed): Home Health Service
[2022-08-20] MEDS: traMADol 50 MG Tablet PO (23:06)
[2022-08-20] MEDS: MELATONIN 10 MG TABLET PO (23:07)
[2022-08-21] MEDS: Acetaminophen 500 MG Tablet 1000 MG PO ×3 (05:17→21:40)
[2022-08-21] MEDS: Furosemide 40 MG Tablet PO ×2 (05:17→13:50)
[2022-08-21] MEDS: APIXABAN 5 MG TABLET PO ×2 (05:18→17:53)
[2022-08-21] MEDS: Sertraline 100 MG Tablet PO (05:18)
[2022-08-21] MEDS: Nystatin Powder 15gm Bottle 1 APPLIC TOPICAL ×2 (05:20→21:40)
[2022-08-21] MEDS: Senna/Docusate Sodium 1 Tablet 2 TABLET PO (05:23)
[2022-08-21 06:00] VITALS: BMI 28.9
[2022-08-21] MEDS: Spironolactone 25 MG Tablet 12.5 MG PO (07:57)
[2022-08-21] MEDS: Carvedilol 25 MG Tablet PO ×2 (07:57→17:53)
[2022-08-21] MEDS: Multivitamins,Ther W-Minerals Tablet 1 TABLET PO (07:58)
[2022-08-21] MEDS: Empagliflozin 10 MG Tablet PO (07:58)
[2022-08-21 08:00] VITALS: O2SAT 92
[2022-08-21 08:01] VITALS: BP 118/79; PULSE 95
[2022-08-21 10:00] VITALS: PULSE 85; RESP 16; O2SAT 92
[2022-08-21] MEDS: Menthol/Lanolin/Calamine/Znox 113 GM Tube 1 APPLIC TOPICAL ×2 (10:05→21:40)
[2022-08-21] MEDS: Pneumococcal Vaccine 20 Valent 0.5 ML Syringe IM (10:06)
[2022-08-21] MEDS: Ammonium Lactate 225 gm Bottle 1 APPLIC TOPICAL ×2 (10:06→21:42)
--- NOTE | 2022-08-21 13:20 | MDS.RN ---
MDS pain interview for kel 08/23/22 completed.
[2022-08-21 13:38] VITALS: BP 112/63; PULSE 63; RESP 16; TEMP 36.3; O2SAT 95
[2022-08-21] MEDS: Tamsulosin HCl 0.4 MG Capsule PO (17:53)
[2022-08-21] MEDS: Mirtazapine 15 MG Tablet 7.5 MG PO (21:39)
[2022-08-21] MEDS: Atorvastatin Calcium 10 MG Tablet PO (21:40)
[2022-08-21] MEDS: MELATONIN 10 MG TABLET PO (23:16)
[2022-08-22] MEDS: APIXABAN 5 MG TABLET PO ×2 (05:03→17:09)
[2022-08-22] MEDS: Furosemide 40 MG Tablet PO ×2 (05:04→14:06)
[2022-08-22] MEDS: Acetaminophen 500 MG Tablet 1000 MG PO ×3 (05:04→20:53)
[2022-08-22] MEDS: Sertraline 100 MG Tablet PO (05:04)
[2022-08-22] MEDS: Nystatin Powder 15gm Bottle 1 APPLIC TOPICAL ×2 (05:04→20:54)
[2022-08-22 05:07] VITALS: BP 114/67; PULSE 65
[2022-08-22 06:00] VITALS: BMI 28.8
[2022-08-22] MEDS: Empagliflozin 10 MG Tablet PO (07:55)
[2022-08-22] MEDS: Multivitamins,Ther W-Minerals Tablet 1 TABLET PO (07:55)
[2022-08-22] MEDS: Spironolactone 25 MG Tablet 12.5 MG PO (07:55)
[2022-08-22] MEDS: Carvedilol 25 MG Tablet PO ×2 (07:55→17:08)
[2022-08-22 09:00] VITALS: O2SAT 93
--- NOTE | 2022-08-22 09:12 | NURSING ---
Reported from previous shift that patient had received call that [facility] that they didn't have all the meds that were called in. This RN spoke with [facility] pharmacy this morning and they report they were able to fill everything that had been sent to fill.
[2022-08-22] MEDS: Menthol/Lanolin/Calamine/Znox 113 GM Tube 1 APPLIC TOPICAL ×2 (10:05→20:55)
[2022-08-22] MEDS: Ammonium Lactate 225 gm Bottle 1 APPLIC TOPICAL ×2 (10:06→20:55)
[2022-08-22 16:00] VITALS: BP 105/56; PULSE 67; RESP 18; TEMP 36.1; O2SAT 94
--- NOTE | 2022-08-22 16:04 | CASEMGMT ---
Social Work BIMS () and PHQ-9 (08/02) completed for MDS assessment. Grazyna Torres MSW CORRECTIONS IDENTIFICATION TECHNICIAN
[2022-08-22] MEDS: Tamsulosin HCl 0.4 MG Capsule PO (17:08)
[2022-08-22] MEDS: Atorvastatin Calcium 10 MG Tablet PO (20:53)
[2022-08-22] MEDS: Mirtazapine 15 MG Tablet 7.5 MG PO (22:35)
--- NOTE | 2022-08-23 05:47 | NURSING ---
pt c/o buring and pain w/urination in addityion to frequency. upon assessment pt's urine is deep red which is a change from earlier in the shift. notified. UA ordered
[2022-08-23] MEDS: Carvedilol 25 MG Tablet PO (05:53)
[2022-08-23] MEDS: Furosemide 40 MG Tablet PO (05:53)
[2022-08-23] MEDS: Sertraline 100 MG Tablet PO (05:54)
[2022-08-23] MEDS: Acetaminophen 500 MG Tablet 1000 MG PO (05:54)
[2022-08-23] MEDS: Nystatin Powder 15gm Bottle 1 APPLIC TOPICAL (05:55)
[2022-08-23 06:20] LABS: Mucous, Urine 0 SEEN /hpf (<or=2+); Squamous Epithelial Cells - UA 0 SEEN /hpf (0-5); White Blood Cells 0 SEEN /hpf (0-5)
[2022-08-23 06:22] LABS: Color, Urine Red (Yellow); Glucose, Dipstick 250 mg/dl (Normal); Ketone-Dipstick 5 mg/dl (Negative); Leukocyte Esterase-Dipstick 500 /ul (Negative); Nitrite-Dipstick Negative (Negative); Occult Blood-Urine 250 /ul (Negative); Protein-Dipstick 500 mg/dl (Negative); Specific Gravity, Urine 1.015 (1.002-1.030); Urine Bilirubin Dipstick Negative (Negative); Urine Clarity Turbid (Clear); Urine Urobilinogen Normal (Normal)
[2022-08-23 06:29] LABS: Bacteria 2+ /hpf (None Seen); Red Blood Cells-Urine > 100 SEEN /hpf (0-5)
[2022-08-23 08:09] LABS: Absolute Lymphocyte Count 1.69 X10^3/uL (0.83-4.51); Absolute Neutrophil Count 5.5 X10^3/uL (2.0-7.7); Basophil# 0.01 X10^3/uL; Basophil% 0.1 % (0-1); Eosinophil# 0.07 X10^3/uL; Eosinophils% 0.9 % (0-5); Hematocrit 41.6 % (40-54); Hemoglobin 12.7 g/dL (13.0-16.5); Lymphocyte # 1.69 X10^3/ul (0.83-4.51); Lymphocyte % 20.9 % (19-41); Mean Corp Hgb Conc 30.5 g/dL (32-36); Mean Corpuscular Volume 98.1 fL (80-94); Mean Platelet Vol. 11.1 fl (6.2-12.0); Monocyte# 0.73 X10^3/uL; NRBC Flagged by Analyzer 0 % (0-5); Neutrophil # 5.54 X10^3/uL (2.7-7.7); Neutrophil % 68.6 % (47-70); Platelet Count 234 K/mm3 (150-450); RBC Distribution Width CV 13.7 % (11.6-14.6); RBC Distribution Width SD 49.7 fl (35.1-43.9); Red Blood Count 4.24 M/mm3 (4.6-6.2); White Blood Count 8.1 K/mm3 (4.4-11.0)
[2022-08-23 08:24] LABS: Anion Gap 4 (5-15); BUN 22 mg/dL (7-18); BUN/Creat Ratio 22.6 RATIO (10-20); Calcium,Total 9.2 mg/dL (8.5-10.1); Chloride 100 mmol/L (98-107); Creatinine, Serum 0.97 mg/dL (0.70-1.30); EST Glomerular Filtration Rate 78 mL/min (>60); Est Glom Filt Rate - Afr Amer 94 mL/min (>60); Estimated Creatinine Clearance 57.49 ml/min; Glucose 108 mg/dL (74-106); Sodium Level 138 mmol/L (136-145)
[2022-08-23] MEDS: Spironolactone 25 MG Tablet 12.5 MG PO (09:06)
[2022-08-23] MEDS: Menthol/Lanolin/Calamine/Znox 113 GM Tube 1 APPLIC TOPICAL (09:07)
[2022-08-23] MEDS: Multivitamins,Ther W-Minerals Tablet 1 TABLET PO (09:07)
[2022-08-23] MEDS: Empagliflozin 10 MG Tablet PO (09:07)
[2022-08-23] MEDS: Ammonium Lactate 225 gm Bottle 1 APPLIC TOPICAL (09:08)
[2022-08-23 10:00] VITALS: O2SAT 93
[2022-08-23] MEDS: Nitrofurantoin Macrocrystals 100 MG Capsule PO (10:30)
[2022-08-23 10:48] VITALS: BP 96/60; PULSE 73; RESP 18; TEMP 36.6; O2SAT 93
== END 2022-08-23 10:50 | disposition home health service (06) | DRG 308 ==
PROVIDERS: Admitting Provider Family Medicine Geriatric Medicine; PCP Family Medicine; Visit Provider Family Medicine Geriatric Medicine
DX: I48.91 Unspecified atrial fibrillation (principal); I50.33 Acute on chronic diastolic (congestive) heart failure; J96.22 Acute and chronic respiratory failure with hypercapnia; J96.12 Chronic respiratory failure with hypercapnia; N39.0 Urinary tract infection, site not specified; I11.0 Hypertensive heart disease with heart failure; E78.00 Pure hypercholesterolemia, unspecified; G62.9 Polyneuropathy, unspecified; F32.A Depression, unspecified; Z87.891 Personal history of nicotine dependence; N40.0 Benign prostatic hyperplasia without lower urinary tract symptoms; Z79.899 Other long term (current) drug therapy; Z79.01 Long term (current) use of anticoagulants; Z23 Encounter for immunization
CPT/HCPCS: 36415; 71046; 74018; 80048; 81001; 82962; 85025; 87077; 87086; 87088; 87186; 87811; 90677; 92507; 92523; 92526; 92610; 96125; 97110; 97116; 97163; 97165; 97530; 97535; G0009

== ENCOUNTER → 2022-10-01 | Outpatient (CLI) | payer MEDICARE, SELFPAY ==
[2022-10-01 16:14] LABS: Anion Gap 5 (5-15); BUN 36 mg/dL (7-18); Calcium,Total 9.4 mg/dL (8.5-10.1); Chloride 97 mmol/L (98-107); Creatinine, Serum 1.64 mg/dL (0.70-1.30); EST Glomerular Filtration Rate 43 mL/min (>60); Est Glom Filt Rate - Afr Amer 52 mL/min (>60); Glucose 86 mg/dL (74-106); Potassium 3.9 mmol/L (3.5-5.1); Sodium Level 138 mmol/L (136-145)
== END | disposition home or self-care (01) ==
LOC: MFPLAB 14:15
PROVIDERS: PCP Family Medicine; Visit Provider Family Medicine
DX: I50.9 Heart failure, unspecified (principal)
CPT/HCPCS: 36415; 80048

== ENCOUNTER 2022-10-28 04:11 | Emergency (ER) | payer MEDICARE, SELFPAY ==
[2022-10-28 04:12] VITALS: BP 126/81; PULSE 83; RESP 18; TEMP 36.5; O2SAT 92; BMI 30.4
--- NOTE | 2022-10-28 04:27 | CT_ITS ---
STUDY: CT BRAIN WITHOUT CONTRAST REASON FOR EXAM: Male, 87 years old patient with closed head injury after unspecified trauma. RADIATION DOSAGE (If Supplied By Facility): CTDIvol = ( 44.99 ) mGy, DLP = ( 829.85 ) mGycm TECHNIQUE: Transaxial CT imaging of the brain was performed without administration of intravenous contrast material. Multiplanar reformations are submitted for interpretation. Individualized dose optimization techniques were used for this CT. COMPARISON: CT of the head dated January 21, 2020. FINDINGS: Normal soft tissue structures. Normal calvarium. There is moderate cerebral atrophy with widening of the extra-axial spaces and ventricular dilatation. Normal white matter tracts of the cerebral hemispheres. Normal basal ganglia and thalami. Normal brainstem. There is mild cerebellar atrophy. There is no intracranial hemorrhage. There is atherosclerotic calcification of the intracranial arteries. Normal visualized paranasal sinuses. CT/Brain/Head without Contrast IMPRESSION: 1. Chronic involutional changes of the brain. 2. No CT evidence for acute intracranial hemorrhage. Electronically Signed: Alley Mayfield MD at 5:37 EDT ,
--- NOTE | 2022-10-28 04:28 | EDS_ITS ---
HPI HPI - Fall History of Present Illness Chief Complaint: Fall Informant: patient and EMS Narrative Narrative: Patient presents for a.m. for 2 falls in the past 24 hours, hit his head on both of them. The last fall occurred while he was up in the middle of the night going to the bathroom, afterwards he went to the kitchen to get something to drink and lost his footing falling backwards, he was using his walker at the time. Hit his head on the nearby coffee table. No loss of consciousness either time. Denies headache, vision change, nausea, vomiting, focal neurologic symptoms. He states he falls frequently and it is usually because he has chronic weakness in his legs and he feels like they give out on him. He denies feeling worse than usual. He is anticoagulated on Eliquis and was concerned about hitting his head. Other than a minor skin tear on his left forearm, he denies any other injury. [facility] Medical History Colon cancer Essential hypertension Gout Heart murmur Lumbar spondylosis with myelopathy Non-rheumatic aortic stenosis Osteoporosis Pure hypercholesterolemia Home Medications carvedilol 25 mg tablet 25 mg PO BID Blood pressure 06/26/16 [History Last Taken 05/10/22] guanfacine 2 mg tablet 2 mg PO DAILY Blood pressure 06/26/16 [History Last Taken 05/10/22] qybsbihd-fl-kdjfl 300 mcg-K 60 mcg-lycop 600 mcg-lutein 300 mcg tablet 1 ea PO DAILY Supplement 06/26/16 [History Last Taken 05/09/22] simvastatin 20 mg tablet 20 mg PO QHS Cholesterol 06/26/16 [History Last Taken 05/09/22] tamsulosin 0.4 mg capsule 0.4 mg PO DAILY Prostate 06/26/16 [History Last Taken 05/09/22] sertraline 100 mg tablet (Zoloft) 100 mg PO QDAY Anxiety 10/14/17 [History Last Taken 05/09/22] omega 7-yad-xnh-fish oil 900 mg-1,400 mg capsule,delayed release 1 cap PO DAILY Supplement 04/20/20 [History Last Taken 05/09/22] furosemide 40 mg tablet 40 mg PO BIDCM Blood pressure #120 tabs 05/13/22 [Rx Last Taken Unknown] acetaminophen 500 mg tablet 1,000 mg (2 x 500 mg) PO Q8 #0 tabs 08/20/22 [Rx Last Taken Unknown] apixaban 5 mg tablet (Eliquis) 5 mg PO BID 30 days #60 tabs 08/20/22 [Rx Last Taken Unknown] empagliflozin 10 mg tablet (Jardiance) 10 mg PO DAILY@0800 30 days #30 tabs 08/20/22 [Rx Last Taken Unknown] mirtazapine 15 mg tablet 7.5 mg (1/2 x 15 mg) PO QHS 30 days #15 tabs 08/20/22 [Rx Last Taken Unknown] spironolactone 25 mg tablet 12.5 mg (1/2 x 25 mg) PO DAILY@0800 30 days #15 tabs 08/20/22 [Rx Last Taken Unknown] nitrofurantoin macrocrystal 100 mg capsule 100 mg PO Q12H #14 caps 08/23/22 [Rx Last Taken Unknown] Allergy/AdvReac Type Severity Reaction Status Date / Time No Known Allergies Allergy Verified 10/28/22 04:18 Family History Father , Age 49 Cancer liver Surgical History History of colectomy History of open reduction and internal fixation (ORIF) procedure Social History household members: spouse and other details: Primary caregiver for with moderate Alzheimer Disease. Smoking Status: Former smoker how long ago did patient quit smoking: Quit smoking a pipe 21 years ago alcohol intake: current alcohol intake frequency: 0-2 drinks per day substance use type: does not use caffeine: Yes Type: coffee Number of servings: 2 ROS ROS ED Constitutional Constitutional ED: Denies chills or fever(s) Eyes Eyes: Denies change in vision or diplopia ENT ENT ED: Denies ear pain, epistaxis, facial pain or rhinorrhea Cardiovascular Cardiovascular: Reports leg edema; Denies chest pain or palpitations Respiratory/Chest Respiratory/Chest: Denies cough or dyspnea Gastrointestinal Gastrointestinal: Denies abdominal pain, diarrhea, melena, nausea or vomiting Genitourinary Genitourinary ED: Denies dysuria or hematuria Musculoskeletal Musculoskeletal: Denies back pain, extremity pain or neck pain Integumentary Reports Abrasions; Denies abscess, laceration or rash Neurologic Neurologic: Reports as per HPI and weakness; Denies confusion, headache(s) or paresthesias EXAM Physical Exam Const Vital Signs: 10/28/22 04:12 10/28/22 04:17 Temperature 97.7 F L Temperature Source Oral Pulse Rate 83 Respiratory Rate 18 Respiratory Effort Normal Non-Labored Respiratory Pattern Normal Blood Pressure 126/81 H Blood Pressure Mean 96 Pulse Ox 92 Oxygen Delivery Method Nasal Cannula Oxygen Flow Rate (L/min) 2 Positive well nourished and well developed General Appearance ED: well developed and NAD HEENT Reports TM's clear and nasal mucous membranes and turbinates normal HEENT Narrative: Occipital scalp abrasion, mild tenderness no hematoma, crepitance, depression. No other signs of HEENT trauma. Face and Sinus: Negative for facial tenderness Tympanic Membrane ED: Yes TM's clear Eyes PERRL and EOMs intact bilaterally Visual Acuity: other Other Details: no entrapment or pain with extraocular movements Neck full ROM and supple General: Negative for tenderness Chest Wall inspection of chest normal and palpation of chest normal Chest: symmetrical chest wall rise; Negative for crepitus or tenderness Resp normal respiratory effort and clear to auscultation bilaterally Percussion: other equal BS bilat Cardio peripheral pulses 2+ throughout Rate: regular rate Rhythm: regular rhythm Heart Sounds: murmur systolic II/ crescendo GI normal to inspection, nondistended, normoactive bowel sounds, soft to palpation and non-tender Back/Spine normal ROM Cervical Spine: Negative for cervical spine tenderness Thoracic Spine / Upper Back: Negative for thoracic spinal tenderness Lumbar Spine / Lower Back: Negative for lumbar spinal tenderness Extremity normal to inspection and full ROM Extremity Narrative: Bilateral lower extremity symmetric edema and chronic stasis dermatitis. Full range of motion throughout all joints of all 4 extremities without pain. Minor abrasion left distal radial forearm. General Extremety ED: Negative for tenderness Neuro oriented x3, CN's II-XII intact bilaterally, moves all extremities, no focal motor deficits and no sensory deficits noted Santhosh Coma Scale: document GCS findings Spontaneous Obeys Commands Oriented 15 Sensorium / Orientation: awake and alert Psych mental status grossly normal and thought process normal Skin Skin Narrative: Abrasions to the posterior scalp and to the distal left forearm. Dressings on his right wrist and his left antecubital fossa from IV attempts from EMS, in the left antecubital fossa there is an associated hematoma. Lesions: no lesions Rashes: no rashes MDM MDM MDM Narrative Medical decision making narrative: I obtained some labs to evaluate his renal function, electrolytes, red blood count. These were noted, compared with his old labs, his creatinine/renal function is better now than it had been last month, and his hemoglobin is also better, and there is no leukocytosis to suggest a significant inflammatory or infectious process. I reassured him with regards to this, in addition obtain CT of the head. I reviewed the images and report which I agree with, negative for anything acute. Patient reassured, he is comfortable with being discharged home. Prior to discharging the patient, we test-ambulated him because he had not been on his feet yet since his last fall. We got a walker, nursing helped him out of bed and when he used it, he started walking way too fast in order to do so safely with a walker, and was in such a position that it put him at a predisposition to falling backward, likely the cause of his prior to falls. Nursing help to educate him on this so that she could help him prevent falls in the future. History & Record Review Additional record(s) reviewed:: Prior labs Lab Data Attestation: I reviewed the patient's lab results. Labs: Laboratory Results - last 24 hr 10/28/22 04:40 WBC 5.2 RBC 4.25 L Hgb 13.1 Hct 43.3 MCV 101.9 H MCH 30.8 MCHC 30.3 L RDW Std Deviation 57.1 H RDW Coeff of [place] 15.5 H Plt Count 134 L MPV 10.4 Immature Gran % (Auto) 0.400 Neut % (Auto) 61.4 Lymph % (Auto) 22.3 [place] % (Auto) 14.4 H Eos % (Auto) 1.3 Baso % (Auto) 0.2 Absolute Neuts (auto) 3.2 Absolute Lymphs (auto) 1.16 Nucleated RBC % 0 Sodium 139 Potassium 3.7 Chloride 101 Carbon Dioxide 32.0 Anion Gap 6 BUN 33 H Creatinine 1.55 H Estim Creat Clear Calc 35.98 Est GFR (MDRD) Af Amer 55 L Est GFR (MDRD) Non-Af 46 L BUN/Creatinine Ratio 21.3 H Glucose 86 Calcium 8.8 Radiography Diagnostic Testing: Clinical Impression(s) from Imaging Studies Brain CT 10/28/22 04:27 IMPRESSION: 1. Chronic involutional changes of the brain. 2. No CT evidence for acute intracranial hemorrhage. Electronically Signed: Alley Mayfield MD at 5:37 EDT Reading Location ID and State: [address] [place] [address] , Service support , Discharge Plan Triage Chief Complaint: Fall ED Provider: James Hoskins Dx/Rx/DC Orders Clinical Impression: Accidental fall, Closed head injury without loss of consciousness Instructions: ED Head Injury (Adult) Prescriptions: No Action sertraline [Zoloft] 100 mg tablet 100 mg PO QDAY carvedilol 25 MG tablet 25 mg PO BID tamsulosin 0.4 MG capsule 0.4 mg PO DAILY simvastatin 20 MG tablet 20 mg PO QHS guanfacine 2 MG tablet 2 mg PO DAILY iu-jzp-lniso-E1-dyigtpj-ennfrq 1 EACH tablet 1 ea PO DAILY omega 5-eay-ygq-fish oil 900-1,400 mg capsule,delayed release(DR/EC) 1 cap PO DAILY furosemide 40 mg tablet 40 mg PO BIDCM Qty: 120 0RF acetaminophen 500 mg Tablet 1,000 mg PO Q8 Qty: 0 0RF spironolactone 25 mg Tablet 12.5 mg PO DAILY@0800 30 Days Qty: 15 0RF mirtazapine 15 mg Tablet 7.5 mg PO QHS 30 Days Qty: 15 0RF Eliquis 5 mg Tablet 5 mg PO BID 30 Days Qty: 60 0RF Jardiance 10 mg Tablet 10 mg PO DAILY@0800 30 Days Qty: 30 0RF nitrofurantoin macrocrystal 100 mg capsule 100 mg PO Q12H Qty: 14 0RF Rx Instructions: must administer with a meal/food Primary Care Provider: Lico Mo Referrals: Lico Mo MD [Primary Care Provider] - As Needed Disposition Disposition: Home, Self Care
[2022-10-28 04:46] LABS: Absolute Lymphocyte Count 1.16 X10^3/uL (0.83-4.51); Absolute Neutrophil Count 3.2 X10^3/uL (2.0-7.7); Basophil# 0.01 X10^3/uL; Basophil% 0.2 % (0-1); Eosinophil# 0.07 X10^3/uL; Eosinophils% 1.3 % (0-5); Hematocrit 43.3 % (40-54); Hemoglobin 13.1 g/dL (13.0-16.5); Lymphocyte # 1.16 X10^3/ul (0.83-4.51); Lymphocyte % 22.3 % (19-41); Mean Corp Hgb Conc 30.3 g/dL (32-36); Mean Corpuscular Hgb 30.8 pg (27.0-32.0); Mean Corpuscular Volume 101.9 fL (80-94); Mean Platelet Vol. 10.4 fl (6.2-12.0); Monocyte# 0.75 X10^3/uL; Monocyte% 14.4 % (0-10); NRBC Flagged by Analyzer 0 % (0-5); Neutrophil % 61.4 % (47-70); Platelet Count 134 K/mm3 (150-450); RBC Distribution Width CV 15.5 % (11.6-14.6); RBC Distribution Width SD 57.1 fl (35.1-43.9); Red Blood Count 4.25 M/mm3 (4.6-6.2); White Blood Count 5.2 K/mm3 (4.4-11.0)
[2022-10-28 05:06] LABS: Anion Gap 6 (5-15); BUN 33 mg/dL (7-18); BUN/Creat Ratio 21.3 RATIO (10-20); Calcium,Total 8.8 mg/dL (8.5-10.1); Chloride 101 mmol/L (98-107); Creatinine, Serum 1.55 mg/dL (0.70-1.30); EST Glomerular Filtration Rate 46 mL/min (>60); Est Glom Filt Rate - Afr Amer 55 mL/min (>60); Estimated Creatinine Clearance 35.98 ml/min; Glucose 86 mg/dL (74-106); Potassium 3.7 mmol/L (3.5-5.1); Sodium Level 139 mmol/L (136-145)
--- NOTE | 2022-10-28 07:47 | ED.RN ---
DAUGHTER NATASHA STATES SHE WILL BE HERE AT 9 AM TO GET HIM
== END 2022-10-28 09:26 | disposition home or self-care (01) ==
PROVIDERS: Emergency Provider Emergency Medicine; PCP Family Medicine; Visit Provider Emergency Medicine
DX: S09.90XA Unspecified injury of head, initial encounter (principal); W22.8XXA Striking against or struck by other objects, initial encounter; I10 Essential (primary) hypertension; Z87.891 Personal history of nicotine dependence; W19.XXXA Unspecified fall, initial encounter; E78.00 Pure hypercholesterolemia, unspecified; S51.812A Laceration without foreign body of left forearm, initial encounter; R60.0 Localized edema; S00.01XA Abrasion of scalp, initial encounter; I87.2 Venous insufficiency (chronic) (peripheral)
CPT/HCPCS: 70450; 80048; 85025; 99284

== ENCOUNTER → 2022-11-06 | Outpatient (REF) | payer MEDICARE, SELFPAY ==
[2022-11-06 09:32] LABS: Absolute Lymphocyte Count 1.97 X10^3/uL (0.83-4.51); Absolute Neutrophil Count 2.7 X10^3/uL (2.0-7.7); Basophil# 0.01 X10^3/uL; Basophil% 0.2 % (0-1); Eosinophils% 1.8 % (0-5); Hemoglobin 14.3 g/dL (13.0-16.5); Lymphocyte # 1.97 X10^3/ul (0.83-4.51); Lymphocyte % 35.7 % (19-41); Mean Corp Hgb Conc 30.4 g/dL (32-36); Mean Corpuscular Hgb 30.8 pg (27.0-32.0); Mean Corpuscular Volume 101.1 fL (80-94); Mean Platelet Vol. 11.5 fl (6.2-12.0); Monocyte# 0.68 X10^3/uL; Monocyte% 12.3 % (0-10); NRBC Flagged by Analyzer 0 % (0-5); Neutrophil # 2.74 X10^3/uL (2.7-7.7); Neutrophil % 49.6 % (47-70); Platelet Count 167 K/mm3 (150-450); RBC Distribution Width CV 15.1 % (11.6-14.6); RBC Distribution Width SD 56.5 fl (35.1-43.9); Red Blood Count 4.65 M/mm3 (4.6-6.2); White Blood Count 5.5 K/mm3 (4.4-11.0)
[2022-11-06 09:48] LABS: ALB/GLOB Ratio 0.8 RATIO (0.9-2.4); AST(SGOT) 17 U/L (15-37); Alanine Aminotransfer ALT/SGPT 19 U/L (16-61); Albumin, Serum 3.3 g/dL (3.2-5.0); Alkaline Phosphatase 99 U/L (45-117); Anion Gap 6 (5-15); BUN 39 mg/dL (7-18); BUN/Creat Ratio 26.2 RATIO (10-20); Calcium,Total 9.2 mg/dL (8.5-10.1); Chloride 99 mmol/L (98-107); Cholesterol 148 mg/dL (200); Creatinine, Serum 1.49 mg/dL (0.70-1.30); EST Glomerular Filtration Rate 48 mL/min (>60); Est Glom Filt Rate - Afr Amer 58 mL/min (>60); Glucose 106 mg/dL (74-106); High Density Lipoprotein 40 mg/dL; Potassium 3.7 mmol/L (3.5-5.1); Protein, Total 7.3 g/dL (6.4-8.2); Sodium Level 140 mmol/L (136-145); Triglycerides 164 mg/dL; Very Low Density Lipoprotein 33 mg/dL (5-40)
== END ==
LOC: OLS.WHLEAS 05:00
PROVIDERS: PCP Family Medicine; Visit Provider Internal Medicine
DX: E78.5 Hyperlipidemia, unspecified (principal); I48.0 Paroxysmal atrial fibrillation; R53.83 Other fatigue
CPT/HCPCS: 36415; 80053; 80061; 85025

== ENCOUNTER → 2022-11-25 | Outpatient (REF) | payer MEDICARE, SELFPAY ==
[2022-11-25 07:52] LABS: Absolute Lymphocyte Count 2.37 X10^3/uL (0.83-4.51); Absolute Neutrophil Count 3.3 X10^3/uL (2.0-7.7); Basophil# 0.02 X10^3/uL; Basophil% 0.3 % (0-1); Eosinophil# 0.11 X10^3/uL; Eosinophils% 1.7 % (0-5); Hematocrit 46.8 % (40-54); Hemoglobin 14.3 g/dL (13.0-16.5); Lymphocyte # 2.37 X10^3/ul (0.83-4.51); Mean Corp Hgb Conc 30.6 g/dL (32-36); Mean Corpuscular Hgb 30.5 pg (27.0-32.0); Mean Corpuscular Volume 99.8 fL (80-94); Mean Platelet Vol. 11.5 fl (6.2-12.0); Monocyte# 0.62 X10^3/uL; Monocyte% 9.7 % (0-10); NRBC Flagged by Analyzer 0 % (0-5); Neutrophil # 3.26 X10^3/uL (2.7-7.7); Platelet Count 203 K/mm3 (150-450); RBC Distribution Width CV 13.8 % (11.6-14.6); RBC Distribution Width SD 51.1 fl (35.1-43.9); Red Blood Count 4.69 M/mm3 (4.6-6.2); White Blood Count 6.4 K/mm3 (4.4-11.0)
[2022-11-25 08:03] LABS: Anion Gap 3 (5-15); BUN 32 mg/dL (7-18); BUN/Creat Ratio 25.4 RATIO (10-20); Chloride 99 mmol/L (98-107); Creatinine, Serum 1.26 mg/dL (0.70-1.30); EST Glomerular Filtration Rate 58 mL/min (>60); Est Glom Filt Rate - Afr Amer 70 mL/min (>60); Glucose 103 mg/dL (74-106); Sodium Level 136 mmol/L (136-145)
== END ==
LOC: OLS.WHLEAS 05:00
PROVIDERS: PCP Family Medicine; Visit Provider Nurse Practitioner Adult Health
DX: E78.5 Hyperlipidemia, unspecified (principal); I48.0 Paroxysmal atrial fibrillation
CPT/HCPCS: 36415; 80048; 85025

== ENCOUNTER → 2022-12-01 | Outpatient (REF) | payer MEDICARE, SELFPAY ==
[2022-12-01 08:33] LABS: Absolute Lymphocyte Count 2.15 X10^3/uL (0.83-4.51); Absolute Neutrophil Count 2.2 X10^3/uL (2.0-7.7); Basophil# 0.01 X10^3/uL; Basophil% 0.2 % (0-1); Eosinophil# 0.08 X10^3/uL; Eosinophils% 1.6 % (0-5); Hematocrit 47.6 % (40-54); Hemoglobin 14.6 g/dL (13.0-16.5); Lymphocyte # 2.15 X10^3/ul (0.83-4.51); Lymphocyte % 41.9 % (19-41); Mean Corp Hgb Conc 30.7 g/dL (32-36); Mean Corpuscular Hgb 30.3 pg (27.0-32.0); Mean Corpuscular Volume 98.8 fL (80-94); Mean Platelet Vol. 11.6 fl (6.2-12.0); Monocyte# 0.65 X10^3/uL; Monocyte% 12.7 % (0-10); NRBC Flagged by Analyzer 0 % (0-5); Neutrophil # 2.22 X10^3/uL (2.7-7.7); Neutrophil % 43.2 % (47-70); Platelet Count 186 K/mm3 (150-450); RBC Distribution Width CV 13.9 % (11.6-14.6); RBC Distribution Width SD 50.5 fl (35.1-43.9); Red Blood Count 4.82 M/mm3 (4.6-6.2); White Blood Count 5.1 K/mm3 (4.4-11.0)
[2022-12-01 08:36] LABS: Anion Gap 5 (5-15); BUN 39 mg/dL (7-18); BUN/Creat Ratio 29.1 RATIO (10-20); Calcium,Total 9.3 mg/dL (8.5-10.1); Chloride 99 mmol/L (98-107); Creatinine, Serum 1.34 mg/dL (0.70-1.30); EST Glomerular Filtration Rate 54 mL/min (>60); Est Glom Filt Rate - Afr Amer 65 mL/min (>60); Glucose 87 mg/dL (74-106); Potassium 3.8 mmol/L (3.5-5.1); Sodium Level 138 mmol/L (136-145)
== END ==
LOC: OLS.WHLEAS 05:00
PROVIDERS: PCP Internal Medicine; Visit Provider Nurse Practitioner Adult Health
DX: E78.5 Hyperlipidemia, unspecified (principal); I48.0 Paroxysmal atrial fibrillation; M62.562 Muscle wasting and atrophy, not elsewhere classified, left lower leg; M62.561 Muscle wasting and atrophy, not elsewhere classified, right lower leg
CPT/HCPCS: 36415; 80048; 85025

== ENCOUNTER → 2022-12-04 | Outpatient (REF) | payer MEDICARE, SELFPAY ==
[2022-12-04 08:03] LABS: Absolute Lymphocyte Count 2.24 X10^3/uL (0.83-4.51); Basophil# 0.01 X10^3/uL; Basophil% 0.2 % (0-1); Eosinophil# 0.09 X10^3/uL; Eosinophils% 1.8 % (0-5); Hematocrit 45.7 % (40-54); Hemoglobin 14.3 g/dL (13.0-16.5); Lymphocyte # 2.24 X10^3/ul (0.83-4.51); Lymphocyte % 45.4 % (19-41); Mean Corp Hgb Conc 31.3 g/dL (32-36); Mean Corpuscular Hgb 30.4 pg (27.0-32.0); Mean Corpuscular Volume 97.2 fL (80-94); Mean Platelet Vol. 11.6 fl (6.2-12.0); Monocyte# 0.55 X10^3/uL; Monocyte% 11.2 % (0-10); NRBC Flagged by Analyzer 0 % (0-5); Neutrophil # 2.03 X10^3/uL (2.7-7.7); Neutrophil % 41.2 % (47-70); Platelet Count 182 K/mm3 (150-450); RBC Distribution Width CV 13.5 % (11.6-14.6); RBC Distribution Width SD 48.7 fl (35.1-43.9); White Blood Count 4.9 K/mm3 (4.4-11.0)
[2022-12-04 08:19] LABS: Anion Gap 5 (5-15); BUN 30 mg/dL (7-18); BUN/Creat Ratio 24.8 RATIO (10-20); Calcium,Total 9.1 mg/dL (8.5-10.1); Chloride 102 mmol/L (98-107); Creatinine, Serum 1.21 mg/dL (0.70-1.30); EST Glomerular Filtration Rate 61 mL/min (>60); Est Glom Filt Rate - Afr Amer 73 mL/min (>60); Glucose 91 mg/dL (74-106); Potassium 3.8 mmol/L (3.5-5.1); Sodium Level 138 mmol/L (136-145)
== END ==
LOC: OLS.WHLEAS 05:00
PROVIDERS: PCP Internal Medicine; Visit Provider Nurse Practitioner Adult Health
DX: E78.5 Hyperlipidemia, unspecified (principal); I48.0 Paroxysmal atrial fibrillation; M62.561 Muscle wasting and atrophy, not elsewhere classified, right lower leg; M62.562 Muscle wasting and atrophy, not elsewhere classified, left lower leg
CPT/HCPCS: 36415; 80048; 85025

== ENCOUNTER 2022-12-11 16:07 | Inpatient (IN) | payer MEDICARE, SELFPAY ==
[2022-12-11 16:08] VITALS: BP 130/94; PULSE 85; RESP 20; TEMP 36.2; O2SAT 96; BMI 28.0
--- NOTE | 2022-12-11 16:28 | CT_ITS ---
We are attempting to reach an attending provider to discuss findings. An addendum with communication details will be sent when the communication is complete. EXAM: CT ABDOMEN AND PELVIS WITHOUT INTRAVENOUS CONTRAST CLINICAL INDICATION: Pain TECHNIQUE: Helically acquired images were obtained of the abdomen and pelvis without intravenous contrast. This CT exam was performed using one or more of the following dose reduction techniques: automated exposure control, adjustment of the mA and/or kV according to patient size, and/or use of iterative reconstruction technique. COMPARISON: 09/19/2014. FINDINGS: LOWER THORAX: Subsegmental atelectasis in the lung bases. No cardiomegaly. No significant pericardial effusion. ABDOMEN: LIVER: Unremarkable. Homogeneous. GALLBLADDER AND BILE DUCTS: Unremarkable. No calcified gallstones. No gallbladder distention or wall edema. No intra- or extrahepatic biliary ductal dilation. PANCREAS: Unremarkable. No focal cystic mass. SPLEEN: Unremarkable. Normal size without focal cystic or solid mass. ADRENALS: Unremarkable. No nodules. KIDNEYS AND URETERS: Unremarkable. Normal renal size and position. No hydronephrosis. STOMACH AND BOWEL: High-grade small bowel obstruction with transition at the level of the distal jejunum or proximal ileum in the right lower quadrant anteriorly, at the hernia repair site. Ileum and colon are decompressed. PELVIS: APPENDIX: No evidence of acute appendicitis. BLADDER: Unremarkable. REPRODUCTIVE: Unremarkable as visualized. No mass. ABDOMEN and PELVIS: INTRAPERITONEAL SPACE: Unremarkable. No ascites or fluid collection. No free air. BONES/JOINTS: No suspicious lytic or blastic abnormality. No acute fracture. Marked degenerative changes of the lumbar spine. L5-S1 anterolisthesis with prior laminectomy and bony fusion. SOFT TISSUES: Prior anterior abdominal wall hernia repair. VASCULATURE: Unremarkable. Abdominal aorta is normal in caliber. LYMPH NODES: Unremarkable. No enlarged lymph nodes. CT/Abdomen/Pelvis without Cont IMPRESSION: High-grade small bowel obstruction at the distal jejunum/proximal ileal level, likely due to adhesions. Electronically Signed: Taylor Harrison MD at 17:26 EDT Reading Location ID and State: [id number] / Tel , Service support ,
--- NOTE | 2022-12-11 16:29 | ED.VIS.GI ---
HPI HPI - GI History of Present Illness Chief Complaint: Abd Pain Detail of Chief Complaint: Abdominal pain Informant: patient and family Narrative Narrative: Presents with abdominal pain as her 4 days ago. Patient states that he started with vomiting 3 days ago. He denies fever. Patient had extended care facility currently and had x-rays of his abdomen today that showed ileus versus small bowel obstruction and was referred to the emergency department. Patient states that every time he tries to eat he throws up. Currently not having any abdominal pain. Patient vomited once today. He denies fevers. He denies urinary symptoms. Patient has history of prior colectomy secondary to colon cancer. [facility] Medical History Colon cancer Essential hypertension Gout Heart murmur Lumbar spondylosis with myelopathy Non-rheumatic aortic stenosis Osteoporosis Pure hypercholesterolemia Home Medications carvedilol 25 mg tablet 25 mg PO BID Blood pressure 06/26/16 [History Last Taken 05/10/22] guanfacine 2 mg tablet 2 mg PO DAILY Blood pressure 06/26/16 [History Last Taken 05/10/22] tamsulosin 0.4 mg capsule 0.4 mg PO DAILY Prostate 06/26/16 [History Last Taken 05/09/22] sertraline 100 mg tablet (Zoloft) 100 mg PO QDAY Anxiety 10/14/17 [History Last Taken 05/09/22] furosemide 40 mg tablet 40 mg PO BIDCM Blood pressure #120 tabs 05/13/22 [Rx Last Taken Unknown] apixaban 5 mg tablet (Eliquis) 5 mg PO BID 30 days #60 tabs 08/20/22 [Rx Last Taken Unknown] empagliflozin 10 mg tablet (Jardiance) 10 mg PO DAILY@0800 30 days #30 tabs 08/20/22 [Rx Last Taken Unknown] spironolactone 25 mg tablet 12.5 mg (1/2 x 25 mg) PO DAILY@0800 30 days #15 tabs 08/20/22 [Rx Last Taken Unknown] acetaminophen 500 mg tablet 1,000 mg PO Q8 PRN pain 11/26/22 [History Last Taken Unknown] atorvastatin 10 mg tablet 10 mg PO QHS hld 11/26/22 [History Last Taken Unknown] bupropion HCl 150 mg 24 hr tablet, extended release 150 mg PO DAILY depression 11/26/22 [History Last Taken Unknown] losartan 25 mg tablet 25 mg PO DAILY #30 tabs 11/26/22 [Rx Last Taken Unknown] melatonin 3 mg tablet 3 mg PO HS PRN sleep 11/26/22 [History Last Taken Unknown] mirtazapine 7.5 mg tablet 7.5 mg PO QHS sleep 11/26/22 [History Last Taken Unknown] Allergy/AdvReac Type Severity Reaction Status Date / Time No Known Allergies Allergy Verified 12/11/22 16:13 Family History Father , Age 49 Cancer liver Surgical History History of colectomy History of open reduction and internal fixation (ORIF) procedure Social History household members: spouse and other details: Primary caregiver for with moderate Alzheimer Disease. Smoking Status: Former smoker how long ago did patient quit smoking: Quit smoking a pipe 21 years ago alcohol intake: current alcohol intake frequency: 0-2 drinks per day substance use type: does not use caffeine: Yes Type: coffee Number of servings: 2 ROS ROS ED Review of Systems ROS Unobtainable: other Constitutional Constitutional ED: Reports lethargy; Denies chills, fever(s), sweats or weight loss Eyes Eyes: Denies blurry vision, change in vision or diplopia ENT ENT ED: Denies rhinorrhea or sore throat Cardiovascular Cardiovascular: Denies chest pain, orthopnea or racing heartbeat Respiratory/Chest Respiratory/Chest: Denies cough, dyspnea, dyspnea on exertion, orthopnea or sputum Gastrointestinal Gastrointestinal: Reports abdominal pain, nausea and vomiting; Denies diarrhea Genitourinary Genitourinary ED: Denies dysuria, hematuria or urinary frequency Musculoskeletal Musculoskeletal: Denies arthralgias, back pain, myalgias or neck pain Integumentary Denies abscess, Abrasions or rash Neurologic Neurologic: Denies headache(s) or weakness Psychiatric Psychiatric: Denies anxiety, depression or suicidal thoughts Endocrine Endocrinology: Denies polydipsia, polyphagia or polyuria Hematologic/Lymphatic Hematologic/Lymphatic: Denies easy bleeding, easy bruising or lymphadenopathy Allergic/Immunologic Allergic/Immunologic ED: Denies mouth swelling, tongue swelling or urticaria EXAM Physical Exam Const Vital Signs: 12/11/22 16:08 12/11/22 18:13 Temperature 97.1 F L Temperature Source Temporal Pulse Rate 85 84 Respiratory Rate 20 H 17 Blood Pressure 130/94 H 88/73 L Blood Pressure Mean 106 78 Pulse Ox 96 95 Oxygen Delivery Method Room Air Nasal Cannula Oxygen Flow Rate (L/min) 2 Positive well nourished and well developed General Appearance ED: well developed and NAD HEENT Reports TM's clear and moist mucous membranes normocephalic and atraumatic; Negative for trauma or tenderness Tympanic Membrane ED: Yes TM's clear Eyes PERRL and EOMs intact bilaterally General Eye ED: Negative for pale conjunctiva or scleral icterus Neck no lymphadenopathy, supple and no JVD General: Negative for tenderness Chest Wall inspection of chest normal and palpation of chest normal Chest: Negative for tenderness Resp normal respiratory effort and clear to auscultation bilaterally Effort and Inspection: Negative for respiratory distress or pain with movement Auscultation: Negative for rhonchi, wheezes or diminished lung sounds Cardio regular rate, regular rhythm, S1 normal heart sound, S2 normal heart sound and no murmurs Peripheral Pulses: pulses 2+ throughout GI normal to inspection, nondistended, normoactive bowel sounds, soft to palpation, non-distended and no masses GI Narrative: Palpation over the right upper quadrant with guarding. There is a positive Holcomb sign. There is tenderness palpation over the epigastric region with guarding as well. Back/Spine no CVA tenderness and no thoracic nor lumbar tenderness Extremity normal to inspection General Extremety ED: Negative for edema General Extremity: Negative for edema Neuro oriented x3, CN's II-XII intact bilaterally, no sensory deficits noted and gait normal Sensorium / Orientation: awake, alert, oriented to person, oriented to place and oriented to time Motor Exam: strength 5/5 throughout and strength abnormal Psych mental status grossly normal Skin no rashes or lesions noted and no wounds MDM MDM MDM Narrative Medical decision making narrative: Presents with abdominal pain and vomiting x3 days. Patient with plain x-rays that showed questionable ileus versus bowel obstruction today. In the differential would be bowel obstruction versus gallbladder disease versus pancreatitis. Patient will have IV established and given normal saline. Will obtain labs and CT scan of the abdomen pelvis to begin with. Patient is CBC with differential that showed a white count 11.6 with hemoglobin 16.8 and platelet count of 241. Chemistries unremarkable. BUN was 51 and creatinine 2.75. Lactate was elevated 2.6. Lipase normal. CT scan of the abdomen pelvis showed high-grade obstruction likely due to adhesions. Patient had an NG placed to low intermittent suction. He was medicated with morphine and Zofran. Case discussed with general surgeon on-call Dr. Arechiga who evaluated patient in the emergency department. Patient also discussed with hospitalist who will evaluate patient for admission. Lab Data Attestation: I reviewed the patient's lab results. Labs: Laboratory Results - last 24 hr 12/11/22 12/11/22 16:20 17:06 WBC 11.6 H RBC 5.47 Hgb 16.8 H Hct 52.8 MCV 96.5 H MCH 30.7 MCHC 31.8 L RDW Std Deviation 50.5 H RDW Coeff of [place] 14.4 Plt Count 241 MPV 12.2 H Immature Gran % (Auto) 0.300 Neut % (Auto) 74.5 H Lymph % (Auto) 13.7 L [place] % (Auto) 11.4 H Eos % (Auto) 0.0 Baso % (Auto) 0.1 Absolute Neuts (auto) 8.6 H Absolute Lymphs (auto) 1.58 Nucleated RBC % 0 Sodium 133 L Potassium 5.1 Chloride 89 L Carbon Dioxide 34.0 H Anion Gap 10 BUN 51 H Creatinine 2.75 H Estim Creat Clear Calc 20.28 Est GFR (MDRD) Af Amer 28 L Est GFR (MDRD) Non-Af 24 L BUN/Creatinine Ratio 18.5 Glucose 113 H Lactic Acid Cancelled 2.6 H* Calcium 10.2 H Total Bilirubin 1.80 H AST 39 H ALT 36 Alkaline Phosphatase 110 Total Protein 8.9 H Albumin 3.7 Globulin 5.2 H Albumin/Globulin Ratio 0.7 L Lipase 30 Radiography Diagnostic Testing: Clinical Impression(s) from Imaging Studies Abdomen/Pelvis CT 12/11/22 16:28 IMPRESSION: High-grade small bowel obstruction at the distal jejunum/proximal ileal level, likely due to adhesions. Electronically Signed: Taylor Harrison MD at 17:26 EDT Reading Location ID and State: [id number] / Tel , Service support , ADDENDUM: 12/11/22 1820 IMPRESSION: High-grade small bowel obstruction at the distal jejunum/proximal ileal level, likely due to adhesions. N.B. : Bruce Murillo DO, confirmed on 12/11/2022 18:14:04 (ET) that the referring physician received the results and does not require a verbal communication. Electronically Signed: Taylor Harrison MD at 17:26 EDT Reading Location ID and State: [place] Bonilla MD Tel , Service support , KUB X-Ray 12/11/22 18:10 IMPRESSION: NG tube terminates in the stomach. Electronically Signed: Taylor Harrison MD at 18:43 EDT Reading Location ID and State: [place] Bonilla MD Tel , Service support , 1 view KUB obtained interpreted by myself as evidence of NG tube in stomach. Radiology in agreement. Discharge Plan Dx/Rx/DC Orders Clinical Impression: Acute kidney injury, Leukocytosis, SBO (small bowel obstruction), Abdominal pain, Acidosis, lactic Disposition Disposition: Acute Care Hospital [facility] Discharge Date/Time: 12/11/22 20:31
[2022-12-11] MEDS: 0.9% Normal Saline (1000mL) 1,000 ML 125 ML IV (16:40)
[2022-12-11 16:52] LABS: Absolute Lymphocyte Count 1.58 X10^3/uL (0.83-4.51); Absolute Neutrophil Count 8.6 X10^3/uL (2.0-7.7); Basophil# 0.01 X10^3/uL; Basophil% 0.1 % (0-1); Hematocrit 52.8 % (40-54); Hemoglobin 16.8 g/dL (13.0-16.5); Lymphocyte # 1.58 X10^3/ul (0.83-4.51); Lymphocyte % 13.7 % (19-41); Mean Corp Hgb Conc 31.8 g/dL (32-36); Mean Corpuscular Hgb 30.7 pg (27.0-32.0); Mean Corpuscular Volume 96.5 fL (80-94); Mean Platelet Vol. 12.2 fl (6.2-12.0); Monocyte# 1.32 X10^3/uL; Monocyte% 11.4 % (0-10); NRBC Flagged by Analyzer 0 % (0-5); Neutrophil # 8.62 X10^3/uL (2.7-7.7); Neutrophil % 74.5 % (47-70); Platelet Count 241 K/mm3 (150-450); RBC Distribution Width CV 14.4 % (11.6-14.6); RBC Distribution Width SD 50.5 fl (35.1-43.9); Red Blood Count 5.47 M/mm3 (4.6-6.2); White Blood Count 11.6 K/mm3 (4.4-11.0)
[2022-12-11 17:21] LABS: ALB/GLOB Ratio 0.7 RATIO (0.9-2.4); AST(SGOT) 39 U/L (15-37); Alanine Aminotransfer ALT/SGPT 36 U/L (16-61); Albumin, Serum 3.7 g/dL (3.2-5.0); Alkaline Phosphatase 110 U/L (45-117); Anion Gap 10 (5-15); BUN 51 mg/dL (7-18); BUN/Creat Ratio 18.5 RATIO (10-20); Calcium,Total 10.2 mg/dL (8.5-10.1); Chloride 89 mmol/L (98-107); Creatinine, Serum 2.75 mg/dL (0.70-1.30); EST Glomerular Filtration Rate 24 mL/min (>60); Est Glom Filt Rate - Afr Amer 28 mL/min (>60); Estimated Creatinine Clearance 20.28 ml/min; Globulin 5.2 g/dL (2.2-4.2); Glucose 113 mg/dL (74-106); Lipase 30 U/L (13-75); Potassium 5.1 mmol/L (3.5-5.1); Protein, Total 8.9 g/dL (6.4-8.2); Sodium Level 133 mmol/L (136-145)
[2022-12-11] MEDS: Ondansetron 4 MG/2 ML Vial IV ×3 (17:53→20:04)
[2022-12-11] MEDS: Morphine 4 MG/ML Syringe IV (17:54)
[2022-12-11] MEDS: 0.9% Normal Saline (1000mL) 1,000 ML 999 ML IV (17:54)
[2022-12-11 17:58] LABS: Lactic Acid 2.6 mmol/L (0.4-1.9)
--- NOTE | 2022-12-11 18:08 | ED.RN ---
PT MEDICATED WITH ZOFRAN AND MORPHINE. PT IMMEDIATELY BEGINS VOMITING COPIOUS AMOUNTS . PT THEN DROPS HIS BLOOD PRESSURE. INITIAL IN THE 50 DIASTOLIC. BP NOW AT 88/73
--- NOTE | 2022-12-11 18:10 | RAD_ITS ---
INDICATION: NG Insertion EXAMINATION/TECHNIQUE: X-RAY - XR Abdomen 1 View COMPARISON: Chest x-ray 08/08/2022. FINDINGS: Lung bases are clear. NG tube terminates in the stomach. Dilated, gas-filled small bowel in the upper abdomen consistent with previously reported SBO. Soft tissues and bony structures are otherwise unremarkable. RAD/Abdomen Single View (Portable) IMPRESSION: NG tube terminates in the stomach. Electronically Signed: Taylor Harrison MD at 18:43 EDT Reading Location ID and State: [id number] / Tel , Service support ,
[2022-12-11 18:13] VITALS: BP 88/73; PULSE 84; RESP 17; O2SAT 95
--- NOTE | 2022-12-11 18:24 | HP.PCM.HOS_ITS ---
HPI - General General Date of Admission: 12/11/22 Date of Service: 12/11/22 Chief Complaint: Abdominal pain, nausea/vomiting HPI Narrative LETY MARTINEZ, is a 87 M with history of chronic debility, A-fib on Eliquis, HFpEF, hyperlipidemia, depression, BPH and history of colon cancer s/p colectomy about 25 to 30 years ago who presented to [facility] ED on 12/11/2022 with abdominal pain and nausea/vomiting. Patient seen at bedside in the ED. Had NG tube in place at that time. Sitting up in bed, conversing normally, no acute distress. Patient does note mild to moderate discomfort in his nose and throat from the NG tube. States his abdominal pain is improved from previous. Denies any chest pain, shortness of breath, fevers or chills, lightheadedness or dizziness. Patient states he had his colectomy done about 25 to 30 years ago, has not had any other abdominal surgeries since then. Patient lives with his at an assisted living facility currently, would like to return there on discharge if possible. No other acute concerns currently. Vitals in ED notable unremarkable. Labs notable for WBC count of 11.6, hemoglobin 16.8, platelets 241, sodium 133, potassium 5.1, chloride 89, bicarb 34, BUN 51, creatinine 2.75, lactic acid 2.6, total bilirubin 1.80, AST 39, ALT 36, alk phos 110, albumin 3.7, lipase 30. CT abdomen pelvis showed high-grade small bowel obstruction at the distal jejunum?proximal ileal level likely due to adhesions. [facility] Medical History Colon cancer Essential hypertension Gout Heart murmur Lumbar spondylosis with myelopathy Non-rheumatic aortic stenosis Osteoporosis Pure hypercholesterolemia Home Medications carvedilol 25 mg tablet 25 mg PO BID Blood pressure 06/26/16 [History Last Taken 05/10/22] guanfacine 2 mg tablet 2 mg PO DAILY Blood pressure 06/26/16 [History Last Taken 05/10/22] tamsulosin 0.4 mg capsule 0.4 mg PO DAILY Prostate 06/26/16 [History Last Taken 05/09/22] sertraline 100 mg tablet (Zoloft) 100 mg PO QDAY Anxiety 10/14/17 [History Last Taken 05/09/22] furosemide 40 mg tablet 40 mg PO BIDCM Blood pressure #120 tabs 05/13/22 [Rx Last Taken Unknown] apixaban 5 mg tablet (Eliquis) 5 mg PO BID 30 days #60 tabs 08/20/22 [Rx Last Taken Unknown] empagliflozin 10 mg tablet (Jardiance) 10 mg PO DAILY@0800 30 days #30 tabs 08/20/22 [Rx Last Taken Unknown] spironolactone 25 mg tablet 12.5 mg (1/2 x 25 mg) PO DAILY@0800 30 days #15 tabs 08/20/22 [Rx Last Taken Unknown] acetaminophen 500 mg tablet 1,000 mg PO Q8 PRN pain 11/26/22 [History Last Taken Unknown] atorvastatin 10 mg tablet 10 mg PO QHS 11/26/22 [History Last Taken Unknown] bupropion HCl 150 mg 24 hr tablet, extended release 150 mg PO DAILY 11/26/22 [History Last Taken Unknown] losartan 25 mg tablet 25 mg PO DAILY #30 tabs 11/26/22 [Rx Last Taken Unknown] melatonin 3 mg tablet 3 mg PO HS PRN sleep 11/26/22 [History Last Taken Unknown] mirtazapine 7.5 mg tablet 7.5 mg PO QHS 11/26/22 [History Last Taken Unknown] Allergy/AdvReac Type Severity Reaction Status Date / Time No Known Allergies Allergy Verified 12/11/22 16:13 Family History Father , Age 49 Cancer liver Surgical History History of colectomy History of open reduction and internal fixation (ORIF) procedure Social History household members: spouse and other details: Primary caregiver for with moderate Alzheimer Disease. Smoking Status: Former smoker how long ago did patient quit smoking: Quit smoking a pipe 21 years ago alcohol intake: current alcohol intake frequency: 0-2 drinks per day substance use type: does not use caffeine: Yes Type: coffee Number of servings: 2 ROS Constitutional Constitutional: Denies change in weight, chills, fatigue, fever(s) or weakness Eyes Eyes: Denies change in vision Cardiovascular Cardiovascular: Denies chest pain, edema or lightheadedness Respiratory/Chest Respiratory/Chest: Denies cough Gastrointestinal Gastrointestinal: Reports nausea; Denies abdominal pain, constipation, diarrhea or vomiting Genitourinary Genitourinary: Denies dysuria Musculoskeletal Musculoskeletal: Denies back pain Vital Signs Vital Signs Vital Signs: 12/11/22 16:08 12/11/22 18:13 Temperature 97.1 F L Temperature Source Temporal Pulse Rate 85 84 Respiratory Rate 20 H 17 Blood Pressure 130/94 H 88/73 L Blood Pressure Mean 106 78 Pulse Ox 96 95 Oxygen Delivery Method Room Air Nasal Cannula Oxygen Flow Rate (L/min) 2 Weight Weight: 88.7 kg Body Mass Index (BMI) 28.0 Physical Exam Const alert and oriented x3 Constitutional Narrative: Pleasant elderly male, sitting comfortably in bed, conversing normally, no acute distress. Mild discomfort due to nose and throat pain from NG tube. General Appearance: cooperative and comfortable HEENT normocephalic, head/scalp atraumatic and hearing grossly normal bilaterally HEENT Narrative: NG tube in place draining dark bilious fluid. Eyes PERRL, EOMs intact bilaterally and conjunctivae normal Neck full ROM, no lymphadenopathy and supple Lymph Lymphatic: no lymphadenopathy noted Chest inspection of chest normal Resp normal respiratory effort, normal air movement, no use of accessory muscles and clear to auscultation bilaterally Cardio regular rate, regular rhythm, no murmurs and peripheral pulses 2+ throughout GI normal to inspection, nondistended, normoactive bowel sounds, soft to palpation, non-tender and non-distended Back/Spine normal ROM Extremity normal to inspection, full ROM and no pedal edema Skin no rashes or lesions noted Psych mental status grossly normal Results Lab / Micro Data 12/11/22 16:20 12/11/22 16:20 Labs: Laboratory Results - last 24 hr 12/11/22 16:20: WBC 11.6 H, RBC 5.47, Hgb 16.8 H, Hct 52.8, MCV 96.5 H, MCH 30.7, MCHC 31.8 L, RDW Std Deviation 50.5 H, RDW Coeff of [place] 14.4, Plt Count 241, MPV 12.2 H, Immature Gran % (Auto) 0.300, Neut % (Auto) 74.5 H, Lymph % (Auto) 13.7 L, [place] % (Auto) 11.4 H, Eos % (Auto) 0.0, Baso % (Auto) 0.1, Absol leobardo Neuts (auto) 8.6 H, Absolute Lymphs (auto) 1.58, Nucleated RBC % 0, Sodium 133 L, Potassium 5.1, Chloride 89 L, Carbon Dioxide 34.0 H, Anion Gap 10, BUN 51 H, Creatinine 2.75 H, Estim Creat Clear Calc 20.28, Est GFR (MDRD) Af Amer 28 L, Est GFR (MDRD) Non-Af 24 L, BUN/Creatinine Ratio 18.5, Glucose 113 H, Lactic Acid Cancelled, Calcium 10.2 H, Total Bilirubin 1.80 H, AST 39 H, ALT 36, Alkaline Phosphatase 110, Total Protein 8.9 H, Albumin 3.7, Globulin 5.2 H, Albumin/Globulin Ratio 0.7 L, Lipase 30 12/11/22 17:06: Lactic Acid 2.6 H* Radiology Impression Abdomen/Pelvis CT 12/11/22 16:28 IMPRESSION: High-grade small bowel obstruction at the distal jejunum/proximal ileal level, likely due to adhesions. Electronically Signed: Taylor Harrison MD at 17:26 EDT Reading Location ID and State: [place] Bonilla MD Tel , Service support , ADDENDUM: 12/11/22 1820 IMPRESSION: High-grade small bowel obstruction at the distal jejunum/proximal ileal level, likely due to adhesions. N.B. : Bruce Murillo DO, confirmed on 12/11/2022 18:14:04 (ET) that the referring physician received the results and does not require a verbal communication. Electronically Signed: Taylor Harrison MD at 17:26 EDT Reading Location ID and State: [place] / Tel , Service support , Assessment & Plan Assessment/Plan (1) Small bowel obstruction: PLAN: Plan Patient is an 87-year-old male with history of chronic debility, A-fib on E liquis, HFpEF, hyperlipidemia, depression, BPH and history of colon cancer s/p colectomy about 25 to 30 years ago who presented to [facility] ED on 12/11/2022 with abdominal pain and nausea/vomiting. 1. Small bowel obstruction Suspected secondary to adhesions from colectomy done many years ago. No abdominal surgeries done since then. CT abdomen pelvis showed a high-grade small bowel obstruction at the distal jejunum/proximal ileum level likely due to adhesions. General surgery evaluated in the ED, NG tube placed and put to continuous low wall suction with good output. ? Admit under inpatient status to [facility]. General surgery formally consulted. Maintain NG tube to continuous wall suction overnight. IV Zofran and Compazine for nausea control. We will start low-dose IV Dilaudid for pain control. N.p.o. status, not able to take p.o. medications for now. 2. LUCIEN Very likely prerenal in setting of poor p.o. intake and GI losses. Creatinine 2.75, BUN 51 on admit. Baseline creatinine 1-1.2. Given 1 L normal saline bolus in the ED then started on normal saline 125 ml/hr. Notably does have a history of BPH but patient reports decent urine output over the last few days. ? Continue normal saline for maintenance fluids for now. Monitor daily BMP. Monitor urine output. If creatinine does not quickly improve, can consider further work-up for LUCIEN as needed. 3. Mild leukocytosis, mild lactic acidosis Very likely secondary to SBO as noted above. Low concern for active infection at this time. Patient afebrile on admit. WBC count of 11, but labs are notably quite hemoconcentrated. UA unremarkable. No respiratory infectious symptoms. ? Continue maintenance IV fluids as above. Trend lactate. Daily CBC. Hold on further infectious work-up or antibiotics for now. 4. Mild hypotension, history of hypertension Presented with BP 130/94, however had significant BP drop to around 90/70 after NG tube placement. BP has now remained mildly low since that time. Unclear etiology, may be due to overall fluid losses. ? Maintenance IV fluids as above. Monitor BP. Holding home antihypertensives as noted below. 5. Chronic debility ? Patient lives in assisted living facility currently. Lives there with his . PT/OT/case management consulted. Chronic medical conditions: ? Atrial fibrillation: Home meds of Eliquis 5 mg twice daily and Coreg 25 mg twice daily. Both on hold for now given n.p.o. status. If remains n.p.o., will need to consider starting heparin drip for anticoagulation. IV labetalol as needed order placed. ? HFpEF: Home meds of Lasix 40 twice daily, losartan 25 daily, spironolactone 12.5 mg daily, Jardiance 10 mg daily. Holding all home meds in setting of hypotension and n.p.o. status as noted above. ? BPH: Holding home Flomax. ? Hyperlipidemia: Home atorvastatin on hold for now given n.p.o. status. ? Depression: Home sertraline on hold for now given n.p.o. status, resume when able. DVT prophylaxis: SCDs CODE STATUS: DNR CCA, DO NOT INTUBATE Expected disposition: Back to assisted living facility versus SNF, TBD Total clinical time spent by myself addressing the patient's medical issues, reviewing all the data, and collaborating with patient's care team: 55 minutes. Charges/Coding Visit Charges Inpatient E&M: 22257 Init Hosp L2
[2022-12-11] MEDS: fentaNYL 100 MCG/2 ML Ampul 25 MCG IV (18:36)
[2022-12-11 20:00] VITALS: RESP 18
--- NOTE | 2022-12-11 20:13 | CM.ED ---
Social Work SW introduced self and role to patient. Pt reports he currently resides at [facility] and is received PT/OT but is on the waitlist for assisted living. Pt reports his is at [facility] as well. Pt reports his daughter Kacey who is local is his POA and is not well. Pt reports some difficuly with making decisions and reports he now is determining he will need to sell his home as he cannot maintain a large home and he plans to reside in assisted living apt becomes available. Pt presents in ED with bowel obstruction. Pt may need additional therapy at time of discharge. SW provided support, pt denies any further SW needs at this time. Plan: SW to follow for discharge needs, plans to return to [facility]. Nicki Perla [employer], [employer] ENG[employer]ER
[2022-12-11 20:30] VITALS: BP 108/62; PULSE 96; RESP 18; O2SAT 98
[2022-12-11 20:58] VITALS: BMI 27.1
--- NOTE | 2022-12-11 21:02 | EX.PCM.CON.S ---
Assessment & Plan Assessment/Plan (1) Small bowel obstruction: PLAN: This is an 87-year-old male who presents from a nursing facility with signs and symptoms of a small bowel obstruction for the past 72 hours. Unfortunately, it appears that due to his poor oral intake he has also sustained significant acute kidney injury with a markedly elevated creatinine, lactic acidosis, and evidence of hemoconcentration with a hemoglobin of 16.8. He has no prior history of bowel obstructions, but does have a history of left colectomy and subsequent hernia repair which appears to have been done with permanent laparoscopic tacks. In my independent review of the patient's CT imaging I concur with radiology's assessment that patient has a transition zone demonstrated against the anterior abdominal wall in the right lower quadrant. This is highly suggestive of adhesive disease. Given the benign nature of patient's abdominal exam now post NG tube placement, I am inclined to trial conservative management. This would appear to be in patient's best interest given his other medical issues at hand, however, I have cautioned him that the CT picture suggest that he may require surgery. Therefore recommend: ? Strict n.p.o. with strict I's and O's accounting ? NG tube to low intermittent wall suction ? Twice daily Protonix for bloody aspirate and stress ulcer prophylaxis with NG tube ? Serial abdominal exams ? Plan for small bowel follow-through tomorrow HPI Consult Data Date of Consult: 12/11/22 HPI Narrative Reason for Consultation: Small bowel obstruction HPI Narrative: LETY MARTINEZ, is a 87 M who presents to [facility] from [facility] with complaints of abdominal pain and associated nausea and vomiting that began approximately 3 days ago. He confirms that he has not had a bowel movement or flatus during that time. He denies any prior bowel obstructions. Patient's ER work-up is notable for CT imaging which shows evidence of a high-grade small bowel obstruction with a transition in the right lower quadrant adjacent evidence of a hernia repair with permanent tacks. Patient is also noted to have significant acute kidney injury with a creatinine of 2.75 (no known prior kidney dysfunction) as well as a lactic acid of 2.6. Hemoglobin is 16.8 and white blood cell count is mildly elevated 11.6. Mr. Ji states that he has been at [facility] trying to regain his strength and balance after dealing with multiple falls and lower extremity weakness. He states that he is likely there for the rest of his life as his is also institutionalized with dementia. Mr. Ji shares that he underwent a left colectomy for a cancerous polyp that was felt to be fully removed in the early . He then experienced a hernia at the incision for this colectomy and required a hernia repair in the first couple years after his colectomy. He notes that both of these operations were done in the [facility]. [facility] Medical History Colon cancer Essential hypertension Gout Heart murmur Lumbar spondylosis with myelopathy Non-rheumatic aortic stenosis Osteoporosis Pure hypercholesterolemia Home Medications carvedilol 25 mg tablet 25 mg PO BID Blood pressure 06/26/16 [History Last Taken 05/10/22] guanfacine 2 mg tablet 2 mg PO DAILY Blood pressure 06/26/16 [History Last Taken 05/10/22] tamsulosin 0.4 mg capsule 0.4 mg PO DAILY Prostate 06/26/16 [History Last Taken 05/09/22] sertraline 100 mg tablet (Zoloft) 100 mg PO QDAY Anxiety 10/14/17 [History Last Taken 05/09/22] furosemide 40 mg tablet 40 mg PO BIDCM Blood pressure #120 tabs 05/13/22 [Rx Last Taken Unknown] apixaban 5 mg tablet (Eliquis) 5 mg PO BID 30 days #60 tabs 08/20/22 [Rx Last Taken Unknown] empagliflozin 10 mg tablet (Jardiance) 10 mg PO DAILY@0800 30 days #30 tabs 08/20/22 [Rx Last Taken Unknown] spironolactone 25 mg tablet 12.5 mg (1/2 x 25 mg) PO DAILY@0800 30 days #15 tabs 08/20/22 [Rx Last Taken Unknown] acetaminophen 500 mg tablet 1,000 mg PO Q8 PRN pain 11/26/22 [History Last Taken Unknown] atorvastatin 10 mg tablet 10 mg PO QHS 11/26/22 [History Last Taken Unknown] bupropion HCl 150 mg 24 hr tablet, extended release 150 mg PO DAILY 11/26/22 [History Last Taken Unknown] losartan 25 mg tablet 25 mg PO DAILY #30 tabs 11/26/22 [Rx Last Taken Unknown] melatonin 3 mg tablet 3 mg PO HS PRN sleep 11/26/22 [History Last Taken Unknown] mirtazapine 7.5 mg tablet 7.5 mg PO QHS 11/26/22 [History Last Taken Unknown] Allergy/AdvReac Type Severity Reaction Status Date / Time No Known Allergies Allergy Verified 12/11/22 16:13 Family History Father , Age 49 Cancer liver Surgical History History of colectomy History of open reduction and internal fixation (ORIF) procedure Social History household members: spouse and other details: Primary caregiver for with moderate Alzheimer Disease. Smoking Status: Former smoker how long ago did patient quit smoking: Quit smoking a pipe 21 years ago alcohol intake: current alcohol intake frequency: 0-2 drinks per day substance use type: does not use caffeine: Yes Type: coffee Number of servings: 2 Physical Exam Const alert and oriented x3 Constitutional Narrative: Mild distress from sore throat and discomfort from nasogastric tube General Appearance: cooperative HEENT HEENT Narrative: Nasogastric tube in place with some bright red bloody aspirate in the nasogastric tubing GI GI Narrative: Mildly distended, well-healed scars, soft, nontender to palpation Lab / Micro Data 12/11/22 16:20 12/11/22 16:20 Labs: Laboratory Results - last 24 hr 12/11/22 16:20: WBC 11.6 H, RBC 5.47, Hgb 16.8 H, Hct 52.8, MCV 96.5 H, MCH 30.7, MCHC 31.8 L, RDW Std Deviation 50.5 H, RDW Coeff of [place]lin 14.4, Plt Count 241, MPV 12.2 H, Immature Gran % (Auto) 0.300, Neut % (Auto) 74.5 H, Lymph % (Auto) 13.7 L, [place] % (Auto) 11.4 H, Eos % (Auto) 0.0, Baso % (Auto) 0.1, Absolute Neuts (auto) 8.6 H, Absolute Lymphs (auto) 1.58, Nucleated RBC % 0, Sodium 133 L, Potassium 5.1, Chloride 89 L, Carbon Dioxide 34.0 H, Anion Gap 10, BUN 51 H, Creatinine 2.75 H, Estim Creat Clear Calc 20.28, Est GFR (MDRD) Af Amer 28 L, Est GFR (MDRD) Non-Af 24 L, BUN/Creatinine Ratio 18.5, Glucose 113 H, Lactic Acid Cancelled, Calcium 10.2 H, Total Bilirubin 1.80 H, AST 39 H, ALT 36, Alkaline Phosphatase 110, Total Protein 8.9 H, Albumin 3.7, Globulin 5.2 H, Albumin/Globulin Ratio 0.7 L, Lipase 30 12/11/22 17:06: Lactic Acid 2.6 H* Radiology Impression Abdomen/Pelvis CT 12/11/22 16:28 IMPRESSION: High-grade small bowel obstruction at the distal jejunum/proximal ileal level, likely due to adhesions. Electronically Signed: Taylor Harrison MD at 17:26 EDT Reading Location ID and State: [place] Bonilla MD Tel , Service support , ADDENDUM: 12/11/22 1820 IMPRESSION: High-grade small bowel obstruction at the distal jejunum/proximal ileal level, likely due to adhesions. N.B. : Bruce Murillo DO, confirmed on 12/11/2022 18:14:04 (ET) that the referring physician received the results and does not require a verbal communication. Electronically Signed: Taylor Harrison MD at 17:26 EDT Reading Location ID and State: [place] Bonilla MD Tel , Service support , KUB X-Ray 12/11/22 18:10 IMPRESSION: NG tube terminates in the stomach. Electronically Signed: Taylor Harrison MD at 18:43 EDT Reading Location ID and State: [place] Bonilla MD Tel , Service support , Charges/Coding Visit Charges Inpatient E&M: 06635 Init Hosp L2
[2022-12-11 21:04] VITALS: BP 119/75; PULSE 77; RESP 18; TEMP 36.3; O2SAT 91
[2022-12-11 21:09] LABS: Reflex Lactate? Y
[2022-12-11] MEDS: BENZOCAINE/MENTHOL 1 LOZENGE MUCOUS MEM ×2 (21:45→23:49)
[2022-12-11] MEDS: Pantoprazole Sodium 40 MG in 0.9% Normal Saline (100mL MB+) 100 ML 330 MG IV (21:52)
[2022-12-11] MEDS: HYDROmorphone 0.5 MG/0.5 ML SYRINGE IV (21:53)
[2022-12-11 22:55] LABS: Lactic Acid 1.5 mmol/L (0.4-1.9)
[2022-12-12] VITALS (11 sets, daily range): BP systolic 102–138; BP diastolic 69–87; PULSE 74–97; RESP 16–18; TEMP 36.2–36.7; O2SAT 81–98
[2022-12-12] MEDS: 0.9% Normal Saline (1000mL) 1,000 ML 125 ML IV ×3 (01:47→19:00)
[2022-12-12] MEDS: BENZOCAINE/MENTHOL 1 LOZENGE MUCOUS MEM ×2 (01:53→06:23)
[2022-12-12] MEDS: fentaNYL 100 MCG/2 ML Ampul 25 MCG IV (03:26)
[2022-12-12] MEDS: Phenol/Sodium Phenolate 180ML 5 SPRAY MUCOUS MEM ×2 (03:31→06:21)
[2022-12-12] MEDS: HYDROmorphone 0.5 MG/0.5 ML SYRINGE IV (06:23)
[2022-12-12 06:56] LABS: Mean Corp Hgb Conc 31.3 g/dL (32-36); Mean Corpuscular Hgb 30.8 pg (27.0-32.0); Mean Corpuscular Volume 98.6 fL (80-94); Mean Platelet Vol. 12.2 fl (6.2-12.0); Platelet Count 187 K/mm3 (150-450); RBC Distribution Width CV 14.1 % (11.6-14.6); RBC Distribution Width SD 51.3 fl (35.1-43.9); Red Blood Count 4.87 M/mm3 (4.6-6.2); White Blood Count 6.9 K/mm3 (4.4-11.0)
[2022-12-12 07:19] LABS: Anion Gap 7 (5-15); BUN 61 mg/dL (7-18); BUN/Creat Ratio 22.3 RATIO (10-20); Calcium,Total 9.1 mg/dL (8.5-10.1); Chloride 96 mmol/L (98-107); Creatinine, Serum 2.73 mg/dL (0.70-1.30); EST Glomerular Filtration Rate 24 mL/min (>60); Est Glom Filt Rate - Afr Amer 29 mL/min (>60); Estimated Creatinine Clearance 20.43 ml/min; Glucose 108 mg/dL (74-106); Sodium Level 137 mmol/L (136-145)
--- NOTE | 2022-12-12 09:00 | RAD_ITS ---
CLINICAL HISTORY: Male, 87 years old. Modified small bowel follow through examination. PROCEDURE: Contrast was injected into the indwelling nasogastric tube. FLUOROSCOPY TIME (. 4 images were obtained. TECHNIQUE: (All elements of maximal sterile barrier technique followed, including US elements as applicable) Immediate and 5 hour post barium placement images were obtained. Persistent small bowel dilatation although faint contrast is seen in the rectum and colon on the 5 hour image. RAD/Small Bowel Series Only IMPRESSION: Persistent small bowel dilatation although at 5 hours, a small amount of contrast is seen within the right hemicolon. Electronically Signed: Osmin Qiu MD at 9:04 EDT ,
--- NOTE | 2022-12-12 09:59 | PN.SURG_ITS ---
Subjective Subjective Patient seen and examined during AM rounds. He is found resting in bed. He does describe a severe sore throat, but is happy to report that he has passed some flatus this morning. He denies any abdominal pain Objective Data Objective Data Vital Signs: Vital Signs Temp Pulse Resp BP Pulse Ox O2 Del Method O2 Flow Rate 98.1 F 81 16 113/74 93 Nasal Cannula 1 12/12/22 06:18 12/12/22 06:18 12/12/22 06:18 12/12/22 06:18 12/12/22 06:51 12/12/22 06:51 12/12/22 06:51 Oxygen Flow Rate (L/min) 1 Oxygen Delivery Method Nasal Cannula Weight: 188 lb 14.978 oz Body Mass Index (BMI) 27.1 Intake & Output: Intake and Output for Last 24 Hours 12/10/22 12/11/22 12/12/22 23:59 23:59 23:59 Intake Total 1210 / 1210 1220 / 1220 Output Total 200 / 200 400 / 400 Balance 1010 / 1010 820 / 820 Lab / Micro Data 12/12/22 05:50 12/12/22 05:50 Labs: Laboratory Results - last 24 hr 12/11/22 16:20: WBC 11.6 H, RBC 5.47, Hgb 16.8 H, Hct 52.8, MCV 96.5 H, MCH 30. 7, MCHC 31.8 L, RDW Std Deviation 50.5 H, RDW Coeff of [place] 14.4, Plt Count 241, MPV 12.2 H, Immature Gran % (Auto) 0.300, Neut % (Auto) 74.5 H, Lymph % (Auto) 13.7 L, [place] % (Auto) 11.4 H, Eos % (Auto) 0.0, Baso % (Auto) 0.1, Absolute Neuts (auto) 8.6 H, Absolute Lymphs (auto) 1.58, Nucleated RBC % 0, Sodium 133 L , Potassium 5.1, Chloride 89 L, Carbon Dioxide 34.0 H, Anion Gap 10, BUN 51 H, Creatinine 2.75 H, Estim Creat Clear Calc 20.28, Est GFR (MDRD) Af Amer 28 L, Est GFR (MDRD) Non-Af 24 L, BUN/Creatinine Ratio 18.5, Glucose 113 H, Lactic Acid Cancelled, Calcium 10.2 H, Total Bilirubin 1.80 H, AST 39 H, ALT 36, Alkaline Phosphatase 110, Total Protein 8.9 H, Albumin 3.7, Globulin 5.2 H, Albumin/Globulin Ratio 0.7 L, Lipase 30 12/11/22 17:06: Lactic Acid 2.6 H* 12/11/22 22:09: Lactic Acid 1.5 12/12/22 05:50: WBC 6.9, RBC 4.87, Hgb 15.0, Hct 48.0, MCV 98.6 H, MCH 30.8, MCHC 31.3 L, RDW Std Deviation 51.3 H, RDW Coeff of [place] 14.1, Plt Count 187, MPV 12.2 H, Sodium 137, Potassium 4.0, Chloride 96 L, Carbon Dioxide 34.0 H, Anion Gap 7, BUN 61 H, Creatinine 2.73 H, Estim Creat Clear Calc 20.43, Est GFR (MDRD) Af Amer 29 L, Est GFR (MDRD) Non-Af 24 L, BUN/Creatinine Ratio 22.3 H, Glucose 108 H, Calcium 9.1 Radiography Diagnostic Testing: Radiology Impression Abdomen/Pelvis CT 12/11/22 16:28 IMPRESSION: High-grade small bowel obstruction at the distal jejunum/proximal ileal level, likely due to adhesions. Electronically Signed: Taylor Harrison MD at 17:26 EDT Reading Location ID and State: [place] / Tel , Service support , ADDENDUM: 12/11/22 1820 IMPRESSION: High-grade small bowel obstruction at the distal jejunum/proximal ileal level, likely due to adhesions. N.B. : Bruce Murillo DO, confirmed on 12/11/2022 18:14:04 (ET) that the referring physician received the results and does not require a verbal communication. Electronically Signed: Taylor Harrison MD at 17:26 EDT Reading Location ID and State: [place] / Tel , Service support , KUB X-Ray 12/11/22 18:10 IMPRESSION: NG tube terminates in the stomach. Electronically Signed: Taylor Harrison MD at 18:43 EDT Reading Location ID and State: [id number] / Tel , Service support , Physical Exam Const oriented x3 and no apparent distress Resp normal respiratory effort GI GI Narrative: Minimal abdominal distention, soft, nontender to palpation. Nasogastric tube in place with thin brown output in canister. Assessment & Plan Assessment/Plan (1) Small bowel obstruction: PLAN: Patient admitted last evening with concern for high-grade small bowel obstruction likely due to adhesions given transition zone within the right lower quadrant at the anterior abdominal wall. Patient had a past history of left colectomy followed by hernia repair with mesh. Given the benign nature of patient's exam, recommended a conservative approach to management. Now that he has had the opportunity for gastric decompression, will plan for small bowel follow-through today. This study has been ordered and patient has been asked to sit out of bed in a chair is much as possible to mitigate his aspiration risk. Tube should remain clamped during this trial. Charges/Coding Visit Charges Inpatient E&M: 54285 Subs Hosp L2
[2022-12-12] MEDS: Pantoprazole Sodium 40 MG in 0.9% Normal Saline (100mL MB+) 100 ML 330 MG IV ×2 (10:18→20:55)
[2022-12-12] MEDS: Ondansetron 4 MG/2 ML Vial IV ×2 (10:20→12:13)
--- NOTE | 2022-12-12 12:04 | CASEMGMT ---
Discharge Planning Updates sent to [facility] via [employer]. Awaiting response if patient will need precert to return. Shannan Amador, Discharge Planning Asst.
[2022-12-12] MEDS: Influenza Virus Vac Quad 23-24 60 MCG/0.5 ML SYRINGE IM (15:36)
--- NOTE | 2022-12-12 15:50 | CASEMGMT ---
Social Work SW met with pt who confirms he is from [facility] and plans to return to [facility] at discharge. Per [facility], pt is in intermediate level of care at [facility] and can return when medically ready. Plan: [facility], when medically ready MARGY Leal
--- NOTE | 2022-12-12 15:59 | PN.HOSP_ITS ---
Reason for Visit Reason for Visit: Diagnoses Unspecified intestinal obstruction, unspecified as to partial versus complete o bstruction (12/11/22) Subjective Subjective Patient was seen and examined today, I discussed his care with general surgery. Patient has small bowel series performed today which did show movement of contrast into the colon. Objective Data Objective Data Vital Signs: Vital Signs Temp Pulse Resp BP Pulse Ox O2 Del Method O2 Flow Rate 97.8 F 86 18 138/69 H 94 Room Air 1 12/12/22 15:00 12/12/22 15:00 12/12/22 15:00 12/12/22 15:00 12/12/22 15:00 12/12/22 15:00 12/12/22 06:51 Oxygen Flow Rate (L/min) 1 Oxygen Delivery Method Room Air Weight: 85.7 kg Body Mass Index (BMI) 27.1 Intake & Output: Intake and Output for Last 24 Hours 12/10/22 12/11/22 12/12/22 23:59 23:59 23:59 Intake Total 1210 / 1210 2330 / 2330 Output Total 200 / 200 600 / 600 Balance 1010 / 1010 1730 / 1730 Lab / Micro Data 12/12/22 05:50 12/12/22 05:50 Labs: Laboratory Results - last 24 hr 12/11/22 16:20: WBC 11.6 H, RBC 5.47, Hgb 16.8 H, Hct 52.8, MCV 96.5 H, MCH 30.7, MCHC 31.8 L, RDW Std Deviation 50.5 H, RDW Coeff of Katlin 14.4, Plt Count 241, MPV 12.2 H, Immature Gran % (Auto) 0.300, Neut % (Auto) 74.5 H, Lymph % (Auto) 13.7 L, [place] % (Auto) 11.4 H, Eos % (Auto) 0.0, Baso % (Auto) 0.1, Absolute Neuts (auto) 8.6 H, Absolute Lymphs (auto) 1.58, Nucleated RBC % 0, Sodium 133 L, Potassium 5.1, Chloride 89 L, Carbon Dioxide 34.0 H, Anion Gap 10, BUN 51 H, Creatinine 2.75 H, Estim Creat Clear Calc 20.28, Est GFR (MDRD) Af Amer 28 L, Est GFR (MDRD) Non-Af 24 L, BUN/Creatinine Ratio 18.5, Glucose 113 H, Lactic Acid Cancelled, Calcium 10.2 H, Total Bilirubin 1.80 H, AST 39 H, ALT 36, Alkaline Phosphatase 110, Total Protein 8.9 H, Albumin 3.7, Globulin 5.2 H, Albumin/Globulin Ratio 0.7 L, Lipase 30 12/11/22 17:06: Lactic Acid 2.6 H* 12/11/22 22:09: Lactic Acid 1.5 12/12/22 05:50: WBC 6.9, RBC 4.87, Hgb 15.0, Hct 48.0, MCV 98.6 H, MCH 30.8, MCH C 31.3 L, RDW Std Deviation 51.3 H, RDW Coeff of [place]lin 14.1, Plt Count 187, MPV 12.2 H, Sodium 137, Potassium 4.0, Chloride 96 L, Carbon Dioxide 34.0 H, Anion Gap 7, BUN 61 H, Creatinine 2.73 H, Estim Creat Clear Calc 20.43, Est GFR (MDRD) Af Amer 29 L, Est GFR (MDRD) Non-Af 24 L, BUN/Creatinine Ratio 22.3 H, Glucose 108 H, Calcium 9.1 Radiography Diagnostic Testing: Radiology Impression Abdomen/Pelvis CT 12/11/22 16:28 IMPRESSION: High-grade small bowel obstruction at the distal jejunum/proximal ileal level, likely due to adhesions. Electronically Signed: Taylor Harrison MD at 17:26 EDT Reading Location ID and State: [place] / Tel , Service support , ADDENDUM: 12/11/22 5347 IMPRESSION: High-grade small bowel obstruction at the distal jejunum/proximal ileal level, likely due to adhesions. N.B. : Bruce Murillo DO, confirmed on 12/11/2022 18:14:04 (ET) that the referring physician received the results and does not require a verbal communication. Electronically Signed: Taylor Harrison MD at 17:26 EDT Reading Location ID and State: [place] Bonilla MD Tel , Service support , KUB X-Ray 12/11/22 18:10 IMPRESSION: NG tube terminates in the stomach. Electronically Signed: Taylor Harrison MD at 18:43 EDT Reading Location ID and State: [id number] / Tel , Service support , Physical Exam Const alert, oriented x3, no apparent distress, average body habitus and healthy appearing General Appearance: cooperative, well kempt and well developed Orientation / Consciousness: awake, oriented to person, oriented to place and oriented to time HEENT normocephalic, head/scalp atraumatic and moist oral mucous membranes Eyes PERRL, EOMs intact bilaterally and conjunctivae normal Neck supple, no JVD, thyroid normal and no carotid bruits General: trachea midline Resp normal respiratory effort, no retractions, no use of accessory muscles and clear to auscultation bilaterally Auscultation: Negative for rales, rhonchi or wheezes Cardio S1 normal heart sound, S2 normal heart sound, no murmurs, no rub and no gallops Cardio Narrative: Heart rate and rhythm was irregular GI soft to palpation and non-tender GI Narrative: Patient has some mild abdominal distention Auscultation: hypoactive bowel sounds Extremity no clubbing, cyanosis or edema Skin no rashes or lesions noted General Skin Exam: no breakdown Neuro oriented x3, CN's II-XII intact bilaterally, moves all extremities, no focal motor deficits and no sensory deficits noted Sensorium / Orientation: awake, alert, oriented to person, oriented to place and oriented to time Speech: speech normal Psych affect normal Assessment & Plan Assessment/Plan (1) LUCIEN (acute kidney injury): PLAN: Plan 1. Acute kidney injury-patient's creatinine is still elevated today, continue IV fluids and recheck labs tomorrow #2 small bowel obstruction-this appears to be resolving at this time, general surgery is participating in his care #3 chronic atrial fibrillation-patient's Eliquis and Coreg are on hold at this time #4 essential hypertension-patient is currently n.p.o., his blood pressure will be monitored #5 chronic diastolic congestive heart failure-patient is stable at this time, his oral meds are being held due to his n.p.o. status Total clinical time spent by myself addressing patient's medical issues, reviewing all of his data, and collaborating with patient's care team: 35 minutes Charges/Coding Visit Charges Inpatient E&M: 79290 Subs Hosp L2
--- NOTE | 2022-12-12 17:17 | CASEMGMT ---
Social Work SW performed chart review; LW and HCPOA on file as of 2022. Patient's HCPOA is patient's daughter Disha and alternate is patient's daughter Kacey. Dannielle PIERSON, LATASHA
[2022-12-12] MEDS: Carvedilol 25 MG Tablet PO (20:53)
[2022-12-12] MEDS: Mirtazapine 15 MG Tablet 7.5 MG PO (20:54)
[2022-12-12] MEDS: Atorvastatin Calcium 10 MG Tablet PO (20:55)
[2022-12-12] MEDS: MELATONIN 3 MG TABLET PO (21:50)
[2022-12-13] VITALS (14 sets, daily range): BP systolic 105–134; BP diastolic 59–65; PULSE 67–78; RESP 16–20; TEMP 35.8–36.8; O2SAT 79–97
[2022-12-13] MEDS: 0.9% Normal Saline (1000mL) 1,000 ML 125 ML IV (03:07)
[2022-12-13 08:28] LABS: Anion Gap 5 (5-15); BUN 55 mg/dL (7-18); BUN/Creat Ratio 30.2 RATIO (10-20); Calcium,Total 8.1 mg/dL (8.5-10.1); Chloride 103 mmol/L (98-107); Creatinine, Serum 1.82 mg/dL (0.70-1.30); EST Glomerular Filtration Rate 38 mL/min (>60); Est Glom Filt Rate - Afr Amer 46 mL/min (>60); Estimated Creatinine Clearance 30.64 ml/min; Glucose 92 mg/dL (74-106); Potassium 3.3 mmol/L (3.5-5.1); Sodium Level 138 mmol/L (136-145)
--- NOTE | 2022-12-13 08:44 | PCM.PN.SRG ---
Subjective Subjective Patient states that he is passing flatus and he has had several bowel movements. He has no abdominal pain today. He tolerated clears yesterday. Objective Data Objective Data Vital Signs: Vital Signs Temp Pulse Resp BP Pulse Ox O2 Del Method O2 Flow Rate 98.3 F 71 16 105/59 L 97 Nasal Cannula 2 12/13/22 03:09 12/13/22 03:09 12/13/22 03:09 12/13/22 03:09 12/13/22 03:43 12/13/22 03:43 12/13/22 03:43 Oxygen Flow Rate (L/min) 2 Oxygen Delivery Method Nasal Cannula Weight: 188 lb 14.978 oz Body Mass Index (BMI) 27.1 Intake & Output: Intake and Output for Last 24 Hours 12/11/22 12/12/22 12/13/22 23:59 23:59 23:59 Intake Total 1210 / 1210 3440 / 3840 1400 / 1400 Output Total 200 / 200 1100 / 1100 400 / 400 Balance 1010 / 1010 2340 / 2740 1000 / 1000 Lab / Micro Data 12/12/22 05:50 12/13/22 06:15 Labs: Laboratory Results - last 24 hr 12/13/22 06:15: Sodium 138, Potassium 3.3 L, Chloride 103, Carbon Dioxide 30.0, Anion Gap 5, BUN 55 H, Creatinine 1.82 H, Estim Creat Clear Calc 30.64, Est GFR (MDRD) Af Amer 46 L, Est GFR (MDRD) Non-Af 38 L, BUN/Creatinine Ratio 30.2 H, Glucose 92, Calcium 8.1 L Physical Exam Const oriented x3 and no apparent distress Resp normal respiratory effort GI normal to inspection, nondistended, normoactive bowel sounds Assessment & Plan Assessment/Plan (1) Small bowel obstruction: PLAN: The patient small bowel obstruction has resolved. I have ordered him a regular diet. If he tolerates regular diet he may be discharged home. He may follow-up with Dr. Arechiga as needed. Ari Sandoval MD Pager: [facility] [address] [place] [address], [address] [place] [address] Office:
[2022-12-13] MEDS: Pantoprazole Sodium 40 MG in 0.9% Normal Saline (100mL MB+) 100 ML 330 MG IV ×2 (10:13→22:54)
[2022-12-13] MEDS: Sertraline 100 MG Tablet PO (10:14)
[2022-12-13] MEDS: buPROPion (XL) 150 MG TABLET.XL PO (10:15)
[2022-12-13] MEDS: Potassium Chloride Oral Tablet 20 MEQ PO (14:13)
--- NOTE | 2022-12-13 14:41 | NURSING ---
This RN took spo2 at RA and spo2 was 85% at rest. spo2 walking on RA was 79% This nurse applied o2 first at 2L then 3L then 4l then 6l. sp02 93% on 6L ambulating. patients daughter states he has CHF, and was on oxygen at home in the past. Pt also takes lasix but was not ordered here at [facility] but is on pts home meds as he takes 40mg bid po. Dr. Mesa made aware of all this. Dr. Mesa wants chest xray at this time. Pt is sitting in chair and spo2 is 94% on 3L [place].
[2022-12-13] MEDS: Carvedilol 25 MG Tablet PO ×2 (14:46→22:55)
--- NOTE | 2022-12-13 15:13 | RAD_ITS ---
INDICATION: hypoxia EXAMINATION/TECHNIQUE: X-RAY - XR Chest 2 Views COMPARISON: Prior study dated: 08/08/2022. FINDINGS: LINES/DEVICES: None. LUNGS: Hypoventilatory changes. Atelectatic changes or scarring bilaterally unchanged the prior exam. No new infiltrate seen. No evidence of pleural effusions. MEDIASTINUM AND CARDIOVASCULAR STRUCTURES: Cardiac silhouette not enlarged. Central airways and mediastinal contour are unremarkable. BONES AND SOFT TISSUES: Dextroscoliosis of the thoracic spine. RAD/Chest PA and Lateral IMPRESSION: 1. Atelectatic changes or scarring bilaterally unchanged. 2. No new infiltrate is seen. Electronically Signed: Hollis Crocker MD at 15:40 EDT ,
--- NOTE | 2022-12-13 16:54 | PCM.PN.HOSP ---
Reason for Visit Reason for Visit: Diagnoses Unspecified intestinal obstruction, unspecified as to partial versus complete obstruction (12/11/22) Acute kidney failure, unspecified (12/11/22) Subjective Subjective She was seen and examined today, he requires 3 L at rest to maintain his pulse ox above 90% at this time, I got a chest x-ray today on the patient, it does not show any obvious pneumonia or congestive heart failure, he does have some areas of scarring in the lung however. I did talk with his daughter who states that at one time at the correction recently, he was on oxygen and he indeed has an oxygen concentrator still-he was using oxygen as needed. Objective Data Objective Data Vital Signs: Vital Signs Temp Pulse Resp BP Pulse Ox O2 Del Method O2 Flow Rate 96.4 F L 67 17 134/65 H 85 Nasal Cannula 2 12/13/22 14:35 12/13/22 14:35 12/13/22 14:35 12/13/22 14:35 12/13/22 14:44 12/13/22 14:40 12/13/22 14:44 Oxygen Flow Rate (L/min) [ 6 AMBULATING with Oxygen #3] Oxygen Flow Rate (L/min) [ 4 AMBULATING with Oxygen #2] Oxygen Flow Rate (L/min) [ 2 AMBULATING with Oxygen #1] Oxygen Flow Rate (L/min) 3 Oxygen Delivery Method Nasal Cannula Weight: 85.7 kg Body Mass Index (BMI) 27.1 Intake & Output: Intake and Output for Last 24 Hours 12/11/22 12/12/22 12/13/22 23:59 23:59 23:59 Intake Total 1210 / 1210 3440 / 3840 2870 / 2870 Output Total 200 / 200 1100 / 1100 600 / 600 Balance 1010 / 1010 2340 / 2740 2270 / 2270 Lab / Micro Data 12/12/22 05:50 12/13/22 06:15 Labs: Laboratory Results - last 24 hr 12/13/22 06:15: Sodium 138, Potassium 3.3 L, Chloride 103, Carbon Dioxide 30.0, Anion Gap 5, BUN 55 H, Creatinine 1.82 H, Estim Creat Clear Calc 30.64, Est GFR (MDRD) Af Amer 46 L, Est GFR (MDRD) Non-Af 38 L, BUN/Creatinine Ratio 30.2 H, Glucose 92, Calcium 8.1 L Radiography Diagnostic Testing: Radiology Impression Chest X-Ray 12/13/22 15:13 IMPRESSION: 1. Atelectatic changes or scarring bilaterally unchanged. 2. No new infiltrate is seen. Electronically Signed: Hollis Crocker MD at 15:40 EDT Reading Location ID and State: [facility] / [place] Tel , Service support , Physical Exam Narrative alert, oriented x3, no apparent distress, average body habitus and healthy appearing General Appearance: cooperative, well kempt and well developed Orientation / Consciousness: awake, oriented to person, oriented to place and oriented to time HEENT normocephalic, head/scalp atraumatic and moist oral mucous membranes Eyes PERRL, EOMs intact bilaterally and conjunctivae normal Neck supple, no JVD, thyroid normal and no carotid bruits General: trachea midline Resp normal respiratory effort, no retractions, no use of accessory muscles and clear to auscultation bilaterally Auscultation: Negative for rales, rhonchi or wheezes Cardio S1 normal heart sound, S2 normal heart sound, no murmurs, no rub and no gallops Cardio Narrative: Heart rate and rhythm was irregular GI soft to palpation and non-tender GI Narrative: Patient has some mild abdominal distention Auscultation: hypoactive bowel sounds Extremity no clubbing, cyanosis or edema Skin no rashes or lesions noted General Skin Exam: no breakdown Neuro oriented x3, CN's II-XII intact bilaterally, moves all extremities, no focal motor deficits and no sensory deficits noted Sensorium / Orientation: awake, alert, oriented to person, oriented to place and oriented to time Speech: speech normal Psych affect normal Assessment & Plan Assessment/Plan (1) Atrial fibrillation: (2) LUCIEN (acute kidney injury): PLAN: Plan 1. Acute kidney injury-patient's creatinine is still elevated at 1.82 today, I have elected to give the patient some Lasix due to his hypoxia, he is on 40 mg of Lasix p.o. twice daily at his correction. I have elected to just start him back on Lasix 40 mg daily. #2 small bowel jillcfpleub-wbdwnfsc-muydecs states that the patient can go back to his correction but due to his hypoxia today I have elected to keep him 1 more day #3 chronic atrial fibrillation-I have decided to start the patient back on his Eliquis, he is taking his Coreg #4 essential hypertension-patient is currently n.p.o., his blood pressure will be monitored #5 chronic diastolic congestive heart failure-patient is stable at this time, his oral meds are being held due to his n.p.o. status #6 hypoxia-exact etiology unclear at this point, it could be due to atelectasis and scarring of the lung-I stop the patient's IV fluids and placed him back on his Lasix at a reduced dose. Pulse ox will be monitored. Total clinical time spent by myself addressing patient's medical issues, reviewing all of his data, and collaborating with patient's care team: 35 minutes Charges/Coding Visit Charges Inpatient E&M: 20091 Subs Hosp L2
[2022-12-13] MEDS: Furosemide 40 MG Tablet PO (18:16)
[2022-12-13] MEDS: Albuterol 2.5 MG/3 ML VIAL.NEB. INHALATION (18:58)
[2022-12-13] MEDS: Mirtazapine 15 MG Tablet 7.5 MG PO (22:55)
[2022-12-13] MEDS: Atorvastatin Calcium 10 MG Tablet PO (22:56)
[2022-12-13] MEDS: APIXABAN 5 MG TABLET PO (22:56)
[2022-12-13] MEDS: MELATONIN 3 MG TABLET PO (23:03)
[2022-12-14 03:03] VITALS: BP 125/76; PULSE 78; RESP 16; TEMP 36.6; O2SAT 99
[2022-12-14 03:05] VITALS: O2SAT 97
[2022-12-14 05:13] LABS: Anion Gap 3 (5-15); BUN 36 mg/dL (7-18); BUN/Creat Ratio 30.8 RATIO (10-20); Calcium,Total 8.2 mg/dL (8.5-10.1); Chloride 106 mmol/L (98-107); Creatinine, Serum 1.17 mg/dL (0.70-1.30); EST Glomerular Filtration Rate 63 mL/min (>60); Est Glom Filt Rate - Afr Amer 76 mL/min (>60); Estimated Creatinine Clearance 47.66 ml/min; Glucose 107 mg/dL (74-106); Potassium 3.5 mmol/L (3.5-5.1); Sodium Level 140 mmol/L (136-145)
[2022-12-14 07:21] VITALS: PULSE 78; RESP 18; O2SAT 97
[2022-12-14] MEDS: Albuterol 2.5 MG/3 ML VIAL.NEB. INHALATION (07:21)
[2022-12-14 07:55] VITALS: O2SAT 98
[2022-12-14 09:00] VITALS: BP 124/76; PULSE 76; RESP 14; TEMP 36.6; O2SAT 97
[2022-12-14] MEDS: Furosemide 40 MG Tablet PO (09:05)
[2022-12-14] MEDS: Losartan Potassium 25 MG Tablet PO (09:05)
[2022-12-14] MEDS: APIXABAN 5 MG TABLET PO (09:06)
[2022-12-14] MEDS: Carvedilol 25 MG Tablet PO (09:06)
[2022-12-14] MEDS: Spironolactone 25 MG Tablet 12.5 MG PO (09:06)
[2022-12-14] MEDS: buPROPion (XL) 150 MG TABLET.XL PO (09:06)
[2022-12-14] MEDS: Pantoprazole Sodium 40 MG in 0.9% Normal Saline (100mL MB+) 100 ML 330 MG IV (09:07)
[2022-12-14] MEDS: Sertraline 100 MG Tablet PO (09:07)
--- NOTE | 2022-12-14 09:19 | NURSING ---
This RN is aware of Vital signs taken by OPERATIONS DISPATCHER
--- NOTE | 2022-12-14 10:45 | PCM.TXEXTCAR ---
Diet Diet Order/Speech Therapy: 12/13/22 08:43 Diet: Regular - General Is pt able to select menu?: Yes Diet Comments: no carbonation Routine Orders/Code Status Code Status: DNRCC-A (no intubation) Wound(s) Right top of foot: Wound Type: Pressure Injury Therapies Weight Bearing: Full weight bearing Problem/Diagnosis (1) Atrial fibrillation: Status: Chronic Code(s): I48.91 - Unspecified atrial fibrillation (2) LUCIEN (acute kidney injury): Status: Resolved Code(s): N17.9 - Acute kidney failure, unspecified Plan 1. Acute kidney injury-patient's creatinine is still elevated at 1.17 today, patient is to remain on Lasix once a day #2 small bowel lgfkzbhmpwe-owdcvmpm-qvdmsqt states that the patient can go back to his detention #3 chronic atrial fibrillationpatient on Coreg and Eliquis #4 essential hypertension-meds will be adjusted at discharge #5 chronic diastolic congestive heart failure-patient is stable at this time #6 hypoxia-exact etiology unclear at this point, it could be due to atelectasis and scarring of the lung, this has resolved at this time Total clinical time spent by myself addressing patient's medical issues, reviewing all of his data, and collaborating with patient's care team: 35 minutes Allergies/Procedures Done in Hospital Allergies No Known Allergies Allergy (Verified 12/11/22 16:13) Procedures: None Type of Care/Length of Stay Estimated LOS: More Than 30 Days Type of Care Needed: Intermediate Rehab Potential: Good Prognosis: Good Additional Orders/Day of Discharge H&P will serve as current which was dated: 12/11/22 Day of Discharge: 12/14/22 Dietary and Speech Recommendations Dietitian Recommendations/Changes: Recommend advance diet as tolerated to Transitional with goal of Cardiac. PO Ensure Clear as needed when diet advanced. Discharge Plan Admission Admit Date/Time: 12/11/22 18:55 Primary Reason for Your Visit: small bowel obstruction, acute kidney injury Attending Provider: Misbah Mesa Primary Care Provider: Alivia Stevenson Consulting Providers: Lewis Moore; Neel Arechiga Discharge Orders/Prescriptions Prescriptions: Continued sertraline [Zoloft] 100 mg tablet 100 mg PO QDAY acetaminophen 500 mg tablet 1,000 mg PO Q8 PRN (Reason: pain) bupropion HCl 150 mg tablet extended release 24 hr 150 mg PO DAILY melatonin 3 mg tablet 3 mg PO HS PRN (Reason: sleep) mirtazapine 7.5 mg tablet 7.5 mg PO QHS atorvastatin 10 mg tablet 10 mg PO QHS losartan 25 mg tablet 25 mg PO DAILY Qty: 30 4RF carvedilol 25 MG tablet 25 mg PO BID tamsulosin 0.4 MG capsule 0.4 mg PO DAILY spironolactone 25 mg Tablet 12.5 mg PO DAILY@0800 30 Days Qty: 15 0RF Eliquis 5 mg Tablet 5 mg PO BID 30 Days Qty: 60 0RF Jardiance 10 mg Tablet 10 mg PO DAILY@0800 30 Days Qty: 30 0RF Changed furosemide 40 mg tablet 40 mg PO DAILY Qty: 120 0RF Rx Instructions: start 12/15/22 Discontinued guanfacine 2 MG tablet 2 mg PO DAILY Referrals / Follow Up: Alivia Stevenson MD [Primary Care Provider] - Disposition Disposition (needs filled in before D/C Order can be placed): NonSkilled NH/Intermed Care
--- NOTE | 2022-12-14 11:04 | PCM.DC.SUM ---
Providers Date of Admission: 12/11/22 Date of Discharge: 12/14/22 Primary Care Physician: Dr. Alivia Stevenson MD Consultations 12/12/22 06:15 Consult: General Surgery Routine Consulting Provider: Neel Arechiga Reason for Consult: sbo EMERGENT Consult: No MD Notified: Yes Date Notified: 12/12/22 Time Notified: 06:16 Method of Notification: Verbal Reason For Visit: SMALL BOWEL OBSTRUCTION Diagnosis Discharge Diagnosis (1) Atrial fibrillation: Status: Chronic Code(s): I48.91 - Unspecified atrial fibrillation (2) LUCIEN (acute kidney injury): Status: Resolved Code(s): N17.9 - Acute kidney failure, unspecified Plan #1 small bowel opnazmiczgu-fkjsfgzw-vjxmawc states that the patient can go back to his intermediate #2 Acute kidney injury-patient's creatinine is still elevated at 1.17 today, patient is to remain on Lasix once a day #3 chronic atrial fibrillationpatient on Coreg and Eliquis #4 essential hypertension-meds will be adjusted at discharge #5 chronic diastolic congestive heart failure-patient is stable at this time #6 hypoxia-exact etiology unclear at this point, it could be due to atelectasis and scarring of the lung, this has resolved at this time Total clinical time spent by myself addressing patient's medical issues, reviewing all of his data, and collaborating with patient's care team: 35 minutes Medications at Discharge Home Medications carvedilol 25 mg tablet 25 mg PO BID Blood pressure 06/26/16 tamsulosin 0.4 mg capsule 0.4 mg PO DAILY Prostate 06/26/16 sertraline 100 mg tablet (Zoloft) 100 mg PO QDAY Anxiety 10/14/17 apixaban 5 mg tablet (Eliquis) 5 mg PO BID 30 days #60 tabs 08/20/22 empagliflozin 10 mg tablet (Jardiance) 10 mg PO DAILY@0800 30 days #30 tabs 08/20/22 spironolactone 25 mg tablet 12.5 mg (1/2 x 25 mg) PO DAILY@0800 30 days #15 tabs 08/20/22 acetaminophen 500 mg tablet 1,000 mg PO Q8 PRN pain 11/26/22 atorvastatin 10 mg tablet 10 mg PO QHS hld 11/26/22 bupropion HCl 150 mg 24 hr tablet, extended release 150 mg PO DAILY depression 11/26/22 losartan 25 mg tablet 25 mg PO DAILY #30 tabs 11/26/22 melatonin 3 mg tablet 3 mg PO HS PRN sleep 11/26/22 mirtazapine 7.5 mg tablet 7.5 mg PO QHS sleep 11/26/22 furosemide 40 mg tablet 40 mg PO DAILY Blood pressure #120 tabs 12/14/22 Hospital Course Operations None Procedures None Summary of Care Provided Minutes Spent on Discharge: 32 Hospital Course: This 87-year-old white male was seen in the emergency room at [facility] with complaints of generalized abdominal pain x4 days. He also had vomiting which started 3 days ago, patient states that when trying to eat he throws up. Patient did not complain of any abdominal pain in the emergency room, he did state that he had 1 episode of vomiting that day. The ER included labs which showed a slightly elevated white blood cell count, hemoglobin was 16.8, BUN was elevated at 51 and creatinine was 2.75. CT of the abdomen pelvis was performed which showed a high-grade small bowel obstruction at the distal jejunum/proximal ileal level-likely due to adhesions. An NG tube was inserted, patient was admitted to [place] [address] and given IV fluids and seen by general surgery. Over the next 2 days patient improved and NG tube was able to be discontinued. He was able to eat a regular diet. He had a brief period of hypoxia before he was discharged-it was felt this was secondary to atelectasis, the following day the patient was not hypoxic. Patient's renal function improved during his hospitalization with administration of fluid. Patient's medications were reviewed before his discharge to his intermediate nursing facility. I talked with the patient's daughter by phone several times. Patient was staying and an intermediate care intermediate due to declining overall health and instability in walking. On 12/14/2022, patient was seen and examined: On examination he appeared in good health and spirits. Vital signs as documented. Skin warm and dry and without overt rashes. Neck without JVD, neck was supple, trachea midline, thyroid was normal. Lungs clear bilaterally, normal air movement was noted. Heart exam notable for irregular rhythm, normal sounds and absence of murmurs, rubs or gallops. Abdomen unremarkable and without evidence of organomegaly, masses, or abdominal aortic enlargement. Bowel sounds are present, abdomen is not distended. Extremities nonedematous, no cyanosis was noted, no clubbing was noted. Neuro: Cranial nerves II through XII are grossly intact, no focal motor deficits were noted, sensation to light touch and pinprick intact, motor exam 5/5 throughout. Psych: Patient is alert and oriented x3, he does not appear anxious or depressed, he does not appear agitated. On 12/14/2022, patient was seen and examined and felt to be stable for discharge to [facility]. Weight / BMI Weight Weight: 85.7 kg Body Mass Index (BMI) 27.1 ABG / Lab / Microbiology Data 12/12/22 05:50 12/14/22 04:42 Laboratory: Laboratory Results - last 24 hr 12/14/22 04:42: Sodium 140, Potassium 3.5, Chloride 106, Carbon Dioxide 31.0, Anion Gap 3 L, BUN 36 H, Creatinine 1.17, Estim Creat Clear Calc 47.66, Est GFR (MDRD) Af Amer 76, Est GFR (MDRD) Non-Af 63, BUN/Creatinine Ratio 30.8 H, Glucose 107 H, Calcium 8.2 L Microbiology: Microbiology 12/14/22 09:00 Nasal Secretion SARS-CoV-2 Antigen (Rapid) - Final Radiography Diagnostic Testing: Radiology Impression Chest X-Ray 12/13/22 15:13 IMPRESSION: 1. Atelectatic changes or scarring bilaterally unchanged. 2. No new infiltrate is seen. Electronically Signed: Hollis Crocker MD at 15:40 EDT , Meaningful Use Info Meaningful Use Diagnoses (Choose all that apply): None applicable Discharge Plan Admission Admit Date/Time: 12/11/22 18:55 Primary Reason for Your Visit: small bowel obstruction, acute kidney injury Attending Provider: Misbah Mesa Primary Care Provider: Alivia Stevenson Consulting Providers: Lewis Moore; Neel Arechiga Discharge Orders/Prescriptions Prescriptions: Continued sertraline [Zoloft] 100 mg tablet 100 mg PO QDAY acetaminophen 500 mg tablet 1,000 mg PO Q8 PRN (Reason: pain) bupropion HCl 150 mg tablet extended release 24 hr 150 mg PO DAILY melatonin 3 mg tablet 3 mg PO HS PRN (Reason: sleep) mirtazapine 7.5 mg tablet 7.5 mg PO QHS atorvastatin 10 mg tablet 10 mg PO QHS losartan 25 mg tablet 25 mg PO DAILY Qty: 30 4RF carvedilol 25 MG tablet 25 mg PO BID tamsulosin 0.4 MG capsule 0.4 mg PO DAILY spironolactone 25 mg Tablet 12.5 mg PO DAILY@0800 30 Days Qty: 15 0RF Eliquis 5 mg Tablet 5 mg PO BID 30 Days Qty: 60 0RF Jardiance 10 mg Tablet 10 mg PO DAILY@0800 30 Days Qty: 30 0RF Changed furosemide 40 mg tablet 40 mg PO DAILY Qty: 120 0RF Rx Instructions: start 12/15/22 Discontinued guanfacine 2 MG tablet 2 mg PO DAILY Referrals / Follow Up: Alivia Stevenson MD [Primary Care Provider] - Disposition Disposition (needs filled in before D/C Order can be placed): NonSkilled NH/Intermed Care Charges/Coding Visit Charges Inpatient E&M: 73419 Disch Hosp >30min
== END 2022-12-14 14:13 | disposition intermediate care facility (04) | DRG 389 ==
LOC: ED 19:02 → MS3 19:53
PROVIDERS: Admitting Provider Hospitalist; Emergency Provider Emergency Medicine; PCP Internal Medicine; Visit Provider Internal Medicine
DX: K56.50 Intestinal adhesions [bands], unspecified as to partial versus complete obstruction (principal); N17.9 Acute kidney failure, unspecified; E87.20 Acidosis, unspecified; I50.32 Chronic diastolic (congestive) heart failure; I48.20 Chronic atrial fibrillation, unspecified; I11.0 Hypertensive heart disease with heart failure; I95.9 Hypotension, unspecified; E78.00 Pure hypercholesterolemia, unspecified; N40.0 Benign prostatic hyperplasia without lower urinary tract symptoms; R09.02 Hypoxemia; Z66 Do not resuscitate; Z23 Encounter for immunization; Z79.01 Long term (current) use of anticoagulants; Z79.899 Other long term (current) drug therapy; Z87.891 Personal history of nicotine dependence; Z90.49 Acquired absence of other specified parts of digestive tract
CPT/HCPCS: 36415; 71046; 74018; 74176; 74250; 80048; 80053; 83605; 83690; 85025; 85027; 87426; 94640; 94668; 97110; 97162; 97166; 97530; 97535; 97802; 99252; 99285; J7030; 90686; A4216; G0463; J2405

== ENCOUNTER → 2022-12-18 | Outpatient (REF) | payer MEDICARE, SELFPAY ==
[2022-12-18 07:38] LABS: Absolute Lymphocyte Count 2.25 X10^3/uL (0.83-4.51); Basophil# 0.01 X10^3/uL; Basophil% 0.1 % (0-1); Eosinophil# 0.16 X10^3/uL; Eosinophils% 2.2 % (0-5); Hematocrit 44.4 % (40-54); Hemoglobin 13.6 g/dL (13.0-16.5); Lymphocyte # 2.25 X10^3/ul (0.83-4.51); Lymphocyte % 31.4 % (19-41); Mean Corp Hgb Conc 30.6 g/dL (32-36); Mean Corpuscular Hgb 30.5 pg (27.0-32.0); Mean Corpuscular Volume 99.6 fL (80-94); Mean Platelet Vol. 11.2 fl (6.2-12.0); Monocyte% 9.8 % (0-10); NRBC Flagged by Analyzer 0 % (0-5); Neutrophil # 3.95 X10^3/uL (2.7-7.7); Neutrophil % 55.2 % (47-70); Platelet Count 197 K/mm3 (150-450); RBC Distribution Width CV 13.4 % (11.6-14.6); RBC Distribution Width SD 49.4 fl (35.1-43.9); Red Blood Count 4.46 M/mm3 (4.6-6.2); White Blood Count 7.2 K/mm3 (4.4-11.0)
[2022-12-18 07:55] LABS: Anion Gap 5 (5-15); BUN 17 mg/dL (7-18); Calcium,Total 8.8 mg/dL (8.5-10.1); Chloride 102 mmol/L (98-107); EST Glomerular Filtration Rate 75 mL/min (>60); Est Glom Filt Rate - Afr Amer 91 mL/min (>60); Glucose 99 mg/dL (74-106); Potassium 3.2 mmol/L (3.5-5.1); Sodium Level 140 mmol/L (136-145)
== END ==
LOC: OLS.WHLEAS 05:00
PROVIDERS: PCP Internal Medicine; Visit Provider Nurse Practitioner Adult Health
DX: E78.5 Hyperlipidemia, unspecified (principal); I48.0 Paroxysmal atrial fibrillation; M62.562 Muscle wasting and atrophy, not elsewhere classified, left lower leg; M62.561 Muscle wasting and atrophy, not elsewhere classified, right lower leg
CPT/HCPCS: 36415; 80048; 85025

== ENCOUNTER → 2022-12-22 | Outpatient (REF) | payer MEDICARE, SELFPAY ==
[2022-12-22 08:36] LABS: Potassium 3.8 mmol/L (3.5-5.1)
== END ==
LOC: OLS.WHLEAS 05:00
PROVIDERS: PCP Internal Medicine; Visit Provider Internal Medicine
DX: E87.6 Hypokalemia (principal)
CPT/HCPCS: 36415; 84132

== ENCOUNTER → 2023-01-14 | Outpatient (REF) | payer MEDICARE, SELFPAY ==
[2023-01-14 08:30] LABS: Anion Gap 6 (5-15); BUN 34 mg/dL (7-18); BUN/Creat Ratio 28.6 RATIO (10-20); Chloride 101 mmol/L (98-107); Creatinine, Serum 1.19 mg/dL (0.70-1.30); EST Glomerular Filtration Rate 62 mL/min (>60); Est Glom Filt Rate - Afr Amer 75 mL/min (>60); Glucose 101 mg/dL (74-106); Potassium 4.4 mmol/L (3.5-5.1); Sodium Level 138 mmol/L (136-145)
== END ==
LOC: OLS.WHLTSB 05:00
PROVIDERS: PCP Internal Medicine; Visit Provider Internal Medicine
DX: E87.6 Hypokalemia (principal); I48.0 Paroxysmal atrial fibrillation
CPT/HCPCS: 36415; 80048

== ENCOUNTER 2023-01-16 04:37 | Emergency (ER) | payer MEDICARE, SELFPAY ==
[2023-01-16 04:40] VITALS: BP 108/89; PULSE 75; RESP 16; TEMP 35.9; O2SAT 93; BMI 30.4
[2023-01-16 04:43] VITALS: BP 108/89; PULSE 75; RESP 16; TEMP 35.9; O2SAT 93
--- NOTE | 2023-01-16 04:46 | CT_ITS ---
EXAM: CT HEAD WITHOUT INTRAVENOUS CONTRAST CLINICAL INDICATION: fall TECHNIQUE: Multiple axial images were obtained of the head without intravenous contrast. This CT exam was performed using one or more of the following dose reduction techniques: automated exposure control, adjustment of the mA and/or kV according to patient size, and/or use of iterative reconstruction technique. RADIATION DOSE: Total DLP: 846.73 mGy-cm. COMPARISON: Previous cranial CT of 10/28/2022. FINDINGS: BRAIN AND EXTRA-AXIAL SPACES: Areas of decreased attenuation in the deep cerebral white matter are consistent with small vessel ischemic/degenerative changes. The cerebral and cerebellar sulci are prominent consistent with moderate brain atrophy. No intra- or extra-axial hemorrhage. No intracranial mass or mass effect. Basal cisterns are patent. BONES/JOINTS: Unremarkable. No discrete lytic or blastic abnormalities. No linear or depressed skull fracture. SOFT TISSUES: Soft tissue swelling and small scalp hematoma noted overlying the posterior left parietal bone near the vertex. VASCULATURE: Atherosclerotic disease. SINUSES: Unremarkable as visualized. Clear. MASTOID AIR CELLS: Unremarkable. Clear. ORBITS: Previous cataract surgery. CT/Brain/Head without Contrast IMPRESSION: 1. Soft tissue swelling overlying the left parietal bone posteriorly. 2. Cerebral and cerebellar atrophy. Chronic small vessel ischemic changes. 3. No skull fracture or acute intracranial hemorrhage. Electronically Signed: Sean Juarez MD at 5:31 EST ,
--- NOTE | 2023-01-16 04:46 | CT_ITS ---
EXAM: CT CERVICAL SPINE WITHOUT INTRAVENOUS CONTRAST CLINICAL INDICATION: Fall. TECHNIQUE: Helically acquired images were obtained of the cervical spine without intravenous contrast. 2D reformatted images were reviewed. This CT exam was performed using one or more of the following dose reduction techniques: automated exposure control, adjustment of the mA and/or kV according to patient size, and/or use of iterative reconstruction technique. RADIATION DOSE: Total DLP: 628.84 mGy-cm. COMPARISON: None. FINDINGS: VERTEBRAE: No compression fracture, posterior element fracture or facet dislocation. The odontoid is intact. Cervical facet arthritis present. DISCS/SPINAL CANAL/NEURAL FORAMINA: C3/4 through C6/7 disc spaces show severe degenerative narrowing with endplate sclerosis, marginal osteophytes and uncinate hypertrophy. Slight degenerative anterior subluxation of C2 on C3. There is mild degenerative anterior subluxation of C7 on T1. There is minimal flattening the ventral aspect of the thecal sac at the degenerated levels by broad-based annular bulging and posterior osteophytes. Multilevel neural foraminal encroachment is present secondary to facet and uncinate hypertrophy, greater on the left at C6/7 and on the right at C5/6. SOFT TISSUES: Unremarkable. No prevertebral soft tissue swelling. VASCULATURE: Vascular calcification is noted within the neck. LUNG APICES: Visualized upper lungs are clear. The visualized upper ribs are intact. CT/Spine Cervical without Contras IMPRESSION: Extensive cervical degenerative changes. No acute fracture. Electronically Signed: Sean Juarez MD at 5:40 EST ,
--- NOTE | 2023-01-16 04:47 | ED.VIS.FALL ---
HPI HPI - Fall History of Present Illness Chief Complaint: Fall Narrative Narrative: 87-year-old male presenting with laceration to the scalp. He states he by the bed. And slipped on the floor in his socks. He fell hitting his head. Denies LOC. He is on Eliquis for history of A-fib. Denies blurry vision, slurred speech, difficulty ambulating, numbness, tingling. He denies significant headache. States he was otherwise well prior to the fall. Did not think he injured was his scalp. Bleeding has been controlled. PFSH PFS Medical History Colon cancer Essential hypertension Gout Heart murmur Lumbar spondylosis with myelopathy Non-rheumatic aortic stenosis Osteoporosis Pure hypercholesterolemia Home Medications carvedilol 25 mg tablet 25 mg PO BID Blood pressure 06/26/16 [History Last Taken 05/10/22] tamsulosin 0.4 mg capsule 0.4 mg PO DAILY Prostate 06/26/16 [History Last Taken 05/09/22] sertraline 100 mg tablet (Zoloft) 100 mg PO QDAY Anxiety 10/14/17 [History Last Taken 05/09/22] apixaban 5 mg tablet (Eliquis) 5 mg PO BID 30 days #60 tabs 08/20/22 [Rx Last Taken Unknown] empagliflozin 10 mg tablet (Jardiance) 10 mg PO DAILY@0800 30 days #30 tabs 08/20/22 [Rx Last Taken Unknown] spironolactone 25 mg tablet 12.5 mg (1/2 x 25 mg) PO DAILY@0800 30 days #15 tabs 08/20/22 [Rx Last Taken Unknown] acetaminophen 500 mg tablet 1,000 mg PO Q8 PRN pain 11/26/22 [History Last Taken Unknown] atorvastatin 10 mg tablet 10 mg PO QHS hld 11/26/22 [History Last Taken Unknown] bupropion HCl 150 mg 24 hr tablet, extended release 150 mg PO DAILY depression 11/26/22 [History Last Taken Unknown] losartan 25 mg tablet 25 mg PO DAILY #30 tabs 11/26/22 [Rx Last Taken Unknown] melatonin 3 mg tablet 3 mg PO HS PRN sleep 11/26/22 [History Last Taken Unknown] mirtazapine 7.5 mg tablet 7.5 mg PO QHS sleep 11/26/22 [History Last Taken Unknown] furosemide 40 mg tablet 40 mg PO DAILY Blood pressure #120 tabs 12/14/22 [Rx Last Taken Unknown] Allergy/AdvReac Type Severity Reaction Status Date / Time No Known Allergies Allergy Verified 01/16/23 04:39 Family History Father , Age 49 Cancer liver Surgical History History of colectomy History of open reduction and internal fixation (ORIF) procedure Social History household members: spouse and other details: Primary caregiver for with moderate Alzheimer Disease. Smoking Status: Former smoker how long ago did patient quit smoking: Quit smoking a pipe 21 years ago alcohol intake: current alcohol intake frequency: 0-2 drinks per day substance use type: does not use caffeine: Yes Type: coffee Number of servings: 2 ROS ROS ED Constitutional Constitutional ED: Denies chills, fever(s) or sweats Eyes Eyes: Denies blurry vision or change in vision ENT ENT ED: Denies ear pain or sore throat Cardiovascular Cardiovascular: Denies chest pain, palpitations or racing heartbeat Respiratory/Chest Respiratory/Chest: Denies cough, dyspnea or sputum Gastrointestinal Gastrointestinal: Denies abdominal pain, constipation, diarrhea, nausea or vomiting Genitourinary Genitourinary ED: Denies dysuria, hematuria or urinary frequency Musculoskeletal Musculoskeletal: Denies arthralgias, myalgias or neck pain Integumentary Reports other Details: Scalp laceration ; Denies abscess, Abrasions or rash Neurologic Neurologic: Denies headache(s), paresthesias or weakness Psychiatric Psychiatric: Denies anxiety, depression, suicidal ideation or suicidal thoughts Endocrine Endocrinology: Denies polydipsia or polyuria EXAM Physical Exam Const Vital Signs: 01/16/23 04:40 01/16/23 04:43 01/16/23 04:44 Temperature 96.6 F L 96.6 F L Temperature Source Temporal Temporal Pulse Rate 75 75 Respiratory Rate 16 16 Respiratory Effort Normal Blood Pressure 108/89 H 108/89 H Blood Pressure Mean 95 95 Pulse Ox 93 93 Oxygen Delivery Method Room Air Room Air Positive well nourished HEENT Reports normocephalic HEENT Narrative: Superficial scalp laceration at the vertex of the skull. No skull deformity. No active bleeding. Chest Wall inspection of chest normal Resp normal respiratory effort Cardio regular rate and regular rhythm GI non-tender Neuro oriented x3, CN's II-XII intact bilaterally, moves all extremities, no focal motor deficits and no sensory deficits noted Santhosh Coma Scale: document GCS findings Spontaneous Obeys Commands Oriented 15 Sensorium / Orientation: alert Motor Exam: strength 5/5 throughout Psych mental status grossly normal MDM MDM MDM Narrative Medical decision making narrative: Patient presenting with mechanical fall after getting up and walking in his socks. Patient states he slipped and fell hitting his head. Is on Eliquis. No focal neurologic deficits or lateralizing signs or symptoms. The superficial laceration on his vertex of his scalp is not actively bleeding. Does not appear to be need sutures or tato. CT brain and cervical spine are both negative. We will place a wound over the patient cephalhematoma/laceration and he will be discharged home. Impression: 1. Chemical fall 2. scalp laceration Radiography Diagnostic Testing: Clinical Impression(s) from Imaging Studies Brain CT 01/16/23 04:46 IMPRESSION: 1. Soft tissue swelling overlying the left parietal bone posteriorly. 2. Cerebral and cerebellar atrophy. Chronic small vessel ischemic changes. 3. No skull fracture or acute intracranial hemorrhage. Electronically Signed: Sean Juarez MD at 5:31 EST , Cervical Spine CT 01/16/23 04:46 IMPRESSION: Extensive cervical degenerative changes. No acute fracture. Electronically Signed: Sean Juarez MD at 5:40 EST , Discharge Plan Triage Chief Complaint: Fall ED Provider: Pablito Ferro Dx/Rx/DC Orders Instructions: ED Head Injury (Adult), ED Fall Prevention Prescriptions: No Action sertraline [Zoloft] 100 mg tablet 100 mg PO QDAY acetaminophen 500 mg tablet 1,000 mg PO Q8 PRN (Reason: pain) bupropion HCl 150 mg tablet extended release 24 hr 150 mg PO DAILY melatonin 3 mg tablet 3 mg PO HS PRN (Reason: sleep) mirtazapine 7.5 mg tablet 7.5 mg PO QHS atorvastatin 10 mg tablet 10 mg PO QHS losartan 25 mg tablet 25 mg PO DAILY Qty: 30 4RF carvedilol 25 MG tablet 25 mg PO BID tamsulosin 0.4 MG capsule 0.4 mg PO DAILY spironolactone 25 mg Tablet 12.5 mg PO DAILY@0800 30 Days Qty: 15 0RF Eliquis 5 mg Tablet 5 mg PO BID 30 Days Qty: 60 0RF Jardiance 10 mg Tablet 10 mg PO DAILY@0800 30 Days Qty: 30 0RF furosemide 40 mg tablet 40 mg PO DAILY Qty: 120 0RF Rx Instructions: start 12/15/22 Primary Care Provider: Alivia Stevenson Referrals: Alivia Stevenson MD [Primary Care Provider] - Disposition Disposition: Home, Self Care
[2023-01-16 06:27] VITALS: PULSE 72; RESP 18; O2SAT 95
[2023-01-16 07:21] VITALS: BP 130/72; PULSE 82; RESP 18; O2SAT 98
== END 2023-01-16 07:59 | disposition home or self-care (01) ==
PROVIDERS: Emergency Provider Student in an Organized Health Care Education/Training Program; PCP Internal Medicine; Visit Provider Student in an Organized Health Care Education/Training Program
DX: S01.01XA Laceration without foreign body of scalp, initial encounter (principal); I48.91 Unspecified atrial fibrillation; Z87.891 Personal history of nicotine dependence; E78.00 Pure hypercholesterolemia, unspecified; I10 Essential (primary) hypertension; Z79.01 Long term (current) use of anticoagulants; W01.0XXA Fall on same level from slipping, tripping and stumbling without subsequent striking against object, initial encounter
CPT/HCPCS: 70450; 72125; 99284

== ENCOUNTER 2023-02-02 06:38 | Emergency (ER) | payer MEDICARE, SELFPAY ==
[2023-02-02 06:41] VITALS: BP 109/80; PULSE 67; RESP 15; TEMP 35.3; O2SAT 94; BMI 29.1
[2023-02-02] MEDS: Lidocaine 1% /Epi 1:100 (20ml) 20 ML Vial INFILT (06:41)
--- NOTE | 2023-02-02 07:02 | EX.ED.DYSGE1 ---
HPI History of Present Illness Chief Complaint: Laceration Informant: patient Narrative Narrative: Patient was seen here 3 days ago after he had an accidental fall and sustained a scalp laceration. It was not bleeding at the time, he is anticoagulated on Eliquis, and it was not repaired. He went home and states that it opened up, bled, he applied pressure and was able to get it to stop. This morning it again started bleeding spontaneously when he was cleaning his scalp/hair, and was spurting blood to the point where he was transiently hypotensive and EMS placed an IV, applied a pressure dressing and transported him. He comes from assisted living. He denies any systemic symptoms such as lightheadedness or syncope. He did not injure it again or fall again. [facility] Medical History Colon cancer Essential hypertension Gout Heart murmur Lumbar spondylosis with myelopathy Non-rheumatic aortic stenosis Osteoporosis Pure hypercholesterolemia Home Medications carvedilol 25 mg tablet 25 mg PO BID Blood pressure 06/26/16 [History Last Taken 05/10/22] tamsulosin 0.4 mg capsule 0.4 mg PO DAILY Prostate 06/26/16 [History Last Taken 05/09/22] sertraline 100 mg tablet (Zoloft) 100 mg PO QDAY Anxiety 10/14/17 [History Last Taken 05/09/22] apixaban 5 mg tablet (Eliquis) 5 mg PO BID 30 days #60 tabs 08/20/22 [Rx Last Taken Unknown] empagliflozin 10 mg tablet (Jardiance) 10 mg PO DAILY@0800 30 days #30 tabs 08/20/22 [Rx Last Taken Unknown] spironolactone 25 mg tablet 12.5 mg (1/2 x 25 mg) PO DAILY@0800 30 days #15 tabs 08/20/22 [Rx Last Taken Unknown] acetaminophen 500 mg tablet 1,000 mg PO Q8 PRN pain 11/26/22 [History Last Taken Unknown] atorvastatin 10 mg tablet 10 mg PO QHS hld 11/26/22 [History Last Taken Unknown] bupropion HCl 150 mg 24 hr tablet, extended release 150 mg PO DAILY depression 11/26/22 [History Last Taken Unknown] losartan 25 mg tablet 25 mg PO DAILY #30 tabs 11/26/22 [Rx Last Taken Unknown] melatonin 3 mg tablet 3 mg PO HS PRN sleep 11/26/22 [History Last Taken Unknown] mirtazapine 7.5 mg tablet 7.5 mg PO QHS sleep 11/26/22 [History Last Taken Unknown] furosemide 40 mg tablet 40 mg PO DAILY Blood pressure #120 tabs 12/14/22 [Rx Last Taken Unknown] cephalexin 500 mg capsule 500 mg PO TID #12 caps 02/02/23 [Rx Last Taken Unknown] Allergy/AdvReac Type Severity Reaction Status Date / Time No Known Allergies Allergy Verified 01/16/23 04:39 Family History Father , Age 49 Cancer liver Surgical History History of colectomy History of open reduction and internal fixation (ORIF) procedure Social History household members: spouse and other details: Primary caregiver for with moderate Alzheimer Disease. Smoking Status: Former smoker how long ago did patient quit smoking: Quit smoking a pipe 21 years ago alcohol intake: current alcohol intake frequency: 0-2 drinks per day substance use type: does not use caffeine: Yes Type: coffee Number of servings: 2 ROS ROS ED Constitutional Constitutional ED: Denies chills or fever(s) Cardiovascular Cardiovascular: Denies lightheadedness or syncope Integumentary Reports as per HPI, laceration and wounds; Denies rash Neurologic Neurologic: Denies headache(s), paresthesias or weakness Hematologic/Lymphatic Hematologic/Lymphatic: Reports easy bleeding and easy bruising EXAM Physical Exam Const Vital Signs: 02/02/23 06:41 Temperature 95.6 F L Temperature Source Temporal Pulse Rate 67 Respiratory Rate 15 Blood Pressure 109/80 Blood Pressure Mean 89 Pulse Ox 94 Oxygen Delivery Method Room Air Positive well nourished and well developed General Appearance ED: well developed and NAD HEENT Reports moist mucous membranes HEENT Narrative: 3 cm subcutaneous laceration macerated clean without signs of infection basically at the top of his head, more posterior, mid scalp. No boggy hematoma. There is a pressure dressing on it that is bloody, it is not actively bleeding but upon removing the dressing it is evident that there is arteriolar pulsatile bleeding. Eyes PERRL and EOMs intact bilaterally Neck supple Neck Narrative: FROM Resp normal respiratory effort Neuro oriented x3, CN's II-XII intact bilaterally and no sensory deficits noted Sensorium / Orientation: alert Motor Exam: strength 5/5 throughout Psych mental status grossly normal Skin Skin Narrative: 3cm laceration scalp w/ arteriolar bleeding MDM MDM MDM Narrative Medical decision making narrative: I emergently held pressure while nursing set up a suture kit and obtained 1% lidocaine with epinephrine for me, I anesthetized the wound and this really helped to provide good hemostasis, we then irrigated profusely and repaired the wound. Since it is in a delayed fashion I am going to put him on a couple days of an antibiotic. In the meantime we are checking a CBC to ensure his blood counts look okay. Vital signs and the rest of his blood pressures have been normal here in the emergency department. He does not have orthostatic symptoms when we lie him down and sit him back up. History & Record Review Additional record(s) reviewed:: Prior ED visit and Prior labs Lab Data Attestation: I reviewed the patient's lab results. (mild drop c/w prior; no transfusion/intervention indicated) Labs: Laboratory Results - last 24 hr 02/02/23 07:11 WBC 8.1 RBC 4.00 L Hgb 12.3 L Hct 41.6 MCV 104.0 H MCH 30.8 MCHC 29.6 L RDW Std Deviation 57.9 H RDW Coeff of [place] 15.1 H Plt Count 215 MPV 11.5 Procedures Lacerations scalp: Length: 3 cm Depth: Sub Q Shape: fairly linear, macerated Prep: Sterile Conditions and Chlorhexadine Laceration repair: Lidocaine with epi (2cc, 1%), Local and Skin sutures (pete) Irrigated (ml): 120 (under pressure, sterile saline) Number of Sutures/Pete: 5 Discharge Plan Triage Chief Complaint: Laceration ED Provider: James Hoskins Dx/Rx/DC Orders Clinical Impression: Laceration of scalp, Anticoagulated, Hemorrhage from wound Instructions: ED Laceration Scalp Stitches or [place] Prescriptions: New cephalexin 500 mg capsule 500 mg PO TID Qty: 12 0RF No Action sertraline [Zoloft] 100 mg tablet 100 mg PO QDAY acetaminophen 500 mg tablet 1,000 mg PO Q8 PRN (Reason: pain) bupropion HCl 150 mg tablet extended release 24 hr 150 mg PO DAILY melatonin 3 mg tablet 3 mg PO HS PRN (Reason: sleep) mirtazapine 7.5 mg tablet 7.5 mg PO QHS atorvastatin 10 mg tablet 10 mg PO QHS losartan 25 mg tablet 25 mg PO DAILY Qty: 30 4RF carvedilol 25 MG tablet 25 mg PO BID tamsulosin 0.4 MG capsule 0.4 mg PO DAILY spironolactone 25 mg Tablet 12.5 mg PO DAILY@0800 30 Days Qty: 15 0RF Eliquis 5 mg Tablet 5 mg PO BID 30 Days Qty: 60 0RF Jardiance 10 mg Tablet 10 mg PO DAILY@0800 30 Days Qty: 30 0RF furosemide 40 mg tablet 40 mg PO DAILY Qty: 120 0RF Rx Instructions: start 12/15/22 Primary Care Provider: Alivia Stevenson Referrals: Alivia Stevenson MD [Primary Care Provider] - 7 Days for suture removal Disposition Disposition: Home, Self Care
[2023-02-02 07:16] LABS: Hematocrit 41.6 % (40-54); Hemoglobin 12.3 g/dL (13.0-16.5); Mean Corp Hgb Conc 29.6 g/dL (32-36); Mean Corpuscular Hgb 30.8 pg (27.0-32.0); Mean Platelet Vol. 11.5 fl (6.2-12.0); POSITIVE MORPHOLOGY YES; Platelet Count 215 K/mm3 (150-450); RBC Distribution Width CV 15.1 % (11.6-14.6); RBC Distribution Width SD 57.9 fl (35.1-43.9); White Blood Count 8.1 K/mm3 (4.4-11.0)
[2023-02-02 07:26] LABS: Scan Indicated on CBC? Y/N YES- FLAGS NOTED
[2023-02-02 07:47] VITALS: BP 124/76; PULSE 64; RESP 14; TEMP 36.4; O2SAT 97
== END 2023-02-02 07:48 | disposition home or self-care (01) ==
PROVIDERS: Emergency Provider Emergency Medicine; PCP Internal Medicine; Visit Provider Emergency Medicine
DX: S01.01XA Laceration without foreign body of scalp, initial encounter (principal); E78.00 Pure hypercholesterolemia, unspecified; I10 Essential (primary) hypertension; Z87.891 Personal history of nicotine dependence; Z79.01 Long term (current) use of anticoagulants; W19.XXXA Unspecified fall, initial encounter
CPT/HCPCS: 12002; 85027; 99284

== ENCOUNTER → 2023-02-18 | Outpatient (REF) | payer MEDICARE, SELFPAY ==
[2023-02-18 09:15] LABS: Anion Gap 7 (5-15); BUN 31 mg/dL (7-18); BUN/Creat Ratio 24.8 RATIO (10-20); Calcium,Total 8.6 mg/dL (8.5-10.1); Chloride 104 mmol/L (98-107); Creatinine, Serum 1.25 mg/dL (0.70-1.30); EST Glomerular Filtration Rate 58 mL/min (>60); Est Glom Filt Rate - Afr Amer 71 mL/min (>60); Glucose 87 mg/dL (74-106); Potassium 4.4 mmol/L (3.5-5.1); Sodium Level 138 mmol/L (136-145)
== END ==
LOC: OLS.WHLTSB 05:00
PROVIDERS: PCP Internal Medicine; Visit Provider Internal Medicine
DX: E87.6 Hypokalemia (principal)
CPT/HCPCS: 36415; 80048

== ENCOUNTER → 2023-03-18 | Outpatient (REF) | payer MEDICARE, SELFPAY ==
--- OUTSIDE RECORDS SUMMARY | 2023-03-18 03:57 | XMS RPT_ITS | CCD ---
Author Name Unknown Address [address] [place] [address] Organization [facility] Care Team Providers Care Telegraph Inspector Name Role Phone Roof CHIEF LIFESTYLE OFFICER, Russell Garcia Unavailable MD Jorge, Jose Francisco Fontenot Unavailable DeFinis, Harumi Y Unavailable Unavailable DeFinis, Harumi Y Unavailable Unavailable NICOLE LOPESAMMED Unavailable Unavaila LICO Shah Unavailable Unavailable GOUCHER, NORMA G Unavailable Unavailable Roof CHIEF LIFESTYLE OFFICER, Russell Garcia Unavailable Lico Lazaro Primary Care Provider [phone] Lico Lazaro MD Primary Care Provider Lico Lazaro MD Primary Care Provider ROLAND DELGADO Admitting Unavailable ANA JAMISON Attending Unavailable LICO LAZARO Primary Care Unavailable Allergies Allergy Classification Reported Allergen(s) Allergy Type Date of Onset Reaction(s) Facility (10 sources) amLODIPine drug allergy 02-21-2015 LE Edema [facility] Work Phone: (18 sources) NKDA; Translations: [NKDA] allergy to substance 01-15-2015 [facility] Work Phone: Medications Current Medications Medication Drug Class(es) Dates Sig (Normalized) Sig (Original) levothyroxine sodium 0.075 mg oral tablet (2 sources) l-Thyroxine take 1 tablet by mouth once daily levothyroxine (SYNTHROID) 75 MCG tablet Take 75 mcg by mouth Daily 0 Active omeprazole 40 mg delayed release oral capsule (2 sources) Proton Pump Inhibitor take 1 capsule by mouth once daily omeprazole (PRILOSEC) 40 MG delayed release capsule Take 40 mg by mouth daily 0 Active 24 hr tolterodine tartrate 4 mg extended release oral capsule (2 sources) Cholinergic Muscarinic Antagonist take 1 capsule by mouth once daily tolterodine (DETROL LA) 4 MG extended release capsule Take 4 mg by mouth daily 0 Active zolpidem tartrate 5 mg oral tablet (2 sources) gamma-Aminobutyric Acid-ergic Agonist take 1 tablet by mouth once daily as needed for sleep zolpidem (AMBIEN) 5 MG tablet Take 5 mg by mouth nightly as needed for Sleep.. 0 Active Completed/Discontinued Medications Medication Drug Class(es) Dates Sig (Normalized) Sig (Original) acetaminophen 500 mg oral tablet (2 sources) Start: 11-04-2022 take 2 tablets by mouth every eight hours acetaminophen (TYLENOL) 500 mg tablet Take 2 tablets by mouth every 8 hours. 0 11/04/2022 Active Problems Active Problems Problem Classification Problem Date Documented Da te Episodic/Chronic Congestive heart failure; nonhypertensive (3 sources) Heart failure; Translations: [Heart failure, unspecified] Onset: 11-01-2022 11-01-2022 Chronic Disorders of lipid metabolism (13 sources) Hyperlipidemia; Translations: [Hyperlipidemia, unspecified] Onset: 07-24-2015 07-24-2015 Chronic E Codes: Fall (3 sources) Fall; Translations: [Unspecified fall, initial encounter] Onset: 11-01-2022 11-01-2022 Episodic Essential hypertension (13 sources) Hypertensive disorder; Translations: [Essential (primary) hypertension] Onset: 12-10-2012 12-10-2012 Chronic Heart valve disorders (20 sources) Nonrheumatic tricuspid (valve) insufficiency; Translations: [Aortic valve disorder] Onset: 12-10-2012 Resolved: 01-15-2015 07-24-2015 Chronic Hyperplasia of prostate (3 sources) Benign prostatic hyperplasia; Translations: [Benign prostatic hyperplasia without lower urinary tract symptoms] Onset: 11-01-2022 11-01-2022 Chronic Malaise and fatigue (4 sources) Asthenia; Translations: [Weakness] Onset: 11-01-2022 11-01-2022 Episodic Mood disorders (3 sources) Major depressive disorder; Translations: [Major depressive disorder, single episode, unspecified] Onset: 11-01-2022 11-01-2022 Chronic Open wounds of head; neck; and trunk (4 sources) Scalp laceration; Translations: [Laceration without foreign body of scalp, initial encounter] Onset: 11-01-2022 11-01-2022 Episodic Other injuries and conditions due to external causes (1 source) History of falling; Translations: [At high risk for falls] Onset: 11-01-2022 Episodic Other injuries and conditions due to external causes (1 source) Unspecified injury of head, initial encounter; Translations: [Closed head injury, initial encounter] Onset: 11-01-2022 Episodic Other injuries and conditions due to external causes (1 source) Personal history of (healed) traumatic fracture; Translations: [History of rib fracture] Onset: 11-01-2022 Episodic Other nutritional; endocrine; and metabolic disorders (10 sources) Body mass index (BMI) 31.0-31.9, adult; Translations: [Body mass index (BMI) 31.0-31.9, adult] Onset: 07-30-2015 07-30-2015 Chronic Respiratory failure; insufficiency; arrest (adult) (3 sources) Chronic respiratory failure; Translations: [Chronic respiratory failure, unspecified whether with hypoxia or hypercapnia] Onset: 11-01-2022 11-01-2022 Chronic Unclassified (4 sources) Long-term drug therapy; Translations: [Other chcf (current) drug therapy] Onset: 07-24-2015 07-24-2015 Past or Other Problems Problem Classification Problem Date Documented Da te Episodic/Chronic Heart valve disorders (10 sources) Heart murmur; Translations: [Cardiac murmur, unspecified] Onset: 12-10-2012 12-10-2012 Episodic Other aftercare (6 sources) Other chcf (current) drug therapy; Translations: [Other chcf (current) drug therapy] Onset: 07-24-2015 07-24-2015 Episodic Results Test Name Value Interpretation Reference Range Facil ity Vital Signs Date Time Vital Sign Value Performing Clinician Sabino oakley 10-31-2016 10:40-0400 BP Diastolic 78 mm[Hg] [facility] Work Phone: 10-31-2016 10:40-0400 BP Systolic 130 mm[Hg] [facility] Work Phone: 10-31-2016 10:40-0400 Pulse (Heart Rate) 68 /min Russell Judy CHIEF LIFESTYLE OFFICER [facility] Work Phone: 10-31-2016 10:40-0400 Respiratory Rate 20 /min Russell Kim CHIEF LIFESTYLE OFFICER [facility] Work Phone: 10-31-2016 10:40-0400 Weight 90.9 kg Russell Kim CHIEF LIFESTYLE OFFICER [facility] Work Phone: 10-16-2016 13:27-0400 BMI (Body Mass Index) 30.71 kg/m2 Jose Francisco Patel MD [facility] Work Phone: 10-16-2016 13:27-0400 BP Diastolic 82 mm[Hg] Jose Francisco Patel MD [facility] Work Phone: 10-16-2016 13:27-0400 BP Systolic 162 mm[Hg] Jose Francisco Ptael MD [facility] Work Phone: 10-16-2016 13:27-0400 Height 172.72 cm Jose Francisco Patel MD [facility] Work Phone: 10-16-2016 13:27-0400 Pulse (Heart Rate) 74 /min Jose Francisco Patel MD [facility] Work Phone: 10-16-2016 13:27-0400 Respiratory Rate 18 /min Jose Francisco Patel MD [facility] Work Phone: 10-16-2016 13:27-0400 Weight 91.63 kg Jose Francisco Patel MD [facility] Work Phone: 04-04-2016 08:47-0500 BMI (Body Mass Index) 30.25 kg/m2 Harumi DeFinis [facility] Work Phone: 04-04-2016 08:47-0500 BP Diastolic 84 mm[Hg] Harumi DeFinis [facility] Work Phone: 04-04-2016 08:47-0500 BP Diastolic 80 mm[Hg] Harumi DeFinis [facility] Work Phone: 04-04-2016 08:47-0500 BP Systolic 148 mm[Hg] Harumi DeFinis [facility] Work Phone: 04-04-2016 08:47-0500 BP Systolic 170 mm[Hg] Divya Fanearis [facility] Work Phone: 04-04-2016 08:47-0500 BSA (Body Surface Area) 2.04 m2 Divya Fanearis [facility] Work Phone: 04-04-2016 08:47-0500 Pulse (Heart Rate) 80 /min Harumi DeFinis [facility] Work Phone: 04-04-2016 08:47-0500 Respiratory Rate 20 /min Haraudie Fanearis [facility] Work Phone: 04-04-2016 08:47-0500 Weight 90.27 kg Divya Fanearyenny [facility] Work Phone: 09-28-2015 14:00-0400 Height 172.72 cm Divya [facility] Work Phone: 09-28-2015 14:00-0400 Pulse Oximetry 97 % Haraudie [facility] Work Phone: Encounters Encounter Date Encounter Type Care Provider Facility Start: 11-14-2022 Telephone encounter M Haleigh Vásquez RN [facility] Procedures Date Procedure Procedure Detail Performing Clinician Start: 06-10-2021 Basic metabolic pane l calcium total Lico Lazaro MD Work Phone: Start: 06-10-2021 Lipid panel Lico berrios MD Work Phone: Start: 01-19-2020 Comprehensive metabolic panel Lico Lazaro Work Phone: Start: 01-19-2020 Lipid panel Lico berrios Work Phone: Start: 11-28-2016 End: 01-15-2017 *Hepatic Function Panel Jose Francisco Patel MD Work Phone: Start: 11-28-2016 End: 01-15-2017 Lipid 1996 panel - Serum or Plasma Jose Francisco Patel MD Work Phone: Start: 10-31-2016 End: 10-31-2016 *CHRISTY Wells H Judy CHIEF LIFESTYLE OFFICER Work Phone: Start: 10-31-2016 End: 10-31-2016 *BMP Russell Garcia Judy CHIEF LIFESTYLE OFFICER Work Phone: Start: 10-16-2016 End: 10-16-2016 SARA Patel MD Work Phone: Start: 10-16-2016 End: 10-16-2016 Follow Up Appt 6 months Jose Francisco Patel MD Work Phone: Start: 10-16-2016 End: 10-16-2016 Follow Up BP Check Jose Francisco Patel MD Work Phone: Start: 10-16-2016 End: 10-16-2016 Dietary management education, guidance, and counseling Russell Judy CHIEF LIFESTYLE OFFICER Start: 10-16-2016 End: 10-16-2016 SARA Patel MD Work Phone: Start: 10-16-2016 End: 10-16-2016 Follow Up Appt 6 months Jose Francisco Patel MD Work Phone: Start: 10-16-2016 End: 10-16-2016 Follow Up BP Check Jose Francisco Patel MD Work Phone: Start: 04-07-2016 End: 05-28-2016 *Hepatic Function Panel Jose Francisco Patel MD Work Phone: Start: 04-07-2016 End: 05-28-2016 Lipid 1996 panel - Serum or Plasma Jose Francisco Patel MD Work Phone: Start: 04-07-2016 End: 05-28-2016 *Hepatic Function Panel Jose Francisco Patel MD Work Phone: Start: 04-07-2016 End: 05-28-2016 Lipid panel [AGGREGATE] Jose Francisco Patel MD Work Phone: Start: 04-04-2016 End: 04-04-2016 SARA Logan PAINT TRIMMER [employer]-C Start: 04-04-2016 End: 04-04-2016 Follow Up Appt 6 months Misbah Logan [employer] TRIM[employer] -C Start: 04-04-2016 End: 04-04-2016 SARA Logan [employer]INT TR[employer]-C Start: 04-04-2016 End: 04-04-2016 Follow Up Appt 6 months Misbah Logan PAINT TRIM[employer] -C Start: 11-15-2015 End: 11-15-2015 *BMP Adrianne Eubanks PA-C Work Phone: Start: 11-15-2015 End: 11-15-2015 *BMP Adrianne Eubanks PA-C Work Phone: Start: 10-03-2015 End: 10-05-2015 *Hepatic Function Panel Jose Francisco Patel MD Work Phone: Start: 10-03-2015 End: 10-05-2015 Lipid 1996 panel - Serum or Plasma Jose Francisco Patel MD Work Phone: Start: 10-03-2015 End: 10-05-2015 *Hepatic Function Panel Jose Francisco Patel MD Work Phone: Start: 10-03-2015 End: 10-05-2015 Lipid panel [AGGREGATE] Jose Francisco Patel MD Work Phone: Start: 09-28-2015 End: 09-28-2015 SARA Patel MD Work Phone: Start: 09-28-2015 End: 09-28-2015 Follow Up Appt 6 months Jose Francisco Patel MD Work Phone: Start: 09-28-2015 End: 09-28-2015 SARA Patel MD Work Phone: Start: 09-28-2015 End: 09-28-2015 Follow Up Appt 6 months Jose Francisco Patel MD Work Phone: Start: 09-12-2015 End: 09-12-2015 Follow Up BP Check Adrianne Eubanks PA-C Work Phone: Start: 09-12-2015 End: 09-12-2015 Follow Up BP Check Adrianne Eubanks PA-C Work Phone: Start: 09-05-2015 End: 09-05-2015 Follow Up BP Check Adrianne Eubanks PA-C Work Phone: Start: 09-05-2015 End: 09-05-2015 Follow Up BP Check Adrianne Eubanks PA-C Work Phone: Start: 07-30-2015 End: 07-30-2015 SARA Patel MD Work Phone: Start: 07-30-2015 End: 08-22-2015 Echocardiography Jose Francisco Patel MD Work Phone: Start: 07-30-2015 End: 07-30-2015 Follow Up Appt 2 months Jose Francisco Patel MD Work Phone: Start: 07-30-2015 End: 07-30-2015 Follow Up BP Check Jose Francisco Patel MD Work Phone: Start: 07-30-2015 End: 07-30-2015 SARA Patel MD Work Phone: Start: 07-30-2015 End: 08-22-2015 Echocardiography Jose Francisco Patel MD Work Phone: Start: 07-30-2015 End: 07-30-2015 Follow Up Appt 2 months Jose Francisco Patel MD Work Phone: Start: 07-30-2015 End: 07-30-2015 Follow Up BP Check Jose Francisco Patel MD Work Phone: Start: 02-09-2015 End: 02-09-2015 Follow Up BP Check Adrianne Eubanks PA-C Work Phone: Start: 02-09-2015 End: 02-09-2015 Follow Up BP Check LIN Hardin-C Work Phone: Start: 02-05-2015 End: 02-12-2015 *BMP LIN Hardin-Henrik Work Phone: Start: 02-05-2015 End: 02-12-2015 *BMP LIN Hardin-C Work Phone: Start: 01-15-2015 End: 01-15-2015 SARA Patel MD Work Phone: Start: 01-15-2015 End: 01-15-2015 Follow Up Appt 6 months Jose Francisco Patel MD Work Phone: Start: 01-15-2015 End: 01-15-2015 Follow Up BP Check Jose Francisco Patel MD Work Phone: Start: 01-15-2015 End: 01-15-2015 SARA Patel MD Work Phone: Start: 01-15-2015 End: 01-15-2015 Follow Up Appt 6 months Jose Francisco Patel MD Work Phone: Start: 01-15-2015 End: 01-15-2015 Follow Up BP Check Jose Francisco Patel MD Work Phone: Start: 12-26-2013 End: 12-26-2013 *BMP Jose Francisco Patel MD Work Phone: Start: 12-26-2013 End: 12-26-2013 SARA Patel MD Work Phone: Start: 12-26-2013 End: 12-26-2013 Follow Up Appt 1 year Abe Braswell Work Phone: Start: 12-26-2013 End: 12-26-2013 Follow Up BP Check Jose Francisco Patel MD Work Phone: Start: 12-26-2013 End: 12-26-2013 Microalbumin [Mass/volume] in Urine Jose Francisco Patel MD Work Phone: Start: 12-26-2013 End: 12-26-2013 *BMP Jose Francisco Patel MD Work Phone: Start: 12-26-2013 End: 12-26-2013 SARA Patel MD Work Phone: Start: 12-26-2013 End: 12-26-2013 Follow Up Appt 1 year Abe Braswell Work Phone: Start: 12-26-2013 End: 12-26-2013 Follow Up BP Check Jose Francisco Patel MD Work Phone: Start: 12-26-2013 End: 12-26-2013 Urine, microalbumin Jose Francisco Patel MD Work Phone: Start: 12-13-2012 End: 12-19-2013 SARA Patel MD Work Phone: Start: 12-13-2012 End: 11-24-2013 Echocardiography Jose Francisco Patel MD Work Phone: Start: 12-13-2012 End: 12-13-2012 Follow Up Appt 1 year Abe Braswell Work Phone: Start: 12-13-2012 End: 12-19-2013 SARA Patel MD Work Phone: Start: 12-13-2012 End: 11-24-2013 Echocardiography Jose Francisco Patel MD Work Phone: Start: 12-13-2012 End: 12-13-2012 Follow Up Appt 1 year Abe Braswell Work Phone: Plan of Treatment Date Care Activity Detail Author Start: 11-03-2025 DIABETES SCREEN DIABETES SCREEN [facility] Start: 11-07-2022 Influenza vaccination INFLUENZA (#1) [facility] Start: 04-22-2022 COVID-19 VACCINE (7 - Moderna series) COVID-19 VACCINE (7 - Moderna series) [facility] Start: 03-09-2022 ADVANCE DIRECTIVE DISCUSSION ADVANCE DIRECTIVE DISCUSSION [facility] Start: 01-18-2021 Creatinine measurement Creatinine monitoring [facility] Start: 01-18-2021 Potassium monitoring Potassium monitoring [facility] Start: 11-07-2020 Influenza vaccination Flu vaccine (#1) [facility] Start: 03-14-2020 DTaP/Tdap/Td vaccine (2 - Tdap) DTaP/Tdap/Td vaccine (2 - Tdap) [facility] Start: 11-08-2019 Influenza vaccination Flu vaccine (#1) [place], [place] Start: 07-20-2019 Creatinine measurement Creatinine monitoring [facility], [place] Start: 07-20-2019 Potassium monitoring Potassium monitoring [place], [place] Start: 07-15-2017 End: 01-16-2017 *Hepatic Function Panel *Hepatic Function Panel [facility] Work Phone: Start: 07-15-2017 End: 01-16-2017 Lipid panel [AGGREGATE] *Lipid Profile CC PCP [facility] Work Phone: Start: 06-15-2017 End: 06-15-2017 Appointment Appointment [facility] Work Phone: Start: 11-28-2016 End: 01-15-2017 *Hepatic Function Panel *Hepatic Function Panel [facility] Work Phone: Start: 11-28-2016 End: 01-15-2017 Lipid panel [AGGREGATE] *Lipid Profile CC PCP [facility] Work Phone: Start: 11-28-2016 End: 05-28-2016 *Hepatic Function Panel *Hepatic Function Panel [facility] Work Phone: Start: 11-28-2016 End: 05-28-2016 Lipid panel [AGGREGATE] *Lipid Profile CC PCP [facility] Work Phone: Start: 10-31-2016 End: 10-31-2016 *BMP *BMP [facility] Work Phone: Start: 10-31-2016 End: 10-31-2016 Appointment Appointment [facility] Work Phone: Start: 10-31-2016 End: 10-31-2016 *BMP *BMP [facility] Work Phone: Start: 10-16-2016 End: 10-16-2016 Appointment Appointment [facility] Work Phone: Start: 10-16-2016 End: 10-16-2016 SARA RUIZ [facility] Work Phone: Start: 10-16-2016 End: 10-16-2016 Follow Up Appt 6 months Follow Up Appt 6 months [facility] Work Phone: Start: 10-16-2016 End: 10-16-2016 Follow Up BP Check Follow Up BP Check [facility] Work Phone: Start: 10-16-2016 End: 10-16-2016 DJN DJN [facility] Work Phone: Start: 10-16-2016 End: 10-16-2016 Follow Up Appt 6 months Follow Up Appt 6 months [facility] Work Phone: Start: 10-16-2016 End: 10-16-2016 Follow Up BP Check Follow Up BP Check [facility] Work Phone: Start: 04-07-2016 End: 05-28-2016 *Hepatic Function Panel *Hepatic Function Panel [facility] Work Phone: Start: 04-07-2016 End: 05-28-2016 Lipid panel [AGGREGATE] *Lipid Profile CC PCP [facility] Work Phone: Start: 04-07-2016 End: 05-28-2016 *Hepatic Function Panel *Hepatic Function Panel [facility] Work Phone: Start: 04-07-2016 End: 05-28-2016 Lipid panel [AGGREGATE] *Lipid Profile CC PCP [facility] Work Phone: Start: 04-04-2016 End: 04-04-2016 SARA LUGON [facility] Work Phone: Start: 04-04-2016 End: 04-04-2016 Follow Up Appt 6 months Follow Up Appt 6 months [facility] Work Phone: Start: 04-04-2016 End: 04-04-2016 SARA RUIZ [facility] Work Phone: Start: 04-04-2016 End: 04-04-2016 Follow Up Appt 6 months Follow Up Appt 6 months [facility] Work Phone: Start: 11-15-2015 End: 11-15-2015 *BMP *BMP [facility] Work Phone: Start: 11-15-2015 End: 11-15-2015 *BMP *BMP [facility] Work Phone: Start: 10-03-2015 End: 10-05-2015 *Hepatic Function Panel *Hepatic Function Panel [facility] Work Phone: Start: 10-03-2015 End: 10-05-2015 Lipid panel [AGGREGATE] *Lipid Profile CC PCP [facility] Work Phone: Start: 10-03-2015 End: 10-05-2015 *Hepatic Function Panel *Hepatic Function Panel [facility] Work Phone: Start: 10-03-2015 End: 10-05-2015 Lipid panel [AGGREGATE] *Lipid Profile CC PCP [facility] Work Phone: Start: 09-28-2015 End: 09-28-2015 SARA LUGON [facility] Work Phone: Start: 09-28-2015 End: 09-28-2015 Follow Up Appt 6 months Follow Up Appt 6 months [facility] Work Phone: Start: 09-28-2015 End: 09-28-2015 DJN DJN [facility] Work Phone: Start: 09-28-2015 End: 09-28-2015 Follow Up Appt 6 months Follow Up Appt 6 months [facility] Work Phone: Start: 09-12-2015 End: 09-12-2015 Follow Up BP Check Follow Up BP Check [facility] Work Phone: Start: 09-12-2015 End: 09-12-2015 Follow Up BP Check Follow Up BP Check [facility] Work Phone: Start: 09-05-2015 End: 09-05-2015 Follow Up BP Check Follow Up BP Check [facility] Work Phone: Start: 09-05-2015 End: 09-05-2015 Follow Up BP Check Follow Up BP Check [facility] Work Phone: Start: 07-30-2015 End: 07-30-2015 DJNora LUGON [facility] Work Phone: Start: 07-30-2015 End: 07-30-2015 Echocardiography Echocardiogram (complete) [facility] Work Phone: Start: 07-30-2015 End: 07-30-2015 Follow Up Appt 2 months Follow Up Appt 2 months [facility] Work Phone: Start: 07-30-2015 End: 07-30-2015 Follow Up BP Check Follow Up BP Check [facility] Work Phone: Start: 07-30-2015 End: 07-30-2015 SARA RUIZ [facility] Work Phone: Start: 07-30-2015 End: 07-30-2015 Echocardiography Echocardiogram (complete) [facility] Work Phone: Start: 07-30-2015 End: 07-30-2015 Follow Up Appt 2 months Follow Up Appt 2 months [facility] Work Phone: Start: 07-30-2015 End: 07-30-2015 Follow Up BP Check Follow Up BP Check [facility] Work Phone: Start: 02-09-2015 End: 02-09-2015 Follow Up BP Check Follow Up BP Check [facility] Work Phone: Start: 02-09-2015 End: 02-09-2015 Follow Up BP Check Follow Up BP Check [facility] Work Phone: Start: 02-05-2015 End: 02-12-2015 *BMP *BMP [facility] Work Phone: Start: 02-05-2015 End: 02-12-2015 *BMP *BMP [facility] Work Phone: Start: 01-15-2015 End: 01-15-2015 SARA RUIZ [facility] Work Phone: Start: 01-15-2015 End: 01-15-2015 Follow Up Appt 6 months Follow Up Appt 6 months [facility] Work Phone: Start: 01-15-2015 End: 01-15-2015 Follow Up BP Check Follow Up BP Check [facility] Work Phone: Start: 01-15-2015 End: 01-15-2015 SARA LUGON [facility] Work Phone: Start: 01-15-2015 End: 01-15-2015 Follow Up Appt 6 months Follow Up Appt 6 months [facility] Work Phone: Start: 01-15-2015 End: 01-15-2015 Follow Up BP Check Follow Up BP Check [facility] Work Phone: Start: 12-26-2013 End: 12-26-2013 *BMP *BMP [facility] Work Phone: Start: 12-26-2013 End: 12-26-2013 DJN DJN [facility] Work Phone: Start: 12-26-2013 End: 12-26-2013 Follow Up Appt 1 year Follow Up Appt 1 year [facility] Work Phone: Start: 12-26-2013 End: 12-26-2013 Follow Up BP Check Follow Up BP Check [facility] Work Phone: Start: 12-26-2013 End: 12-26-2013 Urine, microalbumin *Urine, Microalbumin [facility] Work Phone: Start: 12-26-2013 End: 12-26-2013 *BMP *BMP [facility] Work Phone: Start: 12-26-2013 End: 12-26-2013 DJN DJN [facility] Work Phone: Start: 12-26-2013 End: 12-26-2013 Follow Up Appt 1 year Follow Up Appt 1 year [facility] Work Phone: Start: 12-26-2013 End: 12-26-2013 Follow Up BP Check Follow Up BP Check [facility] Work Phone: Start: 12-26-2013 End: 12-26-2013 Urine, microalbumin *Urine, Microalbumin [facility] Work Phone: Start: 12-13-2012 End: 12-19-2013 SARA DJN [facility] Work Phone: Start: 12-13-2012 End: 09-01-2013 Echocardiography Echocardiogram (complete) [facility] Work Phone: Start: 12-13-2012 End: 12-13-2012 Follow Up Appt 1 year Follow Up Appt 1 year [facility] Work Phone: Start: 12-13-2012 End: 12-19-2013 SARA RUIZ [facility] Work Phone: Start: 12-13-2012 End: 09-01-2013 Echocardiography Echocardiogram (complete) [facility] Work Phone: Start: 12-13-2012 End: 12-13-2012 Follow Up Appt 1 year Follow Up Appt 1 year [facility] Work Phone: Start: 2002 PNEUMOCOCCAL: 65+ (1 - PCV) PNEUMOCOCCAL: 65+ (1 - PCV) [facility] Start: 1987 Shingles Vaccine (1 of 2) Shingles Vaccine (1 of 2) [facility] Start: 1987 SHINGRIX VACCINE (1 of 2) SHINGRIX VACCINE (1 of 2) [facility] Start: 1956 Urine microalbumin profile DTAP,TDAP,TD (1 - Tdap) [facility] Start: 1949 Depression Screen Depression Screen [facility] Start: 1942 COVID-19 Vaccine (1) COVID-19 Vaccine (1) [facility] Patient Education [facility] Work Phone: Immunizations Immunization Date Immunization Notes Care Provider Fa [email or web address] 03-14-2010 diphtheria, tetanus toxoids and acellular pertussis vaccine Lico Lazaro [place], [place] 05-23-2009 pneumococcal polysac charide vaccine, 23 valent Lico Lazaro [facility] 04-11-2005 pneumococcal polysac charide vaccine, 23 valent Lico Lazaro [place] Payers Date Payer Category Payer Medicare [employer] MEDICARE [employer] MEDICARE PPO [id number] 2021-Present [phone] [address] [address] [place] [address] PPO 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) [place], [place] Start: 1935 Sex Assigned At Not on file [place] Start: 12-29-2016 Tobacco smoking stat [facility] Ex-smoker [facility] History of tobacco use Current smoker [facility] History of tobacco use Pipe Smoker [facility] Start: 03-22-2017 Alcohol intake Current drinke r of alcohol (finding) [facility] Start: 02-04-2020 End: 11-02-2022 History of Social function [facility] Work Phone: Start: 02-04-2020 End: 11-02-2022 Tobacco use panel [facility] Work Phone: How hard is it for y ou to pay for the very basics like food, housing, medical care, and heating Not hard at all [facility] Work Phone: (I/We) worried roxann er (my/our) food would run out before (I/we) got money to buy more. Never true [facility] Work Phone: In the past 12 month s, was there a time when you were not able to pay the mortgage or rent on time? No [facility] Work Phone: Start: 12-29-2016 Alcohol Comment couple drinks weekly [facility] Clinical Notes 11-02-2022 to 11-14-2022 Telephone Encounter - Abe Vásquez RN - 11/14/2022 12:09 PM EDTTelephone Encounter - Sheri Ojeda RN - 11/06/2022 9:24 AM EDT Note Date & Type Note Facility 11-14-2022 Miscellaneous Notes Formattin g of this note might be different from the original. The patient was discharged from [facility] on 11/05/22 with an order to follow up with the [facility]. However, at the time of discharge the patient was transferred to a skilled facility. A letter was sent to the patient to contact the [facility] upon discharge from the skilled facility. documented in this encounter [facility] 11-06-2022 Miscellaneous Notes Formattin g of this note might be different from the original. Patient was discharged from [facility] on 11/05/22 with an order to schedule with the [facility]. However, the patient was then [facility]. A letter will be mailed to the patient asking them to contact the Clinic upon discharge from the facility. documented in this encounter [facility] 11-04-2022 Note HNO ID: [id number] Author: Desiree Menjivar RN Service: Care Management Author Type: Registered Nurse Type: Care Mgt Progress Note Filed: 11/04/2022 4:28 PM Note Text: CARE MANAGEMENT DISCHARGE NOTE SERVICE DATE: November 04, 2022 SERVICE TIME: 4:27 PM Admission Date: 11/01/2022 LOS: 0 days Discharge Arrangement Discharge Arrangement: Senior Living Facility Was an expedited discharge program used?: No Services Arranged Medical Services: Other: See Comment (SNF) Provider Name: [facility] Caregiver Assessment Caregiver is ready, willing and able to meet the patient's needs as recommended by the inter-professional team: Yes Name of Caregiver: SNF Transportation Arrangements Transportation Arrangements: Ambulance Transportation Agency and Phone #:: [facility] ( [facility] ) [phone] / [phone] Date of Trip: 11/04/22 Time of Trip: 1999 Type of Service: BLS Non-emergency Is Patient Medicaid Pending?: No Was transportation financial coverage discussed with family?: Patient;Family Customer Service Cashier Location: [facility] Destination: [facility] Financial Care Management Responsibility: None Handoff Communication: Handoff to: Primary Care Physician Primary Care Physician Name/Phone: Dr. Lazaro [phone] Discharge Information Row Name ED to Hosp-Admission (Current) from 11/01/[address] Senior Living Facility Agency [facility] Additional Information: Patient discharged to [facility]. Cot transport provided through [facility] at 2000. Patient, family, RN, and Facility aware of transport time. RN to call report to [phone]. SIGNATURE: Desiree Menjivar RN PATIENT NAME: Angel Thompson DATE: November 04, 2022 TIME: 4:27 PM CONTACT #: [phone] [facility] 11-04-2022 Note HNO ID: [id number] Author: Ana Jamison DO Service: Hospital Medicine Author Type: Physician Type: Progress Notes Filed: 11/04/2022 4:09 PM Note Text: INPATIENT PROGRESS NOTE SERVICE DATE: 11/04/2022 SERVICE TIME: Subjective CHIEF COMPLAINT: f/u medical issues listed below INTERVAL HPI: AANDO to p/p/yr, mo Current Facility-Administered Medications Medication Dose Route Frequency carvedilol 25 mg tab(s) (COREG) 25 mg ORAL BID simvastatin 20 mg tab(s) (ZOCOR) 20 mg ORAL AT BEDTIME guanFACINE 2 mg tab(s) (TENEX) 2 mg ORAL DAILY tamsulosin 0.4 mg cap(s) (FLOMAX) 0.4 mg ORAL DAILY furosemide 40 mg tab(s) (LASIX) 40 mg ORAL BID 9a/5p apixaban 5 mg tab(s) (ELIQUIS) 5 mg ORAL BID buPROPion XL 150 mg tab(s) (WELLBUTRIN XL) 150 mg ORAL DAILY empagliflozin 10 mg tab(s) (JARDIANCE) 10 mg ORAL DAILY mirtazapine 7.5 mg (REMERON) 7.5 mg ORAL AT BEDTIME sertraline 100 mg tab(s) (ZOLOFT) 100 mg ORAL DAILY spironolactone 12.5 mg tab(s) (ALDACTONE) 12.5 mg ORAL DAILY NaCl 0.9% iv flush bag 20 mL INTRAVENOUS PRN lidocaine 4 % 1 Patch (SALONPAS) 1 Patch TRANSDERMAL DAILY And lidocaine patch - REMOVE OTHER AT BEDTIME And lidocaine - VERIFY PATCH OTHER q 8 H acetaminophen 1,000 mg tab(s) (TYLENOL) 1,000 mg ORAL q 8 H traMADol 50 mg tab(s) (ULTRAM) 50 mg ORAL q 6 H PRN melatonin 3 mg tab(s) 3 mg ORAL AT BEDTIME PRN Objective PHYSICAL EXAM: BP 156/96 Pulse 85 Temp (Src) 97.9 (Oral) Resp 18 Ht 5' 10 (1.78m) Wt 189 lb 2.5 oz (85.8kg) SpO2 95% BMI 27.14 kg/(m2). O2 Therapy: Nasal Cannula, Liters: 2 Physical Exam Performed GENERAL: Alert, no distress, cooperative- HEAD/SINUSES: 4 tato scalp, occipital- EARS: External ears normal- NOSE: Nares normal. Septum midline.- OROPHARYNX: Lips normal.- LUNGS: Lungs clear to auscultation, Good diaphragmatic excursion- CARDIAC: Normal S1 and S2; no rubs, murmurs, or gallops- ABDOMEN: Abdomen soft- EXTREMITIES: no swelling- DATA: Diagnostic tests reviewed for today's visit: Most recent labs and imaging results. Assessment/Plan Chart revd- 87 yo M presented with scalp lac after fall. He went to go stand on his scale this morning to weight himself and he lost his balance and feel straight backwards striking the back of his head Imaging performed: CT brain wo IV con, CT C spine, T spine, L spine CT chest, abd/pel XR forearm, shoulder Lac repair in ED. Scalp. Occipital. 4 tato # hx a fib- On eliquis-consider discontinue due to risk of bleed/falls # Decreased Activity Tolerance, Functional Mobility Impairment, Balance Impaired, Decreased Strength PT/OT rec SNF Problem List Generalized weakness (POA: Yes) Fall (POA: Status not on file) Scalp laceration (POA: Status not on file) HF (heart failure) (HCC) (POA: Status not on file) HTN (hypertension) (POA: Status not on file) HLD (hyperlipidemia) (POA: Status not on file) BPH (benign prostatic hyperplasia) (POA: Status not on file) Chronic respiratory failure (HCC) (POA: Status not on file) MDD (major depressive disorder) (POA: Status not on file) Medication and Non-Pharmacologic VTE Prophylaxis/Anticoagulants Anticoagulant AND Antiplatelet Medications (From admission, onward) Start Dose Route Frequency Last Action Ordered Stop 11/01/22 2100 apixaban 5 mg tab(s) (ELIQUIS) (apixaban tab(s) (ELIQUIS)) 5 mg ORAL 2 TIMES DAILY Given, 11/04 82811/01/22 1629 -- 11/01/22 1630 vte current anticoag therapy (va,oh) 11/01/22 1630 activity - mobilize patient (va,ia) VTE Prophylaxis: SIGNATURE: Ana Jamison DO PATIENT NAME: Angel Thompson DATE: November 04, 2022 TIME: PAGER: [facility] 11-04-2022 Note HNO ID: [id number] Author: Piedad Wang Service: Care Management Author Type: ? Type: Care Mgt Progress Note Filed: 11/04/2022 1:31 PM Note Text: [facility] PRECERT NOTE [employer] MEDICARE PPO approved Senior Living Facility for [facility] . Precert approved through 11/06. SIGNATURE: Piedad Wang DATE: November 04, 2022 TIME: 1:31 PM [facility] 11-03-2022 Note HNO ID: [id number] Author: Ana Jamison DO Service: Hospital Medicine Author Type: Physician Type: Progress Notes Filed: 11/04/2022 8:33 AM Note Text: INPATIENT PROGRESS NOTE SERVICE DATE: 11/03/2022 SERVICE TIME: Subjective CHIEF COMPLAINT: f/u medical issues listed below INTERVAL HPI: no new issues Current Facility-Administered Medications Medication Dose Route Frequency carvedilol 25 mg tab(s) (COREG) 25 mg ORAL BID simvastatin 20 mg tab(s) (ZOCOR) 20 mg ORAL AT BEDTIME guanFACINE 2 mg tab(s) (TENEX) 2 mg ORAL DAILY tamsulosin 0.4 mg cap(s) (FLOMAX) 0.4 mg ORAL DAILY furosemide 40 mg tab(s) (LASIX) 40 mg ORAL BID 9a/5p apixaban 5 mg tab(s) (ELIQUIS) 5 mg ORAL BID buPROPion XL 150 mg tab(s) (WELLBUTRIN XL) 150 mg ORAL DAILY empagliflozin 10 mg tab(s) (JARDIANCE) 10 mg ORAL DAILY mirtazapine 7.5 mg (REMERON) 7.5 mg ORAL AT BEDTIME sertraline 100 mg tab(s) (ZOLOFT) 100 mg ORAL DAILY spironolactone 12.5 mg tab(s) (ALDACTONE) 12.5 mg ORAL DAILY NaCl 0.9% iv flush bag 20 mL INTRAVENOUS PRN lidocaine 4 % 1 Patch (SALONPAS) 1 Patch TRANSDERMAL DAILY And lidocaine patch - REMOVE OTHER AT BEDTIME And lidocaine - VERIFY PATCH OTHER q 8 H acetaminophen 1,000 mg tab(s) (TYLENOL) 1,000 mg ORAL q 8 H traMADol 50 mg tab(s) (ULTRAM) 50 mg ORAL q 6 H PRN melatonin 3 mg tab(s) 3 mg ORAL AT BEDTIME PRN Objective PHYSICAL EXAM: BP 118/65 Pulse 55 Temp (Src) 97.3 (Axillary) Resp 19 Ht 5' 10 (1.78m) Wt 189 lb 2.5 oz (85.8kg) SpO2 98% BMI 27.14 kg/(m2). O2 Therapy: Nasal Cannula, Liters: 2 Physical Exam Performed GENERAL: Alert, no distress, cooperative HEAD/SINUSES: 4 tato scalp, occipital EARS: External ears normal NOSE: Nares normal. Septum midline. OROPHARYNX: Lips normal. LUNGS: Lungs clear to auscultation, Good diaphragmatic excursion CARDIAC: Normal S1 and S2; no rubs, murmurs, or gallops ABDOMEN: Abdomen soft EXTREMITIES: no swelling DATA: Diagnostic tests reviewed for today's visit: Most recent labs and imaging results. Assessment/Plan Chart revd- 87 yo M presented with scalp lac after fall Lac repair in ED. Scalp. Occipital. 4 tato # Decreased Activity Tolerance, Functional Mobility Impairment, Balance Impaired, Decreased Strength PT/OT rec SNF Problem List Generalized weakness (POA: Yes) Fall (POA: Status not on file) Scalp laceration (POA: Status not on file) HF (heart failure) (HCC) (POA: Status not on file) HTN (hypertension) (POA: Status not on file) HLD (hyperlipidemia) (POA: Status not on file) BPH (benign prostatic hyperplasia) (POA: Status not on file) Chronic respiratory failure (HCC) (POA: Status not on file) MDD (major depressive disorder) (POA: Status not on file) Medication and Non-Pharmacologic VTE Prophylaxis/Anticoagulants Anticoagulant AND Antiplatelet Medications (From admission, onward) Start Dose Route Frequency Last Action Ordered Stop 11/01/22 2100 apixaban 5 mg tab(s) (ELIQUIS) (apixaban tab(s) (ELIQUIS)) 5 mg ORAL 2 TIMES DAILY Given, 11/03 0914 11/01/22 1629 -- 11/01/22 1630 vte current anticoag therapy (fl,oh) 11/01/22 1630 activity - mobilize patient (fl,oh) VTE Prophylaxis: SIGNATURE: Ana Jamison DO PATIENT NAME: Angel Thompson DATE: November 03, 2022 TIME: 5:34 PM PAGER: [facility] 11-03-2022 Note HNO ID: [id number] Author: Desiree Menjivar RN Service: Care Management Author Type: Registered Nurse Type: Care Mgt Progress Note Filed: 11/03/2022 1:04 PM Note Text: CARE MANAGEMENT PROGRESS NOTE SERVICE DATE: 11/03/2022 SERVICE TIME: 1:03 PM LOS: 0 days Post-Acute Discharge Planning Patient Goal(s): General wellness Discharge Planning Participant(s): Patient Anticipated # of Days Until Discharge: 1 Transport at Discharge: Transportation Arrangements: To Be Determined Needs Prior to Discharge: Needs Prior to Discharge: To Be Determined, Accepting Facility, Precertification, Discharge Transportation Post-Acute Discharge Plan: [facility] is reviewing patient's chart. If they are unable to accept patient will need additional SNF choices. Patient will need precert, a PASRR, and cot transport at ID. Will to continue to follow for transitional care planning. SIGNATURE: Desiree Menjivar RN PATIENT NAME: Angel Thompson DATE: November 03, 2022 TIME: 1:03 PM PAGER/CONTACT #: [phone] [facility] 11-03-2022 Note HNO ID: [id number] Author: Jessica Rutledge RPh Service: Pharmacy Author Type: Pharmacist Type: Plan of Care Filed: 11/03/2022 11:44 AM Note Text: PHARMACY MEDICATION REVIEW Patient Name: Angel Thompson : 1935 The following medications were updated within the LEGAL ARBITRATOR medication list: Medications ADDED to LEGAL ARBITRATOR medication list Eliquis 5 mg BID Bupropion XL 150 mg daily Jardiance 10 mg daily Sertraline 100 mg daily Spironolactone 25 mg - 12.5 mg once daily Medications CHANGED on LEGAL ARBITRATOR medication list Furosemide 40 mg daily to twice daily Medications REMOVED from LEGAL ARBITRATOR medication list Prevident Prednisone Tramadol Viagra Terazosin Clonidine Hydrochlorothiazide The below information represents the best possible medication history: Yes Medication history completed by: Pharmacist: Jessica Rutledge RPh Source of history: Pharmacy records: [facility] and RN spoke with patient Medication nonadherence identified: Patient Preference Reconciliation completed: Yes Completed by: Jessica Rutledge Rph All LEGAL ARBITRATOR medications addressed by LIP - will recommend restart of losartan Patient interested in Bedside Delivery Services or using OP Pharmacy at discharge? No Preferred outpatient pharmacy: e- [facility] (Now [facility]) [place] [address] [address] [facility] [phone] e- [id number] [place] [address] - [address] [facility] [phone] [id number] Allergies: No Known Allergies Prior to Admission Medications Prescriptions Last Dose Informant Patient Reported? Taking? apixaban (ELIQUIS) 5 mg tab(s) Yes Yes Sig: Take 5 mg by mouth twice daily. buPROPion XL (WELLBUTRIN XL) 150 mg 24 hr tablet Yes Yes Sig: Take 150 mg by mouth once daily. carvedilol (COREG) 25 mg tablet Yes Yes Sig: Take 25 mg by mouth twice daily. empagliflozin (JARDIANCE) 10 mg tablet Yes Yes Sig: Take 10 mg by mouth daily with breakfast. furosemide (LASIX) 40 mg tablet Yes Yes Sig: Take 40 mg by mouth twice daily. guanFACINE (TENEX) 2 mg tablet Yes Yes Sig: Take 2 mg by mouth once daily. hydrALAZINE (APRESOLINE) 25 mg tablet Not Taking Yes No Sig: Take 25 mg by mouth four times daily. Patient not taking: Reported on 11/01/2022 losartan (COZAAR) 50 mg tablet Not Taking Yes No Sig: Take 50 mg by mouth twice daily. Patient not taking: Reported on 11/01/2022 mirtazapine (REMERON) 15 mg tablet Yes Yes Sig: Take 15 mg by mouth daily at bedtime. potassium chloride ER (K-DUR, KLOR-CON) 10 mEq tablet Not Taking Yes No Sig: Take 10 mEq by mouth once daily. Patient not taking: Reported on 11/01/2022 sertraline (ZOLOFT) 100 mg tablet Yes Yes Sig: Take 100 mg by mouth once daily. simvastatin (ZOCOR) 20 mg tablet Yes Yes Sig: Take 20 mg by mouth daily at bedtime. spironolactone (ALDACTONE) 25 mg tablet Yes Yes Sig: Take 12.5 mg by mouth once daily. tamsulosin ER (FLOMAX) 0.4 mg cp24 Yes Yes Sig: Take 0.4 mg by mouth once daily. Facility-Administered Medications: None Jessica Georgeboston [facility] 11/03/2022 [facility] 11-02-2022 Note HNO ID: [id number] Author: Reema Clarke MD Service: Hospital Medicine Author Type: Physician Type: Progress Notes Filed: 11/02/2022 10:59 AM Note Text: INPATIENT HOSPITAL MEDICINE PROGRESS NOTE Subjective Feeling well this morning. Lives with . Patient denies sob, fever, headache, N/V, diarrhea, or dysuria. Objective PHYSICAL EXAM: BP 158/88 Pulse 88 Temp (Src) 97.9 (Temporal) Resp 18 Ht 5' 10 (1.78m) Wt 197 lb 5 oz (89.5kg) SpO2 98% BMI 28.31 kg/(m2). O2 Therapy: Nasal Cannula, Liters: 2 General: No acute distress Pulm: CTAB CV: Irregularly irregular, S1/2 audible, systolic ejection murmur over aortic area. Abd: Soft, non-tender, non-distended. BS+ Ext: No edema. Atraumatic Neuro: AANDO x 2. DATA: LABORATORY TESTS: CBC: Recent Labs 11/02/22 0425 11/01/22 1023 WBC 5.26 4.53 HB 13.2 13.6 PLT 146* 146* MCV 103.3* 100.2* NEUTP -- 55.1 ABSNEUT -- 2.49 LYMPHP -- 31.1 CHEM: Recent Labs 11/02/22 0425 11/01/22 1023 NA 144 142 K 3.5* 3.8 CA 8.9 9.2 MG 2.1 -- ANION 10 9 CHLOR 99 98 CO2 35* 35* GLUC 111* 96 BUN CREAT 1.20 1.29* HEPATIC: Recent Labs 11/01/22 1023 ALT 16 AST 24 TBILI 0.7 ALKPHOS 113 ALB 3.9 TPROT 6.5 URINALYSIS:No results for input(s): SPGR , UBACTERIA , LEUKEST , SSA , UWBC , URBC , UHB , UPROT , UGLUC , UKET in the last 168 hours. Invalid input(s): NITR COAG: Recent Labs 11/01/22 1023 INR 1.1 CARDIAC: No results for input(s): CKMB , CKMBP , TROPT , PBNP in the last 168 hours. Imaging: XR SHOULDER GENERAL 3V OR MORE AP/TRUE AP/OTHER LEFT Result Date: 11/01/2022 IMPRESSION: No acute osseous injury is seen CT THORACIC/LUMBAR SPINE W RECON DATA Result Date: 11/01/2022 IMPRESSION: No acute osseous injury is seen of the thoracic or lumbar spine. Degenerative changes as detailed above. Anatomic Thoracic/Lumbar Variant: None. L4-5 is considered the level of the iliac crest and assume there are 5 lumbar-type vertebrae CT chest/ABD/PEL W IVCON Result Date: 11/01/2022 IMPRESSION: No acute intra-abdominal injury is seen. Mildly prominent retroperitoneal lymph nodes which are nonspecific. These may be reactive. Comparison to any prior outside imaging may be helpful. CT BRAIN/CERVICAL WO IVCON Result Date: 11/01/2022 IMPRESSION: Mild microvascular ischemic changes. Otherwise normal brain. No evidence of acute intracranial processes. No evidence of acute cervical spine fracture. Degenerative changes as discussed above. Anatomic Variant: None. Assume 7 cervical vertebrae with counting from the craniocervical junction. Blood and Urine Culture: Positive Micro-30 Days No results found for the last 720 hours. Problem list Generalized weakness (POA: Yes) Fall (POA: Status not on file) Scalp laceration (POA: Status not on file) HF (heart failure) (HCC) (POA: Status not on file) HTN (hypertension) (POA: Status not on file) HLD (hyperlipidemia) (POA: Status not on file) BPH (benign prostatic hyperplasia) (POA: Status not on file) Chronic respiratory failure (HCC) (POA: Status not on file) MDD (major depressive disorder) (POA: Status not on file) Assessment and plan: Angel Thompson is a 87 year old with PMH of CHF, PAF, HTN, HLD, BPH, MDD, chronic hypoxemic respiratory failure (on 2 L O2), and MDD Presented with fall. He went to stand on scale and he lost balance. No LOC. #Failure to thrive with progressive weakness due to deconditioning due to aging and comorbidities #Fall - CT trauma work-up negative - Family where in the process of getting him to SNF - PT/OT #Scalp laceration. Stable in ED. Monitor #PAF. Rate controlled - Continue Coreg 25 mg p.o. twice daily and apixaban 5 mg p.o. twice daily #HLD. Continue simvastatin 20 mg p.o. daily #BPH. Controlled. Continue tamsulosin 0.4 mg p.o. daily #CHF. Euvolemic. Continue Lasix 40 mg p.o. twice daily, empagliflozin 10 mg p.o. daily #HTN. Continue spironolactone 12.5 mg p.o. daily #MDD. Continue sertraline 100 mg p.o. daily, Wellbutrin 150 mg p.o. daily, mirtazapine 7.5 mg p.o. daily - Check EKG for QTc #Hypokalemia. Replace orally. Monitor Plan of care discussed with: Provider, RN, Patient. [employer]: VTE Prophylaxis: Apixaban Disposition: PT/OT pending Functional Status Prior to Admit: Lives with . Code status: Full code by default Disclaimer This dictation was created using voice recognition software. Phonetic and/or minor grammatical errors may exist. SIGNATURE: Reema Clarke MD PATIENT NAME: Angel Thompson DATE: 11/02/2022 TIME: 10:49 AM [facility] 11-02-2022 Note HNO ID: [id number] Author: Yuval Stokes LSW Service: Care Management Author Type: Art Librarian Type: Care Mgt Initial Assessment Filed: 11/02/2022 12:35 PM Note Text: CARE MANAGEMENT: ASSESSMENT AND DISCHARGE PLAN SERVICE DATE: November 02, 2022 SERVICE TIME: 10:30 AM PCP: Lico Lazaro MD Primary Contact: Extended Emergency Contact Information Primary Emergency Contact: Kacey Heredia Mobile Relation: Daughter Secondary Emergency Contact: Disha Aguilera Mobile Relation: Daughter Admission Status: Observation Insurance Provider: [employer] MEDICARE PPO Discharge Planning requested by: Attending Provider Potential Transition Plans Senior Living Facility/Intermediate Care Facility Advance Directives Current Advance Directive: None Senior Web Services Developer Attempted to Assist with AD Completion: Yes Action: Education Provided Current Living Arrangements and Support Lives with: Spouse/significant other Type of Residence: Private Residence (House) Does the patient have to climb stairs at home?: Yes;stairs outside the home Support: Children, Other: See Comment private duty How do you manage to accomplish the following: Independent: Ambulation;Bathe/Shower;Dress; Meals/Meal Prep;Going to the bathroom;Medication Management;Transportation to appointments/community Current Services/Equipment Current Post-Acute Service(s): Private Duty, DME Current DME Type: Standard walker Discharge Planning Patient Goal(s): General wellness, Better mobility, Increase strength [place] of Choice Explained: [place] Given: Yes Level of Care Discussed: Senior Living Facility Are you interested in bedside delivery of your medications? No Discharge Planning Participant(s): Patient Patient/Family Comments: Caregiver Assessment: Caregiver is ready, willing and able to meet the patient's needs as recommended by the inter-professional team: Yes Name of Caregiver: Kacey Heredia (Daughter) Transport at Discharge: Transportation Arrangements: To Be Determined Needs Prior to Discharge: Needs Prior to Discharge: Accepting Facility;OT/PT Evaluation;Insurance Authorization;Discharge Transportation Post-Acute Discharge Plan: Chart reviewed. The patient is admitted due to Generalized weakness and a fall. Spoke with patient at the bedside. Explained care management role. Functional:Patient lives in ranch house with his spouse and they have 3 steps inside the garage. Transportation: patient drives and is independent at home. Equipment Prior to Admission:patient has walker Support: Kacey Heredia (Daughter) [phone] Pharmacy: [facility] PCP: Lico Lazaro MD The patient reports family has been working with [employer] to get the patient plus his spouse. The patient has fallen multiple times and is interested in rehab. The patient reports both of his daughters live 3 minutes from facility.The patient reports they have private duty help at home that primarily helps his spouse. The patient has some skilled needs identified and the patient mostly independent with his ADL's. The patient reports he has no other concerns. The patient has PCP, RX coverage and has no follow up needs. Awaiting PT/OT evaluation. Plan for patient to discharge to SNF when medically ready. Care Management will continue to follow for treatment plan and transitional planning. SIGNATURE: MARGY Alberts PATIENT NAME: Angel Thompson DATE: November 02, 2022 TIME: 12:28 PM CONTACT #: [phone] [facility] 11-02-2022 Note HNO ID: [id number] Author: Merlyn Fraire, RN Service: Nursing Author Type: Registered Nurse Type: Nursing Progress Note Filed: 11/01/2022 10:43 PM Note Text: Patient requesting additional sleep medication. Paged Sound at [phone] with this request. [facility] Summary Purpose Family History No Family History Records FoundNo Family History Records FoundNo Family History Records Found Advance Directives No Advanced Directives Records FoundNo Advanced Directives Records FoundNo Advanced Directives Records Found Additional Source Comments (unrecognized sect ion and content) No Status Records FoundNo Status Records FoundNo Status Records Found INFORMATION SOURCE (unrecogn ized section and content) DATE CREATED AUTHOR AUTHOR'S ORGANIZ ATION 06/20/2021 [facility] DATE CREATED AUTHOR AUTHOR'S ORGANIZ ATION 12/14/2022 [facility] Care Teams (unrecognized sec tion and content) Telegraph Inspector Relationship Specialty Start Date End Date Lico Lazaro MD PCP - General Family Medicine 12/08/16 Telegraph Inspector Relationship Specialty Start Date End Date Lico Lazaro MD PCP - General Family Medicine 12/08/16 Telegraph Inspector Relationship Specialty Start Date End Date Lico Lazaro MD PCP - General Family Medicine 12/08/16 Source Comments (unrecognize d section and content) In the event this informatio n is protected by the Federal Confidentiality of Alcohol and Drug Abuse Patient Records regulations: The Federal rules restrict any use of the information to criminally investigate or prosecute any alcohol or drug abuse patient.[facility] the event this information is protected by the Federal Confidentiality of Alcohol and Drug Abuse Patient Records regulations: The Federal rules restrict any use of the information to criminally investigate or prosecute any alcohol or drug abuse patient.[facility] the event this information is protected by the Federal Confidentiality of Alcohol and Drug Abuse Patient Records regulations: The Federal rules restrict any use of the information to criminally investigate or prosecute any alcohol or drug abuse patient.[facility] Reason for Visit (unrecogniz ed section and content) Reason Comments Orders [facility] - order conta ct/ECF letter 1 FOR RECORDS PERTAINING TO PATIENTS WHO ARE OR HAVE BEEN ENROLLED IN A CHEMICAL DEPENDENCY/SUBSTANCEABUSE PROGRAM, SOME INFORMATION MAY BE OMITTED. This clinical summary was aggregated from multiple sources. Caution should be exercised in using it in the provision of clinical care. This summary normalizes information from multiple sources, and as a consequence, information in this document may materially change the coding, format and clinical context of patient data. In addition, data may be omitted in some cases. CLINICAL DECISIONS SHOULD BE BASED ON THE PRIMARY CLINICAL RECORDS. [facility]. provides no warranty or guarantee of the accuracy or completeness of information in this document.
[2023-03-18 07:07] LABS: Absolute Lymphocyte Count 2.26 X10^3/uL (0.83-4.51); Absolute Neutrophil Count 1.8 X10^3/uL (2.0-7.7); Basophil# 0.01 X10^3/uL; Basophil% 0.2 % (0-1); Eosinophil# 0.07 X10^3/uL; Eosinophils% 1.5 % (0-5); Hematocrit 39.8 % (40-54); Hemoglobin 11.6 g/dL (13.0-16.5); Lymphocyte # 2.26 X10^3/ul (0.83-4.51); Lymphocyte % 48.1 % (19-41); Mean Corp Hgb Conc 29.1 g/dL (32-36); Mean Corpuscular Hgb 29.8 pg (27.0-32.0); Mean Corpuscular Volume 102.3 fL (80-94); Mean Platelet Vol. 10.7 fl (6.2-12.0); Monocyte# 0.53 X10^3/uL; Monocyte% 11.3 % (0-10); NRBC Flagged by Analyzer 0 % (0-5); Neutrophil # 1.82 X10^3/uL (2.7-7.7); Neutrophil % 38.7 % (47-70); Platelet Count 160 K/mm3 (150-450); RBC Distribution Width CV 14.5 % (11.6-14.6); RBC Distribution Width SD 54.9 fl (35.1-43.9); Red Blood Count 3.89 M/mm3 (4.6-6.2); White Blood Count 4.7 K/mm3 (4.4-11.0)
[2023-03-18 07:43] LABS: ALB/GLOB Ratio 0.8 RATIO (0.9-2.4); AST(SGOT) 16 U/L (15-37); Alanine Aminotransfer ALT/SGPT 15 U/L (16-61); Albumin, Serum 2.9 g/dL (3.2-5.0); Alkaline Phosphatase 110 U/L (45-117); Anion Gap 4 (5-15); BUN 32 mg/dL (7-18); BUN/Creat Ratio 23.4 RATIO (10-20); Calcium,Total 8.8 mg/dL (8.5-10.1); Chloride 100 mmol/L (98-107); Cholesterol 115 mg/dL (200); Creatinine, Serum 1.37 mg/dL (0.70-1.30); EST Glomerular Filtration Rate 52 mL/min (>60); Est Glom Filt Rate - Afr Amer 63 mL/min (>60); Globulin 3.8 g/dL (2.2-4.2); Glucose 82 mg/dL (74-106); High Density Lipoprotein 73 mg/dL; Potassium 4.1 mmol/L (3.5-5.1); Protein, Total 6.7 g/dL (6.4-8.2); Sodium Level 135 mmol/L (136-145); Triglycerides 117 mg/dL; Very Low Density Lipoprotein 23 mg/dL (5-40)
== END ==
LOC: OLS.WHLTSB 04:00
PROVIDERS: PCP Internal Medicine; Referring Provider Internal Medicine; Visit Provider Internal Medicine
DX: I10 Essential (primary) hypertension (principal); I48.0 Paroxysmal atrial fibrillation; M62.561 Muscle wasting and atrophy, not elsewhere classified, right lower leg; M62.562 Muscle wasting and atrophy, not elsewhere classified, left lower leg
CPT/HCPCS: 36415; 80053; 80061; 85025

== ENCOUNTER → 2023-03-20 | Outpatient (REF) | payer MEDICARE, SELFPAY ==
[2023-03-20 07:32] LABS: Absolute Lymphocyte Count 2.17 X10^3/uL (0.83-4.51); Basophil# 0.01 X10^3/uL; Basophil% 0.2 % (0-1); Eosinophil# 0.06 X10^3/uL; Eosinophils% 1.3 % (0-5); Hematocrit 38.3 % (40-54); Hemoglobin 11.2 g/dL (13.0-16.5); Lymphocyte # 2.17 X10^3/ul (0.83-4.51); Lymphocyte % 45.3 % (19-41); Mean Corp Hgb Conc 29.2 g/dL (32-36); Mean Corpuscular Hgb 30.3 pg (27.0-32.0); Mean Corpuscular Volume 103.5 fL (80-94); Mean Platelet Vol. 10.6 fl (6.2-12.0); Monocyte# 0.56 X10^3/uL; Monocyte% 11.7 % (0-10); NRBC Flagged by Analyzer 0 % (0-5); Neutrophil # 1.98 X10^3/uL (2.7-7.7); Neutrophil % 41.3 % (47-70); Platelet Count 134 K/mm3 (150-450); RBC Distribution Width CV 14.4 % (11.6-14.6); RBC Distribution Width SD 54.7 fl (35.1-43.9); White Blood Count 4.8 K/mm3 (4.4-11.0)
== END ==
LOC: OLS.WHLTSB 05:00
PROVIDERS: PCP Internal Medicine; Visit Provider Internal Medicine
DX: D64.9 Anemia, unspecified (principal); I48.0 Paroxysmal atrial fibrillation; M62.561 Muscle wasting and atrophy, not elsewhere classified, right lower leg; M62.562 Muscle wasting and atrophy, not elsewhere classified, left lower leg
CPT/HCPCS: 36415; 85025

== ENCOUNTER 2023-03-31 08:10 | Emergency (ER) | payer MEDICARE, SELFPAY ==
[2023-03-31 08:12] VITALS: BP 142/98; PULSE 74; RESP 16; TEMP 36.3; O2SAT 93; BMI 29.6
--- NOTE | 2023-03-31 08:37 | EX.ED.DYSGE1 ---
HPI History of Present Illness Chief Complaint: Wound Check Detail of Chief Complaint: Bleeding from left ear Informant: patient Narrative Narrative: Patient presents to the emergency department with complaint of bleeding from the left ear. Patient states that he had Mohs surgery in January at [facility] in [place] by Dr. Evans. Patient subsequently developed a hematoma and bleeding from the left ear and was seen 8 days ago and had packing placed. He had been doing well at the [facility] until this morning when he started having more bleeding. Patient on Eliquis for history of A-fib. [facility] Medical History Aortic stenosis Atrial fibrillation Atrial fibrillation, new onset BPH (benign prostatic hyperplasia) Chronic diastolic (congestive) heart failure Colon cancer Congestive heart failure Debility Debility Depression Dizziness Essential hypertension Gait instability Gout Gout Heart murmur History of aortic stenosis Hyperlipidemia Hypertension Hypokalemia Lumbar spondylosis with myelopathy Macrocytic anemia Non-rheumatic aortic stenosis Osteoporosis Paronychia of great toe of left foot Pure hypercholesterolemia Wound of foot Home Medications carvedilol 25 mg tablet 25 mg PO BID Blood pressure 06/26/16 [History Last Taken 05/10/22] tamsulosin 0.4 mg capsule 0.4 mg PO DAILY Prostate 06/26/16 [History Last Taken 05/09/22] sertraline 100 mg tablet (Zoloft) 100 mg PO QDAY Anxiety 10/14/17 [History Last Taken 05/09/22] apixaban 5 mg tablet (Eliquis) 5 mg PO BID 30 days #60 tabs 08/20/22 [Rx Last Taken Unknown] empagliflozin 10 mg tablet (Jardiance) 10 mg PO DAILY@0800 30 days #30 tabs 08/20/22 [Rx Last Taken Unknown] acetaminophen 500 mg tablet 1,000 mg PO Q8 PRN pain 11/26/22 [History Last Taken Unknown] atorvastatin 10 mg tablet 10 mg PO QHS hld 11/26/22 [History Last Taken Unknown] losartan 25 mg tablet 25 mg PO DAILY #30 tabs 11/26/22 [Rx Last Taken Unknown] melatonin 3 mg tablet 3 mg PO HS PRN sleep 11/26/22 [History Last Taken Unknown] mirtazapine 7.5 mg tablet 7.5 mg PO QHS sleep 11/26/22 [History Last Taken Unknown] furosemide 40 mg tablet 40 mg PO DAILY Blood pressure #120 tabs 12/14/22 [Rx Last Taken Unknown] Allergy/AdvReac Type Severity Reaction Status Date / Time No Known Allergies Allergy Verified 03/31/23 08:11 Family History Father , Age 49 Cancer liver Surgical History History of colectomy History of open reduction and internal fixation (ORIF) procedure Social History household members: spouse and other details: Primary caregiver for with moderate Alzheimer Disease. Smoking Status: Former smoker how long ago did patient quit smoking: Quit smoking a pipe 21 years ago alcohol intake: current alcohol intake frequency: 0-2 drinks per day substance use type: does not use caffeine: Yes Type: coffee Number of servings: 2 ROS ROS ED Review of Systems ROS Unobtainable: other Constitutional Constitutional ED: Reports lethargy; Denies chills, fever(s), sweats or weight loss Eyes Eyes: Denies blurry vision, change in vision or diplopia ENT ENT ED: Reports other Details: Bleeding from left ear ; Denies rhinorrhea or sore throat Cardiovascular Cardiovascular: Denies chest pain, orthopnea or racing heartbeat Respiratory/Chest Respiratory/Chest: Denies cough, dyspnea, dyspnea on exertion, orthopnea or sputum Gastrointestinal Gastrointestinal: Denies abdominal pain, diarrhea, nausea or vomiting Genitourinary Genitourinary ED: Denies dysuria, hematuria or urinary frequency Musculoskeletal Musculoskeletal: Denies arthralgias, back pain, myalgias or neck pain Integumentary Denies abscess, Abrasions or rash Neurologic Neurologic: Denies headache(s) or weakness Psychiatric Psychiatric: Denies anxiety, depression or suicidal thoughts Endocrine Endocrinology: Denies polydipsia, polyphagia or polyuria Hematologic/Lymphatic Hematologic/Lymphatic: Denies easy bleeding, easy bruising or lymphadenopathy Allergic/Immunologic Allergic/Immunologic ED: Denies mouth swelling, tongue swelling or urticaria EXAM Physical Exam Const Vital Signs: 03/31/23 08:12 03/31/23 09:39 Temperature 97.3 F L 97.6 F L Temperature Source Temporal Pulse Rate 74 64 Respiratory Rate 16 16 Blood Pressure 142/98 H 132/72 H Blood Pressure Mean 112 92 Pulse Ox 93 99 Oxygen Delivery Method Room Air Positive well nourished and well developed General Appearance ED: well developed and NAD HEENT Reports TM's clear and moist mucous membranes HEENT Narrative: Left ear-patient has what appears to be a large hematoma on the inferior lobe of the left ear posterior aspect that seems to have from the ear and is oozing venous blood. normocephalic and atraumatic; Negative for trauma or tenderness Tympanic Membrane ED: Yes TM's clear Eyes PERRL and EOMs intact bilaterally General Eye ED: Negative for pale conjunctiva or scleral icterus Neck no lymphadenopathy, supple and no JVD General: Negative for tenderness Chest Wall inspection of chest normal and palpation of chest normal Chest: Negative for tenderness Resp normal respiratory effort and clear to auscultation bilaterally Effort and Inspection: Negative for respiratory distress or pain with movement Auscultation: Negative for rhonchi, wheezes or diminished lung sounds Cardio regular rate, regular rhythm, S1 normal heart sound, S2 normal heart sound and no murmurs Peripheral Pulses: pulses 2+ throughout GI normal to inspection, nondistended, normoactive bowel sounds, soft to palpation, non-tender, non-distended and no masses Back/Spine no CVA tenderness and no thoracic nor lumbar tenderness Extremity normal to inspection General Extremety ED: Negative for edema General Extremity: Negative for edema Neuro oriented x3, CN's II-XII intact bilaterally, no sensory deficits noted and gait normal Sensorium / Orientation: awake, alert, oriented to person, oriented to place and oriented to time Motor Exam: strength 5/5 throughout and strength abnormal Psych mental status grossly normal Skin no rashes or lesions noted and no wounds MDM MDM MDM Narrative Medical decision making narrative: Patient presents with bleeding from the left ear. I attempted to pack the wound with Gelfoam and pressure dressing. Will attempt to contact patient's surgeon of record. He has an appointment to be seen today at 1:00 but feel he should be seen before that. Will place an IV and get basic labs. CBC with differential, 7.1 with hemoglobin 11.5. I did discuss case with Dr. Evans who did recommend transfer to his facility for evaluation and definitive care. He knows the patient well. Patient will be transferred via local ground squad in stable condition. Lab Data Attestation: I reviewed the patient's lab results. Labs: Laboratory Results - last 24 hr 03/31/23 08:45 WBC 7.1 RBC 3.93 L Hgb 11.5 L Hct 40.2 MCV 102.3 H MCH 29.3 MCHC 28.6 L RDW Std Deviation 52.6 H RDW Coeff of [place] 13.9 Plt Count 221 MPV 10.2 Immature Gran % (Auto) 0.300 Neut % (Auto) 63.7 Lymph % (Auto) 24.8 [place] % (Auto) 9.8 Eos % (Auto) 1.1 Baso % (Auto) 0.3 Absolute Neuts (auto) 4.5 Absolute Lymphs (auto) 1.76 Nucleated RBC % 0 Sodium 137 Potassium 4.1 Chloride 101 Carbon Dioxide 33.0 H Anion Gap 3 L BUN 38 H Creatinine 1.17 Estim Creat Clear Calc 51.49 Est GFR (MDRD) Af Amer 76 Est GFR (MDRD) Non-Af 63 BUN/Creatinine Ratio 32.5 H Glucose 90 Calcium 9.6 Discharge Plan Triage Chief Complaint: Wound Check ED Provider: Bruce Murillo Dx/Rx/DC Orders Clinical Impression: Postoperative wound hemorrhage Prescriptions: No Action sertraline [Zoloft] 100 mg tablet 100 mg PO QDAY acetaminophen 500 mg tablet 1,000 mg PO Q8 PRN (Reason: pain) melatonin 3 mg tablet 3 mg PO HS PRN (Reason: sleep) mirtazapine 7.5 mg tablet 7.5 mg PO QHS atorvastatin 10 mg tablet 10 mg PO QHS losartan 25 mg tablet 25 mg PO DAILY Qty: 30 4RF carvedilol 25 MG tablet 25 mg PO BID tamsulosin 0.4 MG capsule 0.4 mg PO DAILY Eliquis 5 mg Tablet 5 mg PO BID 30 Days Qty: 60 0RF Jardiance 10 mg Tablet 10 mg PO DAILY@0800 30 Days Qty: 30 0RF furosemide 40 mg tablet 40 mg PO DAILY Qty: 120 0RF Rx Instructions: start 12/15/22 Primary Care Provider: Alivia Stevenson Referrals: Alivia Stevenson MD [Primary Care Provider] - Disposition Disposition: DC/Tx to Another Type of [facility]CF Discharge Date/Time: 03/31/23 09:56
--- NOTE | 2023-03-31 08:40 | NURSING ---
CALLING [facility] FOR DR ALVARADO. [phone]
[2023-03-31 08:49] LABS: Absolute Lymphocyte Count 1.76 X10^3/uL (0.83-4.51); Absolute Neutrophil Count 4.5 X10^3/uL (2.0-7.7); Basophil# 0.02 X10^3/uL; Basophil% 0.3 % (0-1); Eosinophil# 0.08 X10^3/uL; Eosinophils% 1.1 % (0-5); Hematocrit 40.2 % (40-54); Hemoglobin 11.5 g/dL (13.0-16.5); Lymphocyte # 1.76 X10^3/ul (0.83-4.51); Lymphocyte % 24.8 % (19-41); Mean Corp Hgb Conc 28.6 g/dL (32-36); Mean Corpuscular Hgb 29.3 pg (27.0-32.0); Mean Corpuscular Volume 102.3 fL (80-94); Mean Platelet Vol. 10.2 fl (6.2-12.0); Monocyte% 9.8 % (0-10); NRBC Flagged by Analyzer 0 % (0-5); Neutrophil # 4.53 X10^3/uL (2.7-7.7); Neutrophil % 63.7 % (47-70); Platelet Count 221 K/mm3 (150-450); RBC Distribution Width CV 13.9 % (11.6-14.6); RBC Distribution Width SD 52.6 fl (35.1-43.9); Red Blood Count 3.93 M/mm3 (4.6-6.2); White Blood Count 7.1 K/mm3 (4.4-11.0)
[2023-03-31] MEDS: 0.9% Normal Saline (1000mL) 1,000 ML 150 ML IV (08:52)
[2023-03-31] MEDS: Gelatin Sponge Absorbable 50cm (1) 2 EACH TOPICAL (09:01)
[2023-03-31 09:02] LABS: Anion Gap 3 (5-15); BUN 38 mg/dL (7-18); BUN/Creat Ratio 32.5 RATIO (10-20); Calcium,Total 9.6 mg/dL (8.5-10.1); Chloride 101 mmol/L (98-107); Creatinine, Serum 1.17 mg/dL (0.70-1.30); EST Glomerular Filtration Rate 63 mL/min (>60); Est Glom Filt Rate - Afr Amer 76 mL/min (>60); Estimated Creatinine Clearance 51.49 ml/min; Glucose 90 mg/dL (74-106); Potassium 4.1 mmol/L (3.5-5.1); Sodium Level 137 mmol/L (136-145)
[2023-03-31 09:39] VITALS: BP 132/72; PULSE 64; RESP 16; TEMP 36.4; O2SAT 99
== END 2023-03-31 09:56 | disposition other institution (70) ==
PROVIDERS: Emergency Provider Emergency Medicine; PCP Internal Medicine; Visit Provider Emergency Medicine
DX: H95.41 Postprocedural hemorrhage of ear and mastoid process following a procedure on the ear and mastoid process (principal); I50.9 Heart failure, unspecified; I11.0 Hypertensive heart disease with heart failure; I48.91 Unspecified atrial fibrillation; Z87.891 Personal history of nicotine dependence; Z79.01 Long term (current) use of anticoagulants; E78.00 Pure hypercholesterolemia, unspecified
CPT/HCPCS: 80048; 85025; 96360; 99284; J7030; A4216

== ENCOUNTER → 2023-04-02 | Outpatient (REF) | payer MEDICARE, SELFPAY ==
--- OUTSIDE RECORDS SUMMARY | 2023-04-02 08:40 | XMS RPT_ITS | CCD ---
Author Name Unknown Address [address] [place] [address] Organization [facility] Care Team Providers Care Nurses Educator Name Role Phone Roof TIRE REPAIRER, Russell Garcia Unavailable MD Jorge, Jose Francisco Fontenot Unavailable [phone] DeFinis, Harumi Y Unavailable Unavailable DeFinis, Harumi Y Unavailable Unavailable NICOLE LOPESAMMED Unavailable Unavaila LICO Shah Unavailable Unavailable GOUCHER, NORMA G Unavailable Unavailable Roof TIRE REPAIRER, Russell Garcia Unavailable Lico Lazaro Primary Care Provider Lico Lazaro MD Primary Care Provider Lico Lazaro MD Primary Care Provider ROLAND DELGADO Admitting Unavailable ANA JAMISON Attending Unavailable LICO LAZARO Primary Care Unavailable Allergies Allergy Classification Reported Allergen(s) Allergy Type Date of Onset Reaction(s) Facility (10 sources) amLODIPine drug allergy 02-21-2015 LE [facility] Work Phone: (18 sources) NKDA; Translations: [NKDA] allergy to substance 01-15-2015 [facility] Work Phone: Medications Current Medications Medication Drug [...] (4 sources) Long-term drug therapy; Translations: [[facility] [place] [facility] therapy] Onset: 07-24-2015 07-24-2015 Past or Other Problems Problem Classification Problem Date Documented Da te Episodic/Chronic Heart valve disorders (10 sources) Heart murmur; Translations: [Cardiac murmur, unspecified] Onset: 12-10-2012 12-10-2012 Episodic Other aftercare (6 sources) Other [place] [facility] drug therapy; Translations: [Other [place] [facility] [place] drug therapy] Onset: 07-24-2015 07-24-2015 Episodic Results Test Name Value Interpretation Reference Range Facil ity Vital Signs Date Time Vital Sign Value Performing Clinician Sabino oakley 10-31-2016 10:40-0400 BP Diastolic 78 mm[Hg] [facility] Work Phone: 10-31-2016 10:40-0400 BP Systolic 130 mm[Hg] [facility] Work Phone: 10-31-2016 10:40-0400 Pulse (Heart Rate) 68 /min Russell Judy TIRE REPAIRER [facility] Work Phone: 10-31-2016 10:40-0400 Respiratory Rate 20 /min Russell Kim TIRE REPAIRER [facility] Work Phone: 10-31-2016 10:40-0400 Weight 90.9 kg Russell Kim TIRE REPAIRER [facility] Work Phone: 10-16-2016 13:27-0400 BMI (Body Mass Index) 30.71 kg/m2 Jose Francisco Patel MD [facility] Work Phone: 10-16-2016 13:27-0400 BP Diastolic 82 mm[Hg] Jose Francisco Patel MD [facility] Work Phone: 10-16-2016 13:27-0400 BP Systolic 162 mm[Hg] Jose Francisco Patel MD [facility] Work Phone: 10-16-2016 13:27-0400 Height 172.72 cm Jose Francisco Patel MD [facility] Work Phone: 10-16-2016 13:27-0400 Pulse (Heart Rate) 74 /min Jose Francisco Patel MD [facility] Work Phone: 10-16-2016 13:27-0400 Respiratory Rate 18 /min Jose Francisco Patel MD [facility] Work Phone: 10-16-2016 13:27-0400 Weight 91.63 kg Jose Francisco Patel MD [facility] Work Phone: 04-04-2016 08:47-0500 BMI (Body Mass Index) 30.25 kg/m2 Harumi DeFinis [facility] Work Phone: 04-04-2016 08:47-0500 BP Diastolic 84 mm[Hg] Harumi DeFinis [facility] Work Phone: 04-04-2016 08:47-0500 BP Diastolic 80 mm[Hg] Harumi DeFinis [facility] Work Phone: 04-04-2016 08:47-0500 BP Systolic 148 mm[Hg] Harumi DeFinis [facility] Work Phone: 04-04-2016 08:47-0500 BP Systolic 170 mm[Hg] Divya [employer] [facility] Work Phone: 04-04-2016 08:47-0500 BSA (Body Surface Area) 2.04 m2 Divya [employer] [facility] Work Phone: 04-04-2016 08:47-0500 Pulse (Heart Rate) 80 /min Harumi DeFinis [facility] Work Phone: 04-04-2016 08:47-0500 Respiratory Rate 20 /min Haraudie [employer] [facility] Work Phone: 04-04-2016 08:47-0500 Weight 90.27 kg Divya [employer] [facility] Work Phone: 09-28-2015 14:00-0400 Height 172.72 cm Divya [facility] Work Phone: 09-28-2015 14:00-0400 Pulse Oximetry 97 % Haraudie [facility] Work Phone: Encounters Encounter Date Encounter Type Care Provider Facility Start: 11-14-2022 Telephone encounter M Haleigh Vásquez RN [facility] Procedures Date [...] 10-31-2016 End: 10-31-2016 *CHRISTY Wells H Judy TIRE REPAIRER Work Phone: Start: 10-31-2016 End: 10-31-2016 *BMP Russell Garcia Judy TIRE REPAIRER Work Phone: Start: 10-16-2016 End: 10-16-2016 SARA Patel MD Work Phone: Start: 10-16-2016 End: 10-16-2016 Follow Up Appt 6 months Jose Francisco Patel MD Work Phone: Start: 10-16-2016 End: 10-16-2016 Follow Up BP Check Jose Francisco Patel MD Work Phone: Start: 10-16-2016 End: 10-16-2016 Dietary management education, guidance, and counseling Russell Judy TIRE REPAIRER Start: 10-16-2016 End: 10-16-2016 SARA Patel MD [...] Phone: Start: 04-04-2016 End: 04-04-2016 SARA Logan RESEARCH EXECUTIVE-C Start: 04-04-2016 End: 04-04-2016 Follow Up Appt 6 months Misbah Logan RESEARCH EXECUTIVE -C Start: 04-04-2016 End: 04-04-2016 SARA Logan RESEARCH EXECUTIVE-C Start: 04-04-2016 End: 04-04-2016 Follow Up Appt 6 months Misbah Logan RESEARCH EXECUTIVE -C Start: 11-15-2015 End: 11-15-2015 *BMP Adrianne [...] Work Phone: Start: 07-30-2015 End: 07-30-2015 SARA Paetl MD Work Phone: Start: 07-30-2015 End: 08-22-2015 [...] Author Start: 11-03-2025 DIABETES SCREEN DIABETES SCREEN [facility] Start: 11-07-2022 Influenza vaccination INFLUENZA (#1) [facility] Start: 04-22-2022 COVID-19 VACCINE (7 - Moderna series) COVID-19 VACCINE (7 - Moderna series) [facility] Start: 03-09-2022 ADVANCE DIRECTIVE DISCUSSION ADVANCE DIRECTIVE DISCUSSION [facility] Start: 01-18-2021 Creatinine measurement Creatinine monitoring [facility] Start: 01-18-2021 Potassium monitoring Potassium monitoring [facility] Start: 11-07-2020 Influenza vaccination Flu vaccine (#1) [facility] Start: 03-14-2020 DTaP/Tdap/Td vaccine (2 - Tdap) DTaP/Tdap/Td vaccine (2 - Tdap) [facility] Start: 11-08-2019 Influenza vaccination Flu vaccine (#1) [place] Start: 07-20-2019 Creatinine measurement Creatinine monitoring [facility] [place] Start: 07-20-2019 Potassium monitoring Potassium monitoring [place] Start: 07-15-2017 End: 01-16-2017 *Hepatic Function Panel *Hepatic Function Panel [facility] Work Phone: Start: 07-15-2017 End: 01-16-2017 Lipid panel [AGGREGATE] *Lipid Profile CC PCP [facility] Work Phone: Start: 06-15-2017 End: 06-15-2017 Appointment Appointment [facility] Work Phone: Start: 11-28-2016 End: 01-15-2017 *Hepatic Function Panel *Hepatic Function Panel [facility] Work Phone: Start: 11-28-2016 End: 01-15-2017 Lipid panel [AGGREGATE] *Lipid Profile CC PCP [facility] Work Phone: Start: 11-28-2016 End: 05-28-2016 *Hepatic Function Panel *Hepatic Function Panel [facility] Work Phone: Start: 11-28-2016 End: 05-28-2016 Lipid panel [AGGREGATE] *Lipid Profile CC PCP [facility] Work Phone: Start: 10-31-2016 End: 10-31-2016 *BMP *BMP [facility] Work Phone: Start: 10-31-2016 End: 10-31-2016 Appointment Appointment [facility] Work Phone: Start: 10-31-2016 End: 10-31-2016 *BMP *BMP [facility] Work Phone: Start: 10-16-2016 End: 10-16-2016 Appointment Appointment [facility] Work Phone: Start: 10-16-2016 End: 10-16-2016 SARA RUIZ [facility] Work Phone: Start: 10-16-2016 End: 10-16-2016 Follow Up Appt 6 months Follow Up Appt 6 months [facility] Work Phone: Start: 10-16-2016 End: 10-16-2016 Follow Up BP Check Follow Up BP Check [facility] Work Phone: Start: 10-16-2016 End: 10-16-2016 DJN DJN [facility] Work Phone: Start: 10-16-2016 End: 10-16-2016 Follow Up Appt 6 months Follow Up Appt 6 months [facility] Work Phone: Start: 10-16-2016 End: 10-16-2016 Follow Up BP Check Follow Up BP Check [facility] Work Phone: Start: 04-07-2016 End: 05-28-2016 *Hepatic Function Panel *Hepatic Function Panel [facility] Work Phone: Start: 04-07-2016 End: 05-28-2016 Lipid panel [AGGREGATE] *Lipid Profile CC PCP [facility] Work Phone: Start: 04-07-2016 End: 05-28-2016 *Hepatic Function Panel *Hepatic Function Panel [facility] Work Phone: Start: 04-07-2016 End: 05-28-2016 Lipid panel [AGGREGATE] *Lipid Profile CC PCP [facility] Work Phone: Start: 04-04-2016 End: 04-04-2016 SARA LUGON [facility] Work Phone: Start: 04-04-2016 End: 04-04-2016 Follow Up Appt 6 months Follow Up Appt 6 months [facility] Work Phone: Start: 04-04-2016 End: 04-04-2016 SARA RUIZ [facility] Work Phone: Start: 04-04-2016 End: [...] 10-05-2015 *Hepatic Function Panel *Hepatic Function Panel [facility] Work Phone: Start: 10-03-2015 End: 10-05-2015 Lipid panel [AGGREGATE] *Lipid Profile CC PCP [facility] Work Phone: Start: 09-28-2015 End: 09-28-2015 SARA LUGON [facility] Work Phone: Start: 09-28-2015 End: 09-28-2015 Follow Up Appt 6 months Follow Up Appt 6 months [facility] Work Phone: Start: 09-28-2015 End: 09-28-2015 DJN DJN [facility] Work Phone: Start: 09-28-2015 End: 09-28-2015 Follow Up Appt 6 months Follow Up Appt 6 months [facility] Work Phone: Start: 09-12-2015 End: 09-12-2015 Follow Up BP Check Follow Up BP Check [facility] Work Phone: Start: 09-12-2015 End: 09-12-2015 Follow Up BP Check Follow Up BP Check [facility] Work Phone: Start: 09-05-2015 End: 09-05-2015 Follow Up BP Check Follow Up BP Check [facility] Work Phone: Start: 09-05-2015 End: 09-05-2015 Follow Up BP Check Follow Up BP Check [facility] Work Phone: Start: 07-30-2015 End: [...] Start: 07-30-2015 End: 07-30-2015 Echocardiography Echocardiogram (complete) [facility] Work Phone: Start: 07-30-2015 End: 07-30-2015 Follow Up Appt 2 months Follow Up Appt 2 months [facility] Work Phone: Start: 07-30-2015 End: 07-30-2015 Follow Up BP Check Follow Up BP Check [facility] Work Phone: Start: 02-09-2015 End: 02-09-2015 Follow Up BP Check Follow Up BP Check [facility] Work Phone: Start: 02-09-2015 End: 02-09-2015 Follow Up BP Check Follow Up BP Check [facility] Work Phone: Start: 02-05-2015 End: 02-12-2015 *BMP *BMP [facility] Work Phone: Start: 02-05-2015 End: 02-12-2015 *BMP *BMP [facility] Work Phone: Start: 01-15-2015 End: 01-15-2015 SARA RUIZ [facility] Work Phone: Start: 01-15-2015 End: 01-15-2015 Follow Up Appt 6 months Follow Up Appt 6 months [facility] Work Phone: Start: 01-15-2015 End: 01-15-2015 Follow Up BP Check Follow Up BP Check [facility] Work Phone: Start: 01-15-2015 End: 01-15-2015 SARA LUGON [facility] Work Phone: Start: 01-15-2015 End: 01-15-2015 Follow Up Appt 6 months Follow Up Appt 6 months [facility] Work Phone: Start: 01-15-2015 End: 01-15-2015 Follow Up BP Check Follow Up BP Check [facility] Work Phone: Start: 12-26-2013 End: 12-26-2013 *BMP *BMP [facility] Work Phone: Start: 12-26-2013 End: 12-26-2013 DJN DJN [facility] Work Phone: Start: 12-26-2013 End: 12-26-2013 Follow Up Appt 1 year Follow Up Appt 1 year [facility] Work Phone: Start: 12-26-2013 End: 12-26-2013 Follow Up BP Check Follow Up BP Check [facility] Work Phone: Start: 12-26-2013 End: 12-26-2013 Urine, microalbumin *Urine, Microalbumin [facility] Work Phone: Start: 12-26-2013 End: 12-26-2013 *BMP *BMP [facility] Work Phone: Start: 12-26-2013 End: 12-26-2013 DJN DJN [facility] Work Phone: Start: 12-26-2013 End: 12-26-2013 Follow Up Appt 1 year Follow Up Appt 1 year [facility] Work Phone: Start: 12-26-2013 End: 12-26-2013 Follow Up BP Check Follow Up BP Check [facility] Work Phone: Start: 12-26-2013 End: 12-26-2013 Urine, microalbumin *Urine, Microalbumin [facility] Work Phone: Start: 12-13-2012 End: 12-19-2013 SARA DJN [facility] Work Phone: Start: 12-13-2012 End: 09-01-2013 Echocardiography Echocardiogram (complete) [facility] Work Phone: Start: 12-13-2012 End: 12-13-2012 Follow Up Appt 1 year Follow Up Appt 1 year [facility] Work Phone: Start: 12-13-2012 End: 12-19-2013 SARA RUIZ [facility] Work Phone: Start: 12-13-2012 End: 09-01-2013 Echocardiography Echocardiogram (complete) [facility] Work Phone: Start: 12-13-2012 End: 12-13-2012 Follow Up Appt 1 year Follow Up Appt 1 year [facility] Work Phone: Start: 2002 PNEUMOCOCCAL: 65+ (1 - PCV) PNEUMOCOCCAL: 65+ (1 - PCV) [facility] Start: 1987 Shingles Vaccine (1 of 2) Shingles Vaccine (1 of 2) [facility] Start: 1987 SHINGRIX VACCINE (1 of 2) SHINGRIX VACCINE (1 of 2) [facility] Start: 1956 Urine microalbumin profile DTAP,TDAP,TD (1 - Tdap) [facility] Start: 1949 Depression Screen Depression Screen [facility] Start: 1942 COVID-19 Vaccine (1) COVID-19 Vaccine (1) [facility] Patient Education [facility] Work Phone: Immunizations Immunization Date Immunization Notes Care Provider Fa cilinavjot 03-14-2010 diphtheria, tetanus toxoids and acellular pertussis vaccine Lico Lazaro [place], [place] 05-23-2009 pneumococcal polysac charide vaccine, 23 valent Lico Lazaro [facility] 04-11-2005 pneumococcal polysac charide vaccine, 23 valent Lico Lazaro [place] Payers Date Payer Category Payer Medicare [employer] MEDICARE HU[employer]NA MEDICARE PPO [id number] 2021-Present [phone] [address] [address] [place] [address] PPO [id number] 2021 Medicare [id number] Social History Date Type Detail Facility Start: 04-12-2018 Tobacco smoking stat [facility] Never smoker [facility] Start: 12-29-2016 End: 04-12-2018 Tobacco use and exposure Never used [facility] Start: 04-12-2018 Alcohol intake Current non-dr marker hand of alcohol (finding) [place], [place] Start: 1935 Sex Assigned At Not on file [place] Start: 12-29-2016 Tobacco smoking stat [facility] Ex-smoker [facility] History of tobacco use Current smoker [facility] History of tobacco use Pipe Smoker [facility] Start: 03-22-2017 Alcohol intake Current drinke r of alcohol (finding) [facility] Start: 02-04-2020 End: 11-02-2022 History of Social function [facility] Work Phone: Start: 02-04-2020 End: 11-02-2022 Tobacco use panel [facility] Work Phone: How hard is it for y ou to pay for the very basics like food, housing, medical care, and heating Not hard at all [facility] Work Phone: (I/We) worried roxann er (my/our) food would run out before (I/we) got money to buy more. Never true [facility] Work Phone: In the past 12 month s, was there a time when you were not able to pay the mortgage or rent on time? No [facility] Work Phone: Start: 12-29-2016 Alcohol Comment couple drinks weekly [facility] Clinical Notes 11-02-2022 to 11-14-2022 Telephone Encounter - Abe Vásquez RN - 11/14/2022 12:09 PM EDTTelephone Encounter - Sheri Ojeda RN - 11/06/2022 9:24 AM EDT Note Date & Type Note Facility 11-14-2022 Miscellaneous Notes Formattin g of this note might be different from the original. The patient was discharged from [facility] on 11/05/22 with an order to follow up with the [facility]. However, at the time of discharge the patient was transferred to a skilled facility. A letter was sent to the patient to contact the [facility] upon discharge from the skilled facility. documented in this encounter [facility] 11-06-2022 Miscellaneous Notes Formattin g of this note might be different from the original. Patient was discharged from [facility] on 11/05/22 with an order to schedule with the [facility]. However, the patient was then immediately admitted to a [facility] facility. A letter will be mailed to the patient asking them to contact the Clinic upon discharge from the facility. documented in this encounter [facility] 11-04-2022 Note HNO ID: [id number] Author: Desiree Menjivar RN Service: Care Management Author Type: Registered Nurse Type: Care Mgt Progress Note Filed: 11/04/2022 4:28 PM Note Text: CARE MANAGEMENT DISCHARGE NOTE SERVICE DATE: November 04, 2022 SERVICE TIME: 4:27 PM Admission Date: 11/01/2022 LOS: 0 days Discharge Arrangement Discharge Arrangement: [facility] Facility Was an expedited discharge program used?: No Services Arranged Medical Services: Other: See Comment (SNF) Provider Name: [facility] Caregiver Assessment Caregiver is ready, willing and able to meet the patient's needs as recommended by the inter-professional team: Yes Name of Caregiver: SNF Transportation Arrangements Transportation Arrangements: Ambulance Transportation Agency and Phone #:: [facility] ( [facility] ) [phone] / [phone] Date of Trip: 11/04/22 Time of Trip: 1999 Type of Service: BLS Non-emergency Is Patient Medicaid Pending?: No Was transportation financial coverage discussed with family?: Patient;Family Swatch Maker Location: [facility] Destination: [facility] Financial Care Management Responsibility: None Handoff Communication: Handoff to: Primary Care Physician Primary Care Physician Name/Phone: Dr. Lazaro [phone] Discharge Information Row Name ED to Hosp-Admission (Current) from 11/01/[address] [facility] Facility Agency [facility] Additional Information: Patient discharged to [facility]. Cot transport provided through [facility] at 2000. Patient, family, RN, and Facility aware of transport time. RN to call report to [phone]. SIGNATURE: Desiree Menjivar RN PATIENT NAME: Angel Thompson DATE: November 04, 2022 TIME: 4:27 PM CONTACT #: [phone] [facility] 11-04-2022 Note HNO ID: [id number] Author: Ana Jamison DO Service: Hospital Medicine [...] -- 11/01/22 1630 vte current anticoag therapy (or,oh) 11/01/22 1630 activity - mobilize patient (or,ok) VTE Prophylaxis: SIGNATURE: Ana Jamison DO PATIENT NAME: Angel Thompson DATE: November 04, 2022 TIME: PAGER: [facility] 11-04-2022 Note HNO ID: [id number] Author: Piedad Wang Service: Care Management Author Type: ? Type: Care Mgt Progress Note Filed: 11/04/2022 1:31 PM Note Text: [facility] PRECERT NOTE [employer] MEDICARE PPO approved [facility] Facility for [facility] . Precert approved through 11/06. SIGNATURE: Piedad Wang DATE: November 04, 2022 TIME: 1:31 PM [facility] 11-03-2022 Note HNO ID: [id number] Author: Ana Jamison DO Service: Hospital Medicine [...] November 03, 2022 TIME: 5:34 PM PAGER: [facility] 11-03-2022 Note HNO ID: [id number] Author: Desiree Menjivar RN Service: Care Management [...] precert, a [facility] Will to continue to follow for transitional care planning. SIGNATURE: Desiree Menjivar RN PATIENT NAME: Angel Thompson DATE: November 03, 2022 TIME: 1:03 PM PAGER/CONTACT #: [phone] [facility] 11-03-2022 Note HNO ID: [id number] Author: Jessica Rutledge RPh Service: Pharmacy Author Type: Pharmacist Type: Plan of Care Filed: 11/03/2022 11:44 AM Note Text: PHARMACY MEDICATION REVIEW Patient Name: Angel Thompson : 1935 The following medications were updated within the FILM ARCHIVIST medication list: Medications ADDED to FILM ARCHIVIST medication list Eliquis 5 mg BID Bupropion XL 150 mg daily Jardiance 10 mg daily Sertraline 100 mg daily Spironolactone 25 mg - 12.5 mg once daily Medications CHANGED on FILM ARCHIVIST medication list Furosemide 40 mg daily to twice daily Medications REMOVED from FILM ARCHIVIST medication list Prevident Prednisone Tramadol Viagra Terazosin Clonidine Hydrochlorothiazide The below information represents the best possible medication history: Yes Medication history completed by: Pharmacist: Jessica Rutledge RPh Source of history: Pharmacy records: [facility] and RN spoke with patient Medication nonadherence identified: Patient Preference Reconciliation completed: Yes Completed by: Jessica Rutledge Rph All FILM ARCHIVIST medications addressed by LIP - will recommend restart of losartan Patient interested in Bedside Delivery Services or using OP Pharmacy at discharge? No Preferred outpatient pharmacy: e- [facility] (Now [facility]) [place] [address] [address] [facility]- [id number] [place] [address] - [address] [facility] [phone] [id number] Allergies: No Known Allergies Prior to [...] once daily. Facility-Administered Medications: None Jessica [facility] 11/03/2022 [facility] 11-02-2022 Note HNO ID: [id number] Author: Reema Clarke MD Service: Hospital Medicine [...] Angel Thompson DATE: 11/02/2022 TIME: 10:49 AM [facility] 11-02-2022 Note HNO ID: [id number] Author: Yuval Stokes LSW Service: Care Management Author Type: Rubber Roller Grinder Type: Care Mgt Initial Assessment Filed: 11/02/2022 [...] requested by: Attending Provider Potential Transition Plans [facility] Facility/Intermediate Care Facility Advance Directives Current Advance Directive: None Vp Software Attempted to Assist with AD Completion: Yes [...] Goal(s): General wellness, Better mobility, Increase strength [place] Choice Explained: [place] Given: Yes Level of Care Discussed: [facility] Facility Are you interested in bedside delivery [...] Admission:patient has walker Support: Kacey Heredia (Daughter) [phone] Pharmacy: [facility] PCP: Lico Lazaro MD The patient reports family has been working with [facility] to get the patient plus his spouse. [...] 02, 2022 TIME: 12:28 PM CONTACT #: [phone] [facility] 11-02-2022 Note HNO ID: [id number] Author: Merlyn Fraire, RN Service: Nursing Author Type: Registered Nurse Type: Nursing Progress Note Filed: 11/01/2022 10:43 PM Note Text: Patient requesting additional sleep medication. Paged Sound at [phone] with this request. [facility] Summary Purpose Family History No Family [...] DATE CREATED AUTHOR AUTHOR'S ORGANIZ ATION 06/20/2021 [facility] DATE CREATED AUTHOR AUTHOR'S ORGANIZ ATION 12/14/2022 [facility] Care Teams (unrecognized sec tion and content) Nurses Educator Relationship Specialty Start Date End Date Lico Lazaro MD PCP - General Family Medicine 12/08/16 Nurses Educator Relationship Specialty Start Date End Date Lico Lazaro MD PCP - General Family Medicine 12/08/16 Nurses Educator Relationship Specialty Start Date End Date Lico Lazaro MD PCP - General Family Medicine 12/08/16 Source Comments (unrecognize d section and content) In the event this informatio n is protected by the Federal Confidentiality of Alcohol and Drug Abuse Patient Records regulations: The Federal rules restrict any use of the information to criminally investigate or prosecute any alcohol or drug abuse patient.[facility] the event this information is protected by the Federal Confidentiality of Alcohol and Drug Abuse Patient Records regulations: The Federal rules restrict any use of the information to criminally investigate or prosecute any alcohol or drug abuse patient.[facility] the event this information is protected by the Federal Confidentiality of Alcohol and Drug Abuse Patient Records regulations: The Federal rules restrict any use of the information to criminally investigate or prosecute any alcohol or drug abuse patient.[facility] Reason for Visit (unrecogniz ed section [...] BE BASED ON THE PRIMARY CLINICAL RECORDS. [facility] provides no warranty or guarantee of the accuracy or completeness of [phone] in [phone] [id number]
[2023-04-02 08:54] LABS: Anion Gap 3 (5-15); BUN 42 mg/dL (7-18); Calcium,Total 9.2 mg/dL (8.5-10.1); Chloride 104 mmol/L (98-107); EST Glomerular Filtration Rate 47 mL/min (>60); Est Glom Filt Rate - Afr Amer 57 mL/min (>60); Glucose 85 mg/dL (74-106); Potassium 4.5 mmol/L (3.5-5.1); Sodium Level 137 mmol/L (136-145)
== END ==
LOC: OLS.WHLTSB 06:20
PROVIDERS: PCP Internal Medicine; Visit Provider Internal Medicine
DX: I48.0 Paroxysmal atrial fibrillation (principal); E87.6 Hypokalemia
CPT/HCPCS: 36415; 80048

== ENCOUNTER → 2023-04-22 | Outpatient (REF) | payer MEDICARE, SELFPAY ==
--- OUTSIDE RECORDS SUMMARY | 2023-04-22 09:07 | XMS RPT_ITS | CCD ---
Author Name Unknown Address [address] [place] [address] Organization [facility] Care Team Providers Care Pants Presser Name Role Phone Roof SUSTAINABLE DESIGN CONSULTANT, Russell Garcia Unavailable MD Jorge, Jose Francisco Fontenot Unavailable [phone] DeFinis, Harumi Y Unavailable Unavailable DeFinis, Harumi Y Unavailable Unavailable NICOLE LOPESAMMED Unavailable Unavaila LICO Shah Unavailable Unavailable GOUCHER, NORMA G Unavailable Unavailable Roof SUSTAINABLE DESIGN CONSULTANT, Russell Garcia Unavailable Lico Lazaro Primary Care Provider Lico Lazaro MD Primary Care Provider Lico Lazaro MD Primary Care Provider ROLAND DELGADO Admitting Unavailable ANA JAMISON Attending Unavailable LICO LAZARO Primary Care Unavailable Allergies Allergy Classification Reported Allergen(s) Allergy Type Date of Onset Reaction(s) Facility (10 sources) amLODIPine drug allergy 02-21-2015 [facility] Work Phone: (18 sources) NKDA; Translations: [NKDA] allergy to substance 01-15-2015 [facility] Work Phone: Medications Current Medications Medication Drug [...] (4 sources) Long-term drug therapy; Translations: [Other residential (current) drug therapy] Onset: 07-24-2015 07-24-2015 Past or Other Problems Problem Classification Problem Date Documented Da te Episodic/Chronic Heart valve disorders (10 sources) Heart murmur; Translations: [Cardiac murmur, unspecified] Onset: 12-10-2012 12-10-2012 Episodic Other aftercare (6 sources) Other terminal carman (current) drug therapy; Translations: [Other terminal carman (current) drug therapy] Onset: 07-24-2015 07-24-2015 Episodic Results Test Name Value Interpretation Reference Range Facil ity Vital Signs Date Time Vital Sign Value Performing Clinician Sabino oakley 10-31-2016 10:40-0400 BP Diastolic 78 mm[Hg] [facility] Work Phone: 10-31-2016 10:40-0400 BP Systolic 130 mm[Hg] [facility] Work Phone: 10-31-2016 10:40-0400 Pulse (Heart Rate) 68 /min Russell Judy SUSTAINABLE DESIGN CONSULTANT [facility] Work Phone: 10-31-2016 10:40-0400 Respiratory Rate 20 /min Russell Kim SUSTAINABLE DESIGN CONSULTANT [facility] Work Phone: 10-31-2016 10:40-0400 Weight 90.9 kg Russell Kim SUSTAINABLE DESIGN CONSULTANT [facility] Work Phone: 10-16-2016 13:27-0400 BMI (Body Mass Index) 30.71 kg/m2 Jose Francisco Patel MD [facility] Work Phone: 10-16-2016 13:27-0400 BP Diastolic 82 mm[Hg] Jose Francisco Patel MD [facility] Work Phone: 10-16-2016 13:27-0400 BP Systolic 162 mm[Hg] Jose Francisco Patel MD [facility] Work Phone: 10-16-2016 13:27-0400 Height 172.72 cm Jose Francisco Patel MD [facility] Work Phone: 10-16-2016 13:27-0400 Pulse (Heart Rate) 74 /min Jose Francisco Patel MD [facility] Work Phone: 10-16-2016 13:27-0400 Respiratory Rate 18 /min Jose Francisco Patel MD [facility] Work Phone: 10-16-2016 13:27-0400 Weight 91.63 kg Jose Francisco Patel MD [facility] Work Phone: 04-04-2016 08:47-0500 BMI (Body Mass Index) 30.25 kg/m2 Harumi DeFinis [facility] Work Phone: 04-04-2016 08:47-0500 BP Diastolic 84 mm[Hg] Harumi DeFinis [facility] Work Phone: 04-04-2016 08:47-0500 BP Diastolic 80 mm[Hg] Harumi DeFinis [facility] Work Phone: 04-04-2016 08:47-0500 BP Systolic 148 mm[Hg] Harumi DeFinis [facility] Work Phone: 04-04-2016 08:47-0500 BP Systolic 170 mm[Hg] Divya Logoprois [facility] Work Phone: 04-04-2016 08:47-0500 BSA (Body Surface Area) 2.04 m2 Divya Logoprois [facility] Work Phone: 04-04-2016 08:47-0500 Pulse (Heart Rate) 80 /min Harumi DeFinis [facility] Work Phone: 04-04-2016 08:47-0500 Respiratory Rate 20 /min Haraudie Logoprois [facility] Work Phone: 04-04-2016 08:47-0500 Weight 90.27 kg Divya Logoproyenny [facility] Work Phone: 09-28-2015 14:00-0400 Height 172.72 cm [facility] Work Phone: 09-28-2015 14:00-0400 Pulse Oximetry 97 % [facility]audie [facility] Work Phone: Encounters Encounter Date Encounter Type Care Provider Facility Start: 11-14-2022 Telephone encounter M Haleigh Vásquez RN [facility] Procedures Date Procedure [...] 10-31-2016 End: 10-31-2016 *CHRISTY Wells H Judy SUSTAINABLE DESIGN CONSULTANT Work Phone: Start: 10-31-2016 End: 10-31-2016 *BMP Russell Garcia Judy SUSTAINABLE DESIGN CONSULTANT Work Phone: Start: 10-16-2016 End: 10-16-2016 SARA Patel MD Work Phone: Start: 10-16-2016 End: 10-16-2016 Follow Up Appt 6 months Jose Francisco Patel MD Work Phone: Start: 10-16-2016 End: 10-16-2016 Follow Up BP Check Jose Francisco Patel MD Work Phone: Start: 10-16-2016 End: 10-16-2016 Dietary management education, guidance, and counseling Russell Judy SUSTAINABLE DESIGN CONSULTANT Start: 10-16-2016 End: 10-16-2016 SARA Patel MD [...] Phone: Start: 04-04-2016 End: 04-04-2016 SARA Logan FORENSICS ANALYST-C Start: 04-04-2016 End: 04-04-2016 Follow Up Appt 6 months Misbah Logan FORENSICS ANALYST -C Start: 04-04-2016 End: 04-04-2016 SARA Logan FORENSICS ANALYST-C Start: 04-04-2016 End: 04-04-2016 Follow Up Appt 6 months Misbah Logan FORENSICS ANALYST -C Start: 11-15-2015 End: 11-15-2015 *BMP Adrianne [...] Author Start: 11-03-2025 DIABETES SCREEN DIABETES SCREEN [facility] Start: 11-07-2022 Influenza vaccination INFLUENZA (#1) [facility] Start: 04-22-2022 COVID-19 VACCINE (7 - Moderna series) COVID-19 VACCINE (7 - Moderna series) [facility] Start: 03-09-2022 ADVANCE DIRECTIVE DISCUSSION ADVANCE DIRECTIVE DISCUSSION [facility] Start: 01-18-2021 Creatinine measurement Creatinine monitoring [facility] Start: 01-18-2021 Potassium monitoring Potassium monitoring [facility] Start: 11-07-2020 Influenza vaccination Flu vaccine (#1) [facility] Start: 03-14-2020 DTaP/Tdap/Td vaccine (2 - Tdap) DTaP/Tdap/Td vaccine (2 - Tdap) [facility] Start: 11-08-2019 Influenza vaccination Flu vaccine (#1) [place], [place] Start: 07-20-2019 Creatinine measurement Creatinine monitoring [facility], [place] Start: 07-20-2019 Potassium monitoring Potassium monitoring [place] Start: 07-15-2017 End: 01-16-2017 *Hepatic Function Panel *Hepatic Function Panel [facility] Work Phone: Start: 07-15-2017 End: 01-16-2017 Lipid panel [AGGREGATE] *Lipid Profile CC PCP [facility] Work Phone: Start: 06-15-2017 End: 06-15-2017 Appointment Appointment [facility] Work Phone: Start: 11-28-2016 End: 01-15-2017 *Hepatic Function Panel *Hepatic Function Panel [facility] Work Phone: Start: 11-28-2016 End: 01-15-2017 Lipid panel [AGGREGATE] *Lipid Profile CC PCP [facility] Work Phone: Start: 11-28-2016 End: 05-28-2016 *Hepatic Function Panel *Hepatic Function Panel [facility] Work Phone: Start: 11-28-2016 End: 05-28-2016 Lipid panel [AGGREGATE] *Lipid Profile CC PCP [facility] Work Phone: Start: 10-31-2016 End: 10-31-2016 *BMP *BMP [facility] Work Phone: Start: 10-31-2016 End: 10-31-2016 Appointment Appointment [facility] Work Phone: Start: 10-31-2016 End: 10-31-2016 *BMP *BMP [facility] Work Phone: Start: 10-16-2016 End: 10-16-2016 Appointment Appointment [facility] Work Phone: Start: 10-16-2016 End: 10-16-2016 SARA RUIZ [facility] Work Phone: Start: 10-16-2016 End: 10-16-2016 Follow Up Appt 6 months Follow Up Appt 6 months [facility] Work Phone: Start: 10-16-2016 End: 10-16-2016 Follow Up BP Check Follow Up BP Check [facility] Work Phone: Start: 10-16-2016 End: 10-16-2016 DJN DJN [facility] Work Phone: Start: 10-16-2016 End: 10-16-2016 Follow Up Appt 6 months Follow Up Appt 6 months [facility] Work Phone: Start: 10-16-2016 End: 10-16-2016 Follow Up BP Check Follow Up BP Check [facility] Work Phone: Start: 04-07-2016 End: 05-28-2016 *Hepatic Function Panel *Hepatic Function Panel [facility] Work Phone: Start: 04-07-2016 End: 05-28-2016 Lipid panel [AGGREGATE] *Lipid Profile CC PCP [facility] Work Phone: Start: 04-07-2016 End: 05-28-2016 *Hepatic Function Panel *Hepatic Function Panel [facility] Work Phone: Start: 04-07-2016 End: 05-28-2016 Lipid panel [AGGREGATE] *Lipid Profile CC PCP [facility] Work Phone: Start: 04-04-2016 End: 04-04-2016 SARA LUGON [facility] Work Phone: Start: 04-04-2016 End: 04-04-2016 Follow Up Appt 6 months Follow Up Appt 6 months [facility] Work Phone: Start: 04-04-2016 End: 04-04-2016 SARA RUIZ [facility] Work Phone: Start: 04-04-2016 End: 04-04-2016 Follow Up Appt 6 months Follow Up Appt 6 months [facility] Work Phone: Start: 11-15-2015 End: 11-15-2015 *BMP *BMP [facility] Work Phone: Start: 11-15-2015 End: 11-15-2015 *BMP *BMP [facility] Work Phone: Start: 10-03-2015 End: 10-05-2015 *Hepatic Function Panel *Hepatic Function Panel [facility] Work Phone: Start: 10-03-2015 End: 10-05-2015 Lipid panel [AGGREGATE] *Lipid Profile CC PCP [facility] Work Phone: Start: 10-03-2015 End: 10-05-2015 *Hepatic Function Panel *Hepatic Function Panel [facility] Work Phone: Start: 10-03-2015 End: 10-05-2015 Lipid panel [AGGREGATE] *Lipid Profile CC PCP [facility] Work Phone: Start: 09-28-2015 End: 09-28-2015 SARA LUGON [facility] Work Phone: Start: 09-28-2015 End: 09-28-2015 Follow Up Appt 6 months Follow Up Appt 6 months [facility] Work Phone: Start: 09-28-2015 End: 09-28-2015 DJN DJN [facility] Work Phone: Start: 09-28-2015 End: 09-28-2015 Follow Up Appt 6 months Follow Up Appt 6 months [facility] Work Phone: Start: 09-12-2015 End: 09-12-2015 Follow Up BP Check Follow Up BP Check [facility] Work Phone: Start: 09-12-2015 End: 09-12-2015 Follow Up BP Check Follow Up BP Check [facility] Work Phone: Start: 09-05-2015 End: 09-05-2015 Follow Up BP Check Follow Up BP Check [facility] Work Phone: Start: 09-05-2015 End: 09-05-2015 Follow Up BP Check Follow Up BP Check [facility] Work Phone: Start: 07-30-2015 End: 07-30-2015 DJNora LUGON [facility] Work Phone: Start: 07-30-2015 End: 07-30-2015 Echocardiography Echocardiogram (complete) [facility] Work Phone: Start: 07-30-2015 End: 07-30-2015 Follow Up Appt 2 months Follow Up Appt 2 months [facility] Work Phone: Start: 07-30-2015 End: 07-30-2015 Follow Up BP Check Follow Up BP Check [facility] Work Phone: Start: 07-30-2015 End: 07-30-2015 SARA RUIZ [facility] Work Phone: Start: 07-30-2015 End: 07-30-2015 Echocardiography Echocardiogram (complete) [facility] Work Phone: Start: 07-30-2015 End: [...] Up BP Check Follow Up BP Check [facility] Work Phone: Start: 02-05-2015 End: 02-12-2015 *BMP *BMP [facility] Work Phone: Start: 02-05-2015 End: 02-12-2015 *BMP *BMP [facility] Work Phone: Start: 01-15-2015 End: 01-15-2015 SARA RUIZ [facility] Work Phone: Start: 01-15-2015 End: 01-15-2015 Follow Up Appt 6 months Follow Up Appt 6 months [facility] Work Phone: Start: 01-15-2015 End: 01-15-2015 Follow Up BP Check Follow Up BP Check [facility] Work Phone: Start: 01-15-2015 End: 01-15-2015 SARA LUGON [facility] Work Phone: Start: 01-15-2015 End: 01-15-2015 Follow Up Appt 6 months Follow Up Appt 6 months [facility] Work Phone: Start: 01-15-2015 End: 01-15-2015 Follow Up BP Check Follow Up BP Check [facility] Work Phone: Start: 12-26-2013 End: 12-26-2013 *BMP *BMP [facility] Work Phone: Start: 12-26-2013 End: 12-26-2013 DJN DJN [facility] Work Phone: Start: 12-26-2013 End: 12-26-2013 Follow Up Appt 1 year Follow Up Appt 1 year [facility] Work Phone: Start: 12-26-2013 End: 12-26-2013 Follow Up BP Check Follow Up BP Check [facility] Work Phone: Start: 12-26-2013 End: 12-26-2013 Urine, microalbumin *Urine, Microalbumin [facility] Work Phone: Start: 12-26-2013 End: 12-26-2013 *BMP *BMP [facility] Work Phone: Start: 12-26-2013 End: 12-26-2013 DJN DJN [facility] Work Phone: Start: 12-26-2013 End: 12-26-2013 Follow Up Appt 1 year Follow Up Appt 1 year [facility] Work Phone: Start: 12-26-2013 End: 12-26-2013 Follow Up BP Check Follow Up BP Check [facility] Work Phone: Start: 12-26-2013 End: 12-26-2013 Urine, microalbumin *Urine, Microalbumin [facility] Work Phone: Start: 12-13-2012 End: 12-19-2013 SARA DJN [facility] Work Phone: Start: 12-13-2012 End: 09-01-2013 Echocardiography Echocardiogram (complete) [facility] Work Phone: Start: 12-13-2012 End: 12-13-2012 Follow Up Appt 1 year Follow Up Appt 1 year [facility] Work Phone: Start: 12-13-2012 End: 12-19-2013 SARA RUIZ [facility] Work Phone: Start: 12-13-2012 End: 09-01-2013 Echocardiography Echocardiogram (complete) [facility] Work Phone: Start: 12-13-2012 End: 12-13-2012 Follow Up Appt 1 year Follow Up Appt 1 year [facility] Work Phone: Start: 2002 PNEUMOCOCCAL: 65+ (1 - PCV) PNEUMOCOCCAL: 65+ (1 - PCV) [facility] Start: 1987 Shingles Vaccine (1 of 2) Shingles Vaccine (1 of 2) [facility] Start: 1987 SHINGRIX VACCINE (1 of 2) SHINGRIX VACCINE (1 of 2) [facility] Start: 1956 Urine microalbumin profile DTAP,TDAP,TD (1 - Tdap) [facility] Start: 1949 Depression Screen Depression Screen [facility] Start: 1942 COVID-19 Vaccine (1) COVID-19 Vaccine (1) [facility] Patient Education [facility] Work Phone: Immunizations Immunization Date Immunization Notes Care Provider Fa cilinavjot 03-14-2010 diphtheria, tetanus toxoids and acellular pertussis vaccine Lico Lazaro [place], [place] 05-23-2009 pneumococcal polysac charide vaccine, 23 valent Lico Lazaro [facility] 04-11-2005 pneumococcal polysac charide vaccine, 23 valent Lico Lazaro [place] Payers Date Payer Category Payer Medicare [employer] MEDICARE HU[employer] MEDICARE PPO [id number] 2021-Present [phone] [address] [address] [place] [address] PPO [id number] 2021 Medicare [id number] Social History Date Type Detail Facility Start: 04-12-2018 Tobacco smoking stat [facility] Never smoker [facility] Start: 12-29-2016 End: 04-12-2018 Tobacco use and exposure Never used [facility] Start: 04-12-2018 Alcohol intake Current non-dr promotional model of alcohol (finding) [place], [place] Start: 1935 Sex Assigned At Not on file [place] Start: 12-29-2016 Tobacco smoking stat [facility] Ex-smoker [facility] History of tobacco use Current smoker [facility] History of tobacco use Pipe Smoker [facility] Start: 03-22-2017 Alcohol intake Current drinke r of alcohol (finding) [facility] Start: 02-04-2020 End: 11-02-2022 History of Social function [facility] Work Phone: Start: 02-04-2020 End: 11-02-2022 Tobacco use panel [facility] Work Phone: How hard is it for y ou to pay for the very basics like food, housing, medical care, and heating Not hard at all [facility] Work Phone: (I/We) worried roxann er (my/our) food would run out before (I/we) got money to buy more. Never true [facility] Work Phone: In the past 12 month s, was there a time when you were not able to pay the mortgage or rent on time? No [facility] Work Phone: Start: 12-29-2016 Alcohol Comment couple drinks weekly [facility] Clinical Notes 11-02-2022 to 11-14-2022 Telephone Encounter - Abe Vásquez RN - 11/14/2022 12:09 PM EDTTelephone Encounter - Sheri Ojeda RN - 11/06/2022 9:24 AM EDT Note Date & Type Note Facility 11-14-2022 Miscellaneous Notes Formattin g of this note might be different from the original. The patient was discharged from [facility] on 11/05/22 with an order to follow up with the [facility]. However, at the time of discharge the patient was transferred to a skilled facility. A letter was sent to the patient to contact the [facility] upon discharge from the skilled facility. documented in this encounter [facility] 11-06-2022 Miscellaneous Notes Formattin g of this note might be different from the original. Patient was discharged from [facility] on 11/05/22 with an order to schedule with the [facility]. However, the patient was then immediately admitted to a fpc facility. A letter will be mailed to the patient asking them to contact the Clinic upon discharge from the facility. documented in this encounter [facility] 11-04-2022 Note HNO ID: [id number] Author: Desiree Menjivar RN Service: Care Management Author Type: Registered Nurse Type: Care Mgt Progress Note Filed: 11/04/2022 4:28 PM Note Text: CARE MANAGEMENT DISCHARGE NOTE SERVICE DATE: November 04, 2022 SERVICE TIME: 4:27 PM Admission Date: 11/01/2022 LOS: 0 days Discharge Arrangement Discharge Arrangement: Residential Facility Was an expedited discharge program used?: No Services Arranged Medical Services: Other: See Comment (SNF) Provider Name: [facility] Caregiver Assessment Caregiver is ready, willing and able to meet the patient's needs as recommended by the inter-professional team: Yes Name of Caregiver: SNF Transportation Arrangements Transportation Arrangements: Ambulance Transportation Agency and Phone #:: [facility] ( [facility] ) [phone] / [phone] Date of Trip: 11/04/22 Time of Trip: 1999 Type of Service: BLS Non-emergency Is Patient Medicaid Pending?: No Was transportation financial coverage discussed with family?: Patient;Family Litigation Counsel Location: [facility] Destination: [facility] Financial Care Management Responsibility: None Handoff Communication: Handoff to: Primary Care Physician Primary Care Physician Name/Phone: Dr. Lazaro [phone] Discharge Information Row Name ED to Hosp-Admission (Current) from 11/01/[address] Res[address] Facility Agency [facility] Additional Information: Patient discharged to [facility]. Cot transport provided through [facility] at 2000. Patient, family, RN, and Facility aware of transport time. RN to call report to [phone]. SIGNATURE: Desiree Menjivar RN PATIENT NAME: Angel Thompson DATE: November 04, 2022 TIME: 4:27 PM CONTACT #: [phone] [facility] 11-04-2022 Note HNO ID: [id number] Author: Ana Jamison DO Service: Hospital Medicine [...] -- 11/01/22 1630 vte current anticoag therapy (nv,oh) 11/01/22 1630 activity - mobilize patient (nv,wa) VTE Prophylaxis: SIGNATURE: Ana Jamison DO PATIENT NAME: Angel Thompson DATE: November 04, 2022 TIME: PAGER: [facility] 11-04-2022 Note HNO ID: [id number] Author: Piedad Wang Service: Care Management Author Type: ? Type: Care Mgt Progress Note Filed: 11/04/2022 1:31 PM Note Text: [facility] PRECERT NOTE [employer] MEDICARE PPO approved Residential Facility for [facility] . Precert approved through 11/06. SIGNATURE: Piedad Wang DATE: November 04, 2022 TIME: 1:[address] [facility] 11-03-2022 Note HNO ID: [id number] Author: Ana Jamison DO Service: Hospital Medicine [...] November 03, 2022 TIME: 5:34 PM PAGER: [facility] 11-03-2022 Note HNO ID: [id number] Author: Desiree Menjivar RN Service: Care Management [...] precert, a PAS[facility], and cot transport at [place]. Will to continue to follow for transitional care planning. SIGNATURE: Desiree Menjviar RN PATIENT NAME: Angel Thompson DATE: November 03, 2022 TIME: 1:03 PM PAGER/CONTACT #: [phone] [facility] 11-03-2022 Note HNO ID: [id number] Author: Jessica Rutledge RPh Service: Pharmacy Author Type: Pharmacist Type: Plan of Care Filed: 11/03/2022 11:44 AM Note Text: PHARMACY MEDICATION REVIEW Patient Name: Angel Thompson : 1935 The following medications were updated within the METAL PUNCH PRESS OPERATOR medication list: Medications ADDED to METAL PUNCH PRESS OPERATOR medication list Eliquis 5 mg BID Bupropion XL 150 mg daily Jardiance 10 mg daily Sertraline 100 mg daily Spironolactone 25 mg - 12.5 mg once daily Medications CHANGED on METAL PUNCH PRESS OPERATOR medication list Furosemide 40 mg daily to twice daily Medications REMOVED from METAL PUNCH PRESS OPERATOR medication list Prevident Prednisone Tramadol Viagra Terazosin Clonidine Hydrochlorothiazide The below information represents the best possible medication history: Yes Medication history completed by: Pharmacist: Jessica Rutledge RPh Source of history: Pharmacy records: [facility] and RN spoke with patient Medication nonadherence identified: Patient Preference Reconciliation completed: Yes Completed by: Jessica Rutledge Rph All METAL PUNCH PRESS OPERATOR medications addressed by LIP - will recommend restart of losartan Patient interested in Bedside Delivery Services or using OP Pharmacy at discharge? No Preferred outpatient pharmacy: e- [facility] ([facility]) [place] [address] [address] [facility] [phone] [facility]- [id number] [place] [address] - [address] [facility] [phone] Allergies: No Known Allergies Prior to [...] once daily. Facility-Administered Medications: None Jessica Georgeboston [facility] 11/03/2022 [facility] 11-02-2022 Note HNO ID: [id number] Author: Reema Clarke MD Service: Hospital Medicine [...] Angel Thompson DATE: 11/02/2022 TIME: 10:[address] [facility] 11-02-2022 Note HNO ID: [id number] Author: Yuval Stokes LSW Service: Care Management Author Type: Cotton Seed Culler Type: Care Mgt Initial Assessment Filed: 11/02/2022 [...] requested by: Attending Provider Potential Transition Plans Residential Facility/Intermediate Care Facility Advance Directives Current Advance Directive: None Circulation Sales Representative Attempted to Assist with AD Completion: Yes [...] Goal(s): General wellness, Better mobility, Increase strength Amity of Choice Explained: Amity of Choice Given: Yes Level of Care Discussed: Residential Facility Are you interested in bedside delivery [...] Admission:patient has walker Support: Kacey Heredia (Daughter) [phone] Pharmacy: [facility] PCP: Lico Lazaro MD The patient reports family has been working with [employer] to get the patient plus his spouse. [...] 02, 2022 TIME: 12:28 PM CONTACT #: [phone] [facility] 11-02-2022 Note HNO ID: [id number] Author: Merlyn Fraire, RN Service: Nursing Author Type: Registered Nurse Type: Nursing Progress Note Filed: 11/01/2022 10:43 PM Note Text: Patient requesting additional sleep medication. Paged Sound at [phone] [facility] Summary Purpose Family History No Family History [...] DATE CREATED AUTHOR AUTHOR'S ORGANIZ ATION 06/20/2021 [facility] [employer] DATE CREATED AUTHOR AUTHOR'S ORGANIZ ATION 12/14/2022 [facility] Care Teams (unrecognized sec tion and content) Pants Presser Relationship Specialty Start Date End Date Lico Lazaro MD PCP - General Family Medicine 12/08/16 Pants Presser Relationship Specialty Start Date End Date Lico Lazaro MD PCP - General Family Medicine 12/08/16 Pants Presser Relationship Specialty Start Date End Date Lico Lazaro MD PCP - General Family Medicine 12/08/16 Source Comments (unrecognize d section and content) In the event this informatio n is protected by the Federal Confidentiality of Alcohol and Drug Abuse Patient Records regulations: The Federal rules restrict any use of the information to criminally investigate or prosecute any alcohol or drug abuse patient.[facility] the event this information is protected by the Federal Confidentiality of Alcohol and Drug Abuse Patient Records regulations: The Federal rules restrict any use of the information to criminally investigate or prosecute any alcohol or drug abuse patient.[facility] Anderson[facility] the event this information is protected by the Federal Confidentiality of Alcohol and Drug Abuse Patient Records regulations: The Federal rules restrict any use of the information to criminally investigate or prosecute any alcohol or drug abuse patient.[facility] Reason for Visit (unrecogniz ed section and [...] BE BASED ON THE PRIMARY CLINICAL RECORDS. [facility]. provides no warranty or guarantee of the accuracy or completeness of information in this document.
[2023-04-22 09:29] LABS: Anion Gap 8 (5-15); BUN 31 mg/dL (7-18); BUN/Creat Ratio 25.6 RATIO (10-20); Calcium,Total 8.8 mg/dL (8.5-10.1); Chloride 102 mmol/L (98-107); Creatinine, Serum 1.21 mg/dL (0.70-1.30); EST Glomerular Filtration Rate 60 mL/min (>60); Est Glom Filt Rate - Afr Amer 73 mL/min (>60); Glucose 83 mg/dL (74-106); Potassium 4.3 mmol/L (3.5-5.1); Sodium Level 138 mmol/L (136-145)
== END ==
LOC: OLS.WHLTSB 06:50
PROVIDERS: PCP Internal Medicine; Visit Provider Internal Medicine
DX: E87.6 Hypokalemia (principal)
CPT/HCPCS: 36415; 80048

== ENCOUNTER 2023-05-05 15:57 | Inpatient (IN) | payer MEDICARE, SELFPAY ==
[2023-05-05] VITALS (8 sets, daily range): BP systolic 91–114; BP diastolic 61–89; PULSE 66–71; RESP 14–19; TEMP 36.2–36.6; O2SAT 87–99; BMI 32.7; BMI 30.2
--- NOTE | 2023-05-05 16:37 | EKG12_ITS ---
Test Reason : GI BLEED Blood Pressure : / mmHG Vent. Rate : 070 BPM Atrial Rate : 000 BPM P-R Int : 000 ms QRS Dur : 082 ms QT Int : 394 ms P-R-T Axes : 000 077 168 degrees QTc Int : [address] & T wave abnormality, consider anterior ischemia Abnormal ECG Confirmed by JESENIA VAZQUEZ, CHANDRIKA ([id number]), film and video editor ANUP HANSEN ([id number]) on 05/11/2023 6:34:32 AM Referred By: Confirmed By:KIARA BA MD
--- NOTE | 2023-05-05 16:38 | EX.ED.DYSGE1 ---
HPI History of Present Illness Chief Complaint: General Illness Informant: patient Narrative Narrative: Patient presents secondary to generalized weakness and shortness of breath with exertion. He reports worsening symptoms over the past 2 days. He reported was 87% on room air and does not normally wear oxygen. He does have a history of congestive heart failure. He states that they recently increased his Lasix. He had lab work done today that showed his hemoglobin has dropped 2.3 g in the last month. They are concerned he may have a GI bleed, however patient denies any dark stools. He has a history of colon cancer with prior colectomy. He is on Eliquis for atrial fibrillation. [facility] Medical History (Updated 05/05/23 @ 18:[address] Aylin Masters MD) Aortic stenosis Atrial fibrillation BPH (benign prostatic hyperplasia) Chronic diastolic (congestive) heart failure Colon cancer Debility Depression Dizziness Gait instability Gout Heart murmur Hyperlipidemia Hypertension Hypokalemia Lumbar spondylosis with myelopathy Macrocytic anemia Non-rheumatic aortic stenosis Osteoporosis Paronychia of great toe of left foot Pure hypercholesterolemia Wound of foot Home Medications carvedilol 25 mg tablet 25 mg PO BID Blood pressure 06/26/16 [History Last Taken 05/10/22] tamsulosin 0.4 mg capsule 0.4 mg PO DAILY Prostate 06/26/16 [History Last Taken 05/09/22] sertraline 100 mg tablet (Zoloft) 100 mg PO QDAY Anxiety 10/14/17 [History Last Taken 05/09/22] apixaban 5 mg tablet (Eliquis) 5 mg PO BID 30 days #60 tabs 08/20/22 [Rx Last Taken Unknown] empagliflozin 10 mg tablet (Jardiance) 10 mg PO DAILY@0800 30 days #30 tabs 08/20/22 [Rx Last Taken Unknown] acetaminophen 500 mg tablet 1,000 mg PO Q8 PRN pain 11/26/22 [History Last Taken Unknown] atorvastatin 10 mg tablet 10 mg PO QHS hld 11/26/22 [History Last Taken Unknown] losartan 25 mg tablet 25 mg PO DAILY #30 tabs 11/26/22 [Rx Last Taken Unknown] melatonin 3 mg tablet 3 mg PO HS PRN sleep 11/26/22 [History Last Taken Unknown] mirtazapine 7.5 mg tablet 7.5 mg PO QHS sleep 11/26/22 [History Last Taken Unknown] furosemide 40 mg tablet 40 mg PO DAILY Blood pressure #120 tabs 12/14/22 [Rx Last Taken Unknown] Handicap Placard #1 ea 05/04/23 [Rx Last Taken Unknown] Allergy/AdvReac Type Severity Reaction Status Date / Time No Known Allergies Allergy Verified 03/31/23 08:11 Family History Father , Age 49 Cancer liver Surgical History History of colectomy History of open reduction and internal fixation (ORIF) procedure Social History household members: spouse and other details: Primary caregiver for with moderate Alzheimer Disease. Smoking Status: Former smoker how long ago did patient quit smoking: Quit smoking a pipe 21 years ago alcohol intake: current alcohol intake frequency: 0-2 drinks per day substance use type: does not use caffeine: Yes Type: coffee Number of servings: 2 ROS ROS ED Constitutional Constitutional ED: Denies chills or fever(s) Eyes Eyes: Denies discharge from eye(s) ENT ENT ED: Denies discharge from eye(s), rhinorrhea or sore throat Cardiovascular Cardiovascular: Denies chest pain or palpitations Respiratory/Chest Respiratory/Chest: Reports dyspnea; Denies cough Gastrointestinal Gastrointestinal: Denies abdominal pain, diarrhea, nausea or vomiting Genitourinary Genitourinary ED: Denies dysuria Musculoskeletal Musculoskeletal: Denies back pain or extremity pain Integumentary Denies Abrasions or rash Neurologic Neurologic: Denies headache(s) or weakness Psychiatric Psychiatric: Denies anxiety or depression Allergic/Immunologic Allergic/Immunologic ED: Denies lip swelling or urticaria EXAM Physical Exam Const Vital Signs: 05/05/23 15:59 05/05/23 16:04 05/05/23 16:04 Temperature 97.2 F L 97.2 F L Temperature Source Temporal Temporal Pulse Rate 66 66 Respiratory Rate 19 H 19 H Respiratory Effort Short of Breath Respiratory Pattern Normal Blood Pressure 113/89 H 113/89 H Blood Pressure Mean 97 97 Pulse Ox 87 97 Oxygen Delivery Method Room Air Nasal Cannula Oxygen Flow Rate (L/min) 2 Positive well nourished and well developed General Appearance ED: well developed HEENT Reports moist mucous membranes Eyes EOMs intact bilaterally Chest Wall inspection of chest normal and palpation of chest normal Resp normal respiratory effort Resp Narrative: Conversational dyspnea noted. Diminished breath sounds bilateral bases. Cardio Rhythm: abnormal rhythm irregularly irregular Heart Sounds: murmur GI non-tender Palpation: soft Neuro oriented x3 Psych mental status grossly normal Skin no rashes or lesions noted MDM MDM MDM Narrative Medical decision making narrative: Patient's lab work from earlier today is reviewed. Hemoglobin is 9.2 and hematocrit is 33.8. On March 31 of this year his hemoglobin was 11.5 and hematocrit 40.2. Chemistry studies reveal a BUN of 50 and a creatinine 1.72. 2 weeks ago his BUN was 31 and creatinine was 1.21. LFTs are unremarkable. His BNP today was elevated at 772. The last prior for comparison was from July 2022 at which time it was 382. Patient reported he had a chest x-ray but we cannot see that here, so portable chest x-ray will be obtained today to evaluate for CHF, pneumonia, cardiomegaly. Stool guaiac will be obtained to determine if this may be a source of blood loss. EKG obtained to evaluate for cardiac arrhythmia/ischemia. Radiography Diagnostic Testing: Clinical Impression(s) from Imaging Studies Chest X-Ray 05/05/23 16:45 IMPRESSION: Grossly stable linear densities across both lower lung driscoll consistent with probable scarring. Additional density in the left lung base may be atelectasis or infiltrate. Electronically Signed: Pernell Richards MD at 17:38 EST , Treatment and Re-Evaluation :: Portable chest x-ray per my interpretation reveals linear atelectasis versus scarring in the right midlung and left base. Radiology interpretation reviewed and agrees. EKG is A-fib at 70. He does have some T inversions in the precordial leads. On his previous EKG from July 2022 he had similar findings in V1 and V2 only. Stool guaiac test does return positive but no gross blood was noted. Patient be given a dose of Protonix. I will spoke both with GI as well as hospitalist. Discharge Plan Triage Chief Complaint: General Illness ED Provider: Aylin Masters Dx/Rx/DC Orders Clinical Impression: GI bleed, CHF (congestive heart failure), Hypoxia Prescriptions: No Action sertraline [Zoloft] 100 mg tablet 100 mg PO QDAY acetaminophen 500 mg tablet 1,000 mg PO Q8 PRN (Reason: pain) melatonin 3 mg tablet 3 mg PO HS PRN (Reason: sleep) mirtazapine 7.5 mg tablet 7.5 mg PO QHS atorvastatin 10 mg tablet 10 mg PO QHS losartan 25 mg tablet 25 mg PO DAILY Qty: 30 4RF carvedilol 25 MG tablet 25 mg PO BID tamsulosin 0.4 MG capsule 0.4 mg PO DAILY Eliquis 5 mg Tablet 5 mg PO BID 30 Days Qty: 60 0RF Jardiance 10 mg Tablet 10 mg PO DAILY@0800 30 Days Qty: 30 0RF furosemide 40 mg tablet 40 mg PO DAILY Qty: 120 0RF Rx Instructions: start 12/15/22 (DME) Handicap Placard See Rx Instructions .ROUTE .MEDSUPPLY Qty: 1 0RF Rx Instructions: As directed, length of time 3 years Primary Care Provider: Alivia Stevenson Referrals: Alivia Stevenson MD [Primary Care Provider] - Disposition Disposition: Acute Care [facility]
--- NOTE | 2023-05-05 16:45 | RAD_ITS ---
STUDY: X-RAY CHEST REASON FOR EXAM: Male, 88 years old. sob TECHNIQUE: Single AP portable view of the chest. COMPARISON: 12/13/2022. FINDINGS: Grossly stable linear densities across both lower lung driscoll consistent with probable scarring. Additional density in the left lung base may be atelectasis or infiltrate. No gross effusions. Normal size heart. Normal mediastinum and lindsay. Normal visualized pulmonary arteries. Normal visualized aortic arch and descending thoracic aorta. There are diffuse degenerative changes of the visualized thoracic spine. Normal visualized ribs, clavicles, and shoulders. There is no demonstrated abnormality of the visualized soft tissue structures of the upper abdomen. RAD/Chest 1 View (Portable) IMPRESSION: Grossly stable linear densities across both lower lung driscoll consistent with probable scarring. Additional density in the left lung base may be atelectasis or infiltrate. Electronically Signed: Pernell Richards MD at 17:38 EST ,
[2023-05-05] MEDS: Nystatin Powder 15gm Bottle 1 APPLIC TOPICAL (18:10)
--- NOTE | 2023-05-05 18:23 | NURSING ---
DR MURILLO FOR DR DURAN
[2023-05-05] MEDS: Pantoprazole Sodium 40 MG in 0.9% Normal Saline (100mL MB+) 100 ML 330 MG IV (18:33)
--- NOTE | 2023-05-05 18:40 | PCM.HP.STD ---
HPI - General General Date of Admission: 05/05/23 Date of Service: 05/05/23 Chief Complaint: Abnormal labs, shortness of breath HPI Narrative LETY MARTINEZ, is a 88 M who presents to the emergency room at [facility] from assisted living with complaints of increased shortness of breath over the last several days, his labs which were obtained today also showed a drop in his hemoglobin as compared with March of this year. Patient states he has been more short of breath recently and he uses 2 L of oxygen at assisted living. Patient has no complaints of any fevers or chills, he has no complaints of any chest discomfort. Patient denied any rectal bleeding or any dark stools. The emergency room physician who saw the patient today did a rectal exam and there was no blood grossly on examination. Labs obtained this morning from [facility] living shows that the patient's hemoglobin was 9.2, his last hemoglobin was 31 March of this year and it was 11.5. Chemistry profile was abnormal for creatinine of 1.72 and a BUN of 50, patient's beta natruretic peptide was elevated at 772. Chest x-ray does not show evidence of overt congestive heart failure, there are scattered areas of either atelectasis or infiltrate over both lungs and possibly scarring in the lungs. Patient will be admitted to PCU, he will be given IV Lasix, he will be placed on IV Protonix and seen in consultation by gastroenterology, CBC will be rechecked tomorrow. I discussed CODE STATUS with the patient, he verify that he is a DNR CC arrest without intubation. [facility] Medical History (Updated 05/05/23 @ 18:[address] Aylin Masters MD) Aortic stenosis Atrial fibrillation BPH (benign prostatic hyperplasia) Chronic diastolic (congestive) heart failure Colon cancer Debility Depression Dizziness Gait instability Gout Heart murmur Hyperlipidemia Hypertension Hypokalemia Lumbar spondylosis with myelopathy Macrocytic anemia Non-rheumatic aortic stenosis Osteoporosis Paronychia of great toe of left foot Pure hypercholesterolemia Wound of foot Home Medications carvedilol 25 mg tablet 25 mg PO BID Blood pressure 06/26/16 [History Last Taken 05/05/23] tamsulosin 0.4 mg capsule 0.4 mg PO DAILY Prostate 06/26/16 [History Last Taken 05/05/23] sertraline 100 mg tablet (Zoloft) 100 mg PO QHS Anxiety 10/14/17 [History Last Taken 05/04/23] apixaban 5 mg tablet (Eliquis) 5 mg PO BID blood thinner 30 days #60 tabs 08/20/22 [Rx Last Taken 05/05/23] empagliflozin 10 mg tablet (Jardiance) 10 mg PO DAILY@0800 diabetes 30 days #30 tabs 08/20/22 [Rx Last Taken 05/05/23] acetaminophen 500 mg tablet 1,000 mg PO Q8 PRN pain 11/26/22 [History Last Taken 05/05/23] atorvastatin 10 mg tablet 10 mg PO QHS hld 11/26/22 [History Last Taken 05/04/23] losartan 25 mg tablet 25 mg PO DAILY blood pressure #30 tabs 11/26/22 [Rx Last Taken 05/05/23] melatonin 3 mg tablet 3 mg PO HS PRN sleep 11/26/22 [History Last Taken Unknown] furosemide 40 mg tablet 40 mg PO DAILY Blood pressure #120 tabs 12/14/22 [Rx Last Taken 05/05/23] Handicap Placard #1 ea 05/04/23 [Rx Last Taken Unknown] albuterol sulfate 90 mcg/actuation aerosol inhaler (ProAir HFA) 2 inh inhalation Q4H PRN shortness of breath or wheezing 05/05/23 [History Last Taken Unknown] dextromethorphan polistirex 30 mg/5 mL oral susp ext.release 12hr (12-Hour Cough Relief) 10 ml PO Q12H PRN cough 05/05/23 [History Last Taken Unknown] furosemide 20 mg tablet 20 mg PO LUNCH fluid retention 05/05/23 [History Last Taken 05/05/23] loperamide 2 mg capsule 2 mg PO Q6H PRN loose stool 05/05/23 [History Last Taken Unknown] magnesium hydroxide 400 mg/5 mL oral suspension (Milk of Magnesia) 30 ml PO DAILY PRN constipation 05/05/23 [History Last Taken Unknown] mirtazapine 15 mg tablet 15 mg PO QHS depression 05/05/23 [History Last Taken 05/04/23] ondansetron 4 mg disintegrating tablet 4 mg translingual Q4H PRN nausea and vomiting 05/05/23 [History Last Taken Unknown] polyethylene glycol 3350 17 gram/dose oral powder (ClearLax) 17 g PO DAILY PRN constipation 05/05/23 [History Last Taken Unknown] potassium chloride 10 mEq capsule,extended release 20 meq PO DAILY supplement 05/05/23 [History Last Taken 05/05/23] Allergy/AdvReac Type Severity Reaction Status Date / Time No Known Allergies Allergy Verified 05/05/23 18:13 Family History Father , Age 49 Cancer liver Surgical History History of colectomy History of open reduction and internal fixation (ORIF) procedure Social History household members: spouse and other details: Primary caregiver for with moderate Alzheimer Disease. Smoking Status: Former smoker how long ago did patient quit smoking: Quit smoking a pipe 21 years ago alcohol intake: current alcohol intake frequency: 0-2 drinks per day substance use type: does not use caffeine: Yes Type: coffee Number of servings: 2 ROS Constitutional Constitutional: Reports fatigue and weakness; Denies anorexia, change in weight, chills, fever(s) or night sweats Eyes Eyes: Denies blurry vision, change in vision, discharge from eye(s) or eye pain Cardiovascular Cardiovascular: Reports dyspnea on exertion; Denies chest pain, claudication, edema or palpitations Respiratory/Chest Respiratory/Chest: Reports shortness of breath at rest and shortness of breath with exertion; Denies cough or hemoptysis Gastrointestinal Gastrointestinal: Denies abdominal pain, coffee ground emesis, constipation, diarrhea, dyspepsia, hematemesis, hematochezia, melena, nausea or vomiting Genitourinary Genitourinary: Denies dysuria, hematuria, urinary frequency, urinary hesitancy, urinary incontinence or urinary urgency Musculoskeletal Musculoskeletal: Denies back pain, joint pain, joint stiffness, joint swelling, myalgias or neck pain Neurologic Neurologic: Denies abnormal gait, abnormal speech, confusion, disequilibrium, dizziness, focal weakness, headache(s), loss of vision, numbness, other visual disturbances, paresthesias, syncope or tingling Psychiatric Psychiatric: Denies anxiety, cognitive impairment, depression, homicidal ideation, irritability, mood swings or suicidal ideation Endocrine Endocrinology: Denies change in body appearance, cold intolerance, excessive sweating, heat intolerance, polydipsia or polyuria Hematologic/Lymphatic Hematologic/Lymphatic: Denies none, anemia, easy bleeding, easy bruising or lymphadenopathy Allergic/Immunologic Allergic/Immunologic: Denies rhinitis, urticaria, eczemia or asthma Vital Signs Vital Signs Vital Signs: 05/05/23 15:59 05/05/23 16:04 05/05/23 16:04 Temperature 97.2 F L 97.2 F L Temperature Source Temporal Temporal Pulse Rate 66 66 Respiratory Rate 19 H 19 H Respiratory Effort Short of Breath Respiratory Pattern Normal Blood Pressure 113/89 H 113/89 H Blood Pressure Mean 97 97 Pulse Ox 87 97 Oxygen Delivery Method Room Air Nasal Cannula Oxygen Flow Rate (L/min) 2 05/05/23 17:57 05/05/23 18:04 05/05/23 18:34 Temperature 97.4 F L 97.1 F L Temperature Source Temporal Pulse Rate 70 71 71 Respiratory Rate 18 14 19 H Respiratory Effort Respiratory Pattern Blood Pressure 93/74 93/74 114/63 Blood Pressure Mean 80 80 80 Pulse Ox 95 99 98 Oxygen Delivery Method Nasal Cannula Oxygen Flow Rate (L/min) 2 Weight Weight: 100.2 kg Body Mass Index (BMI) 32.7 Physical Exam Const alert, oriented x3, no apparent distress and average body habitus General Appearance: cooperative, well kempt and well developed Orientation / Consciousness: awake, oriented to person, oriented to place and oriented to time HEENT normocephalic, head/scalp atraumatic, hearing grossly normal bilaterally and moist oral mucous membranes Eyes PERRL, EOMs intact bilaterally and conjunctivae normal Neck supple, no JVD, thyroid normal and no carotid bruits General: trachea midline Resp normal respiratory effort, no retractions and no use of accessory muscles Resp Narrative: Decreased breath sounds are noted bilaterally, there are no rhonchi wheezes or rales noted during the time of my exam. Auscultation: Negative for rales, rhonchi or wheezes Cardio S1 normal heart sound, S2 normal heart sound, no rub and no gallops Cardio Narrative: Heart rate and rhythm is irregular, there is a 2/6 systolic murmur noted at the left sternal border and apex GI normal to inspection, nondistended, normoactive bowel sounds, soft to palpation, non-tender and non-distended Extremity Extremity Narrative: Bilateral lower leg edema is noted which is +1 to 2 mm pitting Skin no rashes or lesions noted General Skin Exam: no breakdown Neuro oriented x3, CN's II-XII intact bilaterally, moves all extremities, no focal motor deficits and no sensory deficits noted Sensorium / Orientation: awake and alert Speech: speech normal Psych affect normal Results Lab / Micro Data Micro: Microbiology 05/05/23 16:50 Mucosa - Nose SARS-CoV-2, Influenza & RSV (PCR) - Final 05/05/23 17:05 Stool Stool Occult Blood (DAIANA) - Final Occult Blood Positive Imaging Radiology Impression Chest X-Ray 05/05/23 16:45 IMPRESSION: Grossly stable linear densities across both lower lung driscoll consistent with probable scarring. Additional density in the left lung base may be atelectasis or infiltrate. Electronically Signed: Pernell Richards MD at 17:38 EST , Assessment & Plan Assessment/Plan (1) CHF (congestive heart failure): PLAN: Plan 1. Acute on chronic diastolic congestive heart failure-patient will be admitted to PCU, he will be placed on IV Lasix, labs will be monitored, pulse ox will be monitored. I will repeat the patient's echocardiogram-his last echocardiogram was last May. #2 acute anemia-exact etiology unclear, patient will most likely need at least an upper endoscopy, I do not feel he is medically stable at this time to undergo endoscopy and anesthesia, I feel that by this he probably will be stable enough to undergo a procedure. I communicated this to GI via text. GI will see the patient in consultation. Patient will be placed on IV Protonix #3 chronic atrial fibrillation-patient's Eliquis will be held at this time due to concerns of GI bleeding, he will remain on rate limiting medication #4 mild aortic stenosis-again patient will have an echocardiogram tomorrow #5 BPH-patient is on Flomax #6 essential hypertension-patient will remain on his current medications, blood pressure will be monitored I discussed CODE STATUS with the patient, he confirmed that he is a DNR CC arrest without intubation. Total clinical time spent by myself addressing the patient's medical issues, reviewing all of his data, and collaborating with patient's care team: 75 minutes Charges/Coding Visit Charges Inpatient E&M: 13347 Init Hosp L3
--- NOTE | 2023-05-05 19:30 | ECHOD_ITS ---
Reason For Study: CONGESTIVE HEART FAILURE Procedure This was a 2D Doppler, Color Flow transthoracic echocardiogram. The study was technically difficult. Exam performed portable in patient room. Left Ventricle Normal LV size. The estimated ejection fraction is 60 %. Diastolic function is indeterminate. No regional wall motion abnormalities noted. Right Ventricle Severely dilated right ventricle. Normal systolic function. Atria The left atrium is mildly enlarged. The right atrium is moderately enlarged. No doppler evidence for ASD. Mitral Valve There is no mitral valve stenosis. Mild (1+) mitral valve insufficiency. Tricuspid Valve There is no tricuspid stenosis. Mild tricuspid valve insufficiency. Pulmonary artery systolic pressure is 55-60 mmHg. Aortic Valve Trisinus/trileaflet aortic valve. Moderate diffuse aortic valve thickening. Mild aortic stenosis. Mild (1+) aortic valve insufficiency. Pulmonic Valve There is no pulmonic valvular stenosis. No pulmonic valve insufficiency. Great Vessels Normal aortic root. Pericardium/Pleural No pericardial effusion. MMode/2D Measurements & Calculations LVIDd: 4.6 cm IVSd: 1.0 cm LVOT diam: 2.0 cm LVIDs: 2.7 cm LVPWd: 1.1 cm LVOT area: 3.2 cm2 FS: 41.6 % Ao root diam: 3.8 cm LAV(MOD-bp): 75.6 ml LVAd ap4: 24.5 cm2 LAV(MOD-bp) Indexed: 35.5 ml/m2 LVLd ap4: 7.3 cm LAV(MOD-sp2): 86.3 ml EDV(MOD-sp4): 71.5 ml LAV(MOD-sp4): 60.1 ml EDV(sp4-el): 69.4 ml LVAs ap4: 15.1 cm2 LVLs ap4: 6.3 cm ESV(MOD-sp4): 32.9 ml ESV(sp4-el): 31.0 ml EF(MOD-sp4): 54.1 % EF(sp4-el): 55.3 % SV(MOD-sp4): 38.7 ml SV(sp4-el): 38.4 ml LA A4 area: 22.5 cm2 LA dimension(2D): 5.0 cm RA A4 area: 26.9 cm2 TAPSE: 1.4 cm Time Measurements MV dec time: 0.18 sec Doppler Measurements & Calculations MV E max bakari: 119.0 cm/sec Lat Peak E' Bakari: 15.9 cm/sec Med Peak E' Bakari: 6.5 cm/sec E/E' lat: 7.5 E/E' med: 18.2 Ao V2 max: 255.1 cm/sec LV V1 max: 94.1 cm/sec SV(LVOT): 68.2 ml Ao max P.3 mmHg LV V1 max P.5 mmHg Ao V2 mean: 184.5 cm/sec LV V1 mean P.1 mmHg Ao mean P.3 mmHg LV V1 mean: 69.6 cm/sec Ao V2 VTI: 54.5 cm LV V1 VTI: 21.0 cm AV (velocity ratio): 0.39 KEATON(I,D): 1.3 cm2 KEATON(V,D): 1.2 cm2 PA V2 max: 75.5 cm/sec TR max bakari: 340.1 cm/sec PA max PG (full): 0.99 mmHg TR max P.3 mmHg ECHO/Echo Complete Interpretation Summary The estimated ejection fraction is 60 %. Diastolic function is indeterminate. Severely dilated right ventricle. The left atrium is mildly enlarged. The right atrium is moderately enlarged. Mild (1+) mitral valve insufficiency. Mild aortic stenosis. Mild (1+) aortic valve insufficiency. Ordering Physician: Misbah Mesa Referring Physician: Alivia Stevenson Performed By: Jyoti Grant RDCS
[2023-05-05] MEDS: Atorvastatin Calcium 10 MG Tablet PO (22:10)
[2023-05-05] MEDS: Mirtazapine 15 MG Tablet PO (22:10)
[2023-05-05] MEDS: Carvedilol 25 MG Tablet PO (22:10)
[2023-05-05] MEDS: MELATONIN 3 MG TABLET PO (22:30)
[2023-05-06 03:21] VITALS: BP 96/63; PULSE 65; RESP 18; TEMP 36.7; O2SAT 97
[2023-05-06] MEDS: Acetaminophen 500 MG Tablet 1000 MG PO (05:59)
[2023-05-06 07:29] LABS: Absolute Lymphocyte Count 1.13 X10^3/uL (0.83-4.51); Absolute Neutrophil Count 4.1 X10^3/uL (2.0-7.7); Basophil# 0.01 X10^3/uL; Basophil% 0.2 % (0-1); Eosinophil# 0.05 X10^3/uL; Eosinophils% 0.8 % (0-5); Hematocrit 34.5 % (40-54); Hemoglobin 9.5 g/dL (13.0-16.5); Lymphocyte # 1.13 X10^3/ul (0.83-4.51); Lymphocyte % 17.3 % (19-41); Mean Corp Hgb Conc 27.5 g/dL (32-36); Mean Corpuscular Hgb 28.9 pg (27.0-32.0); Mean Corpuscular Volume 104.9 fL (80-94); Mean Platelet Vol. 10.6 fl (6.2-12.0); Monocyte# 1.23 X10^3/uL; Monocyte% 18.8 % (0-10); NRBC Flagged by Analyzer 0 % (0-5); Neutrophil # 4.08 X10^3/uL (2.7-7.7); Neutrophil % 62.3 % (47-70); Platelet Count 243 K/mm3 (150-450); RBC Distribution Width CV 15.5 % (11.6-14.6); RBC Distribution Width SD 59.3 fl (35.1-43.9); Red Blood Count 3.29 M/mm3 (4.6-6.2); White Blood Count 6.5 K/mm3 (4.4-11.0)
[2023-05-06 08:01] LABS: Anion Gap 2 (5-15); BUN 56 mg/dL (7-18); BUN/Creat Ratio 28.9 RATIO (10-20); Calcium,Total 9.2 mg/dL (8.5-10.1); Chloride 106 mmol/L (98-107); Creatinine, Serum 1.94 mg/dL (0.70-1.30); EST Glomerular Filtration Rate 35 mL/min (>60); Est Glom Filt Rate - Afr Amer 42 mL/min (>60); Glucose 109 mg/dL (74-106); Potassium 4.5 mmol/L (3.5-5.1); Sodium Level 140 mmol/L (136-145)
[2023-05-06 09:00] VITALS: BP 109/70; PULSE 105; RESP 16; TEMP 36.6; O2SAT 97
[2023-05-06] MEDS: Empagliflozin 10 MG Tablet PO (09:09)
[2023-05-06] MEDS: Carvedilol 25 MG Tablet PO (09:09)
[2023-05-06] MEDS: Tamsulosin HCl 0.4 MG Capsule PO (09:09)
[2023-05-06] MEDS: Furosemide 20 MG/2 ML VIAL IV (09:09)
[2023-05-06] MEDS: Losartan Potassium 25 MG Tablet PO (09:09)
[2023-05-06] MEDS: Potassium Chloride Oral Tablet 20 MEQ PO (09:09)
[2023-05-06] MEDS: Pantoprazole Sodium 40 MG in 0.9% Normal Saline (100mL MB+) 100 ML 330 MG IV ×2 (09:12→20:50)
--- NOTE | 2023-05-06 11:13 | CASEMGMT ---
[facility]charge [facility]. Shannan Amador, Discharge Planning Asst.
--- NOTE | 2023-05-06 11:30 | EGD_PTH ---
PATIENT: LETY MARTINEZ LOC: [facility] U#:[id number] AGE/SX: 88/M ROOM: [facility] RE05/05/[address]: Dr. Paula Nichols MD : [id number] BED: 1 DIS: 05/08/2023 SPEC #: [id number] RECD: 05/07/23 12:41 STATUS: MIRIAM REJanelle #: [id number] JOSH: 05/06/23 11:[address]: Mic Justin DEPT: SURGICAL PATHOLOGY RECD BY: Luz Marina Escobar ENTERED: 05/07/23 12:41 SP TYPE: EGD BIOPSY OTHR DR: MD Dr. Misbah Henley DO Dr. Nana Yaa Koram, MD Dr. Nagapradee Nagajothi, MD Tissues: Duodenum, NOS Procedures: Surgery Specimen Level IV Comments: @ Ordering doctor for DAISY edited from to @ by COLIN at 05/07/23 1440 @ Submitting doctor edited from to @ by RGOOD at 05/07/23 1440 HEADER OPERATION: EGD with clip application, bipolar electrohemostasis, biopsy PRE-OP DIAGNOSIS: Acute on chronic diastolic congestive heart failure, chronic anemia, chronic atrial fibrillation TISSUE SUBMITTED: Duodenal ulcer biopsy MICROSCOPIC DIAGNOSIS Duodenal ulcer, biopsy: Focal gastric metaplasia. Minimal nonspecific chronic inflammation. AM:dom 05/08/2023 MICROSCOPIC DESCRIPTION Slides are reviewed. GROSS DESCRIPTION Received in fixative is one container labeled with the patient's name and designated duodenal ulcer biopsy. The specimen consists of one irregular fragment of light vanessa soft tissue that measures 0.3 x 0.3 x 0.1 cm. The specimen is totally submitted in one cassette. / SJ:dom 05/07/2023 TC:3 CPT: 47269
[2023-05-06 13:01] VITALS: BP 104/81; PULSE 58; RESP 16; TEMP 36.6; O2SAT 98
--- NOTE | 2023-05-06 13:13 | CT_ITS ---
STUDY: CTA CHEST REASON FOR EXAM: Male, 88 years old. 3 day history of shortness of breath. History of colon cancer. RADIATION DOSAGE (If Supplied By Facility): CTDIvol = ( 15.24 ) mGy, DLP = ( 480.29 ) mGycm TECHNIQUE: The examination was performed with the intravenous administration of IV 100mL Isovue-370. Post-processing of the angiographic images was performed, with multiplanar reformation and 3D reconstruction. Individualized dose optimization techniques were used for this CT. COMPARISON: Comparison is made with prior chest radiograph dated May 05, 2023. FINDINGS: Normal enhancement of the main pulmonary artery and right and left pulmonary arteries. Normal enhancement of the bilateral peripheral pulmonary arteries. There is no demonstrated pulmonary embolism. There is atherosclerotic calcification of the aortic arch with tortuosity. There is no demonstrated aortic dissection. There are calcifications of the coronary arteries. Normal mediastinum. Normal hilar regions. Normal visualized trachea and bronchi. There is elevation of the right hemidiaphragm. Small right pleural effusion with the bibasilar atelectasis more prominent on the right side. Focal infiltrate and/or atelectasis in the anterior lateral aspect of the right lower lobe as well as in the posterior aspect of the right upper lobe. Normal chest wall structures. There are degenerative changes of thoracic spine. Normal visualized upper abdomen. CT/CTA Chest W/WO Contrast IMPRESSION: Small right pleural effusion with left basilar atelectasis and possible early infiltrates in the anterior aspect of the right lower lobe as well as the posterior aspect of the right upper lobe. No evidence of pulmonary embolism. Electronically Signed: Osmin Qiu MD at 14:14 EST ,
--- NOTE | 2023-05-06 13:17 | PN_ITS ---
Subjective Subjective Patient seen and examined. He had no active complaints. HE was admitted ith a complaint of shortness of breath which had been going on for several days. He denies any coughing or palpitations, dizziness, nausea vomiting or any other symptoms. Review of systems otherwise negative. Objective Data Objective Data Vital Signs: Vital Signs Temp Pulse Resp BP Pulse Ox O2 Del Method O2 Flow Rate 97.8 F 58 L 16 104/81 H 98 Nasal Cannula 2 05/06/23 13:01 05/06/23 13:01 05/06/23 13:01 05/06/23 13:01 05/06/23 13:01 05/06/23 13:01 05/06/23 13:01 Oxygen Flow Rate (L/min) 2 Oxygen Delivery Method Nasal Cannula Weight: 210 lb 8.663 oz Body Mass Index (BMI) 30.2 Intake & Output: Intake and Output for Last 24 Hours 05/04/23 05/05/23 05/06/23 23:59 23:59 23:59 Intake Total 110 / 110 110 / 110 Output Total 250 / 250 150 / 150 Balance -140 / -140 -40 / -40 Lab / Micro Data 05/06/23 06:50 05/06/23 06:50 Labs: Laboratory Results - last 24 hr 05/06/23 06:50: WBC 6.5, RBC 3.29 L, Hgb 9.5 L, Hct 34.5 L, MCV 104.9 H, MCH 28.9, MCHC 27.5 L, RDW Std Deviation 59.3 H, RDW Coeff of [place]lin 15.5 H, Plt Count 243, MPV 10.6, Immature Gran % (Auto) 0.600, Neut % (Auto) 62.3, Lymph % (Auto) 17.3 L, [place] % (Auto) 18.8 H, Eos % (Auto) 0.8, Baso % (Auto) 0.2, Absolute Neuts (auto) 4.1, Absolute Lymphs (auto) 1.13, Nucleated RBC % 0, Sodium 140, Potassium 4.5, Chloride 106, Carbon Dioxide 32.0, Anion Gap 2 L, BUN 56 H, Creatinine 1.94 H, Estim Creat Clear Calc 31.70, Est GFR (MDRD) Af Amer 42 L, Est GFR (MDRD) Non-Af 35 L, BUN/Creatinine Ratio 28.9 H, Glucose 109 H, Calcium 9.2 Micro: Microbiology 05/05/23 16:50 Mucosa - Nose SARS-CoV-2, Influenza & RSV (PCR) - Final 05/05/23 17:05 Stool Stool Occult Blood (DAIANA) - Final Occult Blood Positive Radiography Diagnostic Testing: Radiology Impression Chest X-Ray 05/05/23 16:45 IMPRESSION: Grossly stable linear densities across both lower lung driscoll consistent with probable scarring. Additional density in the left lung base may be atelectasis or infiltrate. Electronically Signed: Pernell Richards MD at 17:38 EST , Echocardiogram 05/05/23 19:30 Interpretation Summary The estimated ejection fraction is 60 %. Diastolic function is indeterminate. Severely dilated right ventricle. The left atrium is mildly enlarged. The right atrium is moderately enlarged. Mild (1+) mitral valve insufficiency. Mild aortic stenosis. Mild (1+) aortic valve insufficiency. Ordering Physician: Misbah Mesa Referring Physician: Alivia Stevenson Performed By: Jyoti Grant RDCS Physical Exam Const alert, oriented x3 and no apparent distress General Appearance: cooperative HEENT normocephalic, head/scalp atraumatic, moist oral mucous membranes and oropharynx normal Eyes PERRL and EOMs intact bilaterally Neck no lymphadenopathy and supple Lymph Lymphatic: no lymphadenopathy noted and no lymphedema noted Resp Resp Narrative: mildly diminished breath sounds bibasally, no wheezes or crackles. On 2L of oxygen by nasal canula Cardio regular rhythm, S1 normal heart sound, S2 normal heart sound and no murmurs Cardio Narrative: episodic bradycardia Rate: bradycardia GI normal to inspection, nondistended, normoactive bowel sounds, soft to palpation, non-tender and non-distended Extremity normal capillary refill and no clubbing, cyanosis or edema General Extremity: no tenderness to palpation of joints or extremities Skin General Skin Exam: no breakdown and turgor normal Neuro CN's II-XII intact bilaterally, no focal motor deficits, no sensory deficits noted and deep tendon reflexes 2+ bilaterally Motor Exam: strength 5/5 throughout and general weakness Psych thought process normal and cooperative Appearance: appropriate Assessment & Plan Assessment/Plan (1) CHF (congestive heart failure): (2) Hypoxia: PLAN: Plan #Hypoxia due to probable acute on chronic HFpEF * patient remains on 2L of oxygen by nasal canula. * he has also been noted to be bradycardic. * currently on IV lasix * titrate oxygen to maintain sats ?90% * breathing treatment with bronchodilators * 2D echo done showed EF of 60% with indeterminate diastolic function. He had a severely dilated right ventricle with normal systolic function and moderately enlarged right atrium. Pulmonary systolic pressure is 55 to 60 mmHg. Mild aortic stenosis. * I do think it is reasonable to get a CT of the chest to rule out PE in light of his elevated pulmonary artery pressure and severely dilated right ventricle. His creatinine is 1.9 but EGFR is 35 and I discussed this with the staff and CT for comfortable doing it as his EGFR is low at less than 30 which is the cutoff. Patient is on Eliquis but apparently he has been taking it intermittently. It is therefore difficult to tell if he has been compliant fully with it. * On Jardiance. * #bradycardia * Patient noted to be intermittently bradycardic. Heart rate going down to the 50s and 40s. He is currently asymptomatic. * 2D echo done as above. Check TSH. Hold any beta-blockers. * LUCIEN: Creatinine is 1.97. Creatinine was 1.72 on admission. Baseline is around 1.17. Currently on IV Lasix. Reports trend is likely due to Lasix. Will monitor and if it trends upwards we will hold Lasix. #Anemia: * Hemoglobin is 9.5. His baseline is around 11 and is concerned that he is dropped 2.3 g within the last month. * Will check iron panel. Eliquis held on admission due to concern about GI bleed. * On IV pantoprazole. * Stool for occult blood pending. * #BPH: On Flomax Hypertension: On Cozaar CODE STATUS: DNR CCA no intubation. Charges/Coding Visit Charges Inpatient E&M: 31486 Subs Hosp L3
--- NOTE | 2023-05-06 13:38 | CHAPLAIN ---
Type of Pastoral Visit _x__ Initial Visit ___ Follow-up Visit ___ On-call Visit ___ General Patient Visit ___ Spiritual Assessment ___ Family Conference ___ Bereavement ___ Rapid Response ___ Code Blue ___ Other (describe below) Pastoral Care Referral From _x__ Patient ___ Family ___ Nurse ___ Physician ___ Call Center Coordinator ___ E Learning Designer ___ Other (describe below) Sacrament/Intervention _x__ Active listening ___ Anointing ___ Zoroastrian _x__ Bereavement ___ Communion ___ Marie exploration ___ _x__ Life review _x__ Prayer ___ Reconciliation ___ Sacrament of Sick _x__ Supportive presence ___ Wedding ___ Other (describe below) Pastoral Comments patient has been seen before in previous admission; daughter walks in just after this technician's helper sat down to visit; pt remembers the technician's helper and gives some update; pt admits to illness but mostly speaks of his move to [place] and the of his of 65 years last fall; addressed the grief and hope he is coping in a new season; pt admits that this is very hard but is 'making it'; more life review given and more exploration of how to navigate through the new season; pt is welcoming of spiritual care support and prayer; daughters are attentive to the patient and he is thankful for their support
[2023-05-06 14:39] LABS: Ferritin 31 ng/mL (26-388); Iron 17 ug/dL (65-175); Iron Binding Capacity,Total 480 ug/dL (250-450); PERCENT IRON SATURATION 3.5 % (15.0-55.0); Thyroid Stim Hormone (TSH) 1.32 uIU/mL (0.358-3.74)
--- NOTE | 2023-05-06 15:26 | CON.PCM.GI_ITS ---
HPI Consult Data Date of Consult: 05/06/23 HPI Narrative Reason for Consultation: Anemia and heme positive stools HPI Narrative: LETY MARTINEZ, is a 88 M who presented to the emergency room at [facility] from assisted living with complaints of increased shortness of breath over the last several days, his labs which were obtained today also showed a drop in his hemoglobin as compared with March of this year. Patient states he has been more short of breath recently and he uses 2 L of oxygen at assisted living. Patient has no complaints of any fevers or chills, he has no complaints of any chest discomfort. Patient denied any rectal bleeding or any dark stools. The emergency room physician who saw the patient today did a rectal exam and there was no blood grossly on examination. Labs obtained this morning from [facility] living shows that the patient's hemoglobin was 9.2, his last hemoglobin was 31 March of this year and it was 11.5. Chemistry profile was abnormal for creatinine of 1.72 and a BUN of 50, patient's beta natruretic peptide was elevated at 772. Chest x-ray does not show evidence of overt congestive heart failure, there are scattered areas of either atelectasis or infiltrate over both lungs and possibly scarring in the lungs. He underwent a CTA of the chest to rule out pulmonary embolism and it displayed: Small right pleural effusion with left basilar atelectasis and possible early infiltrates in the anterior aspect of the right lower lobe as well as the posterior aspect of the right upper lobe. No evidence of pulmonary embolism. [facility] Medical History Aortic stenosis Atrial fibrillation BPH (benign prostatic hyperplasia) Chronic diastolic (congestive) heart failure Colon cancer Debility Depression Dizziness Gait instability Gout Heart murmur Hyperlipidemia Hypertension Hypokalemia Lumbar spondylosis with myelopathy Macrocytic anemia Non-rheumatic aortic stenosis Osteoporosis Paronychia of great toe of left foot Pure hypercholesterolemia Wound of foot Home Medications carvedilol 25 mg tablet 25 mg PO BID Blood pressure 06/26/16 [History Last Taken 05/05/23] tamsulosin 0.4 mg capsule 0.4 mg PO DAILY Prostate 06/26/16 [History Last Taken 05/05/23] sertraline 100 mg tablet (Zoloft) 100 mg PO QHS Anxiety 10/14/17 [History Last Taken 05/04/23] apixaban 5 mg tablet (Eliquis) 5 mg PO BID blood thinner 30 days #60 tabs 0 08/20/22 [Rx Last Taken 05/05/23] empagliflozin 10 mg tablet (Jardiance) 10 mg PO DAILY@0800 diabetes 30 days #30 tabs 08/20/22 [Rx Last Taken 05/05/23] acetaminophen 500 mg tablet 1,000 mg PO Q8 PRN pain 11/26/22 [History Last Taken 05/05/23] atorvastatin 10 mg tablet 10 mg PO QHS hld 11/26/22 [History Last Taken 05/04/23] losartan 25 mg tablet 25 mg PO DAILY blood pressure #30 tabs 11/26/22 [Rx Last Taken 05/05/23] melatonin 3 mg tablet 3 mg PO HS PRN sleep 11/26/22 [History Last Taken Unknown] furosemide 40 mg tablet 40 mg PO DAILY Blood pressure #120 tabs 12/14/22 [Rx Last Taken 05/05/23] Handicap Placard #1 ea 05/04/23 [Rx Last Taken Unknown] albuterol sulfate 90 mcg/actuation aerosol inhaler (ProAir HFA) 2 inh inhalation Q4H PRN shortness of breath or wheezing 05/05/23 [History Last Taken Unknown] dextromethorphan polistirex 30 mg/5 mL oral susp ext.release 12hr (12-Hour Cough Relief) 10 ml PO Q12H PRN cough 05/05/23 [History Last Taken Unknown] furosemide 20 mg tablet 20 mg PO LUNCH fluid retention 05/05/23 [History Last Taken 05/05/23] loperamide 2 mg capsule 2 mg PO Q6H PRN loose stool 05/05/23 [History Last Taken Unknown] magnesium hydroxide 400 mg/5 mL oral suspension (Milk of Magnesia) 30 ml PO DAILY PRN constipation 05/05/23 [History Last Taken Unknown] mirtazapine 15 mg tablet 15 mg PO QHS depression 05/05/23 [History Last Taken 05/04/23] ondansetron 4 mg disintegrating tablet 4 mg translingual Q4H PRN nausea and vomiting 05/05/23 [History Last Taken Unknown] polyethylene glycol 3350 17 gram/dose oral powder (ClearLax) 17 g PO DAILY PRN constipation 05/05/23 [History Last Taken Unknown] potassium chloride 10 mEq capsule,extended release 20 meq PO DAILY supplement 05/05/23 [History Last Taken 05/05/23] Allergy/AdvReac Type Severity Reaction Status Date / Time No Known Allergies Allergy Verified 05/05/23 18:13 Family History Father , Age 49 Cancer liver Surgical History History of colectomy History of open reduction and internal fixation (ORIF) procedure Social History household members: spouse and other details: Primary caregiver for with moderate Alzheimer Disease. Smoking Status: Former smoker how long ago did patient quit smoking: Quit smoking a pipe 21 years ago alcohol intake: current alcohol intake frequency: 0-2 drinks per day substance use type: does not use caffeine: Yes Type: coffee Number of servings: 2 ROS Constitutional Constitutional: Reports fatigue and weakness; Denies anorexia, change in weight, chills, fever(s) or night sweats Eyes Eyes: Denies blurry vision, change in vision, discharge from eye(s) or eye pain Cardiovascular Cardiovascular: Reports dyspnea on exertion; Denies chest pain, claudication, edema or palpitations Respiratory/Chest Respiratory/Chest: Reports shortness of breath at rest and shortness of breath with exertion; Denies cough or hemoptysis Gastrointestinal Gastrointestinal: Denies abdominal pain, coffee ground emesis, constipation, diarrhea, dyspepsia, hematemesis, hematochezia, melena, nausea or vomiting Genitourinary Genitourinary: Denies dysuria, hematuria, urinary frequency, urinary hesitancy, urinary incontinence or urinary urgency Musculoskeletal Musculoskeletal: Denies back pain, joint pain, joint stiffness, joint swelling, myalgias or neck pain Neurologic Neurologic: Denies abnormal gait, abnormal speech, confusion, disequilibrium, dizziness, focal weakness, headache(s), loss of vision, numbness, other visual disturbances, paresthesias, syncope or tingling Psychiatric Psychiatric: Denies anxiety, cognitive impairment, depression, homicidal ideation, irritability, mood swings or suicidal ideation Endocrine Endocrinology: Denies change in body appearance, cold intolerance, excessive sweating, heat intolerance, polydipsia or polyuria Hematologic/Lymphatic Hematologic/Lymphatic: Denies none, anemia, easy bleeding, easy bruising or lymphadenopathy Allergic/Immunologic Allergic/Immunologic: Denies rhinitis, urticaria, eczemia or asthma Physical Exam Const alert, oriented x3 and no apparent distress General Appearance: cooperative HEENT normocephalic, head/scalp atraumatic, moist oral mucous membranes and oropharynx normal Eyes PERRL and EOMs intact bilaterally Neck no lymphadenopathy and supple Lymph Lymphatic: no lymphadenopathy noted and no lymphedema noted Resp Resp Narrative: mildly diminished breath sounds bibasally, no wheezes or crackles. On 2L of oxygen by nasal canula Cardio regular rhythm, S1 normal heart sound, S2 normal heart sound and no murmurs Cardio Narrative: episodic bradycardia Rate: bradycardia GI normal to inspection, nondistended, normoactive bowel sounds, soft to palpation, non-tender and non-distended Extremity normal capillary refill and no clubbing, cyanosis or edema General Extremity: no tenderness to palpation of joints or extremities Skin General Skin Exam: no breakdown and turgor normal Neuro CN's II-XII intact bilaterally, no focal motor deficits, no sensory deficits noted and deep tendon reflexes 2+ bilaterally Motor Exam: strength 5/5 throughout and general weakness Psych thought process normal and cooperative Appearance: appropriate Lab / Micro Data 05/06/23 06:50 05/06/23 06:50 Labs: Laboratory Results - last 24 hr 05/06/23 06:50: WBC 6.5, RBC 3.29 L, Hgb 9.5 L, Hct 34.5 L, MCV 104.9 H, MCH 28.9, MCHC 27.5 L, RDW Std Deviation 59.3 H, RDW Coeff of [place] 15.5 H, Plt Count 243, MPV 10.6, Immature Gran % (Auto) 0.600, Neut % (Auto) 62.3, Lymph % (Auto) 17.3 L, [place] % (Auto) 18.8 H, Eos % (Auto) 0.8, Baso % (Auto) 0.2, Absolute Neuts (auto) 4.1, Absolute Lymphs (auto) 1.13, Nucleated RBC % 0, Sodium 140, Potassium 4.5, Chloride 106, Carbon Dioxide 32.0, Anion Gap 2 L, BUN 56 H, Creatinine 1.94 H, Estim Creat Clear Calc 31.70, Est GFR (MDRD) Af Amer 42 L, Est GFR (MDRD) Non-Af 35 L, BUN/Creatinine Ratio 28.9 H, Glucose 109 H, Calcium 9.2, Iron 17 L, TIBC 480 H, Iron Saturation 3.5 L, Ferritin 31, TSH 1.32 Micro: Microbiology 05/05/23 16:50 Mucosa - Nose SARS-CoV-2, Influenza & RSV (PCR) - Final 05/05/23 17:05 Stool Stool Occult Blood (DAIANA) - Final Occult Blood Positive Imaging Radiology Impression Chest X-Ray 05/05/23 16:45 IMPRESSION: Grossly stable linear densities across both lower lung driscoll consistent with probable scarring. Additional density in the left lung base may be atelectasis or infiltrate. Electronically Signed: Pernell Richards MD at 17:38 EST , Echocardiogram 05/05/23 19:30 Interpretation Summary The estimated ejection fraction is 60 %. Diastolic function is indeterminate. Severely dilated right ventricle. The left atrium is mildly enlarged. The right atrium is moderately enlarged. Mild (1+) mitral valve insufficiency. Mild aortic stenosis. Mild (1+) aortic valve insufficiency. Ordering Physician: Misbah Mesa Referring Physician: Alivia Stevenson Performed By: Jyoti rGant, RDSID Chest CTA 05/06/23 13:13 IMPRESSION: Small right pleural effusion with left basilar atelectasis and possible early infiltrates in the anterior aspect of the right lower lobe as well as the posterior aspect of the right upper lobe. No evidence of pulmonary embolism. Electronically Signed: Osmin Qiu MD at 14:14 EST , Assessment & Plan Assessment/Plan (1) CHF (congestive heart failure): PLAN: Plan 88-year-old with past medical history of COPD, CHF, CAD on antiplatelet therapy who presented with worsening shortness of breath and fatigue. He was diagnosed with : Acute on chronic diastolic congestive heart failure-CT scan shows signs of diastolic heart failure with some mild systolic heart failure and possibly port hypertension. Acute anemia-exact etiology unclear, patient will most likely need at least an upper endoscopy, he was not medically stable for an upper endoscopy yesterday. He is a little bit better with diuresis today. I will perform an upper endoscopy tomorrow. N.p.o. past midnight. Chronic atrial fibrillation-patient's Eliquis will be held at this time due to concerns of GI bleeding Charges/Coding Visit Charges Inpatient E&M: 59764 Init Hosp L3
[2023-05-06 20:35] VITALS: BP 80/42; PULSE 64; RESP 18; TEMP 36.4; O2SAT 96
[2023-05-06] MEDS: Atorvastatin Calcium 10 MG Tablet PO (20:50)
[2023-05-06] MEDS: Mirtazapine 15 MG Tablet PO (20:50)
[2023-05-06] MEDS: 0.9% Saline Lock 10 ML Syringe IV ×2 (20:50→23:49)
[2023-05-06 21:07] VITALS: BP 80/55
[2023-05-06] MEDS: Albumin Human 25% (100 mL) 25 GM/100 ML BAG IV (21:55)
[2023-05-06] MEDS: MELATONIN 3 MG TABLET PO (21:56)
[2023-05-06 23:29] VITALS: BP 91/58; PULSE 77; RESP 18; TEMP 36.5; O2SAT 97
[2023-05-06] MEDS: Temazepam 15 MG Capsule PO (23:48)
[2023-05-07] VITALS (17 sets, daily range): BP systolic 59–174; BP diastolic 24–129; PULSE 64–88; RESP 14–24; TEMP 35.8–36.8; O2SAT 90–99; BMI 30.2
--- NOTE | 2023-05-07 05:55 | EKG12_ITS ---
Test Reason : AM EKG Blood Pressure : / mmHG Vent. Rate : 073 BPM Atrial Rate : 000 BPM P-R Int : 000 ms QRS Dur : 096 ms QT Int : 414 ms P-R-T Axes : 000 092 029 degrees QTc Int : 456 ms Atrial fibrillation Rightward axis ST & T wave abnormality, consider anterior ischemia Abnormal ECG When compared with ECG of 05-MAY-2023 16:48, MANUAL COMPARISON REQUIRED, DATA IS UNCONFIRMED Confirmed by JESENIA VAZQUEZ, CHANDRIKA ([id number]), film editor ANUP HANSEN ([id number]) on 05/11/2023 6:50:15 AM Referred By: Confirmed By:KIARA BA MD
[2023-05-07 07:05] LABS: Absolute Lymphocyte Count 0.88 X10^3/uL (0.83-4.51); Absolute Neutrophil Count 5.4 X10^3/uL (2.0-7.7); Basophil# 0.01 X10^3/uL; Basophil% 0.1 % (0-1); Eosinophil# 0.04 X10^3/uL; Eosinophils% 0.5 % (0-5); Hematocrit 35.1 % (40-54); Hemoglobin 9.3 g/dL (13.0-16.5); Lymphocyte # 0.88 X10^3/ul (0.83-4.51); Lymphocyte % 11.8 % (19-41); Mean Corp Hgb Conc 26.5 g/dL (32-36); Mean Corpuscular Volume 105.7 fL (80-94); Mean Platelet Vol. 10.7 fl (6.2-12.0); Monocyte# 1.07 X10^3/uL; Monocyte% 14.4 % (0-10); NRBC Flagged by Analyzer 0.7 % (0-5); Neutrophil # 5.42 X10^3/uL (2.7-7.7); Neutrophil % 72.8 % (47-70); Platelet Count 263 K/mm3 (150-450); RBC Distribution Width CV 15.1 % (11.6-14.6); RBC Distribution Width SD 58.1 fl (35.1-43.9); Red Blood Count 3.32 M/mm3 (4.6-6.2); White Blood Count 7.5 K/mm3 (4.4-11.0)
[2023-05-07 07:27] LABS: Anion Gap 4 (5-15); BUN 55 mg/dL (7-18); BUN/Creat Ratio 22.9 RATIO (10-20); Calcium,Total 8.8 mg/dL (8.5-10.1); Chloride 103 mmol/L (98-107); EST Glomerular Filtration Rate 27 mL/min (>60); Est Glom Filt Rate - Afr Amer 33 mL/min (>60); Estimated Creatinine Clearance 25.63 ml/min; Glucose 116 mg/dL (74-106); Potassium 5.1 mmol/L (3.5-5.1); Sodium Level 137 mmol/L (136-145)
[2023-05-07 07:51] LABS: International Normalized Ratio 1.3; Partial Thromboplast Time 33.8 Seconds (24.1-36.2); Prothrombin Time (Protime)PT. 16.1 SECONDS (11.7-14.9)
[2023-05-07] MEDS: Pantoprazole Sodium 40 MG in 0.9% Normal Saline (100mL MB+) 100 ML 330 MG IV (09:50)
--- NOTE | 2023-05-07 10:45 | PN_ITS ---
Subjective Subjective Patient seen and examined today. He had no complaints. He was on room air. He says his breathing has improved significantly. Review of systems otherwise negative. He did have a CTA done yesterday which was negative for PE. Creatinine has trended up to 2.4 today. Patient was noted to be hypotensive yesterday with blood pressure going down into the 80s. Lasix discontinued. Objective Data Objective Data Vital Signs: Vital Signs Temp Pulse Resp BP Pulse Ox O2 Del Method O2 Flow Rate 97.7 F L 77 18 91/58 L 97 Nasal Cannula 4 05/07/23 08:37 05/07/23 08:37 05/07/23 08:37 05/07/23 08:37 05/07/23 08:37 05/07/23 08:37 05/07/23 08:31 Oxygen Flow Rate (L/min) 4 Oxygen Delivery Method Nasal Cannula Weight: 210 lb 8.663 oz Body Mass Index (BMI) 30.2 Intake & Output: Intake and Output for Last 24 Hours 05/05/23 05/06/23 05/07/23 23:59 23:59 23:59 Intake Total 110 / 110 320 / 320 170 / 170 Output Total 250 / 250 550 / 550 Balance -140 / -140 -230 / -230 170 / 170 Lab / Micro Data 05/07/23 06:55 05/07/23 06:55 Labs: Laboratory Results - last 24 hr 05/06/23 06:50: Iron 17 L, TIBC 480 H, Iron Saturation 3.5 L, Ferritin 31, TSH 1.32 05/07/23 06:55: WBC 7.5, RBC 3.32 L, Hgb 9.3 L, Hct 35.1 L, MCV 105.7 H, MCH 28.0, MCHC 26.5 L, RDW Std Deviation 58.1 H, RDW Coeff of Katlin 15.1 H, Plt Count 263, MPV 10.7, Immature Gran % (Auto) 0.400, Neut % (Auto) 72.8 H, Lymph % (Auto) 11.8 L, Dubois % (Auto) 14.4 H, Eos % (Auto) 0.5, Baso % (Auto) 0.1, Absolute Neuts (auto) 5.4, Absolute Lymphs (auto) 0.88, Nucleated RBC % 0.7, PT 16.1 H, INR 1.3, APTT 33.8, Sodium 137, Potassium 5.1, Chloride 103, Carbon Dioxide 30.0, Anion Gap 4 L, BUN 55 H, Creatinine 2.40 H, Estim Creat Clear Calc 25.63, Est GFR (MDRD) Af Amer 33 L, Est GFR (MDRD) Non-Af 27 L, BUN/Creatinine Ratio 22.9 H, Glucose 116 H, Calcium 8.8 Micro: Microbiology 05/05/23 16:50 Mucosa - Nose SARS-CoV-2, Influenza & RSV (PCR) - Final 05/05/23 17:05 Stool Stool Occult Blood (DAIANA) - Final Occult Blood Positive Radiography Diagnostic Testing: Radiology Impression Echocardiogram 05/05/23 19:30 Interpretation Summary The estimated ejection fraction is 60 %. Diastolic function is indeterminate. Severely dilated right ventricle. The left atrium is mildly enlarged. The right atrium is moderately enlarged. Mild (1+) mitral valve insufficiency. Mild aortic stenosis. Mild (1+) aortic valve insufficiency. Ordering Physician: Misbah Mesa Referring Physician: Alivia Stevenson Performed By: Jyoti Grant, [facility] Chest CTA 05/06/23 13:13 IMPRESSION: Small right pleural effusion with left basilar atelectasis and possible early infiltrates in the anterior aspect of the right lower lobe as well as the posterior aspect of the right upper lobe. No evidence of pulmonary embolism. Electronically Signed: Osmin Qiu MD at 14:14 EST , Physical Exam Const alert, oriented x3, no apparent distress and average body habitus General Appearance: cooperative, well kempt and well developed Orientation / Consciousness: awake, oriented to person, oriented to place and oriented to time HEENT normocephalic, head/scalp atraumatic, hearing grossly normal bilaterally, moist oral mucous membranes and oropharynx normal Eyes PERRL, EOMs intact bilaterally and conjunctivae normal Neck no lymphadenopathy, supple, no JVD, thyroid normal and no carotid bruits General: trachea midline Lymph Lymphatic: no lymphadenopathy noted and no lymphedema noted Resp normal respiratory effort, no retractions and no use of accessory muscles Resp Narrative: mildly diminished breath sounds bibasally, no wheezes or crackles. on room air today Auscultation: Negative for rales, rhonchi or wheezes Cardio regular rhythm, S1 normal heart sound, S2 normal heart sound, no murmurs, no rub and no gallops Cardio Narrative: episodic bradycardia Rate: bradycardia GI normal to inspection, nondistended, normoactive bowel sounds, soft to palpation, non-tender and non-distended Extremity normal capillary refill Extremity Narrative: lower extremity edema has improved. General Extremity: no tenderness to palpation of joints or extremities Skin no rashes or lesions noted General Skin Exam: no breakdown and turgor normal Neuro oriented x3, CN's II-XII intact bilaterally, moves all extremities, no focal motor deficits, no sensory deficits noted and deep tendon reflexes 2+ bilaterally Sensorium / Orientation: awake and alert Speech: speech normal Motor Exam: strength 5/5 throughout and general weakness Psych thought process normal, cooperative and affect normal Appearance: appropriate Assessment & Plan Assessment/Plan (1) CHF (congestive heart failure): (2) Hypoxia: PLAN: Plan #Hypoxia due to probable acute on chronic HFpEF * patient now on 2L of oxygen * he has also been noted to be bradycardic. * titrate oxygen to maintain sats ?90% * breathing treatment with bronchodilators * 2D echo done showed EF of 60% with indeterminate diastolic function. He had a severely dilated right ventricle with normal systolic function and moderately enlarged right atrium. Pulmonary systolic pressure is 55 to 60 mmHg. Mild aortic stenosis. * I do think it is reasonable to get a CT of the chest to rule out PE in light of his elevated pulmonary artery pressure and severely dilated right ventricle. His creatinine is 1.9 but EGFR is 35 and I discussed this with the staff and CT for comfortable doing it as his EGFR is low at less than 30 which is the cutoff. Patient is on Eliquis but apparently he has been taking it intermittently. It is therefore difficult to tell if he has been compliant fully with it. * jardiance held due to LUCIEN. * lasix also held due to LUCIEN * #bradycardia * Patient noted to be intermittently bradycardic. Heart rate going down to the 50s and 40s. He is currently asymptomatic. * 2D echo done as above. Check TSH. Hold any beta-blockers. * LUCIEN: * Creatinine is up to 2.4 today. * Patient was hypotensive overnight and he also did receive contrast with a CTA which we unfortunately had to do in order to rule out a PE in light of the elevated right-sided pressures. Will DC Lasix and hydrate with IV fluids. * Patient is on room air now but will monitor closely for evidence of fluid overload. * If creatinine worsens will consult nephrology. * Check Fe urea. * Lasix and Jardiance held. #Anemia: * Hemoglobin is 9.3. His baseline is around 11 and is concerned that he is dropped 2.3 g within the last month. * Will check iron panel. Eliquis held on admission due to concern about GI bleed. * On IV pantoprazole. * Stool for occult blood pending. Iron panel showed severe iron deficiency anemia. Gastroenterology consulted. Await recs. * * #BPH: On Flomax Hypertension: On Cozaar CODE STATUS: DNR CCA no intubation. Charges/Coding Visit Charges Inpatient E&M: 14105 [facility] L3
[2023-05-07] MEDS: Lactated Ringers 1,000 ML 15 ML IV (10:48)
--- NOTE | 2023-05-07 11:31 | OP.CCLET_ITS ---
05/07/2023 Alivia Stevenson MD [address] [place] [address] [place] [address] Re : Upper GI endoscopy procedure for Angel Thompson Dear Dr. Stevenson This procedure was performed on May 07, 2023. My impressions and recommendations are as follows: Impressions : - Normal esophagus. - Oozing gastric ulcer with a visible vessel. Injected. Treated with a heater probe. Clip was placed. Clip data management specialist: [employer]. - Non-bleeding duodenal ulcer with no stigmata of bleeding. Biopsied. Recommendations : - Discharge patient to home. - The patient is not currently taking anticoagulant or antiplatelet agents. - No aspirin, ibuprofen, naproxen, or other non-steroidal anti-inflammatory drugs for 7 days. My findings are described in the full procedure note, which is enclosed. If I can be of further assistance, please feel free to contact me at . Sincerely, Mic Justin, 05/07/2023 11:30:39 AM This report has been signed electronically.
--- NOTE | 2023-05-07 11:31 | OP.EGD_ITS ---
Patient Name: Angel Thompson Procedure Date: 05/07/2023 11:00 AM Date of : 1935 Age: 88 Procedure: Upper GI endoscopy Indications: Iron deficiency anemia, Melena Providers: Mic Justin DO Medicines: Monitored Anesthesia Care Patient Profile: This is an 88 year old male. Refer to note in patient chart for documentation of history and physical. Patient has symptoms of acute epigastric abdominal pain and acute dyspepsia. Complications: No immediate complications. Procedure: Pre-Anesthesia Assessment: - Prior to the procedure, a History and Physical was performed, and patient medications and allergies were reviewed. The patient is competent. The risks and benefits of the procedure and the sedation options and risks were discussed with the patient. All questions were answered and informed consent was obtained. Patient identification and proposed procedure were verified by the physician in the pre-procedure area. Mental Status Examination: alert and oriented. Airway Examination: normal oropharyngeal airway and neck mobility. Respiratory Examination: clear to auscultation. CV Examination: normal. Prophylactic Antibiotics: The patient does not require prophylactic antibiotics. Prior Anticoagulants: The patient has taken no anticoagulant or antiplatelet agents. ASA Grade Assessment: IV - A patient with severe systemic disease that is a constant threat to life. After reviewing the risks and benefits, the patient was deemed in satisfactory condition to undergo the procedure. The anesthesia plan was to use monitored anesthesia care (MAC). Immediately prior to administration of medications, the patient was re-assessed for adequacy to receive sedatives. The heart rate, respiratory rate, oxygen saturations, blood pressure, adequacy of pulmonary ventilation, and response to care were monitored throughout the procedure. The physical status of the patient was re-assessed after the procedure. After obtaining informed consent, the endoscope was passed under direct vision. Throughout the procedure, the patient's blood pressure, pulse, and oxygen saturations were monitored continuously. The Endoscope was introduced through the mouth, and advanced to the second part of duodenum. The upper GI endoscopy was accomplished without difficulty. The patient tolerated the procedure well. Scope In: 11:09:57 AM Scope Out: 11:19:42 AM Total Procedure Duration Time 0 hours 9 minutes 45 seconds Findings: The examined esophagus was normal. One oozing cratered gastric ulcer with a visible vessel was found in the gastric fundus. The lesion was 10 mm in largest dimension. Area was successfully injected with 5 mL of a 0.1 mg/mL solution of epinephrine for drug delivery. Coagulation for hemostasis using heater probe was successful. To stop active bleeding, one hemostatic clip was successfully placed. Clip pool technician: [employer]. There was no bleeding at the end of the procedure. One non-bleeding linear duodenal ulcer with no stigmata of bleeding was found in the duodenal bulb. The lesion was 4 mm in largest dimension. Biopsies were taken with a cold forceps for histology. Verification of patient identification for the specimen was done. Estimated blood loss was minimal. Impression: - Normal esophagus. - Oozing gastric ulcer with a visible vessel. Injected. Treated with a heater probe. Clip was placed. Clip pool technician: [employer]. - Non-bleeding duodenal ulcer with no stigmata of bleeding. Biopsied. Recommendation: - Discharge patient to home. - The patient is not currently taking anticoagulant or antiplatelet agents. - No aspirin, ibuprofen, naproxen, or other non-steroidal anti-inflammatory drugs for 7 days. Procedure Code(s): --- Professional --- 05426, 59, Esophagogastroduodenoscopy, flexible, transoral; with control of bleeding, any method 20483, Esophagogastroduodenoscopy, flexible, transoral; with biopsy, single or multiple 68897, 59, Esophagogastroduodenoscopy, flexible, transoral; with directed submucosal injection(s), any substance CPT copyright 2021 [employer]. All rights reserved. The codes documented in this report are preliminary and upon head stock operator review may be revised to meet current compliance requirements. Mic Justin DO 05/07/2023 11:30:39 AM This report has been signed electronically. Number of Addenda: 0 Note Initiated On: 05/07/2023 11:00 AM
[2023-05-07] MEDS: 0.9% Normal Saline (1000mL) 1,000 ML 75 ML IV (12:50)
[2023-05-07] MEDS: Tamsulosin HCl 0.4 MG Capsule PO (12:54)
[2023-05-07] MEDS: Potassium Chloride Oral Tablet 20 MEQ PO (12:54)
--- NOTE | 2023-05-07 14:02 | CASEMGMT ---
REGGIE called patient's daughter Disha who confirmed the plan is to return to [facility]. Disha said if therapy recommends therapy on the [facility]pc side they would want patient to go to [place]. Disha said REGGIE would have to check with patient's other daughter Kacey about transportation back to [place]. Plan: d/c back to [facility] unless patient's physical condition deteriorates. Cara Craven [employer] DOCTOR LATASHA
[2023-05-07 15:26] LABS: Urea Nitrogen, Urine 168 mg/dL (NO RANGE EST.)
[2023-05-07] MEDS: Sucralfate 1 GM Tablet PO (16:44)
[2023-05-07] MEDS: Atorvastatin Calcium 10 MG Tablet PO (21:16)
[2023-05-07] MEDS: Mirtazapine 15 MG Tablet PO (21:16)
[2023-05-07] MEDS: Pantoprazole Sodium 40 MG in 0.9% Normal Saline (100mL MB+) 100 ML 320 MG IV (21:19)
[2023-05-07 22:46] LABS: Bedside Glucose 124 mg/dL (74-106)
[2023-05-07 22:46] LABS: Absolute Neutrophil Count 7.6 X10^3/uL (2.0-7.7); Basophil# 0.01 X10^3/uL; Basophil% 0.1 % (0-1); Eosinophil# 0.02 X10^3/uL; Eosinophils% 0.2 % (0-5); Hematocrit 38.5 % (40-54); Lymphocyte % 9.3 % (19-41); Mean Corpuscular Hgb 27.9 pg (27.0-32.0); Mean Corpuscular Volume 107.2 fL (80-94); Monocyte# 2.08 X10^3/uL; Monocyte% 19.2 % (0-10); NRBC Flagged by Analyzer 0.6 % (0-5); Neutrophil # 7.62 X10^3/uL (2.7-7.7); Neutrophil % 70.5 % (47-70); POSITIVE DIFFERENTIAL YES; POSITIVE MORPHOLOGY YES; Platelet Count 241 K/mm3 (150-450); RBC Distribution Width CV 14.9 % (11.6-14.6); RBC Distribution Width SD 59.9 fl (35.1-43.9); Red Blood Count 3.59 M/mm3 (4.6-6.2); White Blood Count 10.8 K/mm3 (4.4-11.0)
[2023-05-07 22:47] LABS: Differential Indicated SCAN CRITERIA MET
[2023-05-07 23:00] LABS: Anion Gap 6 (5-15); BUN 59 mg/dL (7-18); BUN/Creat Ratio 19.7 RATIO (10-20); Chloride 103 mmol/L (98-107); EST Glomerular Filtration Rate 21 mL/min (>60); Est Glom Filt Rate - Afr Amer 26 mL/min (>60); Glucose 117 mg/dL (74-106); Potassium 5.8 mmol/L (3.5-5.1); Sodium Level 134 mmol/L (136-145)
[2023-05-07 23:03] LABS: Anisocytosis 1+; Macrocytosis 1+; Ovalocyte RARE; Platelet Estimate ADEQUATE (ADEQ); Red Cell Morphology N CHROM NORMAL (NORM C&C)
[2023-05-07 23:04] LABS: Hypochromasia RARE; Target Cells RARE
[2023-05-07 23:06] LABS: Base Excess -2 mmol/L (-2 to +2); Bicarbonate 27.9 mmol/L (22-26); Blood Gas Specimen Type ART; Mode Not entered; O2 Delivery Device HFNC; PO2 100 mmHG (75-100); SITE L Brach; SO2 94 % (95-99); Time Given 23:03:49; Total Carbon Dioxide 31 mmol/L; pCO2 87.2 mmHg (35-45); pH 7.11 (7.35-7.45)
--- NOTE | 2023-05-07 23:15 | NURSING ---
rapid response called by charge nurse patient non-responsive to sternal rub. pt put on 10L high flow and pulse ox 92%. unable to obtain blood pressure, manual blood pressure obtained 105/65. vitals stable at this time, see chart. weak pulses radial and pedal. trouble obtaining ABG, but successful after 2 attempts. pt became responsive and alert at this time. h&h ordered, bmp ordered due to new hematuria noted at this time 15ml in lcoo. resp applying bipap now, tolerating well.
[2023-05-08] VITALS (14 sets, daily range): BP systolic 92–102; BP diastolic 62–65; PULSE 55–111; RESP 14–24; TEMP 36.6–36.8; O2SAT 90–98
[2023-05-08 01:37] LABS: Base Excess 0 mmol/L (-2 to +2); Bicarbonate 29.1 mmol/L (22-26); Blood Gas Specimen Type ART; Mode Not entered; O2 Delivery Device HFNC; PO2 114 mmHG (75-100); SITE L Brach; SO2 96 % (95-99); Total Carbon Dioxide 32 mmol/L; pCO2 86.5 mmHg (35-45); pH 7.13 (7.35-7.45)
[2023-05-08] MEDS: Acetaminophen 500 MG Tablet 1000 MG PO (03:14)
[2023-05-08 03:37] LABS: Absolute Lymphocyte Count 0.55 X10^3/uL (0.83-4.51); Absolute Neutrophil Count 7.2 X10^3/uL (2.0-7.7); Basophil# 0.01 X10^3/uL; Basophil% 0.1 % (0-1); Eosinophil# 0.01 X10^3/uL; Eosinophils% 0.1 % (0-5); Hematocrit 34.5 % (40-54); Hemoglobin 9.1 g/dL (13.0-16.5); Lymphocyte # 0.55 X10^3/ul (0.83-4.51); Lymphocyte % 5.9 % (19-41); Mean Corp Hgb Conc 26.4 g/dL (32-36); Mean Corpuscular Volume 106.2 fL (80-94); Mean Platelet Vol. 10.7 fl (6.2-12.0); Monocyte# 1.49 X10^3/uL; Monocyte% 15.9 % (0-10); NRBC Flagged by Analyzer 0.4 % (0-5); Neutrophil # 7.23 X10^3/uL (2.7-7.7); Neutrophil % 77.3 % (47-70); POSITIVE DIFFERENTIAL YES; Platelet Count 241 K/mm3 (150-450); RBC Distribution Width CV 14.8 % (11.6-14.6); RBC Distribution Width SD 57.4 fl (35.1-43.9); Red Blood Count 3.25 M/mm3 (4.6-6.2); White Blood Count 9.4 K/mm3 (4.4-11.0)
[2023-05-08] MEDS: Sodium Bicarbonate 150 MEQ in Dextrose 5%-Water (1000mL Bag) 1,000 ML 100 MEQ IV (03:51)
[2023-05-08 04:10] LABS: Anion Gap 6 (5-15); BUN 60 mg/dL (7-18); BUN/Creat Ratio 19.2 RATIO (10-20); Calcium,Total 8.9 mg/dL (8.5-10.1); Chloride 103 mmol/L (98-107); Creatinine, Serum 3.12 mg/dL (0.70-1.30); EST Glomerular Filtration Rate 20 mL/min (>60); Est Glom Filt Rate - Afr Amer 25 mL/min (>60); Estimated Creatinine Clearance 19.71 ml/min; Glucose 88 mg/dL (74-106); Sodium Level 137 mmol/L (136-145)
[2023-05-08 04:24] LABS: Lactic Acid 1.4 mmol/L (0.4-1.9)
--- NOTE | 2023-05-08 05:29 | PN.HOSP_ITS ---
Hospitalist Note 'Rapid Response' was called overhead at for the first time shortly after shift 23:00 hours with patient noted to be encephalopathic and ABG revealing signs of severe respiratory acidosis. Patient was noted to be at DNR-CC with no intubation and only wanting conservative medical care which was confirmed by his family. His ABG revealed severe respiratory acidosis with a pH of 7.11 and PCO2 of 87.2 with patient then reluctant to wear BiPAP so then a 2nd 'Rapid Response' was called around 1:34 AM with patient then continued on BiPAP and a bicarbonate drip. TECHNOLOGY AND ENGINEERING TEACHER was updated with plan. UN DATE: 05/08/23 [facility], DEPARTMENT OF LABORATORIES PAGE 1 RUN TIME: 0648 Specimen Inquiry [address], [place], [place], [id number] PATIENT: LETY MARTINEZ LOC: [facility] U #: [id number] : 1935 AGE/SX: 88/M FACILITY: [facility] ROOM: [facility] RE05/05/[address]: Dr. Paula Nichols MD STATUS:ADM IN ED: 1 DIS: ~ SPEC #: [id number] JOSH: 05/07/23 STATUS: COMP REQ #: [id number] RECD: 05/07/[address]: Dr. Paula Nichols MD ENTERED: 05/07/[address]: MD Dr. Misbah Henley DO Dr. Nagapradee Nagajothi, MD ~ Test Result Flag Adult Reference Range IBG Blood Gas Type ART SITE L Brach Mode Not entered O2 Delivery Dev HFNC FI02 10.0 Time Given 23:03:[address] Marcial Read Back By Yes pH 7.11 *L 7.35-7.45 pCO2 87.2 *H 35-45 mmHg PO2 100 75-100 mmHG HCO3 27.9 H 22-26 mmol/L BE -2 -2 to +2 mmol/L TOTAL CO2 31 mmol/L SO2 94 L 95-99 % RUN DATE: 05/08/23 [facility], DEPARTMENT OF LABORATORIES PAGE 1 RUN TIME: 0646 Specimen Inquiry [address], [place], [address] PATIENT: LETY MARTINEZ LOC: [facility] U #: [id number] : 1935 AGE/SX: 88/M FACILITY: [facility] ROOM: [facility] RE05/05/[address]: Dr. Paula Nichols MD STATUS:ADM IN ED: 1 DIS: ~ SPEC #: [id number] JOSH: 05/08/23 STATUS: COMP REQ #: [id number] RECD: 05/08/[address]: Dr. Paula Nichols MD ENTERED: 05/08/[address]: MD Dr. Misbah Henley, DO Dr. Solomon Hurley MD ~ Test Result Flag Adult Reference Range IBG Blood Gas Type ART SITE L Brach Mode Not entered O2 Delivery Dev HFNC FI02 5.0 Time Given 01:34:[address] Marcial Read Back By Yes pH 7.13 *L 7.35-7.45 pCO2 86.5 *H 35-45 mmHg PO2 114 H 75-100 mmHG HCO3 29.1 H 22-26 mmol/L BE 0 -2 to +2 mmol/L TOTAL CO2 32 mmol/L SO2 96 95-99 %
--- NOTE | 2023-05-08 05:29 | PCM.HOSP.N ---
Hospitalist Note 'Rapid Response' was called overhead at for the first time shortly after shift 23:00 hours with patient noted to be encephalopathic and ABG revealing signs of severe respiratory acidosis. Patient was noted to be at DNR-CC with no intubation and only wanting conservative medical care which was confirmed by his family. His ABG revealed severe respiratory acidosis with a pH of 7.11 and PCO2 of 87.2 with patient then reluctant to wear BiPAP so then a 2nd 'Rapid Response' was called around 1:34 AM with patient then continued on BiPAP and a bicarbonate drip. FIRE PROTECTION INSPECTOR was updated with plan. UN DATE: 05/08/23 [facility], DEPARTMENT OF LABORATORIES PAGE 1 RUN TIME: 0648 Specimen Inquiry [address], [place], [place], [id number] PATIENT: LETY MARTINEZ LOC: [facility] U #: [id number] : 1935 AGE/SX: 88/M FACILITY: [facility] ROOM: [facility] RE05/05/[address]: Dr. Paula Nichols MD STATUS:ADM IN ED: 1 DIS: ~ SPEC #: [id number] JOSH: 05/07/23 STATUS: COMP REQ #: [id number] RECD: 05/07/[address]: Dr. Paula Nichols MD ENTERED: 05/07/[address]: MD Dr. Misbah Henley DO Dr. Nagapradee Nagajothi, MD ~ Test Result Flag Adult Reference Range IBG Blood Gas Type ART SITE L Brach Mode Not entered O2 Delivery Dev HFNC FI02 10.0 Time Given 23:03:[address] Marcial Read Back By Yes pH 7.11 *L 7.35-7.45 pCO2 87.2 *H 35-45 mmHg PO2 100 75-100 mmHG HCO3 27.9 H 22-26 mmol/L BE -2 -2 to +2 mmol/L TOTAL CO2 31 mmol/L SO2 94 L 95-99 % RUN DATE: 05/08/23 [facility], DEPARTMENT OF LABORATORIES PAGE 1 RUN TIME: 0646 Specimen Inquiry [address], [place], [address] PATIENT: LETY MARTINEZ LOC: [facility] U #: [id number] : 1935 AGE/SX: 88/M FACILITY: [facility] ROOM: [facility] RE05/05/[address]: Dr. Paula Nichols MD STATUS:ADM IN ED: 1 DIS: ~ SPEC #: [id number] JOSH: 05/08/23 STATUS: COMP REQ #: [id number] RECD: 05/08/[address]: Dr. Paula Nichols MD ENTERED: 05/08/[address]: MD Dr. Misbah Henley, DO Dr. Solomon Hurley MD ~ Test Result Flag Adult Reference Range IBG Blood Gas Type ART SITE L Brach Mode Not entered O2 Delivery Dev HFNC FI02 5.0 Time Given 01:34:[address] Marcial Read Back By Yes pH 7.13 *L 7.35-7.45 pCO2 86.5 *H 35-45 mmHg PO2 114 H 75-100 mmHG HCO3 29.1 H 22-26 mmol/L BE 0 -2 to +2 mmol/L TOTAL CO2 32 mmol/L SO2 96 95-99 %
[2023-05-08 06:01] LABS: Bedside Glucose 94 mg/dL (74-106)
[2023-05-08] MEDS: Insulin Lispro 10 UNIT in Syringe 0 ML 6 UNIT IV (06:07)
[2023-05-08] MEDS: Dextrose 50%-Water 25 GM/50 ML DISP.SYRIN IV (06:08)
[2023-05-08 06:13] LABS: Anion Gap 6 (5-15); BUN 59 mg/dL (7-18); BUN/Creat Ratio 18.6 RATIO (10-20); Calcium,Total 8.5 mg/dL (8.5-10.1); Chloride 103 mmol/L (98-107); Creatinine, Serum 3.17 mg/dL (0.70-1.30); EST Glomerular Filtration Rate 20 mL/min (>60); Est Glom Filt Rate - Afr Amer 24 mL/min (>60); Glucose 107 mg/dL (74-106); Potassium 5.8 mmol/L (3.5-5.1); Sodium Level 136 mmol/L (136-145)
[2023-05-08] MEDS: hydrOXYzine 50 MG/ML Vial 100 MG IM (07:11)
[2023-05-08] MEDS: Sucralfate 1 GM Tablet PO (07:16)
--- NOTE | 2023-05-08 11:01 | CASEMGMT ---
Addendum entered by Jacquie Garcia 05/08/23 12:35: Social Work [place] faxed over the POA for Healthcare for pt, stating Sridevi is POA, and daughters Disha and Kacey are the alternates. CLARITA Akins Original Note: Social Work SW spoke w/physician, there is a referral for hospice. SW called [facility], referral faxed. SW spoke w/family in room, let them know hospice will be calling them directly to set up an appt time. As per daughters, Kacey is actually POA, the document is at [place]. SW called Jen, updated her in regard to pt's medical status. She will fax the POA for Healthcare form to REGGIE. CLARITA Akins
[2023-05-08] MEDS: Pantoprazole Sodium 40 MG in 0.9% Normal Saline (100mL MB+) 100 ML 330 MG IV (11:13)
[2023-05-08] MEDS: LORazepam 2 MG/ML Syringe 1 MG IV (11:31)
[2023-05-08] MEDS: 0.9% Saline Lock 10 ML Syringe IV ×2 (11:32→17:12)
--- NOTE | 2023-05-08 15:26 | PCM.CONS.C ---
Assessment & Plan Assessment/Plan (1) Abnormal echocardiogram: PLAN: Explained to the family that there was no PE in the RV dilatation could be related to the hypoxia. Family understand. It appears that family is opting for hospice which is very reasonable in this patient. HPI Consult Data Date of Consult: 05/08/23 HPI Narrative Reason for Consultation: RV dilatation and pulmonary hypertension HPI Narrative: LETY MARTINEZ, is a 88 M on home oxygen who presented with shortness of breath. Cardiology consult was requested as he had RV dilatation and pulmonary hypertension. Patient was hypoxic upon presentation. He had a CT chest which was negative for PE. [facility] Medical History (Updated 05/08/23 @ 15:[address] Solomon Hurley MD) Aortic stenosis Atrial fibrillation BPH (benign prostatic hyperplasia) Chronic diastolic (congestive) heart failure Colon cancer Debility Depression Dizziness Gait instability Gout Heart murmur Hyperlipidemia Hypertension Hypokalemia Lumbar spondylosis with myelopathy Macrocytic anemia Non-rheumatic aortic stenosis Osteoporosis Paronychia of great toe of left foot Pure hypercholesterolemia Wound of foot Home Medications carvedilol 25 mg tablet 25 mg PO BID Blood pressure 06/26/16 [History Last Taken 05/05/23] tamsulosin 0.4 mg capsule 0.4 mg PO DAILY Prostate 06/26/16 [History Last Taken 05/05/23] sertraline 100 mg tablet (Zoloft) 100 mg PO QHS Anxiety 10/14/17 [History Last Taken 05/04/23] apixaban 5 mg tablet (Eliquis) 5 mg PO BID blood thinner 30 days #60 tabs 08/20/22 [Rx Last Taken 05/05/23] empagliflozin 10 mg tablet (Jardiance) 10 mg PO DAILY@0800 diabetes 30 days #30 tabs 08/20/22 [Rx Last Taken 05/05/23] acetaminophen 500 mg tablet 1,000 mg PO Q8 PRN pain 11/26/22 [History Last Taken 05/05/23] atorvastatin 10 mg tablet 10 mg PO QHS hld 11/26/22 [History Last Taken 05/04/23] losartan 25 mg tablet 25 mg PO DAILY blood pressure #30 tabs 11/26/22 [Rx Last Taken 05/05/23] melatonin 3 mg tablet 3 mg PO HS PRN sleep 11/26/22 [History Last Taken Unknown] furosemide 40 mg tablet 40 mg PO DAILY Blood pressure #120 tabs 12/14/22 [Rx Last Taken 05/05/23] Handicap Placard #1 ea 05/04/23 [Rx Last Taken Unknown] albuterol sulfate 90 mcg/actuation aerosol inhaler (ProAir HFA) 2 inh inhalation Q4H PRN shortness of breath or wheezing 05/05/23 [History Last Taken Unknown] dextromethorphan polistirex 30 mg/5 mL oral susp ext.release 12hr (12-Hour Cough Relief) 10 ml PO Q12H PRN cough 05/05/23 [History Last Taken Unknown] furosemide 20 mg tablet 20 mg PO LUNCH fluid retention 05/05/23 [History Last Taken 05/05/23] loperamide 2 mg capsule 2 mg PO Q6H PRN loose stool 05/05/23 [History Last Taken Unknown] magnesium hydroxide 400 mg/5 mL oral suspension (Milk of Magnesia) 30 ml PO DAILY PRN constipation 05/05/23 [History Last Taken Unknown] mirtazapine 15 mg tablet 15 mg PO QHS depression 05/05/23 [History Last Taken 05/04/23] ondansetron 4 mg disintegrating tablet 4 mg translingual Q4H PRN nausea and vomiting 05/05/23 [History Last Taken Unknown] polyethylene glycol 3350 17 gram/dose oral powder (ClearLax) 17 g PO DAILY PRN constipation 05/05/23 [History Last Taken Unknown] potassium chloride 10 mEq capsule,extended release 20 meq PO DAILY supplement 05/05/23 [History Last Taken 05/05/23] Allergy/AdvReac Type Severity Reaction Status Date / Time No Known Allergies Allergy Verified 05/05/23 18:13 Family History Father , Age 49 Cancer liver Surgical History History of colectomy History of open reduction and internal fixation (ORIF) procedure Social History household members: spouse and other details: Primary caregiver for with moderate Alzheimer Disease. Smoking Status: Former smoker how long ago did patient quit smoking: Quit smoking a pipe 21 years ago alcohol intake: current alcohol intake frequency: 0-2 drinks per day substance use type: does not use caffeine: Yes Type: coffee Number of servings: 2 Physical Exam Const Constitutional Narrative: Awake, not following commands HEENT normocephalic Risk Stratification Risk Stratification Applicable: No Charges/Coding Visit Charges Inpatient E&M: 35115 Init Hosp L1 Objective Data Vital Signs: Vital Signs Temp Pulse Resp BP Pulse Ox O2 Del Method O2 Flow Rate 98.2 F 111 H 24 H 95/62 96 Bi-pap 2.5 05/08/23 13:54 05/08/23 13:58 05/08/23 13:58 05/08/23 13:54 05/08/23 13:58 05/08/23 13:54 05/08/23 03:24 FiO2 50 05/08/23 09:00 Oxygen Flow Rate (L/min) 2.5 Oxygen Delivery Method Bi-pap Weight: 210 lb 8.663 oz Body Mass Index (BMI) 30.2 Intake & Output: Intake and Output for Last 24 Hours 05/06/23 05/07/23 05/08/23 23:59 23:59 23:59 Intake Total 320 / 320 598.5 / 598.5 1220 / 1220 Output Total 550 / 550 200 / 220 20 / 20 Balance -230 / -230 398.5 / 378.5 1200 / 1200 Lab / Micro Data 05/08/23 03:27 05/08/23 05:50 Labs: Laboratory Results - last 24 hr 05/07/23 14:50: Urine Creatinine 194.00, Urine Urea Nitrogen 168 05/07/23 22:22: POC Glucose 124 H 05/07/23 22:38: WBC 10.8, RBC 3.59 L, Hgb 10.0 L, Hct 38.5 L, MCV 107.2 H, MCH 27.9, MCHC 26.0 L, RDW Std Deviation 59.9 H, RDW Coeff of Katlin 14.9 H, Plt Count 241, MPV 11.0, Immature Gran % (Auto) 0.700, Neut % (Auto) 70.5 H, Lymph % (Auto) 9.3 L, [place] % (Auto) 19.2 H, Eos % (Auto) 0.2, Baso % (Auto) 0.1, Absolute Neuts (auto) 7.6, Absolute Lymphs (auto) 1.00, Nucleated RBC % 0.6, Differential Comment SEE COMMENT, Platelet Estimate ADEQUATE, RBC Morphology N CHROM, Hypochromasia RARE, Anisocytosis 1+, Macrocytosis 1+, Target Cells RARE, Ovalocytes RARE, Sodium 134 L, Potassium 5.8 H, Chloride 103, Carbon Dioxide 25.0, Anion Gap 6, BUN 59 H, Creatinine 3.00 H, Estim Creat Clear Calc 20.50, Est GFR (MDRD) Af Amer 26 L, Est GFR (MDRD) Non-Af 21 L, BUN/Creatinine Ratio 19.7, Glucose 117 H, Calcium 9.0 05/08/23 03:27: WBC 9.4, RBC 3.25 L, Hgb 9.1 L, Hct 34.5 L, MCV 106.2 H, MCH 28.0, MCHC 26.4 L, RDW Std Deviation 57.4 H, RDW Coeff of [place] 14.8 H, Plt Count 241, MPV 10.7, Immature Gran % (Auto) 0.700, Neut % (Auto) 77.3 H, Lymph % (Auto) 5.9 L, [place] % (Auto) 15.9 H, Eos % (Auto) 0.1, Baso % (Auto) 0.1, Absolute Neuts (auto) 7.2, Absolute Lymphs (auto) 0.55 L, Nucleated RBC % 0.4, Sodium 137, Potassium 6.0 H*, Chloride 103, Carbon Dioxide 28.0, Anion Gap 6, BUN 60 H, Creatinine 3.12 H, Estim Creat Clear Calc 19.71, Est GFR (MDRD) Af Amer 25 L, Est GFR (MDRD) Non-Af 20 L, BUN/Creatinine Ratio 19.2, Glucose 88, Lactic Acid 1.4, Calcium 8.9 05/08/23 04:26: POC Glucose 94 05/08/23 05:50: Sodium 136, Potassium 5.8 H, Chloride 103, Carbon Dioxide 27.0, Anion Gap 6, BUN 59 H, Creatinine 3.17 H, Estim Creat Clear Calc 19.40, Est GFR (MDRD) Af Amer 24 L, Est GFR (MDRD) Non-Af 20 L, BUN/Creatinine Ratio 18.6, Glucose 107 H, Calcium 8.5 ABG Data ABG results: ABG 05/07/23 05/08/23 23:01 01:31 Specimen Type ART ART Sample Site L Brach L Brach pH 7.11 L* 7.13 L* Bicarbonate Actual 27.9 H 29.1 H Total CO2 31 32 Base Excess -2 0 O2 Saturation 94 L 96 O2 % 10.0 5.0 ABG pCO2 87.2 H* 86.5 H* ABG pO2 100 114 H O2 Delivery Device HFNC HFNC Vent Mode Not entered Not entered Crit Call To/Read Back Yes Yes Blood Gas Notified Whom Dr. Aniket Marcial Blood Gas Notified Time 23:03:49 01:34:12 Cardiology Labs/Tests 05/07/23 22:38: WBC 10.8, RBC 3.59 L, Hgb 10.0 L, Hct 38.5 L, MCV 107.2 H, MCH 27.9, MCHC 26.0 L, Plt Count 241, MPV 11.0, Immature Gran % (Auto) 0.700, Neut % (Auto) 70.5 H, Lymph % (Auto) 9.3 L, [place] % (Auto) 19.2 H, Eos % (Auto) 0.2, Baso % (Auto) 0.1, Absolute Neuts (auto) 7.6, Nucleated RBC % 0.6, Sodium 134 L, Potassium 5.8 H, Chloride 103, Carbon Dioxide 25.0, Anion Gap 6, BUN 59 H, Creatinine 3.00 H, Est GFR (MDRD) Af Amer 26 L, Est GFR (MDRD) Non-Af 21 L, BUN/Creatinine Ratio 19.7, Glucose 117 H, Calcium 9.0 05/07/23 23:01: pH 7.11 L*, Bicarbonate Actual 27.9 H, Base Excess -2, O2 Saturation 94 L, ABG pCO2 87.2 H*, ABG pO2 100 05/08/23 01:31: pH 7.13 L*, Bicarbonate Actual 29.1 H, Base Excess 0, O2 Saturation 96, ABG pCO2 86.5 H*, ABG pO2 114 H 05/08/23 03:27: WBC 9.4, RBC 3.25 L, Hgb 9.1 L, Hct 34.5 L, MCV 106.2 H, MCH 28.0, MCHC 26.4 L, Plt Count 241, MPV 10.7, Immature Gran % (Auto) 0.700, Neut % (Auto) 77.3 H, Lymph % (Auto) 5.9 L, [place] % (Auto) 15.9 H, Eos % (Auto) 0.1, Baso % (Auto) 0.1, Absolute Neuts (auto) 7.2, Nucleated RBC % 0.4, Sodium 137, Potassium 6.0 H*, Chloride 103, Carbon Dioxide 28.0, Anion Gap 6, BUN 60 H, Creatinine 3.12 H, Est GFR (MDRD) Af Amer 25 L, Est GFR (MDRD) Non-Af 20 L, BUN/Creatinine Ratio 19.2, Glucose 88, Lactic Acid 1.4, Calcium 8.9 05/08/23 05:50: Sodium 136, Potassium 5.8 H, Chloride 103, Carbon Dioxide 27.0, Anion Gap 6, BUN 59 H, Creatinine 3.17 H, Est GFR (MDRD) Af Amer 24 L, Est GFR (MDRD) Non-Af 20 L, BUN/Creatinine Ratio 18.6, Glucose 107 H, Calcium 8.5 Rhythm: EKG: ECHO: Stress Test: Cardiac Cath: PCI: CT Surgery: Holter monitor: EPS: PPM: CXR: Chest CT Scan:
--- NOTE | 2023-05-08 15:58 | CHAPLAIN ---
Type of Pastoral Visit ___ Initial Visit _x__ Follow-up Visit ___ On-call Visit ___ General Patient Visit ___ Spiritual Assessment ___ Family Conference ___ Bereavement ___ Rapid Response ___ Code Blue ___ Other (describe below) Pastoral Care Referral From ___ Patient _x__ Family _x__ Nurse ___ Physician ___ Quality Control Assistant ___ Supervisor [employer] ___ Other (describe below) Sacrament/Intervention _x__ Active listening ___ Anointing ___ Jew ___ Bereavement ___ Communion ___ Marie exploration ___ ___ Life review _x__ Prayer ___ Reconciliation ___ Sacrament of Sick _x__ Supportive presence ___ Wedding ___ Other (describe below) Pastoral Comments patient has had a decline in status and hospice is being consulted; pt is not responding, is on Bi-Pap machine, but with physical movements; daughters and a granddaughter are at bedside; offer of presence and support is welcomed and family members express their thoughts and feelings; prayer is welcomed at this time; offer of ongoing support made to family as desired
--- NOTE | 2023-05-08 16:05 | DS.PCM_ITS ---
Providers Date of Admission: 05/05/23 Date of Discharge: 05/08/23 Primary Care Physician: Dr. Alivia Stevenson MD Consultations 05/05/23 19:30 Consult: Gastroenterology Routine Consulting Provider: [facility] Reason for Consult: anemia EMERGENT Consult: No Notified: Yes Date Notified: 05/05/23 Time Notified: 19:10 Method of Notification: ED Physician Initiated 05/07/23 11:08 Consult: Cardiology Routine Consulting Provider: Solomon Hurley Reason for Consult: right sided heart failure EMERGENT Consult: No Notified: Yes Date Notified: 05/07/23 Time Notified: 11:09 Method of Notification: Text 05/08/23 07:32 Consult: Nephrology Routine Consulting Provider: Luiz Acosta Reason for Consult: LUCIEN EMERGENT Consult: No Notified: Yes Date Notified: 05/08/23 Time Notified: 07:32 Method of Notification: Answering Service 05/08/23 10:23 Consult: Hospice / Palliative Care Routine Consulting Provider: [facility] Reason for Consult: hospice EMERGENT Consult: No Notified: Yes Date Notified: 05/08/23 Time Notified: 10:23 Method of Notification: per casemanagement Reason For Visit: ACUTE ON CHRONIC DIASTOLIC CONGESTIVE HEART Diagnosis Discharge Diagnosis (1) Abnormal echocardiogram: Status: Acute Code(s): R93.1 - Abnormal findings on diagnostic imaging of heart and coronary circulation Plan #Hypoxia due to probable acute on chronic HFpEF * patient now on 2L of oxygen * he has also been noted to be bradycardic. * titrate oxygen to maintain sats ?90% * breathing treatment with bronchodilators * 2D echo done showed EF of 60% with indeterminate diastolic function. He had a severely dilated right ventricle with normal systolic function and moderately enlarged right atrium. Pulmonary systolic pressure is 55 to 60 mmHg. Mild aortic stenosis. * I do think it is reasonable to get a CT of the chest to rule out PE in light of his elevated pulmonary artery pressure and severely dilated right ventricle. His creatinine is 1.9 but EGFR is 35 and I discussed this with the staff and CT for comfortable doing it as his EGFR is low at less than 30 which is the cutoff. Patient is on Eliquis but apparently he has been taking it intermittently. It is therefore difficult to tell if he has been compliant fully with it. * jardiance held due to LUCIEN. * lasix also held due to LUCIEN * #bradycardia * Patient noted to be intermittently bradycardic. Heart rate going down to the 50s and 40s. He is currently asymptomatic. * 2D echo done as above. Check TSH. Hold any beta-blockers. * LUCIEN: * Creatinine is up to 2.4 today. * Patient was hypotensive overnight and he also did receive contrast with a CTA which we unfortunately had to do in order to rule out a PE in light of the elevated right-sided pressures. Will DC Lasix and hydrate with IV fluids. * Patient is on room air now but will monitor closely for evidence of fluid overload. * If creatinine worsens will consult nephrology. * Check Fe urea. * Lasix and Jardiance held. #Anemia: * Hemoglobin is 9.3. His baseline is around 11 and is concerned that he is dropped 2.3 g within the last month. * Will check iron panel. Eliquis held on admission due to concern about GI bleed. * On IV pantoprazole. * Stool for occult blood pending. Iron panel showed severe iron deficiency anemia. Gastroenterology consulted. Await recs. * * #BPH: On Flomax Hypertension: On Cozaar CODE STATUS: DNR CCA no intubation. Medications at Discharge Home Medications carvedilol 25 mg tablet 25 mg PO BID Blood pressure 06/26/16 tamsulosin 0.4 mg capsule 0.4 mg PO DAILY Prostate 06/26/16 sertraline 100 mg tablet (Zoloft) 100 mg PO QHS Anxiety 10/14/17 apixaban 5 mg tablet (Eliquis) 5 mg PO BID blood thinner 30 days #60 tabs 08/20/22 empagliflozin 10 mg tablet (Jardiance) 10 mg PO DAILY@0800 diabetes 30 days #30 tabs 08/20/22 acetaminophen 500 mg tablet 1,000 mg PO Q8 PRN pain 11/26/22 atorvastatin 10 mg tablet 10 mg PO QHS hld 11/26/22 losartan 25 mg tablet 25 mg PO DAILY blood pressure #30 tabs 11/26/22 melatonin 3 mg tablet 3 mg PO HS PRN sleep 11/26/22 furosemide 40 mg tablet 40 mg PO DAILY Blood pressure #120 tabs 12/14/22 Handicap Placard #1 ea 05/04/23 albuterol sulfate 90 mcg/actuation aerosol inhaler (ProAir HFA) 2 inh inhalation Q4H PRN shortness of breath or wheezing 05/05/23 dextromethorphan polistirex 30 mg/5 mL oral susp ext.release 12hr (12-Hour Cough Relief) 10 ml PO Q12H PRN cough 05/05/23 furosemide 20 mg tablet 20 mg PO LUNCH fluid retention 05/05/23 loperamide 2 mg capsule 2 mg PO Q6H PRN loose stool 05/05/23 magnesium hydroxide 400 mg/5 mL oral suspension (Milk of Magnesia) 30 ml PO DAILY PRN constipation 05/05/23 mirtazapine 15 mg tablet 15 mg PO QHS depression 05/05/23 ondansetron 4 mg disintegrating tablet 4 mg translingual Q4H PRN nausea and vomiting 05/05/23 polyethylene glycol 3350 17 gram/dose oral powder (ClearLax) 17 g PO DAILY PRN constipation 05/05/23 potassium chloride 10 mEq capsule,extended release 20 meq PO DAILY supplement 05/05/23 Hospital Course Operations None Procedures 2-D Echocardiogram and EGD Summary of Care Provided Minutes Spent on Discharge: 75 Hospital Course: Patient is an 88-year-old male with a past medical history as outlined who was admitted from his assisted living facility on 06/03/2023 with a complaint of wors ening shortness of breath for several days prior to admission. His labs done showed a drop in his hemoglobin as well compared to a month prior to admission. He used 2 L of oxygen and said his shortness of breath had been getting worse. His hemoglobin now is 9.2 with a baseline of 11.5. Chemistry was significant for creatinine of 1.72. BNP was 772. Chest x-ray showed no evidence of heart failure, and showed scattered areas of atelectasis. He was admitted and managed for acute on chronic HF and diuresed with IV lasix. He was also managed for anemia and started on IV PPI. Gastroenterology was consulted. Patient had 2D echo which shows significantly elevated right-sided pressures with pulmonary artery systolic pressure of 55 to 60 mmHg. This was previously normal. In light of his findings of shortness of breath with chest x-ray showing no overt findings of heart failure as well as elevated BNP, the concern was for PE. Patient was post to be on Eliquis but said because of his anemia he had not been getting his Eliquis dose frequently. It was therefore not clear if patient was adequately anticoagulated. Hospitalist therefore thought it prudent to do a CTA to rule out a PE. His creatinine was 1.9 but his EGFR was 35 and this was discussed with CT team and radiology. Patient had a CT which was negative for any evidence of PE. Hospital course was complicated by hypotension as well as worsening kidney function. Patient's urine output is significantly decreased. He did have EGD on 05/07/2023 which showed bleeding gastric ulcer which was cauterized. Hospital course was again complicated by rapid response as patient was very short of breath. This was in the early hours of 05/08/2023. ABGs done showed markedly elevated CO2 with respiratory acidosis. He was therefore placed on BiPAP. Patient became debilitated and weak and kidney function further worsened with assisted hyperkalemia. Family came in and CODE STATUS was discussed with them. History daughters were his POA's requested for hospice evaluation. Hospice evaluated patient and family after an extensive discussion decided to switch CODE STATUS to DNR CC. Patient was accepted to hospice on 05/08/2023 and discharged to hospice. Patient was seen and examined. Family was by his bedside. He was very lethargic and weak. Unable to do review of systems. Physical Exam Const Constitutional Narrative: very weak, frail, lethargic, restless Orientation / Consciousness: awake HEENT normocephalic, head/scalp atraumatic, hearing grossly normal bilaterally, moist oral mucous membranes and oropharynx normal Eyes PERRL, EOMs intact bilaterally and conjunctivae normal Neck no lymphadenopathy, supple, no JVD, thyroid normal and no carotid bruits General: trachea midline Lymph Lymphatic: no lymphadenopathy noted and no lymphedema noted Resp Resp Narrative: diminished breath sounds bibasally, on BIPAP. Tachypneic Cardio regular rhythm, S1 normal heart sound, S2 normal heart sound, no murmurs, no rub and no gallops Cardio Narrative: tachycardia GI normal to inspection, nondistended, normoactive bowel sounds, soft to palpation, non-tender and non-distended Extremity normal capillary refill and no clubbing, cyanosis or edema Extremity Narrative: lower extremity edema has improved. General Extremity: no tenderness to palpation of joints or extremities Skin no rashes or lesions noted General Skin Exam: no breakdown and turgor normal Neuro Neuro Narrative: very weak, frail, lethargic. Moves all extremities spontaneously. Weight / BMI Weight Weight: 210 lb 8.663 oz Body Mass Index (BMI) 30.2 ABG / Lab / Microbiology Data 05/08/23 03:27 05/08/23 05:50 Laboratory: Laboratory Results - last 24 hr 05/07/23 22:22: POC Glucose 124 H 05/07/23 22:38: WBC 10.8, RBC 3.59 L, Hgb 10.0 L, Hct 38.5 L, MCV 107.2 H, MCH 27.9, MCHC 26.0 L, RDW Std Deviation 59.9 H, RDW Coeff of Katlin 14.9 H, Plt Count 241, MPV 11.0, Immature Gran % (Auto) 0.700, Neut % (Auto) 70.5 H, Lymph % (Auto) 9.3 L, [place] % (Auto) 19.2 H, Eos % (Auto) 0.2, Baso % (Auto) 0.1, Absolute Neuts (auto) 7.6, Absolute Lymphs (auto) 1.00, Nucleated RBC % 0.6, Differential Comment SEE COMMENT, Platelet Estimate ADEQUATE, RBC Morphology N CHROM, Hypochromasia RARE, Anisocytosis 1+, Macrocytosis 1+, Target Cells RARE, Ovalocytes RARE, Sodium 134 L, Potassium 5.8 H, Chloride 103, Carbon Dioxide 25.0, Anion Gap 6, BUN 59 H, Creatinine 3.00 H, Estim Creat Clear Calc 20.50, Est GFR (MDRD) Af Amer 26 L, Est GFR (MDRD) Non-Af 21 L, BUN/Creatinine Ratio 19.7, Glucose 117 H, Calcium 9.0 05/08/23 03:27: WBC 9.4, RBC 3.25 L, Hgb 9.1 L, Hct 34.5 L, MCV 106.2 H, MCH 28.0, MCHC 26.4 L, RDW Std Deviation 57.4 H, RDW Coeff of [place] 14.8 H, Plt Count 241, MPV 10.7, Immature Gran % (Auto) 0.700, Neut % (Auto) 77.3 H, Lymph % (Auto) 5.9 L, [place] % (Auto) 15.9 H, Eos % (Auto) 0.1, Baso % (Auto) 0.1, Absolute Neuts (auto) 7.2, Absolute Lymphs (auto) 0.55 L, Nucleated RBC % 0.4, Sodium 137, Potassium 6.0 H*, Chloride 103, Carbon Dioxide 28.0, Anion Gap 6, BUN 60 H, Creatinine 3.12 H, Estim Creat Clear Calc 19.71, Est GFR (MDRD) Af Amer 25 L, Est GFR (MDRD) Non-Af 20 L, BUN/Creatinine Ratio 19.2, Glucose 88, Lactic Acid 1.4, Calcium 8.9 05/08/23 04:26: POC Glucose 94 05/08/23 05:50: Sodium 136, Potassium 5.8 H, Chloride 103, Carbon Dioxide 27.0, Anion Gap 6, BUN 59 H, Creatinine 3.17 H, Estim Creat Clear Calc 19.40, Est GFR (MDRD) Af Amer 24 L, Est GFR (MDRD) Non-Af 20 L, BUN/Creatinine Ratio 18.6, Glucose 107 H, Calcium 8.5 Microbiology: Microbiology 05/05/23 16:50 Mucosa - Nose SARS-CoV-2, Influenza & RSV (PCR) - Final 05/05/23 17:05 Stool Stool Occult Blood (DAIANA) - Final Occult Blood Positive ABG: ABG 05/07/23 05/08/23 23:01 01:31 Specimen Type ART ART Sample Site L Brach L Brach pH 7.11 L* 7.13 L* Bicarbonate Actual 27.9 H 29.1 H Total CO2 31 32 Base Excess -2 0 O2 Saturation 94 L 96 O2 % 10.0 5.0 ABG pCO2 87.2 H* 86.5 H* ABG pO2 100 114 H O2 Delivery Device HFNC HFNC Vent Mode Not entered Not entered Crit Call To/Read Back Yes Yes Blood Gas Notified Whom Dr. Aniket Marcial Blood Gas Notified Time 23:03:49 01:34:12 Meaningful Use Info Meaningful Use Diagnoses (Choose all that apply): None applicable Discharge Plan Admission Admit Date/Time: 05/05/23 19:03 Primary Reason for Your Visit: acute hypoxic respiratory failure, LUCIEN Attending Provider: Paula Nichols Primary Care Provider: Alivia Stevenson Consulting Providers: Misbah Mesa; Solomon Hurley; Luiz Acosta; Henry Root; Ruth Malloy; Desi Pepper; Mariana Rivera STOCK PREPARATION SUPERVISOR Discharge Orders/Prescriptions Prescriptions: No Action sertraline [Zoloft] 100 mg tablet 100 mg PO QHS acetaminophen 500 mg tablet 1,000 mg PO Q8 PRN (Reason: pain) melatonin 3 mg tablet 3 mg PO HS PRN (Reason: sleep) atorvastatin 10 mg tablet 10 mg PO QHS losartan 25 mg tablet 25 mg PO DAILY Qty: 30 4RF carvedilol 25 MG tablet 25 mg PO BID tamsulosin 0.4 MG capsule 0.4 mg PO DAILY Eliquis 5 mg Tablet 5 mg PO BID 30 Days Qty: 60 0RF Jardiance 10 mg Tablet 10 mg PO DAILY@0800 30 Days Qty: 30 0RF furosemide 40 mg tablet 40 mg PO DAILY Qty: 120 0RF Rx Instructions: start 12/15/22 mirtazapine 15 mg tablet 15 mg PO QHS ondansetron 4 mg tablet,disintegrating 4 mg translingual Q4H PRN (Reason: nausea and vomiting) loperamide 2 mg capsule 2 mg PO Q6H PRN (Reason: loose stool) dextromethorphan polistirex [12-Hour Cough Relief] 30 mg/5 mL suspension,extended rel 12 hr 10 ml PO Q12H PRN (Reason: cough) magnesium hydroxide [Milk of Magnesia] 400 mg/5 mL suspension 30 ml PO DAILY PRN (Reason: constipation) polyethylene glycol 3350 [ClearLax] 17 gram/dose powder 17 g PO DAILY PRN (Reason: constipation) albuterol sulfate [ProAir HFA] 90 mcg/actuation HFA aerosol inhaler 2 inh inhalation Q4H PRN (Reason: shortness of breath or wheezing) potassium chloride 10 mEq capsule, extended release 20 meq PO DAILY furosemide 20 mg tablet 20 mg PO LUNCH (DME) Handicap Placard See Rx Instructions .ROUTE .MEDSUPPLY Qty: 1 0RF Rx Instructions: As directed, length of time 3 years Referrals / Follow Up: Alivia Stevenson MD [Primary Care Provider] - Disposition Disposition (needs filled in before D/C Order can be placed): Hospice in Medical Facility Charges/Coding Visit Charges Inpatient E&M: 10603 Disch Hosp >30min
--- NOTE | 2023-05-08 16:48 | CON.PCM.RE_ITS ---
Assessment & Plan Assessment/Plan (1) LUCIEN (acute kidney injury): PLAN: likely ATN. ongoing events include CHF. dw family. urine output is low. they would like to go hospice. will sign off HPI Consult Data Date of Consult: 05/08/23 HPI Narrative HPI Narrative: LETY MARTINEZ, is a 88 M who presents to hospital from assisted living facility with dyspnea. renal consulted in view of LUCIEN. 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 most history is from charts and family at bedside. currently [facility]. [facility] Medical History (Updated 05/08/23 @ 16:[address] Luiz Acosta MD) LUCIEN (acute kidney injury) Aortic stenosis Atrial fibrillation BPH (benign prostatic hyperplasia) Chronic diastolic (congestive) heart failure Colon cancer Debility Depression Dizziness Gait instability Gout Heart murmur Hyperlipidemia Hypertension Hypokalemia Lumbar spondylosis with myelopathy Macrocytic anemia Non-rheumatic aortic stenosis Osteoporosis Paronychia of great toe of left foot Pure hypercholesterolemia Wound of foot Home Medications carvedilol 25 mg tablet 25 mg PO BID Blood pressure 06/26/16 [History Last Taken 05/05/23] tamsulosin 0.4 mg capsule 0.4 mg PO DAILY Prostate 06/26/16 [History Last Taken 05/05/23] sertraline 100 mg tablet (Zoloft) 100 mg PO QHS Anxiety 10/14/17 [History Last Taken 05/04/23] apixaban 5 mg tablet (Eliquis) 5 mg PO BID blood thinner 30 days #60 tabs 08/20/22 [Rx Last Taken 05/05/23] empagliflozin 10 mg tablet (Jardiance) 10 mg PO DAILY@0800 diabetes 30 days #30 tabs 08/20/22 [Rx Last Taken 05/05/23] acetaminophen 500 mg tablet 1,000 mg PO Q8 PRN pain 11/26/22 [History Last Taken 05/05/23] atorvastatin 10 mg tablet 10 mg PO QHS hld 11/26/22 [History Last Taken 05/04/23] losartan 25 mg tablet 25 mg PO DAILY blood pressure #30 tabs 11/26/22 [Rx Last Taken 05/05/23] melatonin 3 mg tablet 3 mg PO HS PRN sleep 11/26/22 [History Last Taken Unknown] furosemide 40 mg tablet 40 mg PO DAILY Blood pressure #120 tabs 12/14/22 [Rx Last Taken 05/05/23] Handicap Placard #1 ea 05/04/23 [Rx Last Taken Unknown] albuterol sulfate 90 mcg/actuation aerosol inhaler (ProAir HFA) 2 inh inhalation Q4H PRN shortness of breath or wheezing 05/05/23 [History Last Taken Unknown] dextromethorphan polistirex 30 mg/5 mL oral susp ext.release 12hr (12-Hour Cough Relief) 10 ml PO Q12H PRN cough 05/05/23 [History Last Taken Unknown] furosemide 20 mg tablet 20 mg PO LUNCH fluid retention 05/05/23 [History Last Taken 05/05/23] loperamide 2 mg capsule 2 mg PO Q6H PRN loose stool 05/05/23 [History Last Taken Unknown] magnesium hydroxide 400 mg/5 mL oral suspension (Milk of Magnesia) 30 ml PO DAILY PRN constipation 05/05/23 [History Last Taken Unknown] mirtazapine 15 mg tablet 15 mg PO QHS depression 05/05/23 [History Last Taken 05/04/23] ondansetron 4 mg disintegrating tablet 4 mg translingual Q4H PRN nausea and vomiting 05/05/23 [History Last Taken Unknown] polyethylene glycol 3350 17 gram/dose oral powder (ClearLax) 17 g PO DAILY PRN constipation 05/05/23 [History Last Taken Unknown] potassium chloride 10 mEq capsule,extended release 20 meq PO DAILY supplement 05/05/23 [History Last Taken 05/05/23] Allergy/AdvReac Type Severity Reaction Status Date / Time No Known Allergies Allergy Verified 05/05/23 18:13 Family History Father , Age 49 Cancer liver Surgical History History of colectomy History of open reduction and internal fixation (ORIF) procedure Social History household members: spouse and other details: Primary caregiver for with moderate Alzheimer Disease. Smoking Status: Former smoker how long ago did patient quit smoking: Quit smoking a pipe 21 years ago alcohol intake: current alcohol intake frequency: 0-2 drinks per day substance use type: does not use caffeine: Yes Type: coffee Number of servings: 2 ROS ROS Narrative unable to be obtained Physical Exam Narrative no obvious distress no pallor no icterus no JVD s1s2 no murmurs lungs clear abdomen soft no organomegaly no edema no cyanosis loco + Lab / Micro Data 05/08/23 03:27 05/08/23 05:50 Labs: Laboratory Results - last 24 hr 05/07/23 22:22: POC Glucose 124 H 05/07/23 22:38: WBC 10.8, RBC 3.59 L, Hgb 10.0 L, Hct 38.5 L, MCV 107.2 H, MCH 27.9, MCHC 26.0 L, RDW Std Deviation 59.9 H, RDW Coeff of [place] 14.9 H, Plt Count 241, MPV 11.0, Immature Gran % (Auto) 0.700, Neut % (Auto) 70.5 H, Lymph % (Auto) 9.3 L, [place] % (Auto) 19.2 H, Eos % (Auto) 0.2, Baso % (Auto) 0.1, Absolute Neuts (auto) 7.6, Absolute Lymphs (auto) 1.00, Nucleated RBC % 0.6, Differential Comment SEE COMMENT, Platelet Estimate ADEQUATE, RBC Morphology N CHROM, Hypochromasia RARE, Anisocytosis 1+, Macrocytosis 1+, Target Cells RARE, Ovalocytes RARE, Sodium 134 L, Potassium 5.8 H, Chloride 103, Carbon Dioxide 25.0, Anion Gap 6, BUN 59 H, Creatinine 3.00 H, Estim Creat Clear Calc 20.50, Est GFR (MDRD) Af Amer 26 L, Est GFR (MDRD) Non-Af 21 L, BUN/Creatinine Ratio 19.7, Glucose 117 H, Calcium 9.0 05/08/23 03:27: WBC 9.4, RBC 3.25 L, Hgb 9.1 L, Hct 34.5 L, MCV 106.2 H, MCH 28.0, MCHC 26.4 L, RDW Std Deviation 57.4 H, RDW Coeff of [place] 14.8 H, Plt Count 241, MPV 10.7, Immature Gran % (Auto) 0.700, Neut % (Auto) 77.3 H, Lymph % (Auto) 5.9 L, [place] % (Auto) 15.9 H, Eos % (Auto) 0.1, Baso % (Auto) 0.1, Absolute Neuts (auto) 7.2, Absolute Lymphs (auto) 0.55 L, Nucleated RBC % 0.4, Sodium 137, Potassium 6.0 H*, Chloride 103, Carbon Dioxide 28.0, Anion Gap 6, BUN 60 H, Creatinine 3.12 H, Estim Creat Clear Calc 19.71, Est GFR (MDRD) Af Amer 25 L, Est GFR (MDRD) Non-Af 20 L, BUN/Creatinine Ratio 19.2, Glucose 88, Lactic Acid 1.4, Calcium 8.9 05/08/23 04:26: POC Glucose 94 05/08/23 05:50: Sodium 136, Potassium 5.8 H, Chloride 103, Carbon Dioxide 27.0, Anion Gap 6, BUN 59 H, Creatinine 3.17 H, Estim Creat Clear Calc 19.40, Est GFR (MDRD) Af Amer 24 L, Est GFR (MDRD) Non-Af 20 L, BUN/Creatinine Ratio 18.6, Glucose 107 H, Calcium 8.5 ABG Data ABG results: ABG 05/07/23 05/08/23 23:01 01:31 Specimen Type ART ART Sample Site L Brach L Brach pH 7.11 L* 7.13 L* Bicarbonate Actual 27.9 H 29.1 H Total CO2 31 32 Base Excess -2 0 O2 Saturation 94 L 96 O2 % 10.0 5.0 ABG pCO2 87.2 H* 86.5 H* ABG pO2 100 114 H O2 Delivery Device HFNC HFNC Vent Mode Not entered Not entered Crit Call To/Read Back Yes Yes Blood Gas Notified Whom Dr. Aniket Marcial Blood Gas Notified Time 23:03:49 01:34:12
[2023-05-08] MEDS: Morphine 2 MG/ML Syringe 1 MG IV (17:13)
--- NOTE | 2023-05-08 17:35 | NURSING ---
Report called to nurse Jackman for pt to be d/c to inpatient hospice facility.
== END 2023-05-08 17:29 | disposition hospice, inpatient (51) | DRG 291 ==
LOC: ED 18:37 → PCU 18:48
PROVIDERS: Anesthesiology; Internal Medicine; Internal Medicine Gastroenterology; Admitting Provider Internal Medicine; Emergency Provider Emergency Medicine; PCP Internal Medicine; Visit Provider Student in an Organized Health Care Education/Training Program
PROC: 0DJ08ZZ Inspection of Upper Intestinal Tract, Via Natural or Artificial Opening Endoscopic (ICD-10-PCS; CPT 43235; principal; 2023-05-07 11:25)
DX: I13.0 Hypertensive heart and chronic kidney disease with heart failure and stage 1 through stage 4 chronic kidney disease, or unspecified chronic kidney disease (principal); K25.4 Chronic or unspecified gastric ulcer with hemorrhage; I50.33 Acute on chronic diastolic (congestive) heart failure; N17.9 Acute kidney failure, unspecified; E87.29 Other acidosis; I27.20 Pulmonary hypertension, unspecified; K26.9 Duodenal ulcer, unspecified as acute or chronic, without hemorrhage or perforation; I95.9 Hypotension, unspecified; Z79.01 Long term (current) use of anticoagulants; J44.9 Chronic obstructive pulmonary disease, unspecified; N18.31 Chronic kidney disease, stage 3a; I48.0 Paroxysmal atrial fibrillation; I35.0 Nonrheumatic aortic (valve) stenosis; D50.9 Iron deficiency anemia, unspecified; E78.00 Pure hypercholesterolemia, unspecified; I25.10 Atherosclerotic heart disease of native coronary artery without angina pectoris; R00.1 Bradycardia, unspecified; M62.562 Muscle wasting and atrophy, not elsewhere classified, left lower leg; M62.561 Muscle wasting and atrophy, not elsewhere classified, right lower leg; Z66 Do not resuscitate; R09.02 Hypoxemia; N40.0 Benign prostatic hyperplasia without lower urinary tract symptoms; Z79.899 Other long term (current) drug therapy; Z87.891 Personal history of nicotine dependence; Z90.49 Acquired absence of other specified parts of digestive tract
CPT/HCPCS: 36415; 36600; 71045; 71275; 80048; 80053; 82274; 82570; 82728; 82803; 82962; 83540; 83550; 83605; 83880; 84443; 84540; 85025; 85610; 85730; 87631; 88305; 93005; 93306; 94002; 94003; 94762; 97162; 99285; J7030; J7120; P9047; Q9967; A4216; J1940; J2405

== ENCOUNTER → 2023-05-05 | Outpatient (REF) | payer MEDICARE, SELFPAY ==
[2023-05-05 13:56] LABS: Absolute Neutrophil Count 3.5 X10^3/uL (2.0-7.7); Basophil# 0.01 X10^3/uL; Basophil% 0.2 % (0-1); Eosinophil# 0.02 X10^3/uL; Eosinophils% 0.4 % (0-5); Hematocrit 33.8 % (40-54); Hemoglobin 9.2 g/dL (13.0-16.5); Lymphocyte % 20.6 % (19-41); Mean Corp Hgb Conc 27.2 g/dL (32-36); Mean Corpuscular Hgb 27.9 pg (27.0-32.0); Mean Corpuscular Volume 102.4 fL (80-94); Mean Platelet Vol. 10.7 fl (6.2-12.0); Monocyte# 0.75 X10^3/uL; NRBC Flagged by Analyzer 0 % (0-5); Neutrophil # 3.45 X10^3/uL (2.7-7.7); Neutrophil % 64.4 % (47-70); Platelet Count 223 K/mm3 (150-450); RBC Distribution Width CV 15.7 % (11.6-14.6); RBC Distribution Width SD 58.1 fl (35.1-43.9); White Blood Count 5.4 K/mm3 (4.4-11.0)
[2023-05-05 14:08] LABS: ALB/GLOB Ratio 0.9 RATIO (0.9-2.4); AST(SGOT) 18 U/L (15-37); Alanine Aminotransfer ALT/SGPT 16 U/L (16-61); Alkaline Phosphatase 119 U/L (45-117); Anion Gap 5 (5-15); BUN 50 mg/dL (7-18); BUN/Creat Ratio 29.1 RATIO (10-20); Calcium,Total 9.3 mg/dL (8.5-10.1); Chloride 104 mmol/L (98-107); Creatinine, Serum 1.72 mg/dL (0.70-1.30); EST Glomerular Filtration Rate 40 mL/min (>60); Est Glom Filt Rate - Afr Amer 49 mL/min (>60); Globulin 3.3 g/dL (2.2-4.2); Glucose 86 mg/dL (74-106); Potassium 4.9 mmol/L (3.5-5.1); Protein, Total 6.3 g/dL (6.4-8.2); Sodium Level 139 mmol/L (136-145)
[2023-05-05 14:22] LABS: BNP,B-Type NATRIURETIC PEPTIDE 772.2 pg/mL (0-100)
--- OUTSIDE RECORDS SUMMARY | 2023-05-05 22:42 | XMS RPT_ITS | CCD ---
Author Name Unknown Address [address] [place] [address] Organization [facility] Care Team Providers Care Fundraising Sale Representative Name Role Phone Roof CONVERTER SUPERVISOR, Russell Garcia Unavailable MD Jorge, Jose Francisco Fontenot Unavailable DeFinis, Harumi Y Unavailable Unavailable DeFinis, Harumi Y Unavailable Unavailable NICOLE LOPESAMMED Unavailable Unavaila LICO Shah Unavailable Unavailable GOUCHER, NORMA G Unavailable Unavailable Roof CONVERTER SUPERVISOR, Russell Garcia Unavailable Lico Lazaro Primary Care Provider Lico Lazaro MD Primary Care Provider Lico Lazaro MD Primary Care Provider ROLAND DELGADO Admitting Unavailable ANA JAMISON Attending Unavailable LICO LAZARO Primary Care Unavailable Allergies Allergy Classification Reported Allergen(s) Allergy Type Date of Onset Reaction(s) Facility (10 sources) amLODIPine drug allergy 02-21-2015 LE [facility] Work Phone: (18 sources) NKDA; Translations: [NKDA] allergy to substance 01-15-2015 [facility] Work Phone: Medications Current Medications Medication Drug [...] (4 sources) Long-term drug therapy; Translations: [Other skilled nursing (current) drug therapy] Onset: 07-24-2015 07-24-2015 Past or Other Problems Problem Classification Problem Date Documented Da te Episodic/Chronic Heart valve disorders (10 sources) Heart murmur; Translations: [Cardiac murmur, unspecified] Onset: 12-10-2012 12-10-2012 Episodic Other aftercare (6 sources) Other local company intermodal truck driver (current) drug therapy; Translations: [Other local company intermodal truck driver (current) drug therapy] Onset: 07-24-2015 07-24-2015 Episodic Results Test Name Value Interpretation Reference Range Facil ity Vital Signs Date Time Vital Sign Value Performing Clinician Sabino oakley 10-31-2016 10:40-0400 BP Diastolic 78 mm[Hg] [facility] Work Phone: 10-31-2016 10:40-0400 BP Systolic 130 mm[Hg] [facility] Work Phone: 10-31-2016 10:40-0400 Pulse (Heart Rate) 68 /min Russell Judy CONVERTER SUPERVISOR [facility] Work Phone: 10-31-2016 10:40-0400 Respiratory Rate 20 /min Russell Kim CONVERTER SUPERVISOR [facility] Work Phone: 10-31-2016 10:40-0400 Weight 90.9 kg Russell Kim CONVERTER SUPERVISOR [facility] Work Phone: 10-16-2016 13:27-0400 BMI (Body Mass Index) 30.71 kg/m2 Jose Francisco Patel MD [facility] Work Phone: 10-16-2016 13:27-0400 BP Diastolic 82 mm[Hg] Jose Francisco Patel MD [facility] Work Phone: 10-16-2016 13:27-0400 BP Systolic 162 mm[Hg] Jose Francisco Patel MD [facility] Work Phone: 10-16-2016 13:27-0400 Height 172.72 cm Jose Francisco Patel MD [facility] Work Phone: 10-16-2016 13:27-0400 Pulse [...] 08:47-0500 BP Diastolic 84 mm[Hg] Harumi DeFinis [facility] Work Phone: 04-04-2016 08:47-0500 BP Diastolic 80 mm[Hg] Harumi DeFinis [facility] Work Phone: 04-04-2016 08:47-0500 BP Systolic 148 mm[Hg] Harumi DeFinis [facility] Work Phone: 04-04-2016 08:47-0500 BP Systolic 170 mm[Hg] Divya [employer] [facility] Work Phone: 04-04-2016 08:47-0500 BSA (Body Surface Area) 2.04 m2 Divya [employer] [facility] Work Phone: 04-04-2016 08:47-0500 Pulse (Heart Rate) 80 /min Harumi DeFinis [facility] Work Phone: 04-04-2016 08:47-0500 Respiratory Rate 20 /min Haraudie [employer] [facility] Work Phone: 04-04-2016 08:47-0500 Weight 90.27 kg Divya [employer] [facility] Work Phone: 09-28-2015 14:00-0400 Height 172.72 cm [facility]ya [facility] Work Phone: 09-28-2015 14:00-0400 Pulse Oximetry 97 % Haraudie [facility] Work Phone: Encounters Encounter Date Encounter Type Care Provider Facility Start: 11-14-2022 Telephone encounter M Haleigh Vásquez RN [facility] Procedures Date [...] 10-31-2016 End: 10-31-2016 *CHRISTY Wells H Judy CONVERTER SUPERVISOR Work Phone: Start: 10-31-2016 End: 10-31-2016 *BMP Russell Garcia Judy CONVERTER SUPERVISOR Work Phone: Start: 10-16-2016 End: 10-16-2016 SARA Patel MD Work Phone: Start: 10-16-2016 End: 10-16-2016 Follow Up Appt 6 months Jose Francisco Patel MD Work Phone: Start: 10-16-2016 End: 10-16-2016 Follow Up BP Check Jose Francisco Patel MD Work Phone: Start: 10-16-2016 End: 10-16-2016 Dietary management education, guidance, and counseling Russell Judy CONVERTER SUPERVISOR Start: 10-16-2016 End: 10-16-2016 SARA Patel MD [...] Phone: Start: 04-04-2016 End: 04-04-2016 SARA Logan BUSINESS ANALYST CONSULTANT-C Start: 04-04-2016 End: 04-04-2016 Follow Up Appt 6 months Misbah Logan BUSINESS ANALYST CONSULTANT -C Start: 04-04-2016 End: 04-04-2016 SARA Logan BUSINESS ANALYST CONSULTANT-C Start: 04-04-2016 End: 04-04-2016 Follow Up Appt 6 months Misbah Logan BUSINESS ANALYST CONSULTANT -C Start: 11-15-2015 End: 11-15-2015 *BMP Adrianne [...] Author Start: 11-03-2025 DIABETES SCREEN DIABETES SCREEN [facility] Start: 11-07-2022 Influenza vaccination INFLUENZA (#1) [facility] Start: 04-22-2022 COVID-19 VACCINE (7 - Moderna series) COVID-19 VACCINE (7 - Moderna series) [facility] Start: 03-09-2022 ADVANCE DIRECTIVE DISCUSSION ADVANCE DIRECTIVE DISCUSSION [facility] Start: 01-18-2021 Creatinine measurement Creatinine monitoring [facility] Start: 01-18-2021 Potassium monitoring Potassium monitoring [facility] Start: 11-07-2020 Influenza vaccination Flu vaccine (#1) [facility] Start: 03-14-2020 DTaP/Tdap/Td vaccine (2 - Tdap) DTaP/Tdap/Td vaccine (2 - Tdap) [facility] Start: 11-08-2019 Influenza vaccination Flu vaccine (#1) [place] Start: 07-20-2019 Creatinine measurement Creatinine monitoring [facility], [place] Start: 07-20-2019 Potassium monitoring Potassium monitoring [place] Start: 07-15-2017 End: 01-16-2017 *Hepatic Function Panel *Hepatic Function Panel [facility] Work Phone: Start: 07-15-2017 End: 01-16-2017 Lipid panel [AGGREGATE] *Lipid Profile CC PCP [facility] Work Phone: Start: 06-15-2017 End: 06-15-2017 Appointment Appointment [facility] Work Phone: Start: 11-28-2016 End: 01-15-2017 *Hepatic Function Panel *Hepatic Function Panel [facility] Work Phone: Start: 11-28-2016 End: 01-15-2017 Lipid panel [AGGREGATE] *Lipid Profile CC PCP [facility] Work Phone: Start: 11-28-2016 End: 05-28-2016 *Hepatic Function Panel *Hepatic Function Panel [facility] Work Phone: Start: 11-28-2016 End: 05-28-2016 Lipid panel [AGGREGATE] *Lipid Profile CC PCP [facility] Work Phone: Start: 10-31-2016 End: 10-31-2016 *BMP *BMP [facility] Work Phone: Start: 10-31-2016 End: 10-31-2016 Appointment Appointment [facility] Work Phone: Start: 10-31-2016 End: 10-31-2016 *BMP *BMP [facility] Work Phone: Start: 10-16-2016 End: 10-16-2016 Appointment Appointment [facility] Work Phone: Start: 10-16-2016 End: [...] 6 months Follow Up Appt 6 months [facility] Work Phone: Start: 10-16-2016 [...] 6 months Follow Up Appt 6 months [facility] Work Phone: Start: 04-04-2016 End: 04-04-2016 SARA RUIZ [facility] Work Phone: Start: 04-04-2016 End: 04-04-2016 Follow Up Appt 6 months Follow Up Appt 6 months [facility] Work Phone: Start: 11-15-2015 End: 11-15-2015 *BMP *BMP [facility] Work Phone: Start: 11-15-2015 End: 11-15-2015 *BMP *BMP [facility] Work Phone: Start: 10-03-2015 End: 10-05-2015 *Hepatic Function Panel *Hepatic Function Panel [facility] Work Phone: Start: 10-03-2015 End: 10-05-2015 Lipid panel [AGGREGATE] *Lipid Profile CC PCP [facility] Work Phone: Start: 10-03-2015 End: 10-05-2015 *Hepatic Function Panel *Hepatic Function Panel [facility] Work Phone: Start: 10-03-2015 End: 10-05-2015 Lipid panel [AGGREGATE] *Lipid Profile CC PCP [facility] Work Phone: Start: 09-28-2015 End: 09-28-2015 SARA LUGON [facility] Work Phone: Start: 09-28-2015 End: 09-28-2015 Follow Up Appt 6 months Follow Up Appt 6 months [facility] Work Phone: Start: 09-28-2015 End: 09-28-2015 DJN DJN [facility] Work Phone: Start: 09-28-2015 End: 09-28-2015 Follow Up Appt 6 months Follow Up Appt 6 months [facility] Work Phone: Start: 09-12-2015 End: 09-12-2015 Follow Up BP Check Follow Up BP Check [facility] Work Phone: Start: 09-12-2015 End: 09-12-2015 Follow Up BP Check Follow Up BP Check [facility] Work Phone: Start: 09-05-2015 End: 09-05-2015 Follow Up BP Check Follow Up BP Check [facility] Work Phone: Start: 09-05-2015 End: 09-05-2015 Follow Up BP Check Follow Up BP Check [facility] Work Phone: Start: 07-30-2015 End: 07-30-2015 DJNora LUGON [facility] Work Phone: Start: 07-30-2015 End: 07-30-2015 Echocardiography Echocardiogram (complete) [facility] Work Phone: Start: 07-30-2015 End: 07-30-2015 Follow Up Appt 2 months Follow Up Appt 2 months [facility] Work Phone: Start: 07-30-2015 End: 07-30-2015 Follow Up BP Check Follow Up BP Check [facility] Work Phone: Start: 07-30-2015 End: 07-30-2015 SARA RUIZ [facility] Work Phone: Start: 07-30-2015 End: 07-30-2015 Echocardiography Echocardiogram (complete) [facility] Work Phone: Start: 07-30-2015 End: [...] Up BP Check Follow Up BP Check [facility] Work Phone: Start: 02-05-2015 End: 02-12-2015 *BMP *BMP [facility] Work Phone: Start: 02-05-2015 End: 02-12-2015 *BMP *BMP [facility] Work Phone: Start: 01-15-2015 End: 01-15-2015 SARA RUIZ [facility] Work Phone: Start: 01-15-2015 End: 01-15-2015 Follow Up Appt 6 months Follow Up Appt 6 months [facility] Work Phone: Start: 01-15-2015 End: 01-15-2015 Follow Up BP Check Follow Up BP Check [facility] Work Phone: Start: 01-15-2015 End: 01-15-2015 SARA LUGON [facility] Work Phone: Start: 01-15-2015 End: 01-15-2015 Follow Up Appt 6 months Follow Up Appt 6 months [facility] Work Phone: Start: 01-15-2015 End: 01-15-2015 Follow Up BP Check Follow Up BP Check [facility] Work Phone: Start: 12-26-2013 End: 12-26-2013 *BMP *BMP [facility] Work Phone: Start: 12-26-2013 End: 12-26-2013 DJN DJN [facility] Work Phone: Start: 12-26-2013 End: 12-26-2013 Follow Up Appt 1 year Follow Up Appt 1 year [facility] Work Phone: Start: 12-26-2013 End: 12-26-2013 Follow Up BP Check Follow Up BP Check [facility] Work Phone: Start: 12-26-2013 End: 12-26-2013 Urine, microalbumin *Urine, Microalbumin [facility] Work Phone: Start: 12-26-2013 End: 12-26-2013 *BMP *BMP [facility] Work Phone: Start: 12-26-2013 End: 12-26-2013 DJN DJN [facility] Work Phone: Start: 12-26-2013 End: 12-26-2013 Follow Up Appt 1 year Follow Up Appt 1 year [facility] Work Phone: Start: 12-26-2013 End: 12-26-2013 Follow Up BP Check Follow Up BP Check [facility] Work Phone: Start: 12-26-2013 End: [...] Phone: Start: 12-13-2012 End: 12-19-2013 SARA RUIZ [facility] Work Phone: Start: 12-13-2012 End: 09-01-2013 Echocardiography Echocardiogram (complete) [facility] Work Phone: Start: 12-13-2012 End: 12-13-2012 Follow Up Appt 1 year Follow Up Appt 1 year [facility] Work Phone: Start: 2002 PNEUMOCOCCAL: 65+ (1 - PCV) PNEUMOCOCCAL: 65+ (1 - PCV) [facility] Start: 1987 Shingles Vaccine (1 of 2) Shingles Vaccine (1 of 2) [facility] Start: 1987 SHINGRIX VACCINE (1 of 2) SHINGRIX VACCINE (1 of 2) [facility] Start: 1956 Urine microalbumin profile DTAP,TDAP,TD (1 - Tdap) [facility] Start: 1949 Depression Screen Depression Screen [facility] Start: 1942 COVID-19 Vaccine (1) COVID-19 Vaccine (1) [facility] Patient Education [facility] Work Phone: Immunizations Immunization Date Immunization Notes Care Provider Fa cilinavjot 03-14-2010 diphtheria, tetanus toxoids and acellular pertussis vaccine Lico Lazaro [place] 05-23-2009 pneumococcal polysac charide vaccine, 23 valent Lico Lazaro [facility] 04-11-2005 pneumococcal polysac charide vaccine, 23 valent Lico Lazaro [place] Payers Date Payer Category Payer Medicare HU[employer]NA MEDICARE HU[employer]NA MEDICARE PPO [id number] 2021-Present [phone] [address] [address] [place] [address] PPO [id number] 2021 Medicare [id number] Social History Date Type Detail Facility Start: 04-12-2018 Tobacco smoking stat [facility] Never smoker [facility]ANNIE Start: 12-29-2016 End: 04-12-2018 Tobacco use and exposure Never used [facility] Start: 04-12-2018 Alcohol intake Current non-dr speech language specialist of alcohol (finding) [place], [place] Start: 1935 Sex Assigned At Not on file M [place] Start: 12-29-2016 Tobacco smoking stat [facility] Ex-smoker [facility] History of tobacco use Current smoker [facility] History of tobacco use Pipe Smoker [facility] Start: 03-22-2017 Alcohol intake Current drinke r of alcohol (finding) [facility] Start: 02-04-2020 End: 11-02-2022 History of Social function [facility] Work Phone: Start: 02-04-2020 End: 11-02-2022 Tobacco use panel [facility] Work Phone: How hard is it for y ou to pay for the very basics like food, housing, medical care, and heating Not hard at all [facility] Work Phone: (I/We) worried roxann er (my/our) food would run out before (I/we) got money to buy more. Never true [facility] Work Phone: In the past 12 month s, was there a time when you were not able to pay the mortgage or rent on time? No [facility] Work Phone: Start: 12-29-2016 Alcohol Comment couple drinks weekly [facility] Clinical Notes 11-02-2022 to 11-14-2022 Telephone Encounter - Abe Vásquez RN - 11/14/2022 12:09 PM EDTTelephone Encounter - Sheri Ojeda RN - 11/06/2022 9:24 AM EDT Note Date & Type Note Facility 11-14-2022 Miscellaneous Notes Formattin g of this note might be different from the original. The patient was discharged from [facility] on 11/05/22 with an order to follow up with the [facility]. However, at the time of discharge the patient was transferred to a skilled facility. A letter was sent to the patient to contact the [facility] upon discharge from the skilled facility. documented in this encounter [facility] 11-06-2022 Miscellaneous Notes Formattin g of this note might be different from the original. Patient was discharged from [facility] on 11/05/22 with an order to schedule with the [facility]. However, the patient was then immediately admitted to a alf facility. A letter will be mailed to the patient asking them to contact the Clinic upon discharge from the facility. documented in this encounter [facility] 11-04-2022 Note HNO ID: [id number] Author: Desiree Menjivar RN Service: Care Management Author Type: Registered Nurse Type: Care Mgt Progress Note Filed: 11/04/2022 4:28 PM Note Text: CARE MANAGEMENT DISCHARGE NOTE SERVICE DATE: November 04, 2022 SERVICE TIME: 4:27 PM Admission Date: 11/01/2022 LOS: 0 days Discharge Arrangement Discharge Arrangement: [facility] Facility Was an expedited discharge program used?: No Services Arranged Medical Services: Other: See Comment (SNF) Provider Name: [facility] Caregiver Assessment Caregiver is ready, willing and able to meet the patient's needs as recommended by the inter-professional team: Yes Name of Caregiver: SNF Transportation Arrangements Transportation Arrangements: Ambulance Transportation Agency and Phone #:: [facility] ( [facility] ) [phone] / [phone] Date of Trip: 11/04/22 Time of Trip: 1999 Type of Service: BLS Non-emergency Is Patient Medicaid Pending?: No Was transportation financial coverage discussed with family?: Patient;Family Saddle Maker Location: [facility] Destination: [facility] Financial Care Management Responsibility: None Handoff Communication: Handoff to: Primary Care Physician Primary Care Physician Name/Phone: Dr. Lazaro [phone] Discharge Information Row Name ED to Hosp-Admission (Current) from 11/01/[address] [facility] Facility Agency [facility] Additional Information: Patient discharged to [facility]. Cot transport provided through [facility] at 2000. Patient, family, RN, and Facility aware of transport time. RN to call report to [phone]. SIGNATURE: Desiree Menjivar RN PATIENT NAME: Angel Thompson DATE: November 04, 2022 TIME: 4:27 PM CONTACT #: [phone] [facility] 11-04-2022 Note HNO ID: [id number] Author: Ana Jamison DO Service: Hospital Medicine [...] -- 11/01/22 1630 vte current anticoag therapy (tx,oh) 11/01/22 1630 activity - mobilize patient (tx,wa) VTE Prophylaxis: SIGNATURE: Ana Jamison DO PATIENT NAME: Angel Thompson DATE: November 04, 2022 TIME: PAGER: [facility] 11-04-2022 Note HNO ID: [id number] Author: Piedad Wang Service: Care Management Author Type: ? Type: Care Mgt Progress Note Filed: 11/04/2022 1:31 PM Note Text: [facility] PRECERT NOTE [employer] MEDICARE PPO approved [facility] for [facility] . Precert approved through 11/06. SIGNATURE: Piedad Wang DATE: November 04, 2022 TIME: 1:31 PM [facility] 11-03-2022 Note HNO ID: [id number] Author: Ana Jamison DO Service: Hospital Medicine [...] November 03, 2022 TIME: 5:34 PM PAGER: [facility] 11-03-2022 Note HNO ID: [id number] Author: Desiree Menjivar RN Service: Care Management [...] precert, a PASRR, and cot transport at [place]. Will to continue to follow for transitional care planning. SIGNATURE: Desiree Menjivar RN PATIENT NAME: Angel Thompson DATE: November 03, 2022 TIME: 1:03 PM PAGER/CONTACT #: [phone] [facility] 11-03-2022 Note HNO ID: [id number] Author: Jessica Rutledge RPh Service: Pharmacy Author Type: Pharmacist Type: Plan of Care Filed: 11/03/2022 11:44 AM Note Text: PHARMACY MEDICATION REVIEW Patient Name: Angel Thompson : 1935 The following medications were updated within the CFD ENGINEER medication list: Medications ADDED to CFD ENGINEER medication list Eliquis 5 mg BID Bupropion XL 150 mg daily Jardiance 10 mg daily Sertraline 100 mg daily Spironolactone 25 mg - 12.5 mg once daily Medications CHANGED on CFD ENGINEER medication list Furosemide 40 mg daily to twice daily Medications REMOVED from CFD ENGINEER medication list Prevident Prednisone Tramadol Viagra Terazosin Clonidine Hydrochlorothiazide The below information represents the best possible medication history: Yes Medication history completed by: Pharmacist: Jessica Rutledge RPh Source of history: Pharmacy records: [facility] and RN spoke with patient Medication nonadherence identified: Patient Preference Reconciliation completed: Yes Completed by: Jessica Rutledge Rph All CFD ENGINEER medications addressed by LIP - will recommend restart of losartan Patient interested in Bedside Delivery Services or using OP Pharmacy at discharge? No Preferred outpatient pharmacy: e- [facility] (Now [facility]) [place] [address] - [address] [phone] e- [id number] - [place] [address] - [address] [facility] [phone] Allergies: No Known Allergies Prior to [...] Facility-Administered Medications: None Jessica [facility]boston [facility] 11/03/2022 [facility] 11-02-2022 Note HNO ID: [id number] Author: Reema Clarke MD Service: Hospital Medicine [...] and/or minor grammatical errors may exist. SIGNATURE: eRema Clarke MD PATIENT NAME: Angel Thompson DATE: 11/02/2022 TIME: 10:49 AM [facility] 11-02-2022 Note HNO ID: [id number] Author: Yuval Stokes LSW Service: Care Management Author Type: Nut Culler Type: Care Mgt Initial Assessment Filed: [...] requested by: Attending Provider Potential Transition Plans [facility] Facility/Intermediate Care Facility Advance Directives Current Advance Directive: None [employer] Attempted to Assist with AD Completion: Yes [...] Goal(s): General wellness, Better mobility, Increase strength [place] of Choice Explained: L[place] of Choice Given: Yes Level of Care Discussed: [facility] Facility Are you interested in bedside delivery [...] Admission:patient has walker Support: Kacey Heredia (Daughter) [phone] Pharmacy: [facility] PCP: Lico Lazaro MD The patient reports family has been working with [employer] to get the patient plus his spouse. [...] 02, 2022 TIME: 12:28 PM CONTACT #: [phone] [facility] 11-02-2022 Note HNO ID: [id number] Author: Merlyn Fraire, RN Service: Nursing Author Type: Registered Nurse Type: Nursing Progress Note Filed: 11/01/2022 10:43 PM Note Text: Patient requesting additional sleep medication. Paged Sound at [phone] with this request. [facility] Summary Purpose Family History No Family [...] DATE CREATED AUTHOR AUTHOR'S ORGANIZ ATION 06/20/2021 [facility] DATE CREATED AUTHOR AUTHOR'S ORGANIZ ATION 12/14/2022 [facility] Care Teams (unrecognized sec tion and content) Fundraising Sale Representative Relationship Specialty Start Date End Date Lico Lazaro MD PCP - General Family Medicine 12/08/16 Fundraising Sale Representative Relationship Specialty Start Date End Date Lico Lazaro MD PCP - General Family Medicine 12/08/16 Fundraising Sale Representative Relationship Specialty Start Date End Date Lico Lazaro MD PCP - General Family Medicine 12/08/16 Source Comments (unrecognize d section and content) In the event this informatio n is protected by the Federal Confidentiality of Alcohol and Drug Abuse Patient Records regulations: The Federal rules restrict any use of the information to criminally investigate or prosecute any alcohol or drug abuse patient.[facility] the event this information is protected by the Federal Confidentiality of Alcohol and Drug Abuse Patient Records regulations: The Federal rules restrict any use of the information to criminally investigate or prosecute any alcohol or drug abuse patient.[facility] the event this information is protected by the Federal Confidentiality of Alcohol and Drug Abuse Patient Records regulations: The Federal rules restrict any use of the information to criminally investigate or prosecute any alcohol or drug abuse patient.[facility] Reason for Visit (unrecogniz ed section and [...] BE BASED ON THE PRIMARY CLINICAL RECORDS. [facility]. provides no warranty or guarantee of the accuracy or completeness of information in this document.
== END ==
LOC: OLS.WHLTSB 13:00
PROVIDERS: PCP Internal Medicine; Visit Provider Internal Medicine
DX: R53.83 Other fatigue (principal); I48.0 Paroxysmal atrial fibrillation; M62.562 Muscle wasting and atrophy, not elsewhere classified, left lower leg; M62.561 Muscle wasting and atrophy, not elsewhere classified, right lower leg; I50.9 Heart failure, unspecified
CPT/HCPCS: 80053; 83880; 85025